=== PATIENT | female | born 1950 | race Caucasian/White ===

== ENCOUNTER 2024-07-16 06:17 | Inpatient (IN) | payer OTHER ==
[2024-07-16] VITALS (9 sets, daily range): BP systolic 146–152; BP diastolic 68–73; PULSE 105–124; RESP 16–25; TEMP 97.5–98.3; O2SAT 90–98
[~2024-07-16] VITALS: Ht 162.6 cm; Wt 94.0 kg
[~2024-07-16 06:17] MED LIST: BACL10TA PO; CEFD300C2 PO; DULO-141 PO; HYDR-4798 PO; METO-289 PO; PHEN-922 PO; PRAV20TA3 PO; TRAM50TA2 PO
--- NOTE | 2024-07-16 06:31 | ECG ---
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
--- NOTE | 2024-07-16 06:36 | ED.PDOC ---
History of Present Illness HPI Comments 73Y F with PMHx HTN, seizure disorder, psoriatic arthritis, lupus, appendectomy, and hysterectomy presents to ED via EMS for chief complaint abd pain with dysuria, urinary frequency, and poor appetite. Pt states she has had a UTI for one month and is currently on her second round of abx. Pt was first prescribed Cephalexin and is now taking Cipro. Pt symptoms have not improved. Pt denies hematuria and foul urine odor. Allergies include Phenobarbital. Chief Complaint: Abdominal Pain Time Seen by MD: 06:21 Reviewed Notes: Medications, Allergies Allergies: Coded Allergies: Phenobarbital (Verified Allergy, Unknown, 09/20/23) Home Meds Active Scripts Phenazopyridine HCl (Phenazopyridine Hydrochlo) 200 Mg Tab, 200 MG PO TID for 3 Days, #9 TAB Prov:SABINO [employer] [employer] GAUGER 09/22/23 Cefdinir (Cefdinir) 300 Mg Cap, 1 CAP PO BID for 7 Days, #14 CAP Prov:SABINO [employer] GAUGER 09/22/23 Reported Medications Tramadol Hcl (Tramadol Hcl) 50 Mg Tab, 50 MG PO, TAB 09/20/23 Hydrocodone-Acetaminophen (Hydrocodone Bitartrate/AC 10-325 mg) 1 Tab Tab, 1 TAB PO, TAB 09/20/23 Duloxetine Hydrochloride (Duloxetine Hydrochloride) 30 Mg Cap, 1 CAP PO BID 09/20/23 Metoprolol Succinate (Metoprolol Succinate Er) 50 Mg Tab, 1 TAB PO DAILY 09/20/23 Pravastatin Sodium (PRAVACHOL TABLET) 20 Mg Tb, 1 TAB PO DAILY 09/20/23 Baclofen (Baclofen) 10 Mg Tab, 1 TAB PO BID 09/20/23 Information Source: Patient Mode of Arrival: EMS Severity: Mild Timing: Weeks Duration: Since onset Past Medical History PAST MEDICAL HISTORY: Arthritis, HTN, Seizures Past Medical History (Other): Lupus Surgical History: Appendectomy, Hysterectomy PARTS ROOM ASSISTANT History: Denies all PARTS ROOM ASSISTANT Hx Family History Family History: Unknown Social History Smoker: Non-Smoker Alcohol: Denies ETOH Use Drugs: Denies Drug Use Lives In: Home Constitutional: denies: chills, diaphoresis, fatigue, fever, malaise, sweats, weakness, others EENTM: denies: blurred vision, double vision, ear bleeding, ear discharge, ear drainage, ear pain, ear ringing, eye pain, eye redness, hearing loss, mouth pain, mouth swelling, nasal discharge, nose bleeding, nose congestion, nose pain, photophobia, tearing, throat pain, throat swelling, voice changes, others Respiratory: denies: cough, hemoptysis, orthopnea, SOB at rest, shortness of breath, SOB with excertion, stridor, wheezing, others Cardiovascular: denies: chest pain, dizzy spells, diaphoresis, Dyspnea on exertion, edema, irregular heart beat, left arm pain, lightheadedness, palpitations, PND, syncope, others Gastrointestinal: reports: abdominal pain, poor appetite; denies: abdomen distended, blood streaked bowels, constipated, diarrhea, dysphagia, difficulty swallowing, hematemesis, melena, nausea, poor fluid intake, rectal bleeding, rectal pain, vomiting, others Genitourinary: reports: burning, dysuria, frequency; denies: abnormal vagina bleeding, dyspareunia, flank pain, hematuria, incontinence, pain, , vagina discharge, urgency, others Neurological: denies: dizziness, fainting, headache, left sided numbness, left sided weakness, numbness, paresthesia, pre-existing deficit, right sided numbness, right sided weakness, seizure, speech problems, tingling, tremors, weakness, others Musculoskeletal: denies: back pain, gout, joint pain, joint swelling, muscle pain, muscle stiffness, neck pain, others Integumetry: denies: bruises, change in color, change in hair/nails, dryness, laceration, lesions, lumps, rash, wounds, others Allergic/Immunocompromised: denies: Difficulty Healing, Frequent Infections, Hives, Itching, others Hematologic/Lymphatic: denies: anemia, blood clots, easy bleeding, easy bruising, swollen glands, others Endocrine: denies: excessive hunger, excessive sweating, excessive thirst, excessive urination, flushing, intolerance to cold, intolerance to heat, unexplained weight gain, unexplained weight loss, others Psychiatric: denies: anxiety, bipolar disorder, depression, hopeless, panic disorder, schizophrenia, sleepless, suicidal, others All Other Systems: Reviewed and Negative Physical Exam General Appearance: No Apparent Distress, Normal HEENT: Normal ENT Inspection, Pharynx Normal, TMs Normal Neck: Full Range of Motion, Non-Tender, Normal, Normal Inspection Respiratory: Chest Non-Tender, Lungs Clear, No Accessory Muscle Use, No Respiratory Distress, Normal Breath Sounds Cardiovascular: No Edema, No JVD, No Murmur, No Gallop, Normal Peripheral Pulses, Regular Rate/Rhythm Breast Exam: Deferred Gastrointestinal: No Organomegaly, Non Tender, No Pulsatile Mass, Normal Bowel Sounds, RLQ, Soft Genitalia: Deferred Pelvic: Deferred Rectal: Deferred Extremities: No calf tenderness, Normal capillary refill, Normal inspection, Normal range of motion, Non-tender, No pedal edema Musculoskeletal : Apperance: Normal Neurologic: Alert, bracer II-XII nml as Tested, No Motor Deficits, Normal Affect, Normal Mood, No Sensory Deficits Cerebellar Function: Normal Reflexes: Normal Skin: Dry, Normal Color, Warm Lymphatic: No Adenopathy Was a procedure done? Was a procedure done?: No Differential Dx Considerations may include: kidney stone, bladder outlet obstruction, uti, colitis, renal mass, pyelonephritis, sbo X-Ray, Labs, Meds, VS Vital Signs Date Time Temp Pulse Resp B/P (MAP) Pulse Ox O2 Delivery O2 Flow Rate FiO2 07/16/24 09:00 118 20 172/74 (106) 07/16/24 07:30 124 20 169/84 (112) 96 07/16/24 07:30 124 20 96 Nasal Cannula* 2 28 07/16/24 06:30 124 25 90 Room Air* 0 21 07/16/24 06:30 98.3 124 25 175/85 (115) 90 98.3 07/16/24 06:27 123 07/16/24 06:27 98.6 122 20 123/72 (89) 94 Lab Test 07/16/24 07:30 07/16/24 06:57 Range/Units Urine Color Light-brown Yellow Urine Clarity Turbid H Clear Urine pH 7.0 5.0-9.0 Urine Specific [place] 1.011 1.001-1.035 Urine Protein 2+ H Negative Urine Ketones Negative Negative Urine Blood 3+ H Negative /uL Urine Nitrite Negative Negative Urine Bilirubin Negative Negative Urine Urobilinogen Normal Negative mg/dL Urine Leukocyte Esterase Trace Negative /uL Urine RBC 438 0 - 4 /hpf Urine WBC 19 0 - 5 /hpf Urine Squamous Epithelial Cells None seen <5 /hpf Urine Bacteria None seen None Seen /hpf Urine Mucus Few None Seen Urine Glucose Normal Normal mg/dL White Blood Count 12.4 H 4.4-10.8 10^3/uL Red Blood Count 4.04 4.0-5.20 10^6/uL Hemoglobin 12.1 L 12.2-16.2 g/dL Hematocrit 37.0 36.0-46.0 % Mean Corpuscular Volume 91.5 80.0-100.0 fL Mean Corpuscular Hemoglobin 29.8 28.0-32.0 pg Mean Corpuscular Hemoglobin Concent 32.6 32.0-36.0 g/dL Red Cell Distribution Width 13.7 11.8-14.3 % Platelet Count 372 140-450 10^3/uL Mean Platelet Volume 6.8 L 6.9-10.8 fL Neutrophils (%) (Auto) 79.6 37.0-80.0 % Lymphocytes (%) (Auto) 12.5 10.0-50.0 % Monocytes (%) (Auto) 6.4 0.0-12.0 % Eosinophils (%) (Auto) 0.6 0.0-7.0 % Basophils (%) (Auto) 0.9 0.0-2.0 % Neutrophils # (Auto) 9.9 H 1.6-8.6 10 ^3/uL Lymphocytes # (Auto) 1.5 0.4-5.4 10 ^3/uL Monocytes # (Auto) 0.8 0-1.3 10 ^3/uL Eosinophils # (Auto) 0.1 0-0.8 10 ^3/uL Basophils # (Auto) 0.1 0-0.2 10 ^3/uL Nucleated Red Blood Cells 0.0 % Sodium Level 141 136-145 mmol/L Potassium Level 4.7 3.5-5.1 mmol/L Chloride Level 109 H 98-107 mmol/L Carbon Dioxide Level 26 20-31 mmol/L Anion Gap 6 5-15 Blood Urea Nitrogen 17 9-23 mg/dL Creatinine 2.00 H 0.550-1.02 mg/dL Glomerular Filtration Rate Calc 26 >90 mL/min BUN/Creatinine Ratio 8.5 L 10.0-20.0 Serum Glucose 117 H 74-106 mg/dL Calcium Level 8.7 8.7-10.4 mg/dL Total Bilirubin 0.5 0.2-1.0 mg/dL Aspartate Amino Transferase (AST) 18 13-40 U/L Alanine Aminotransferase (ALT) 9 7-40 U/L Alkaline Phosphatase 82 46-116 U/L Total Protein 7.5 5.7-8.2 g/dL Albumin 3.7 3.2-4.8 g/dL Lipase 21 12-53 U/L [place] [id number] Ph: [phone] DIAGNOSTIC IMAGING Diagnostic Imaging Report : [id number] Signed PATIENT: PIOTR CEJA ACCT: [id number] UNIT: [id number] : 1950 LOC: ER ROOM / BED: / AGE / SEX: 73 / F ADM STATUS: REG ER SERVICE 8 ORDERING PHYSICIAN: KATYA SINCLAIR MD PROCEDURE(s): ABPL - CT AB PEL WO CON-NO ORAL OR IV REASON: rlq pain ORDER NUMBER(s): [id number], ACCESSION NUMBER(s): [id number] Exam: CT CT AB PEL WO CON-NO ORAL OR IV History: rlq pain Comparison Study: None available at time of dictation. TECHNIQUE: Multidetector CT of the abdomen and pelvis was performed from lung bases to ischial tuberosities. Imaging was performed without IV contrast using axial images. Coronal and sagittal reformats were obtained from the axial data set by the technologist. Radiation Dose Information: CT Dose: CTDI volume is 21.01 mGy. Dose-length product is 1215.7 mGy*cm FINDINGS: Evaluation of solid organs is limited due to lack of intravenous contrast use. Findings: Lung Bases: There are small bilateral pleural effusions. Bibasilar atelectasis. No acute or significant lung base finding. Normal heart size. No pleural or pericardial effusion. Liver: The liver is normal in size. No focal lesions. Hepatic steatosis. Gallbladder and Biliary Tree: Gallbladder is unremarkable. No biliary ductal dilatation. Spleen: Unremarkable Pancreas: The pancreas is grossly normal in appearance. Adrenal Glands: Unremarkable Kidneys: Kidneys are grossly normal without calculi or hydronephrosis. GI Tract: The stomach is grossly normal in appearance. Small bowel and colon are normal in caliber and distribution. The appendix is not visualized; however, no secondary findings of acute appendicitis identified. Peritoneal cavity: No pneumoperitoneum. No ascites. Lymphadenopathy: No mesenteric, retroperitoneal or periportal lymphadenopathy. Abdominal Wall and Mesentery: Unremarkable. Vasculature: The visualized abdominal aorta is normal in size and caliber. Evaluation of abdominal and pelvic vessels is limited due to lack of intravenous contrast. Pelvic Organs: Unremarkable Urinary Bladder: Cunningham catheter in the urinary bladder. Musculoskeletal: No aggressive focal bony lesions, acute fractures or dislocation. Multilevel lumbar spondylosis. Bilateral hip osteoarthritis. Soft tissues: Unremarkable IMPRESSION: 1. No acute abdominal or pelvic finding. 2. Hepatic steatosis. Radiation optimization: All CT scans at this facility use at least one of these dose optimization techniques: automated exposure control mA and/or kV adjustment per patient size (includes targeted exams where dose is matched to clinical indication) or iterative reconstruction. ATED BY: ENRRIQUE GARCIA MD DICTATED DATE/TIME: 07/16/24835 SIGNED BY: ENRRIQUE GARCIA MD SIGNED DATE/TIME: 07/16/24835 CC: Time of 1ST Reevaluation: 06:51 Reevaluation 1ST: Unchanged Time of 2ND Reevaluation: 09:23 Reevaluation 2ND: Unchanged (pt is now tearful, still repors pain) Patient Education/Counseling: Diagnosis, Treatment, Prognosis, Need For Follow Up Family Education/Counseling: No Family Present Additional Information pt has hematuria, but no other findings on the ct. her renal function has decreased since september. she will be admitted for acute renal failure, hematuria, intractable lower abdominal pain Departure 1 Departure Time of Disposition: 09:24 Impression: Primary Impression: Acute renal failure Qualified Codes: N17.9 - Acute kidney failure, unspecified Additional Impressions: Intractable abdominal pain Hematuria Qualified Codes: R31.9 - Hematuria, unspecified Disposition: ADMITTED INPATIENT Admit to: Med Surg Condition: Stable Discharged With: Self Critical Care Note Critical Care Time?: Yes (55 min-critical care time only) Critical care comment: due to real concerns for pt's condition deteriorating, the patient's care required my highest level of attention and prepareness to intervene. i assessed this patient, formulated a plan of care, communicated with medical personnel,reveiwed data and results,andconversed with specialty sales consultant, reassessed the patient's condition and response to treatments. total time includde at [facility] 50% face-face interactions and does not include any procedures Stability Stability form required: No I personally scribed for KATYA SINCLAIR MD ([facility]) on 07/16/24 at 06:36. Electronically submitted by Diane Narvaez ([facility] I personally scribed for KATYA SINCLAIR MD ([facility]) on 07/16/24 at 09:00. Electronically submitted by Diane Narvaez ([facility] KATYA SINCLAIR MD Jul 16, 2024 06:36
[2024-07-16 07:36] LABS: Basophils # (auto) 0.1 10 ^3/uL (0-0.2); Basophils % (auto) 0.9 % (0.0-2.0); Eosinophils # (auto) 0.1 10 ^3/uL (0-0.8); Eosinophils % (auto) 0.6 % (0.0-7.0); Hemoglobin 12.1 g/dL (12.2-16.2); Lymphocytes # (auto) 1.5 10 ^3/uL (0.4-5.4); Lymphocytes % (auto) 12.5 % (10.0-50.0); Mean Corpuscular Hemoglobin 29.8 pg (28.0-32.0); Mean Corpuscular Hgb Conc. 32.6 g/dL (32.0-36.0); Mean Corpuscular Volume 91.5 fL (80.0-100.0); Monocytes # (auto) 0.8 10 ^3/uL (0-1.3); Monocytes % (auto) 6.4 % (0.0-12.0); Neutrophils # (auto) 9.9 10 ^3/uL (1.6-8.6); Neutrophils % (auto) 79.6 % (37.0-80.0); Platelet Count (auto) 372 10^3/uL (140-450); Red Blood Cells 4.04 10^6/uL (4.0-5.20); Red Cell Distribution Width 13.7 % (11.8-14.3); White Blood Cell 12.4 10^3/uL (4.4-10.8)
[2024-07-16 07:47] LABS: Albumin 3.7 g/dL (3.2-4.8); Alkaline Phosphatase 82 U/L (46-116); Anion Gap 6 (5-15); Aspartate Aminotransferase 18 U/L (13-40); BUN/Creatinine Ratio 8.5 (10.0-20.0); Blood Urea Nitrogen 17 mg/dL (9-23); Calcium 8.7 mg/dL (8.7-10.4); Carbon Dioxide 26 mmol/L (20-31); Chloride 109 mmol/L (98-107); Glucose 117 mg/dL (74-106); Lipase 21 U/L (12-53); Potassium 4.7 mmol/L (3.5-5.1); Sodium 141 mmol/L (136-145)
[2024-07-16 07:48] LABS: Total Protein 7.5 g/dL (5.7-8.2)
[2024-07-16 07:50] LABS: Alanine Aminotransferase 9 U/L (7-40)
[2024-07-16 07:51] LABS: Bilirubin, Total 0.5 mg/dL (0.2-1.0)
[2024-07-16 07:58] LABS: Urine Bacteria None Seen /hpf (None Seen)
[2024-07-16 08:15] LABS: Urine Blood 3+ /uL (Negative); Urine Clarity Turbid (Clear); Urine Color Light-Brown (Yellow); Urine Mucus FEW (None Seen); Urine Protein, UAD 2+ (Negative); Urine Specific Gravity 1.011 (1.001-1.035); Urine Urobilinogen Normal (Negative); Urine WBC 19 /hpf (0 - 5)
--- NOTE | 2024-07-16 08:39 | DVH ---
Exam: CT CT AB PEL WO CON-NO ORAL OR IV History: rlq pain Comparison Study: None available at time of dictation. TECHNIQUE: Multidetector CT of the abdomen and pelvis was performed from lung bases to ischial tubero sities. Imaging was performed without IV contrast using axial images. Coronal and sagittal reformats were obtained from the axial data set by the technologist. Radiation Dose Information: CT Dose: CTDI volume is 21.01 mGy. Dose-length product is 1215.7 mGy*cm FINDINGS: Evaluation of solid organs is limited due to lack of intravenous contrast use. Findings: Lung Bases: There are small bilateral pleural effusions. Bibasilar atelectasis. No acute or significa nt lung base finding. Normal heart size. No pleural or pericardial effusion. Liver: The liver is normal in size. No focal lesions. Hepatic steatosis. Gallbladder and Biliary Tree: Gallbladder is unremarkable. No biliary ductal dilatation. Spleen: Unremarkable Pancreas: The pancreas is grossly normal in appearance. Adrenal Glands: Unremarkable Kidneys: Kidneys are grossly normal without calculi or hydronephrosis. GI Tract: The stomach is grossly normal in appearance. Small bowel and colon are normal in caliber an d distribution. The appendix is not visualized; however, no secondary findings of acute appendicitis identified. Peritoneal cavity: No pneumoperitoneum. No ascites. Lymphadenopathy: No mesenteric, retroperitoneal or periportal lymphadenopathy. Abdominal Wall and Mesentery: Unremarkable. Vasculature: The visualized abdominal aorta is normal in size and caliber. Evaluation of abdominal a nd pelvic vessels is limited due to lack of intravenous contrast. Pelvic Organs: Unremarkable Urinary Bladder: Cunningham catheter in the urinary bladder. Musculoskeletal: No aggressive focal bony lesions, acute fractures or dislocation. Multilevel lumbar spondylosis. Bilateral hip osteoarthritis. Soft tissues: Unremarkable IMPRESSION: 1. No acute abdominal or pelvic finding. 2. Hepatic steatosis. Radiation optimization: All CT scans at this facility use at least one of these dose optimization matthieu hniques: automated exposure control mA and/or kV adjustment per patient size (includes targeted exam s where dose is matched to clinical indication) or iterative reconstruction.
[2024-07-16] MEDS: SODIUM CHLORIDE 0.9% 1,000 ML IV ONE (09:30)
[2024-07-16] MEDS: ONDANSETRON HCL 4 MG/2 ML VIAL IV ONE (09:52)
[2024-07-16] MEDS: fentaNYL CITRATE 100 MCG/2 ML VL IV ONE (09:53)
[2024-07-16] MEDS: SODIUM CHLORIDE 0.9% 1,000 ML IV SCH (12:45)
--- NOTE | 2024-07-16 13:27 | DVHHP2 ---
History of Present Illness Reason for Visit: Abdominal pain History of Present Illness This 73-year-old female presents in the ED with a chief complaint of abdominal pain with dysuria, urinary frequency, and poor appetite. The patient reports currently being treated for UTI with Cipro with no improvement. The patient denies fever, hematuria, or flank pain. Past medical history of hypertension, lupus, psoriatic arthritis, seizures, bilateral lower extremity edema, and recurrent UTI. Past Medical History Stated in HPI Past Surgical History Hysterectomy, appendectomy Family History Reviewed, non-contributory to the management of this case. Past Social History The patient lives at home, denies smoking, alcohol or illicit drugs abuse. Review of Systems Constitutional: Yes: Malaise; No: Fever, Chills, Sweats, Weakness, Other Eyes: No: Pain, Vision change, Conjunctivae inflammation, Eyelid inflammation, Other, Redness ENT: No: Ear pain, Ear discharge, Nose pain, Nose discharge, Nose congestion, Mouth pain, Mouth swelling, Throat pain, Throat swelling, Other Respiratory: No: Cough, Dry, Shortness of breath, SOB with excertion, Wheezing, Hemoptysis, Pleuritic Pain, Sputum, Wheezing, Other Cardiovascular: No: Chest Pain, Palpitations, Orthopnea, Paroxysmal Noc. Dyspnea, Edema, Lt Headedness, Other Gastrointestinal: Abdominal Pain; No: Nausea, Vomiting, Diarrhea, Constipation, Melena, Hematochezia, Other Genitourinary: Dysuria, Frequency; No Incontinence, No Hematuria, No Retention, No Other Musculoskeletal: No: other, neck pain, shoulder pain, arm pain, back pain, hand pain, leg pain, foot pain Skin: Rash Neurological: No: Weakness, Numbness, Incoordination, Change in speech, Confusion, Seizures, Other Allergies: Coded Allergies: Phenobarbital (Verified Allergy, Unknown, 09/20/23) Exam Vital Signs Vital Signs Date Time Temp Pulse Resp B/P (MAP) Pulse Ox O2 Delivery O2 Flow Rate FiO2 07/16/24 12:00 105 07/16/24 12:00 18 140/54 (82) 96 07/16/24 07:30 Nasal Cannula* 2 28 07/16/24 06:30 98.3 98.3 General Appearance: Alert, Oriented X3, Cooperative, mild distress HEENT: Atraumatic, PERRLA Respiratory: Clear to auscultation, Normal air movement Cardiovascular: Regular rate, Normal S1 Abdominal: Normal bowel sounds, No tenderness Extremities: Other (Bilateral lower extremity edema. Vasculitis upper/lower extremity) Neuro: Normal speech, Normal tone Psych/Mental Status: Mental status NL Labs/Xrays Labs Test 07/16/24 07:30 07/16/24 06:57 Range/Units Urine Color Light-brown Yellow Urine Clarity Turbid H Clear Urine pH 7.0 5.0-9.0 Urine Specific [place] 1.011 1.001-1.035 Urine Protein 2+ H Negative Urine Ketones Negative Negative Urine Blood 3+ H Negative /uL Urine Nitrite Negative Negative Urine Bilirubin Negative Negative Urine Urobilinogen Normal Negative mg/dL Urine Leukocyte Esterase Trace Negative /uL Urine RBC 438 0 - 4 /hpf Urine WBC 19 0 - 5 /hpf Urine Squamous Epithelial Cells None seen <5 /hpf Urine Bacteria None seen None Seen /hpf Urine Mucus Few None Seen Urine Glucose Normal Normal mg/dL White Blood Count 12.4 H 4.4-10.8 10^3/uL Red Blood Count 4.04 4.0-5.20 10^6/uL Hemoglobin 12.1 L 12.2-16.2 g/dL Hematocrit 37.0 36.0-46.0 % Mean Corpuscular Volume 91.5 80.0-100.0 fL Mean Corpuscular Hemoglobin 29.8 28.0-32.0 pg Mean Corpuscular Hemoglobin Concent 32.6 32.0-36.0 g/dL Red Cell Distribution Width 13.7 11.8-14.3 % Platelet Count 372 140-450 10^3/uL Mean Platelet Volume 6.8 L 6.9-10.8 fL Neutrophils (%) (Auto) 79.6 37.0-80.0 % Lymphocytes (%) (Auto) 12.5 10.0-50.0 % Monocytes (%) (Auto) 6.4 0.0-12.0 % Eosinophils (%) (Auto) 0.6 0.0-7.0 % Basophils (%) (Auto) 0.9 0.0-2.0 % Neutrophils # (Auto) 9.9 H 1.6-8.6 10 ^3/uL Lymphocytes # (Auto) 1.5 0.4-5.4 10 ^3/uL Monocytes # (Auto) 0.8 0-1.3 10 ^3/uL Eosinophils # (Auto) 0.1 0-0.8 10 ^3/uL Basophils # (Auto) 0.1 0-0.2 10 ^3/uL Nucleated Red Blood Cells 0.0 % Sodium Level 141 136-145 mmol/L Potassium Level 4.7 3.5-5.1 mmol/L Chloride Level 109 H 98-107 mmol/L Carbon Dioxide Level 26 20-31 mmol/L Anion Gap 6 5-15 Blood Urea Nitrogen 17 9-23 mg/dL Creatinine 2.00 H 0.550-1.02 mg/dL Glomerular Filtration Rate Calc 26 >90 mL/min BUN/Creatinine Ratio 8.5 L 10.0-20.0 Serum Glucose 117 H 74-106 mg/dL Calcium Level 8.7 8.7-10.4 mg/dL Total Bilirubin 0.5 0.2-1.0 mg/dL Aspartate Amino Transferase (AST) 18 13-40 U/L Alanine Aminotransferase (ALT) 9 7-40 U/L Alkaline Phosphatase 82 46-116 U/L Total Protein 7.5 5.7-8.2 g/dL Albumin 3.7 3.2-4.8 g/dL Lipase 21 12-53 U/L PROCEDURE(s): BLDVT - BiLat Lower DVT REASON: bilat LE swelling, erythema ORDER NUMBER(s): [id number], ACCESSION NUMBER(s): [id number] Bilateral lower extremity venous duplex Clinical History: bilat LE swelling, erythema Comparison: None Technique: Duplex Doppler evaluation of the deep venous systems of both lower extremities from the common femoral veins to the popliteal veins including color Doppler and spectral/pulsed waveform analysis was performed. Findings: RIGHT SIDE: The common femoral vein demonstrates appropriate compressibility and waveform variability. There is compressibility/patency of the great saphenous vein at the proximal thigh. The femoral vein demonstrates appropriate compressibility and waveform variability. The deep femoral vein demonstrates appropriate compressibility and waveform variability. The popliteal vein demonstrates appropriate compressibility and waveform variability. LEFT SIDE: The common femoral vein demonstrates appropriate compressibility and waveform variability. There is compressibility/patency of the great saphenous vein at the proximal thigh. The femoral vein demonstrates appropriate compressibility and waveform variability. The deep femoral vein demonstrates appropriate compressibility and waveform variability. The popliteal vein demonstrates appropriate compressibility and waveform variability. Impression: 1. No right or left deep venous thrombosis. Assessment/Plan Assessment/Plan # acute cystitis # acute renal failure Admit to med/tele unit Ceftriaxone Urine and blood culture IV fluid Nephrology consult Avoid nephrotoxins # hypertension Amlodipine Hydralazine as needed Monitor bp # bilateral lower and upper extremity vasculitis Monitor # bilateral lower extremity non pitting edema, ?lymphedema # rule DVT Doppler Ultrasound low extremity DVT prophylaxis # obesity Lifestyle modification counseled # lupus # hx seizures Medical plan discussed with patient and spouse Plan discussed with: Patient, Spouse My Orders Orders - GUIDO HILL Procedure Category Date Status Time Admit ADMIT 07/16/24 Verified 12:43 Code Status CODE 07/16/24 Verified 12:43 0.9% Ns 1000 Ml PHA 07/16/24 Verified 12:45 Enoxaparin Sodium PHA 07/17/24 Verified (Lovenox) 10:00 Complete Blood Count LAB 07/17/24 Verified 04:00 Comprehensive LAB 07/17/24 Verified Metabolic Panel 04:00 Cardiac DIET 07/16/24 Verified Diet-2gna,Lofat,Lochol Lunch Condition: Fair DAX 07/16/24 Verified 12:43 *[facility] CONS 07/16/24 Verified -[place] 12:43 Hydralazine Injection PHA 07/16/24 Verified (Apresoline Inject 12:45 Amlodipine Tablet PHA 07/16/24 Verified (Norvasc Tablet) 12:45 Amlodipine Tablet PHA 07/17/24 Verified (Norvasc Tablet) 10:00 Bilat Lower Dvt US 07/16/24 Verified 12:43 Urine Bacterial KENIA 07/16/24 Verified Culture 12:43 Blood Culture KENIA 07/16/24 Verified 12:43 Ceftriaxone Ivpb PHA 07/17/24 Verified Rocephin 09:00 Ceftriaxone Ivpb PHA 07/16/24 Verified Rocephin 12:45 Date of Service: Jul 16, 2024 Billing Provider: GUIDO HILL Common Visit Codes: [id number] INP/OBS CARE (HIGH) GUIDO HILL Jul 16, 2024 13:27
[2024-07-16] MEDS: amLODIPine BESYLATE 5 MG TAB PO ONE (13:30)
[2024-07-16] MEDS: cefTRIAXone 1GM/50ML D5W 50 ML IV ONE (13:31)
[2024-07-16] MEDS: MORPHINE SULFATE INJ 2 MG/ml SYRG IV ONE (14:16)
--- NOTE | 2024-07-16 14:20 | DVH ---
Bilateral lower extremity venous duplex Clinical History: bilat LE swelling, erythema Comparison: None Technique: Duplex Doppler evaluation of the deep venous systems of both lower extremities from the common femora l veins to the popliteal veins including color Doppler and spectral/pulsed waveform analysis was perf ormed. Findings: RIGHT SIDE: The common femoral vein demonstrates appropriate compressibility and waveform variability. There is compressibility/patency of the great saphenous vein at the proximal thigh. The femoral vein demonstrates appropriate compressibility and waveform variability. The deep femoral vein demonstrates appropriate compressibility and waveform variability. The popliteal vein demonstrates appropriate compressibility and waveform variability. LEFT SIDE: The common femoral vein demonstrates appropriate compressibility and waveform variability. There is compressibility/patency of the great saphenous vein at the proximal thigh. The femoral vein demonstrates appropriate compressibility and waveform variability. The deep femoral vein demonstrates appropriate compressibility and waveform variability. The popliteal vein demonstrates appropriate compressibility and waveform variability. Impression: 1. No right or left deep venous thrombosis.
[2024-07-16] MEDS: hydrALAZINE HCL 20 MG/ML VL IV PRN (16:09)
[2024-07-16] MEDS: IPRATROPIUM BROM 0.5 MG/2.5ML INH SOL NEB SCH (20:22)
[2024-07-16] MEDS: ALBUTEROL SULF 2.5 MG/0.5ML(0.5%) NEB SOLN NEB SCH (20:23)
[2024-07-16] MEDS: MORPHINE SULFATE INJ 2 MG/ml SYRG IV PRN (20:33)
[2024-07-17] VITALS (18 sets, daily range): BP systolic 115–158; BP diastolic 59–84; PULSE 96–117; RESP 15–24; TEMP 98–98.9; O2SAT 83–100
[2024-07-17 07:52] LABS: Alanine Aminotransferase 15 U/L (7-40); Albumin 3.4 g/dL (3.2-4.8); Alkaline Phosphatase 95 U/L (46-116); Anion Gap 11 (5-15); Aspartate Aminotransferase 27 U/L (13-40); BUN/Creatinine Ratio 12.1 (10.0-20.0); Blood Urea Nitrogen 25 mg/dL (9-23); Calcium 8.5 mg/dL (8.7-10.4); Carbon Dioxide 23 mmol/L (20-31); Chloride 109 mmol/L (98-107); Glucose 121 mg/dL (74-106); Potassium 4.9 mmol/L (3.5-5.1); Sodium 143 mmol/L (136-145)
[2024-07-17 07:53] LABS: Bilirubin, Total 0.4 mg/dL (0.2-1.0); Phosphorus 5.9 mg/dL (2.4-5.1); Total Protein 7.1 g/dL (5.7-8.2)
[2024-07-17 07:57] LABS: Basophils # (auto) 0.1 10 ^3/uL (0-0.2); Basophils % (auto) 0.5 % (0.0-2.0); Eosinophils # (auto) 0.1 10 ^3/uL (0-0.8); Eosinophils % (auto) 0.6 % (0.0-7.0); Hematocrit 39.1 % (36.0-46.0); Hemoglobin 12.4 g/dL (12.2-16.2); Lymphocytes % (auto) 8.2 % (10.0-50.0); Mean Corpuscular Hemoglobin 29.5 pg (28.0-32.0); Mean Corpuscular Hgb Conc. 31.6 g/dL (32.0-36.0); Mean Corpuscular Volume 93.3 fL (80.0-100.0); Monocytes # (auto) 0.6 10 ^3/uL (0-1.3); Monocytes % (auto) 5.1 % (0.0-12.0); Neutrophils # (auto) 10.8 10 ^3/uL (1.6-8.6); Neutrophils % (auto) 85.6 % (37.0-80.0); Nucleated Red Blood Cells % 0.1 %; Platelet Count (auto) 435 10^3/uL (140-450); Red Blood Cells 4.19 10^6/uL (4.0-5.20); Red Cell Distribution Width 13.9 % (11.8-14.3); White Blood Cell 12.7 10^3/uL (4.4-10.8)
[2024-07-17] MEDS: cefTRIAXone 1GM/50ML D5W 50 ML IV SCH (08:46)
[2024-07-17] MEDS: ENOXAPARIN SOD 30 MG/0.3 ML SYRINGE SC SCH (08:47)
[2024-07-17] MEDS: amLODIPine BESYLATE 5 MG TAB PO SCH (08:47)
[2024-07-17 08:50] LABS: Uric Acid 6.5 mg/dL (3.1-7.8)
--- NOTE | 2024-07-17 10:20 | DVH ---
INDICATION: CKD. TECHNIQUE: Multiple real-time sonographic images of the kidneys and urinary bladder were obtained. COMPARISON: US KIDNEY on DOS: 09/20/23 FINDINGS: The right kidney measures 12.1 cm in length. The right renal echotexture, contour and cortical thickn ess are within normal limits. No hydronephrosis or large masses/calculi are seen. The left kidney measures 10.0 cm in length. The left renal echotexture, contour, and cortical thickne ss are within normal limits. No hydronephrosis or large masses/calculi are seen. No echogenic intraluminal masses are seen in the bladder. Folet catheter. No urinary bladder wall abn ormality. Bilateral ureteral jets are not visualized Prevoid residual measures 0 cc. IMPRESSION: 1. Unremarkable examination.
--- NOTE | 2024-07-17 11:50 | DVHCONRES ---
Date Seen: Jul 17, 2024 Resident Creating Document: JHAJJ,SARPUNEET RESIDENT Referring Physician JANICE Landers Reason for Consultation ARF History of Present Illness Patient is a 73-year-old female with a past medical history of hypertension, lupus, psoriatic arthritis came to the ED with a chief complaint of abdominal pain. Patient reported worsening abdominal pain associated with dysuria, urinary frequency, poor appetite. Patient reported that she was being treated for recurrent UTI with ciprofloxacin but has no improvement. Patient reported that since the past 3 weeks she is having worsening shortness of breath associated with phlegm which was initially clear which is green in color associated with fever and chills. Patient reports that she has been diagnosed with lupus since the 80s initially she was on on a medication for fever but she stopped. She was diagnosed with psoriatic arthritis and has been on multiple medication and about 3 months ago she was started on Rinvoq (upadacitinib). Patient also consulted pyrotechnic mixer recently because of her high WBC count, leukemia was ruled out as per the patient. Past Medical History hypertension, lupus, psoriatic arthritis Past Surgical History Right total knee replacement Family History: Diabetes mellitus G8 MOTHER Hypertension G8 MOTHER Prostate carcinoma G8 FATHER Social History Patient denies smoking, alcohol, drug use Allergies: Coded Allergies: Phenobarbital (Verified Allergy, Unknown, 09/20/23) Home Meds Active Scripts Phenazopyridine HCl (Phenazopyridine Hydrochlo) 200 Mg Tab, 200 MG PO TID for 3 Days, #9 TAB Prov:SABINO ELY RN ANESTHESIOLOGY 09/22/23 Cefdinir (Cefdinir) 300 Mg Cap, 1 CAP PO BID for 7 Days, #14 CAP Prov:SABINO ELY RN ANESTHESIOLOGY 09/22/23 Reported Medications Tramadol Hcl (Tramadol Hcl) 50 Mg Tab, 50 MG PO, TAB 09/20/23 Hydrocodone-Acetaminophen (Hydrocodone Bitartrate/AC 10-325 mg) 1 Tab Tab, 1 TAB PO, TAB 09/20/23 Duloxetine Hydrochloride (Duloxetine Hydrochloride) 30 Mg Cap, 1 CAP PO BID 09/20/23 Metoprolol Succinate (Metoprolol Succinate Er) 50 Mg Tab, 1 TAB PO DAILY 09/20/23 Pravastatin Sodium (PRAVACHOL TABLET) 20 Mg Tb, 1 TAB PO DAILY 09/20/23 Baclofen (Baclofen) 10 Mg Tab, 1 TAB PO BID 09/20/23 Current Medications Current Medications Medications (Trade) Dose Ordered Sig/Kendell Route PRN Reason Start Time Stop Time Status Last Admin Sodium Chloride 1,000 ml @ 75 mls/hr [id number] IV 07/16/24 12:45 07/17/24 05:43 Enoxaparin Sodium (Lovenox) 30 mg DAILY SC 07/17/24 10:00 07/17/24 08:47 Hydralazine HCl (Apresoline Injection) 10 mg Q6HP PRN IV SBP>150 07/16/24 12:45 07/17/24 05:39 Amlodipine Besylate (Norvasc Tablet) 5 mg DAILY PO 07/17/24 10:00 07/17/24 08:47 Ceftriaxone Sodium 50 ml @ 100 mls/hr DAILY@09 IV 07/17/24 09:00 07/17/24 08:46 Morphine Sulfate 2 mg Q6HPRN PRN IV SEVERE PAIN (7-10 PAIN SCALE) 07/16/24 19:00 07/17/24 02:58 Albuterol (Ventolin Medneb) 2.5 mg Q4HWA [facility] [place] 07/16/24 22:00 07/17/24 09:37 Ipratropium [place] (Atrovent Medneb) 0.5 mg Q4HWA [facility] [place] 07/16/24 22:00 07/17/24 09:37 Review of Systems Patient seen and examined at the bedside. Patient is alert and oriented to time, place and person. Patient's blood pressure 158/77 mmHg, heart rate 106 per minute regular, SpO2 97% on 3 L O2 per minute via nasal cannula. Patient reports [id number] abdominal pain in the periumbilical area, no shortness of breath at rest on oxygen. Patient has a Cunningham catheter in place with a about 350 mL urine, dark-colored. Vital Signs Vital Signs Date Time Temp Pulse Resp B/P (MAP) Pulse Ox O2 Delivery O2 Flow Rate FiO2 07/17/24 09:43 106 18 99 07/17/24 09:37 Nasal Cannula* 3 32 07/17/24 09:00 98.2 158/77 (104) 98.2 Physical Exam Physical Examination Gen - no pallor, no icterus, no cyanosis, no clubbing, no LAD, 1+ bilateral ed karoline . Skin - Patients skin is warm and dry.. HEENT - normocephalic, atraumatic, moist mucous membranes. Neck - full ROM, no LAD, no JVD. Pulmonary - B/L decreased breath sounds, no wheezing, no stridor. cardiovascular - normal S1,S2 heard. no murmurs heard. peripheral pulses normal radial 2+, pedal 1+. capillary refill normal <2 secs. GI - soft abdomen with tenderness to palpation in the periumbilical area . no hepatospleenomegaly. Sounds + Neurological - Patient is A/O X 3 . Bilateral upper extremity strength 5/5, bilateral lower extremity strength 3/5, no facial droop, normal speech, no tremor, decreased sensation in the feet bilaterally Extremities- patient has swelling of the bilateral lower limbs up to the knees with erythema and scaling on the skin. Patient has callus on the left plantar surface of 1st metatarsophalangeal joint. Swelling of the hands and fingers. Labs/Diagnostic Data Labs Test 07/17/24 06:58 07/16/24 15:10 07/16/24 07:30 07/16/24 06:57 Range/Units White Blood Count 12.7 H 4.4-10.8 10^3/uL Red Blood Count 4.19 4.0-5.20 10^6/uL Hemoglobin 12.4 12.2-16.2 g/dL Hematocrit 39.1 36.0-46.0 % Mean Corpuscular Volume 93.3 80.0-100.0 fL Mean Corpuscular Hemoglobin 29.5 28.0-32.0 pg Mean Corpuscular Hemoglobin Concent 31.6 L 32.0-36.0 g/dL Red Cell Distribution Width 13.9 11.8-14.3 % Platelet Count 435 140-450 10^3/uL Mean Platelet Volume 7.3 6.9-10.8 fL Neutrophils (%) (Auto) 85.6 H 37.0-80.0 % Lymphocytes (%) (Auto) 8.2 L 10.0-50.0 % Monocytes (%) (Auto) 5.1 0.0-12.0 % Eosinophils (%) (Auto) 0.6 0.0-7.0 % Basophils (%) (Auto) 0.5 0.0-2.0 % Neutrophils # (Auto) 10.8 H 1.6-8.6 10 ^3/uL Lymphocytes # (Auto) 1.0 0.4-5.4 10 ^3/uL Monocytes # (Auto) 0.6 0-1.3 10 ^3/uL Eosinophils # (Auto) 0.1 0-0.8 10 ^3/uL Basophils # (Auto) 0.1 0-0.2 10 ^3/uL Nucleated Red Blood Cells 0.1 % Sodium Level 143 136-145 mmol/L Potassium Level 4.9 3.5-5.1 mmol/L Chloride Level 109 H 98-107 mmol/L Carbon Dioxide Level 23 20-31 mmol/L Anion Gap 11 5-15 Blood Urea Nitrogen 25 H 9-23 mg/dL Creatinine 2.06 H 0.550-1.02 mg/dL Glomerular Filtration Rate Calc 25 >90 mL/min BUN/Creatinine Ratio 12.1 10.0-20.0 Serum Glucose 121 H 74-106 mg/dL Uric Acid 6.5 3.1-7.8 mg/dL Calcium Level 8.5 L 8.7-10.4 mg/dL Phosphorus Level 5.9 H 2.4-5.1 mg/dL Total Bilirubin 0.4 0.2-1.0 mg/dL Aspartate Amino Transferase (AST) 27 13-40 U/L Alanine Aminotransferase (ALT) 15 7-40 U/L Alkaline Phosphatase 95 46-116 U/L Total Protein 7.1 5.7-8.2 g/dL Albumin 3.4 3.2-4.8 g/dL Thyroid Stimulating Hormone (TSH) 0.57 0.55-4.78 uIU/mL Parathyroid Hormone (Intact) 254.1 H 18.4-80.1 pg/mL Urine Color Light-brown Yellow Urine Clarity Turbid H Clear Urine pH 7.0 5.0-9.0 Urine Specific [place] 1.011 1.001-1.035 Urine Protein 2+ H Negative Urine Ketones Negative Negative Urine Blood 3+ H Negative /uL Urine Nitrite Negative Negative Urine Bilirubin Negative Negative Urine Urobilinogen Normal Negative mg/dL Urine Leukocyte Esterase Trace Negative /uL Urine RBC 438 0 - 4 /hpf Urine WBC 19 0 - 5 /hpf Urine Squamous Epithelial Cells None seen <5 /hpf Urine Bacteria None seen None Seen /hpf Urine Mucus Few None Seen Urine Glucose Normal Normal mg/dL Lipase 21 12-53 U/L Microbiology Date/Time Source Procedure Growth Status 07/16/24 07:30 Voided Urine Urine Culture - Preliminary Resulted Plan/Recommendation Assessment and plan # ARMANDO on CKD likely hemodynamically mediated - serum creatinine 2 and BUN 25 - GFR 25 - urine sodium, creatinine, protein creatinine ratio pending - renal ultrasound shows right kidney 12.1 cm in length, left kidney 10 cm in length, bilateral renal echotexture, contour, cortical thickness within normal limits. - patient started on furosemide 60 mg b.i.d. IV - strict I&O - monitor electrolytes - avoid nephrotoxic medication # CKD likely stage III due to likely lupus - on reviewing records patient's baseline GFR 40-60 - long history of lupus - PTH elevated to 254 mg/dL with serum calcium 8.5 - serum phosphorous 5.9 - UMM and complement C3-C4 ordered # UTI # acute hypoxic respiratory failure # pneumonia likely Gram-positive/Gram-negative bacteria # history of lupus- following # history of psoriatic arthritis # hypertension Goals of care discussed with the patient for over 20 minutes. Full code. Plan discussed with Addendum Patient seen and examined, plan discussed with resident. Agree with above, we will follow closely normal renal function in sep 2023 check c3,c4,umm panel Plan discussed with: Patient LESLIE GALLO RESIDENT Jul 17, 2024 11:50 YUE TALLEY MD Jul 17, 2024 19:54
--- NOTE | 2024-07-17 13:17 | DVHPN2 ---
Reviewed: Care Plan, H&P, Labs, Medications, Previous Orders, Radiology Changes from previous H/P or p: No Changes Eyes: No Pain, No Vision change, No Conjunctivae inflammation, No Eyelid inflammation, No Other, No Redness ENT: No Ear pain, No Ear discharge, No Nose pain, No Nose discharge, No Nose congestion, No Mouth pain, No Mouth swelling, No Throat pain, No Throat swelling, No Other Cardiovascular: No Chest Pain, No Palpitations, No Orthopnea, No Paroxysmal Noc. Dyspnea, No Edema, No Lt Headedness, No Other Respiratory: No Cough, No Dry, No Shortness of breath, No SOB with excertion, No Wheezing, No Hemoptysis, No Pleuritic Pain, No Sputum, No Other Gastrointestinal: No Nausea, No Vomiting; Abdominal Pain; No Diarrhea, No Constipation, No Melena, No Hematochezia, No Other Genitourinary: Dysuria, Frequency; No Incontinence, No Hematuria, No Retention, No Other Musculoskeletal: No other, No neck pain, No shoulder pain, No arm pain, No back pain, No hand pain, No leg pain, No foot pain Skin: Rash Objective Vitals Vital Signs Date Time Temp Pulse Resp B/P (MAP) Pulse Ox O2 Delivery O2 Flow Rate FiO2 07/17/24 09:43 106 18 99 07/17/24 09:37 Nasal Cannula* 3 32 07/17/24 09:00 98.2 158/77 (104) 98.2 Intake/Output Intake and Output 07/17/24 06:59 Intake Total 1955 ml Output Total 2400 ml Balance -445 ml Intake Oral 1530 ml IV Total 425 ml Output Urine Total 2400 ml Medications Current Medications Medications Dose Ordered Sig/Kendell Route Start Time Stop Time Status Last Admin Dose Admin Sodium Chloride 1,000 ml @ 75 mls/hr [id number] IV 07/16/24 12:45 07/17/24 05:43 75 MLS/HR Enoxaparin Sodium 30 mg DAILY SC 07/17/24 10:00 07/17/24 08:47 30 MG Hydralazine HCl 10 mg Q6HP PRN IV 07/16/24 12:45 07/17/24 05:39 10 MG Amlodipine Besylate 5 mg DAILY PO 07/17/24 10:00 07/17/24 08:47 5 MG Ceftriaxone Sodium 50 ml @ 100 mls/hr DAILY@09 IV 07/17/24 09:00 07/17/24 08:46 100 MLS/HR Morphine Sulfate 2 mg Q6HPRN PRN IV 07/16/24 19:00 07/17/24 02:58 2 MG Albuterol 2.5 mg Q4HWA [facility] 07/16/24 22:00 07/17/24 09:37 2.5 MG Ipratropium [place] 0.5 mg Q4HWA [facility] 07/16/24 22:00 07/17/24 09:37 0.5 MG Laboratory Results Laboratory Tests 07/17/24 06:58 Chemistry Test 07/17/24 06:58 Albumin 3.4 g/dL (3.2-4.8) Calcium Level 8.5 mg/dL (8.7-10.4) L Phosphorus Level 5.9 mg/dL (2.4-5.1) H Total Protein 7.1 g/dL (5.7-8.2) LFT Test 07/17/24 06:58 Alanine Aminotransferase (ALT) 15 U/L (7-40) Alkaline Phosphatase 95 U/L (46-116) Aspartate Amino Transferase (AST) 27 U/L (13-40) Total Bilirubin 0.4 mg/dL (0.2-1.0) HgA1c, TSH Test 07/17/24 06:58 Thyroid Stimulating Hormone (TSH) 0.57 uIU/mL (0.55-4.78) Urinalysis Test 07/16/24 07:30 07/16/24 15:10 Urine Color Light-brown (Yellow) Urine Clarity Turbid (Clear) H Urine pH 7.0 (5.0-9.0) Urine Specific [place] 1.011 (1.001-1.035) Urine Protein 2+ (Negative) H Urine Ketones Negative (Negative) Urine Blood 3+ /uL (Negative) H Urine Nitrite Negative (Negative) Urine Bilirubin Negative (Negative) Urine Urobilinogen Normal mg/dL (Negative) Urine Leukocyte Esterase Trace /uL (Negative) Urine RBC 438 /hpf (0 - 4) Urine WBC 19 /hpf (0 - 5) Urine Squamous Epithelial Cells None seen /hpf (<5) Urine Bacteria None seen /hpf (None Seen) Urine Mucus Few (None Seen) Urine Glucose Normal mg/dL (Normal) Urine Creatinine Pending Urine Sodium Pending Urine Total Protein Pending Microbiology Microbiology Date/Time Source Procedure Growth Status 07/16/24 07:30 Voided Urine Urine Culture - Preliminary Resulted Labs and/or images reviewed: Labs reviewed by me, Image(s) reviewed by me Assessment/Plan Assessment/Plan Sepsis secondary to urinary tract infection: Blood cultures urine cultures Rocephin ARMANDO Hypertension Acute kidney injury: Nephrology consult appreciated Bilateral upper and lower extremity vasculitis DVT ruled out CT abdomen pelvis negative Kidney ultrasound negative History of lupus under the care of , 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
[2024-07-17] MEDS ORDERED: FUROSEMIDE 40 MG/4 ML VIAL IV ONE (15:00)
[2024-07-17 15:04] LABS: Base Excess -4.1 mmol/L (-2.0-3.0)
[2024-07-17] MEDS: ALPRAZolam 0.5 MG TAB PO SCH (16:21)
[2024-07-17] MEDS: FUROSEMIDE 100 MG/10ML VIAL IV ONE (16:22)
--- NOTE | 2024-07-17 17:49 | DVH ---
EXAM: XY CHEST XRAY 1 VIEW TECHNIQUE: Single frontal chest radiograph CLINICAL HISTORY: shortness of breath COMPARISON: None Findings/Impression: Frontal chest radiograph demonstrates no acute osseous or superficial soft tissue abnormalities. The trachea is midline. Cardiomeagly with pulmonary vascular congestion. Small bilateral pleural effusions with compressive atelectasis. A superimposed infectious process is not excluded. No pneumothorax.
--- NOTE | 2024-07-17 19:57 | DVHINCON2 ---
Date of service: Jul 17, [address] Joanie Alvarez Reason for Consultation Dyspnea History of Present Illness 73-year-old woman history of hypertension, systemic lupus erythematosus, psoriatic arthritis, seizure disorder, bilateral lower extremity edema, recurrent UTI presented with a chief complaint of abdominal pain with dysuria, urinary frequency and anorexia. She was currently on medication for UTI. No fever or chills. No flank pain. Pulmonary consultation is called for evaluation of shortness of breath. Review of systems: 14 point review of systems is negative unless otherwise noted above. Past medical history:hypertension, systemic lupus erythematosus, psoriatic arthritis, seizure disorder, bilateral lower extremity edema, recurrent UTI Past surgical history: Hysterectomy, appendectomy Medications: Reviewed Allergies: Phenobarbital Family history: No family history of premature CAD. No family history of lung disease Social history: Nonsmoker. No alcohol or illicit drug use. Lives at home. Family History: Diabetes mellitus G8 MOTHER Hypertension G8 MOTHER Prostate carcinoma G8 FATHER Allergies: Coded Allergies: Phenobarbital (Verified Allergy, Unknown, 09/20/23) Home Meds Active Scripts Phenazopyridine HCl (Phenazopyridine Hydrochlo) 200 Mg Tab, 200 MG PO TID for 3 Days, #9 TAB Prov:[facility] 09/22/23 Cefdinir (Cefdinir) 300 Mg Cap, 1 CAP PO BID for 7 Days, #14 CAP Prov:[facility] 09/22/23 Reported Medications Tramadol Hcl (Tramadol Hcl) 50 Mg Tab, 50 MG PO, TAB 09/20/23 Hydrocodone-Acetaminophen (Hydrocodone Bitartrate/AC 10-325 mg) 1 Tab Tab, 1 TAB PO, TAB 09/20/23 Duloxetine Hydrochloride (Duloxetine Hydrochloride) 30 Mg Cap, 1 CAP PO BID 09/20/23 Metoprolol Succinate (Metoprolol Succinate Er) 50 Mg Tab, 1 TAB PO DAILY 09/20/23 Pravastatin Sodium (PRAVACHOL TABLET) 20 Mg Tb, 1 TAB PO DAILY 09/20/23 Baclofen (Baclofen) 10 Mg Tab, 1 TAB PO BID 09/20/23 Current Medications Current Medications Medications (Trade) Dose Ordered Sig/Kendell Route PRN Reason Start Time Stop Time Status Last Admin Enoxaparin Sodium (Lovenox) 30 mg DAILY SC 07/17/24 10:00 07/17/24 08:47 Amlodipine Besylate (Norvasc Tablet) 5 mg DAILY PO 07/17/24 10:00 07/17/24 08:47 Ceftriaxone Sodium 50 ml @ 100 mls/hr DAILY@09 IV 07/17/24 09:00 07/17/24 08:46 Albuterol (Ventolin Medneb) 2.5 mg Q4HWA [facility] 07/16/24 22:00 07/17/24 18:24 Ipratropium [place] (Atrovent Medneb) 0.5 mg Q4HWA [facility] 07/16/24 22:00 07/17/24 18:24 Alprazolam (Xanax Tablet) 1 mg TID PO 07/17/24 14:00 07/17/24 16:21 Furosemide (Lasix Injection) 60 mg BIDD IV 07/18/24 06:00 Vital Signs Vital Signs Date Time Temp Pulse Resp B/P (MAP) Pulse Ox O2 Delivery O2 Flow Rate FiO2 07/17/24 18:34 97 18 100 07/17/24 18:24 Nasal Cannula* 3 32 07/17/24 17:00 98.0 131/59 (83) 98.0 Physical Exam Gen.: Patient lying in bed in no apparent distress. On supplemental oxygen. Head: Normocephalic, atraumatic Eyes: EOMI/PERRLA. Ears: Normal hearing. Normal anatomy. Neck/trachea: Trachea midline, supple. Nose: Normal external anatomy. Mouth: Moist mucous membranes. Chest: Fair air entry bilaterally. No wheezing or rhonchi. Cardio vascular: Positive S1, positive S2. Regular rate and rhythm. Abdomen: Positive bowel sounds in all 4 quadrants. Soft, non-tender, non- distended. : Deferred. Rectal: Deferred Skin: Warm, dry. Extremities: 2+ radial pulses bilaterally. No lower extremity edema. Neuro: Awake, alert, oriented x3. No gross motor or sensory deficits. Cranial nerves II through XII intact. Gait not assessed. Labs/Diagnostic Data Labs Test 07/17/24 14:56 07/17/24 06:58 07/16/24 15:10 07/16/24 07:30 Range/Units Blood Gas Specimen Type Arterial Blood Gas Sample Site Right radial Blood Gas Patient Temperature 37.0 Arterial Blood Date Drawn [id number] Arterial Blood pH 7.390 7.350-7.450 Arterial Blood Partial Pressure CO2 34.1 32.0-45.0 mmHg Arterial Blood Partial Pressure O2 84.3 83.0-108.0 mmHg Arterial Blood HCO3 20.2 L 21.0-28.0 mmol/L Arterial Blood Oxygen Saturation 95.8 94.0-98.0 % Arterial Blood Base Excess -4.1 L -2.0-3.0 mmol/L Arterial Blood Oxyhemoglobin 95.0 94.0-98.0 % Arterial Blood Carboxyhemoglobin 0.4 L 0.5-1.5 % Arterial Blood Methemoglobin 0.4 0.0-1.5 % Gen Test Yes Blood Gas Total Hemoglobin 11.70 L 12.0-16.0 g/dL Blood Gas Liter Flow 3.00 Blood Gas Modality Nasal cannula FiO2 % 32.0 White Blood Count 12.7 H 4.4-10.8 10^3/uL Red Blood Count 4.19 4.0-5.20 10^6/uL Hemoglobin 12.4 12.2-16.2 g/dL Hematocrit 39.1 36.0-46.0 % Mean Corpuscular Volume 93.3 80.0-100.0 fL Mean Corpuscular Hemoglobin 29.5 28.0-32.0 pg Mean Corpuscular Hemoglobin Concent 31.6 L 32.0-36.0 g/dL Red Cell Distribution Width 13.9 11.8-14.3 % Platelet Count 435 140-450 10^3/uL Mean Platelet Volume 7.3 6.9-10.8 fL Neutrophils (%) (Auto) 85.6 H 37.0-80.0 % Lymphocytes (%) (Auto) 8.2 L 10.0-50.0 % Monocytes (%) (Auto) 5.1 0.0-12.0 % Eosinophils (%) (Auto) 0.6 0.0-7.0 % Basophils (%) (Auto) 0.5 0.0-2.0 % Neutrophils # (Auto) 10.8 H 1.6-8.6 10 ^3/uL Lymphocytes # (Auto) 1.0 0.4-5.4 10 ^3/uL Monocytes # (Auto) 0.6 0-1.3 10 ^3/uL Eosinophils # (Auto) 0.1 0-0.8 10 ^3/uL Basophils # (Auto) 0.1 0-0.2 10 ^3/uL Nucleated Red Blood Cells 0.1 % Sodium Level 143 136-145 mmol/L Potassium Level 4.9 3.5-5.1 mmol/L Chloride Level 109 H 98-107 mmol/L Carbon Dioxide Level 23 20-31 mmol/L Anion Gap 11 5-15 Blood Urea Nitrogen 25 H 9-23 mg/dL Creatinine 2.06 H 0.550-1.02 mg/dL Glomerular Filtration Rate Calc 25 >90 mL/min BUN/Creatinine Ratio 12.1 10.0-20.0 Serum Glucose 121 H 74-106 mg/dL Uric Acid 6.5 3.1-7.8 mg/dL Calcium Level 8.5 L 8.7-10.4 mg/dL Phosphorus Level 5.9 H 2.4-5.1 mg/dL Total Bilirubin 0.4 0.2-1.0 mg/dL Aspartate Amino Transferase (AST) 27 13-40 U/L Alanine Aminotransferase (ALT) 15 7-40 U/L Alkaline Phosphatase 95 46-116 U/L Total Protein 7.1 5.7-8.2 g/dL Albumin 3.4 3.2-4.8 g/dL Thyroid Stimulating Hormone (TSH) 0.57 0.55-4.78 uIU/mL Parathyroid Hormone (Intact) 254.1 H 18.4-80.1 pg/mL Urine Color Light-brown Yellow Urine Clarity Turbid H Clear Urine pH 7.0 5.0-9.0 Urine Specific [place] 1.011 1.001-1.035 Urine Protein 2+ H Negative Urine Ketones Negative Negative Urine Blood 3+ H Negative /uL Urine Nitrite Negative Negative Urine Bilirubin Negative Negative Urine Urobilinogen Normal Negative mg/dL Urine Leukocyte Esterase Trace Negative /uL Urine RBC 438 0 - 4 /hpf Urine WBC 19 0 - 5 /hpf Urine Squamous Epithelial Cells None seen <5 /hpf Urine Bacteria None seen None Seen /hpf Urine Mucus Few None Seen Urine Glucose Normal Normal mg/dL Test 07/16/24 06:57 Range/Units Lipase 21 12-53 U/L Microbiology Date/Time Source Procedure Growth Status 07/16/24 14:42 Blood Blood Culture - Preliminary NO GROWTH AFTER 24 HOURS OF INCUBATION. Resulted 07/16/24 07:30 Voided Urine Urine Culture - Preliminary Resulted Assessment Impression: Sepsis secondary to UTI Acute hypoxic respiratory failure Pleural effusion Atelectasis Acute kidney injury Bilateral upper and lower extremity vasculitis Deep vein thrombosis ruled out Morbid obesity with a BMI of 40 Anxiety Seizure disorder Plan: Supplemental oxygen On 3 liters/minute via nasal cannula Keep O2 saturation above 92% Bronchodilators Chest x-ray imaging report reviewed. No pneumothorax. Small bilateral pleural effusion with compressive atelectasis. Pulmonary vascular congestion Continue antibiotics Follow up cultures Blood cultures no growth after 24 hours Ultrasound venous Doppler lower extremities is negative for any acute DVT. CT abdomen and pelvis lung windows revealed there was small bilateral pleural effusions and bibasilar atelectasis. Anxiolytic as needed for anxiety Diuresis euvolemia Monitor ins and outs. Monitor renal function Monitor electrolytes. Supplement as necessary. Diet and lifestyle modifications for weight reduction given morbid obesity. DVT prophylaxis Prognosis: Poor given multiple comorbidities. Rest of plan per hospitalist and other consultants. Thank you Dr. Joanie Alvarez for allowing me to participate in this patient's care. Further recommendations will depend on patient's clinical course. Please do not hesitate to contact me if you have any questions or concerns. This medical document was created using an electronic medical record system with [employer] dictation system. Although this document has been carefully reviewed, there may still be some phonetic and typographical errors. These areas are purely typographical due to imperfections of the software programs, and do not reflect any compromise in the patient's medical care. Plan discussed with: Patient, Other (FATIMAH Meek MD) GUALBERTO POZO MD Jul 17, 2024 19:57
[2024-07-18] VITALS (33 sets, daily range): BP systolic 98–176; BP diastolic 28–87; PULSE 95–131; RESP 14–28; TEMP 97.7–99.1; O2SAT 85–100
[2024-07-18 04:28] LABS: Base Excess -3.8 mmol/L (-2.0-3.0)
[2024-07-18] MEDS: FUROSEMIDE 100 MG/10ML VIAL IV SCH ×2 (05:35→16:54)
--- NOTE | 2024-07-18 07:14 | DVH ---
CHEST RADIOGRAPH Indication:sob Technique: Single frontal view of the chest was obtained Comparison: XY CHEST XRAY 1 VIEW on DOS: 07/17/24 FINDINGS: Lines and Tubes: None Lungs: Pulmonary interstitial edema. Pleura: Right pleural effusion. Left pleural effusion. No pneumothorax. Cardiomediastinal contours: Unremarkable Bones: No acute osseous abnormality. IMPRESSION: 1. Pulmonary interstitial edema and bilateral pleural effusions.
[2024-07-18 07:17] LABS: Base Excess -0.6 mmol/L (-2.0-3.0)
--- NOTE | 2024-07-18 08:07 | DVHPN2 ---
Reviewed: Care Plan, H&P, Labs, Medications, Previous Orders, Radiology Changes from previous H/P or p: No Changes Eyes: No Pain, No Vision change, No Conjunctivae inflammation, No Eyelid inflammation, No Other, No Redness ENT: No Ear pain, No Ear discharge, No Nose pain, No Nose discharge, No Nose congestion, No Mouth pain, No Mouth swelling, No Throat pain, No Throat swelling, No Other Cardiovascular: No Chest Pain, No Palpitations, No Orthopnea, No Paroxysmal Noc. Dyspnea, No Edema, No Lt Headedness, No Other Respiratory: No Cough, No Dry, No Shortness of breath, No SOB with excertion, No Wheezing, No Hemoptysis, No Pleuritic Pain, No Sputum, No Other Gastrointestinal: No Nausea, No Vomiting; Abdominal Pain; No Diarrhea, No Constipation, No Melena, No Hematochezia, No Other Genitourinary: Dysuria, Frequency; No Incontinence, No Hematuria, No Retention, No Other Musculoskeletal: No other, No neck pain, No shoulder pain, No arm pain, No back pain, No hand pain, No leg pain, No foot pain Skin: Rash Objective Vitals Vital Signs Date Time Temp Pulse Resp B/P (MAP) Pulse Ox O2 Delivery O2 Flow Rate FiO2 07/18/24 06:02 112 163/87 100 Facial BiPAP Mask 70 07/18/24 06:02 21 07/18/24 06:00 98.0 98.0 07/17/24 20:00 4 Intake/Output Intake and Output 07/18/24 06:59 Intake Total 1250 ml Output Total 4100 ml Balance -2850 ml Intake Oral 1250 ml Output Urine Total 4100 ml Medications Current Medications Medications Dose Ordered Sig/Kendell Route Start Time Stop Time Status Last Admin Dose Admin Enoxaparin Sodium 30 mg DAILY SC 07/17/24 10:00 07/17/24 08:47 30 MG Hydralazine HCl 10 mg Q6HP PRN IV 07/16/24 12:45 07/17/24 05:39 10 MG Amlodipine Besylate 5 mg DAILY PO 07/17/24 10:00 07/17/24 08:47 5 MG Ceftriaxone Sodium 50 ml @ 100 mls/hr DAILY@09 IV 07/17/24 09:00 07/17/24 08:46 100 MLS/HR Morphine Sulfate 2 mg Q6HPRN PRN IV 07/16/24 19:00 07/17/24 23:09 2 MG Albuterol 2.5 mg Q4HWA [facility] 07/16/24 22:00 07/18/24 06:02 2.5 [address] Ipratropium [place] 0.5 mg Q4HWA NEB 07/16/24 22:00 07/18/24 06:02 0.5 MG Alprazolam 1 mg TID PO 07/17/24 14:00 07/17/24 23:01 1 MG Furosemide 60 mg BIDD IV 07/18/24 06:00 07/18/24 05:35 60 MG Laboratory Results Laboratory Tests 07/17/24 06:58 Urinalysis Test 07/16/24 07:30 07/16/24 15:10 Urine Color Light-brown (Yellow) Urine Clarity Turbid (Clear) H Urine pH 7.0 (5.0-9.0) Urine Specific [place] 1.011 (1.001-1.035) Urine Protein 2+ (Negative) H Urine Ketones Negative (Negative) Urine Blood 3+ /uL (Negative) H Urine Nitrite Negative (Negative) Urine Bilirubin Negative (Negative) Urine Urobilinogen Normal mg/dL (Negative) Urine Leukocyte Esterase Trace /uL (Negative) Urine RBC 438 /hpf (0 - 4) Urine WBC 19 /hpf (0 - 5) Urine Squamous Epithelial Cells None seen /hpf (<5) Urine Bacteria None seen /hpf (None Seen) Urine Mucus Few (None Seen) Urine Glucose Normal mg/dL (Normal) Urine Creatinine Pending Urine Sodium Pending Urine Total Protein Pending Blood Gas Results Test 07/17/24 14:56 07/18/24 04:22 07/18/24 07:06 Arterial Blood pH 7.390 (7.350-7.450) 7.279 (7.350-7.450) 7.353 (7.350-7.450) FiO2 % 32.0 70.0 70.0 Microbiology Microbiology Date/Time Source Procedure Growth Status 07/16/24 14:42 Blood Blood Culture - Preliminary NO GROWTH AFTER 24 HOURS OF INCUBATION. Resulted 07/16/24 07:30 Voided Urine Urine Culture - Preliminary Resulted Labs and/or images reviewed: Labs reviewed by me, Image(s) reviewed by me Assessment/Plan Assessment/Plan Acute hypoxic respiratory failure: Patient on 70 percent of oxygen by BiPAP, pulmonary consult by Dr. Minor appreciated. 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 History of seizures Moderate obesity High level of anxiety: Xanax Ordered D-dimer and V/Q scan Condition guarded secondary to multiple comorbidities Patient is seen in ICU Time spent 65 minutes Patient is full code Advanced care planning time 20 minutes Plan discussed with: Patient My Orders Orders - JESUS VILLANUEVA MD Procedure Category Date Status Time Alprazolam Tablet PHA 07/17/24 In Process (Xanax Tablet) 14:00 *Consult CONS 07/17/24 Transmitted / 14:45 Abg W/ Co-Ox RT 07/17/24 Logged 14:47 * Dietary Consult CONS 07/17/24 Transmitted 14:53 Cleanse Wound With DAX 07/17/24 In Process Wound Clean 12:00 Apply: DAX 07/17/24 In Process 12:00 *Podiatry Consult CONS 07/17/24 Transmitted [place](Dv[facility]) 14:53 Apply Barrier Cream DAX 07/17/24 In Process 12:00 D-Dimer LAB 07/18/24 Transmitted 08:02 Nm Vq Scan NM 07/18/24 Transmitted 08:02 Date of Service: Jul 18, 2024 Billing Provider: JESUS VILLANUEVA MD Common Visit Codes: 29907-[id number] CARE 30-74 MIN JESUS VILLANUEVA MD Jul 18, 2024 08:07
--- NOTE | 2024-07-18 08:54 | DVHPN2 ---
Progress Note Date Seen: Jul 18, 2024 Resident Creating Document: JACOB GALLOJENNIFER RESIDENT Medical Necessity Reason Pt with a Central, PICC or Fol: Yes Subjective Review of Systems Patient is a 73-year-old female with a past medical history of hypertension, lupus, psoriatic arthritis came to the ED with a chief complaint of abdominal pain. Patient reported worsening abdominal pain associated with dysuria, urinary frequency, poor appetite. Patient reported that she was being treated for recurrent UTI with ciprofloxacin but has no improvement. Patient reported that since the past 3 weeks she is having worsening shortness of breath associated with phlegm which was initially clear which is green in color associated with fever and chills. Patient reports that she has been diagnosed with lupus since the 80s initially she was on on a medication for fever but she stopped. She was diagnosed with psoriatic arthritis and has been on multiple medication and about 3 months ago she was started on Rinvoq (upadacitinib). Patient also consulted custom stock maker recently because of her high WBC count, leukemia was ruled out as per the patient. Review of Systems Patient seen and examined at the bedside. Patient is alert and oriented to time, place and person. Patient's blood pressure 152/72 mmHg, heart rate 106 per minute regular, SpO2 97% on BiPAP with spontaneous rate 22 per minute, FiO2 35%, tidal volume 500 mL, EPAP 8, IPAP 16. Patient has a Cunningham catheter in place with 4100 mL urine output over the last 24 hours. Patient's chest x-ray today showing improvement from yesterday with aeration of lung nguyen. Objective vital signs Vital Sign Date Time Temp Pulse Resp B/P (MAP) Pulse Ox O2 Delivery O2 Flow Rate FiO2 07/18/24 08:27 114 19 151/80 07/18/24 06:02 100 Facial BiPAP Mask 70 07/18/24 06:00 98.0 98.0 07/17/24 20:00 4 Total Intake and Output 07/17/24 07/17/24 07/18/24 15:00 23:00 07:00 Intake Total 1250 ml 0 ml Output Total 1200 ml 2900 ml Balance 50 ml -2900 ml medications Current Medications Medications Dose Ordered Sig/Kendell Route Start Time Stop Time Status Last Admin Dose Admin Enoxaparin Sodium 30 mg DAILY SC 07/17/24 10:00 07/17/24 08:47 30 MG Hydralazine HCl 10 mg Q6HP PRN IV 07/16/24 12:45 07/17/24 05:39 10 MG Amlodipine Besylate 5 mg DAILY PO 07/17/24 10:00 07/17/24 08:47 5 MG Ceftriaxone Sodium 50 ml @ 100 mls/hr DAILY@09 IV 07/17/24 09:00 07/17/24 08:46 100 MLS/HR Morphine Sulfate 2 mg Q6HPRN PRN IV 07/16/24 19:00 07/18/24 08:27 2 MG Albuterol 2.5 mg Q4HWA [facility] 07/16/24 22:00 07/18/24 06:02 2.5 MG Ipratropium [place] 0.5 mg Q4HWA [facility] 07/16/24 22:00 07/18/24 06:02 0.5 MG Alprazolam 1 mg TID PO 07/17/24 14:00 07/18/24 08:25 1 MG Furosemide 60 mg BIDD IV 07/18/24 06:00 07/18/24 05:35 60 MG Doxycycline Hyclate 250 ml @ 125 mls/hr Q12H IV 07/18/24 08:15 UNV Methylprednisolone Sodium Succinate 40 mg Q8HR IV 07/18/24 09:00 UNV Examination Physical Examination Gen - no pallor, no icterus, no cyanosis, no clubbing, no LAD, 1+ bilateral edema . Skin - Patients skin is warm and dry.. HEENT - normocephalic, atraumatic, moist mucous membranes. Neck - full ROM, no LAD, no JVD. Pulmonary - B/L decreased breath sounds with bibasilar crackles, no wheezing, no stridor. cardiovascular - normal S1,S2 heard. no murmurs heard. peripheral pulses normal radial 2+, pedal 1+. capillary refill normal <2 secs. GI - soft abdomen . no hepatospleenomegaly. Bowel Sounds + Neurological - Patient is A/O X 3 . Bilateral upper extremity strength 5/5, bilateral lower extremity strength 3/5, no facial droop, normal speech, no tremor, decreased sensation in the feet bilaterally Extremities- patient has swelling of the bilateral lower limbs up to the knees with erythema and scaling on the skin. Patient has callus on the left plantar surface of 1st metatarsophalangeal joint. Swelling of the hands and fingers. laboratory and microbiology Laboratory Tests 07/17/24 06:58 Test 07/17/24 06:58 Range/Units Serum Glucose 121 H 74-106 mg/dL Microbiology Date/Time Source Procedure Growth Status 07/16/24 14:42 Blood Blood Culture - Preliminary NO GROWTH AFTER 24 HOURS OF INCUBATION. Resulted 07/16/24 07:30 Voided Urine Urine Culture - Preliminary Resulted Problem List/Assessment/Plan Problem List/Assessment/Plan Assessment and plan # ARMANDO on CKD likely hemodynamically mediated - serum creatinine 2-->2.12 and BUN 25-->28 - GFR 25 - urine sodium, creatinine, protein creatinine ratio pending - renal ultrasound shows right kidney 12.1 cm in length, left kidney 10 cm in length, bilateral renal echotexture, contour, cortical thickness within normal limits. - dose of furosemide increased to 80 mg b.i.d. IV - strict I&O - urine output 4100 mL of with the past 24 hours with balance -2850ml - monitor electrolytes - avoid nephrotoxic medication # CKD likely stage III due to likely lupus - on reviewing records patient's baseline GFR 40-60 in September 2023 - long history of lupus - PTH elevated to 254 mg/dL with serum calcium 8.5 - serum phosphorous 6.2 - VINH and complement C3-C4 ordered # Acute hypoxic respiratory failure likely due to Gram+/- pneumonia - patient ICU status in the morning on BiPAP with a FiO2 35%, spontaneous breathing 20 per minute, EPAP 8, IPAP 16 - ABG shows pH 7.353, pCO2 46.5, bicarbonate 25.3 # Hyperphosphatemia - started on a sevelamar 800 mg p.o. t.i.d. with meals # UTI # acute hypoxic respiratory failure # pneumonia likely Gram-positive/Gram-negative bacteria # history of lupus- following # history of psoriatic arthritis # hypertension Goals of care discussed with the patient for over 20 minutes. Full code. Plan discussed with Plan discussed with: Patient My Orders My Orders Orders - LESLIE GALLO RESIDENT Procedure Category Date Status Time Kidney US 07/17/24 Resulted 09:17 Chest Xray 1 View XY 07/17/24 Resulted 16:46 Echo 2d Mode Cardiac US 07/18/24 Logged DOP 16:46 LESLIE GALLO Jul 18, 2024 08:54 YUE TALLEY MD Jul 18, 2024 19:32
[2024-07-18 09:36] LABS: Basophils # (auto) 0 10 ^3/uL (0-0.2); Basophils % (auto) 0.3 % (0.0-2.0); Eosinophils # (auto) 0.1 10 ^3/uL (0-0.8); Eosinophils % (auto) 0.7 % (0.0-7.0); Hematocrit 36.2 % (36.0-46.0); Hemoglobin 11.7 g/dL (12.2-16.2); Lymphocytes % (auto) 8.5 % (10.0-50.0); Mean Corpuscular Hemoglobin 29.8 pg (28.0-32.0); Mean Corpuscular Hgb Conc. 32.5 g/dL (32.0-36.0); Monocytes # (auto) 0.7 10 ^3/uL (0-1.3); Monocytes % (auto) 6.1 % (0.0-12.0); Neutrophils % (auto) 84.4 % (37.0-80.0); Nucleated Red Blood Cells % 0.1 %; Platelet Count (auto) 405 10^3/uL (140-450); Red Blood Cells 3.93 10^6/uL (4.0-5.20); Red Cell Distribution Width 13.7 % (11.8-14.3); White Blood Cell 11.9 10^3/uL (4.4-10.8)
[2024-07-18 09:46] LABS: Alanine Aminotransferase 10 U/L (7-40); Alkaline Phosphatase 83 U/L (46-116)
[2024-07-18 09:47] LABS: Albumin 3.3 g/dL (3.2-4.8); Anion Gap 6 (5-15); Aspartate Aminotransferase 17 U/L (13-40); BUN/Creatinine Ratio 13.2 (10.0-20.0); Bilirubin, Total 0.3 mg/dL (0.2-1.0); Blood Urea Nitrogen 28 mg/dL (9-23); Calcium 8.7 mg/dL (8.7-10.4); Carbon Dioxide 29 mmol/L (20-31); Chloride 108 mmol/L (98-107); Glucose 120 mg/dL (74-106); Phosphorus 6.2 mg/dL (2.4-5.1); Potassium 4.5 mmol/L (3.5-5.1); Sodium 143 mmol/L (136-145)
[2024-07-18 10:01] LABS: Rapid Influenza A Negative (Negative); Rapid Influenza B Negative (Negative)
[2024-07-18 10:02] LABS: COVID19 ANTIGEN SOFIA FIA NEGATIVE (NEGATIVE)
[2024-07-18] MEDS: DOXYCYCLINE 100MG/250ML 250 ML IV SCH (10:37)
[2024-07-18] MEDS: methylPREDNISolone SOD SUCC 40 MG/ML VL IV SCH (10:38)
--- NOTE | 2024-07-18 12:48 | DVHINCON2 ---
Date Seen: Jul 18, 2024 Reason for Consultation Left foot wound History of Present Illness This 73-year-old female presents in the ED with a chief complaint of abdominal pain with dysuria, urinary frequency, and poor appetite. The patient reports currently being treated for UTI with Cipro with no improvement. The patient denies fever, hematuria, or flank pain. Past medical history of hypertension, lupus, psoriatic arthritis, seizures, bilateral lower extremity edema, and recurrent UTI. Past Medical History See H&P Past Surgical History See H&P Family History: Diabetes mellitus G8 MOTHER Hypertension G8 MOTHER Prostate carcinoma G8 FATHER Allergies: Coded Allergies: Phenobarbital (Verified Allergy, Unknown, 09/20/23) Home Meds Active Scripts Phenazopyridine HCl (Phenazopyridine Hydrochlo) 200 Mg Tab, 200 MG PO TID for 3 Days, #9 TAB Prov:SABINO ELY [employer] SPECIALIST 09/22/23 Cefdinir (Cefdinir) 300 Mg Cap, 1 CAP PO BID for 7 Days, #14 CAP Prov:SABINO ELY [employer]LE[employer] SPECIALIST 09/22/23 Reported Medications Tramadol Hcl (Tramadol Hcl) 50 Mg Tab, 50 MG PO, TAB 09/20/23 Hydrocodone-Acetaminophen (Hydrocodone Bitartrate/AC 10-325 mg) 1 Tab Tab, 1 TAB PO, TAB 09/20/23 Duloxetine Hydrochloride (Duloxetine Hydrochloride) 30 Mg Cap, 1 CAP PO BID 09/20/23 Metoprolol Succinate (Metoprolol Succinate Er) 50 Mg Tab, 1 TAB PO DAILY 09/20/23 Pravastatin Sodium (PRAVACHOL TABLET) 20 Mg Tb, 1 TAB PO DAILY 09/20/23 Baclofen (Baclofen) 10 Mg Tab, 1 TAB PO BID 09/20/23 Current Medications Current Medications Medications (Trade) Dose Ordered Sig/Kendell Route PRN Reason Start Time Stop Time Status Last Admin Alprazolam (Xanax Tablet) 1 mg TID PO 07/17/24 14:00 07/18/24 08:25 Furosemide (Lasix Injection) 60 mg BIDD IV 07/18/24 06:00 07/18/24 09:39 DC 07/18/24 05:35 Doxycycline Hyclate 250 ml @ 125 mls/hr Q12H IV 07/18/24 08:15 07/18/24 10:37 Methylprednisolone Sodium Succinate (Solu Medrol) 40 mg Q8HR IV 07/18/24 09:00 07/18/24 10:38 Furosemide (Lasix Injection) 80 mg BIDD IV 07/18/24 18:00 Vital Signs Vital Signs Date Time Temp Pulse Resp B/P (MAP) Pulse Ox O2 Delivery O2 Flow Rate FiO2 07/18/24 12:00 102 07/18/24 11:45 98.8 24 131/52 (78) 96 98.8 07/18/24 10:00 Bi-Pap+ 35 35 07/17/24 20:00 4 Physical Exam DERMATOLOGIC EXAM: - Skin is dry and cool to the touch dry bilaterally. - Nails 1-5 of the bilateral foot are thickened, discolored, dystrophic, and tender to palpate with subungual debris - Hair loss noted to bilateral feet - large callus with draining on the left sub 1st VASCULAR EXAM: - DP and PT pulses are palpable bilaterally. - GREEN END MAN is brisk to all digits. - Feet are cool to touch compared to lower legs bilaterally. NEUROLOGIC EXAM: - Normal light touch sensation to the superficial peroneal, deep peroneal, sural, saphenous, and tibial nerve branches. - Protective sensation is diminished as tested with a 5.07 10g [place] bilaterally. MUSCULOSKELETAL EXAM: - No gross deformities - Muscle strength is 5/5 and active motion is pain-free and symmetrical bilaterally - No pain or crepitation with passive range of motion bilaterally to all major pedal joints Labs/Diagnostic Data Labs Test 07/18/24 08:54 07/18/24 08:45 07/18/24 07:06 07/17/24 14:56 Range/Units White Blood Count 11.9 H 4.4-10.8 10^3/uL Red Blood Count 3.93 L 4.0-5.20 10^6/uL Hemoglobin 11.7 L 12.2-16.2 g/dL Hematocrit 36.2 36.0-46.0 % Mean Corpuscular Volume 92.0 80.0-100.0 fL Mean Corpuscular Hemoglobin 29.8 28.0-32.0 pg Mean Corpuscular Hemoglobin Concent 32.5 32.0-36.0 g/dL Red Cell Distribution Width 13.7 11.8-14.3 % Platelet Count 405 140-450 10^3/uL Mean Platelet Volume 6.7 L 6.9-10.8 fL Neutrophils (%) (Auto) 84.4 H 37.0-80.0 % Lymphocytes (%) (Auto) 8.5 L 10.0-50.0 % Monocytes (%) (Auto) 6.1 0.0-12.0 % Eosinophils (%) (Auto) 0.7 0.0-7.0 % Basophils (%) (Auto) 0.3 0.0-2.0 % Neutrophils # (Auto) 10.0 H 1.6-8.6 10 ^3/uL Lymphocytes # (Auto) 1.0 0.4-5.4 10 ^3/uL Monocytes # (Auto) 0.7 0-1.3 10 ^3/uL Eosinophils # (Auto) 0.1 0-0.8 10 ^3/uL Basophils # (Auto) 0 0-0.2 10 ^3/uL Nucleated Red Blood Cells 0.1 % D-Dimer, Quantitative 14.16 H 0.0-0.49 mg/L FEU Sodium Level 143 136-145 mmol/L Potassium Level 4.5 3.5-5.1 mmol/L Chloride Level 108 H 98-107 mmol/L Carbon Dioxide Level 29 20-31 mmol/L Anion Gap 6 5-15 Blood Urea Nitrogen 28 H 9-23 mg/dL Creatinine 2.12 H 0.550-1.02 mg/dL Glomerular Filtration Rate Calc 24 >90 mL/min BUN/Creatinine Ratio 13.2 10.0-20.0 Serum Glucose 120 H 74-106 mg/dL Calcium Level 8.7 8.7-10.4 mg/dL Phosphorus Level 6.2 H 2.4-5.1 mg/dL Total Bilirubin 0.3 0.2-1.0 mg/dL Aspartate Amino Transferase (AST) 17 13-40 U/L Alanine Aminotransferase (ALT) 10 7-40 U/L Alkaline Phosphatase 83 46-116 U/L B-Type Natriuretic Peptide 102.05 0-100 pg/mL Total Protein 7.0 5.7-8.2 g/dL Albumin 3.3 3.2-4.8 g/dL Influenza Type A Antigen Negative Negative Influenza Type B Antigen Negative Negative SARS-CoV-2 Antigen (Rapid) Negative NEGATIVE Blood Gas Specimen Type Arterial Blood Gas Sample Site Right radial Blood Gas Patient Temperature 37.0 Arterial Blood Date Drawn [id number] Arterial Blood pH 7.353 7.350-7.450 Arterial Blood Partial Pressure CO2 46.5 H 32.0-45.0 mmHg Arterial Blood Partial Pressure O2 149.4 H 83.0-108.0 mmHg Arterial Blood HCO3 25.3 21.0-28.0 mmol/L Arterial Blood Oxygen Saturation 98.7 H 94.0-98.0 % Arterial Blood Base Excess -0.6 -2.0-3.0 mmol/L Arterial Blood Oxyhemoglobin 98.0 94.0-98.0 % Arterial Blood Carboxyhemoglobin 0.3 L 0.5-1.5 % Arterial Blood Methemoglobin 0.4 0.0-1.5 % Gen Test Yes Blood Gas Total Hemoglobin 12.20 12.0-16.0 g/dL Blood Gas Set Respiration Rate 12.0 Blood Gas Modality Mask - bipap Blood Gas Spontaneous Rate 20 FiO2 % 70.0 Blood Gas Spontaneous Tidal Volume 496 Blood Gas EPAP 8 Blood Gas IPAP 16 Blood Gas Liter Flow 3.00 Test 07/17/24 06:58 07/16/24 15:10 07/16/24 07:30 07/16/24 06:57 Range/Units Uric Acid 6.5 3.1-7.8 mg/dL Thyroid Stimulating Hormone (TSH) 0.57 0.55-4.78 uIU/mL Parathyroid Hormone (Intact) 254.1 H 18.4-80.1 pg/mL Urine Color Light-brown Yellow Urine Clarity Turbid H Clear Urine pH 7.0 5.0-9.0 Urine Specific [place] 1.011 1.001-1.035 Urine Protein 2+ H Negative Urine Ketones Negative Negative Urine Blood 3+ H Negative /uL Urine Nitrite Negative Negative Urine Bilirubin Negative Negative Urine Urobilinogen Normal Negative mg/dL Urine Leukocyte Esterase Trace Negative /uL Urine RBC 438 0 - 4 /hpf Urine WBC 19 0 - 5 /hpf Urine Squamous Epithelial Cells None seen <5 /hpf Urine Bacteria None seen None Seen /hpf Urine Mucus Few None Seen Urine Glucose Normal Normal mg/dL Lipase 21 12-53 U/L Microbiology Date/Time Source Procedure Growth Status 07/16/24 14:42 Blood Blood Culture - Preliminary NO GROWTH AFTER 24 HOURS OF INCUBATION. Resulted 07/16/24 07:30 Voided Urine Urine Culture - Final Complete Problems(with codes): (1) Non-specific colitis (2) Hematuria (3) Acute renal failure (4) Intractable abdominal pain (5) Callus (6) Wound, open, foot Plan/Recommendation ASSESSMENT: Patient is a 73-year-old female seen on the floor for a significant callus and underlying wound PLAN: - The patients chart was reviewed, clinical findings were discussed with the patient, the etiologies of the conditions were discussed in detail, and a treatment plan was agreed to at this time, with both oral and written instructio ns provided. - the debridement was performed as described in the procedure note - underlying superficial ulceration - does not appear to be significantly deep at all and we will likely just need some local wound care - no imaging required at this point - no surgery required at this point - patient would benefit from outpatient podiatry foot care All questions were answered and concerns addressed to the patient's satisfaction. The patient was given the phone number to the clinic and was told how to make contact with the clinic should any concerns or questions arise. Patient understands that if any questions or concerns arise prior to the next appointment, we should be contacted immediately. FOLLOW-UP: Patient can follow up the wound discharged Plan discussed with: Patient Date of Service: Jul 18, 2024 Billing Provider: CRISTNIA MUÑIZ DPM Common Visit Codes: [id number] INP/OBS CARE (MOD) CRISTINA MUÑIZ DPM Jul 18, 2024 12:48
--- NOTE | 2024-07-18 14:45 | DVHSR ---
APPROVED REPORT EXAM: Two-dimensional and M-mode echocardiogram with Doppler and color Doppler. Blood Pressure: 96/61 mmHg INDICATION Heart Failure RISK FACTORS Height: 5'3", Weight: 130 DIMENSIONS LVDd4.8 (3.8-5.7cm)LA (2D)4.6 (1.9-4.0cm)Aortic Root3.0 (2.0-3.7cm) LVDs3.6 (2.5-4.0cm)LA (MM) (1.9-4.0cm)Aortic Cusp Exc2.0 (1.5-2.0cm) EF (%) 50.0 (55-70%)Rt. Atrium3.6 (1.9-4.0cm)Asc. Aorta cm IVSd1.3 (0.7-1.1cm)RV (D) (1.8-2.4cm) PWd0.8 (0.7-1.1cm) Mitral Valve MitralMitral Stenosis E wave1.29m/sMV Mean GR.mmHg A wave1.34m/sMV Peak GR.mmHg E/A ratio1.02D MVAcm2 DECEL [id number] 1/2 [place] Aortic Valve Aortic ValveAortic Stenosis V11.22m/[place] Mean GR.5mmHg V21.56m/[place] Peak GR.10mmHg LVOT Diameter2.0 (1.8-2.4cm)Doppler AVA2.46cm2 Pulmonic Valve V21.23m/s Tricuspid Valve TR Velocity3.00m/s [id number] Other Information Quality : Technically LimitedRhythm : Technically limited study due to body habitus and patient position. Conclusion Normal left ventricular size and dimension. Normal left ventricular systolic function estimated ejec tion fraction 50%. There is a grade 1 diastolic dysfunction. Normal right ventricular size and dimension. Normal right ventricular systolic function. Mildly trish vated right ventricular systolic [id number] mm of mercury Normal biatrial size and dimension. Normal aortic valve structure and function. Normal mitral valve structure and function. Normal tricuspid valve structure and function. The pulmonary valve is grossly normal. No pericardial effusion.
--- NOTE | 2024-07-18 16:16 | DVHINCON2 ---
Date of service: Jul 18, 2024 History of Present Illness HPI Patient is a 73-year-old female who presented on July 16, 2024 for abdominal pain/dysuria and frequency. She had been complaining of low appetite also. While being managed in [facility], the patient was found to be short of breath and cardiology was involved for shortness of breath. Patient denies any chest pains. Patient denies leg swellings. She is poor historian. She is known to our practice from outside. She was lost to follow-up with us years ago. Home Meds Active Scripts Phenazopyridine HCl (Phenazopyridine Hydrochlo) 200 Mg Tab, 200 MG PO TID for 3 Days, #9 TAB Prov:SABINO ELY [employer]ER 09/22/23 Cefdinir (Cefdinir) 300 Mg Cap, 1 CAP PO BID for 7 Days, #14 CAP Prov:SABINO ELY [employer]ITCHER 09/22/23 Reported Medications Tramadol Hcl (Tramadol Hcl) 50 Mg Tab, 50 MG PO, TAB 09/20/23 Hydrocodone-Acetaminophen (Hydrocodone Bitartrate/AC 10-325 mg) 1 Tab Tab, 1 TAB PO, TAB 09/20/23 Duloxetine Hydrochloride (Duloxetine Hydrochloride) 30 Mg Cap, 1 CAP PO BID 09/20/23 Metoprolol Succinate (Metoprolol Succinate Er) 50 Mg Tab, 1 TAB PO DAILY 09/20/23 Pravastatin Sodium (PRAVACHOL TABLET) 20 Mg Tb, 1 TAB PO DAILY 09/20/23 Baclofen (Baclofen) 10 Mg Tab, 1 TAB PO BID 09/20/23 Past Medical History Others Past medical history includes hypertension, obesity, seizure disorder, old history of psoriatic arthritis, history of lupus, peripheral neuropathy, 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 Family History Poor historian and can not provide information. Patient Family History: Diabetes mellitus G8 MOTHER Hypertension G8 MOTHER Prostate carcinoma G8 FATHER Smoker: Quit Alocohol: None Drugs: None Review of Systems Constitutional: Chills, Diaphoresis, Malaise Pulmonary/Respiratory: Dyspnea Gastrointestinal: Nausea All Other Systems Fourteen point review of system was performed. Relevant findings as per above and as per HPI. Otherwise negative. H&P Exam Vital Signs Vital Signs Date Time Temp Pulse Resp B/P (MAP) Pulse Ox O2 Delivery O2 Flow Rate FiO2 07/18/24 14:00 102 26 167/55 (92) 95 07/18/24 13:42 Nasal Cannula* 4 36 07/18/24 11:45 98.8 98.8 General Appeara: Mild distress, Obese Head Exam: Normal inspection Neck Exam: Normal inspection Eye Exam: bilateral eye PERRL Pulmonary/Respiratory: Rhonci Cardiovascular/Chest: Edema, Regular rate, Tachycardia, Systolic murmur Peripheral Pulses: 2+ carotid (R), 2+ carotid (L), 2+ femoral (R), 2+ femoral (L), 2+ dorsalis pedis (R), 2+ dorsalis pedis (L), 2+ Radial (R), 2+ Radial (L) Abdominal Exam: Normal bowel sounds, Soft Labs/Xrays Labs Test 07/18/24 08:54 07/18/24 08:45 07/18/24 07:06 07/17/24 14:56 Range/Units White Blood Count 11.9 H 4.4-10.8 10^3/uL Red Blood Count 3.93 L 4.0-5.20 10^6/uL Hemoglobin 11.7 L 12.2-16.2 g/dL Hematocrit 36.2 36.0-46.0 % Mean Corpuscular Volume 92.0 80.0-100.0 fL Mean Corpuscular Hemoglobin 29.8 28.0-32.0 pg Mean Corpuscular Hemoglobin Concent 32.5 32.0-36.0 g/dL Red Cell Distribution Width 13.7 11.8-14.3 % Platelet Count 405 140-450 10^3/uL Mean Platelet Volume 6.7 L 6.9-10.8 fL Neutrophils (%) (Auto) 84.4 H 37.0-80.0 % Lymphocytes (%) (Auto) 8.5 L 10.0-50.0 % Monocytes (%) (Auto) 6.1 0.0-12.0 % Eosinophils (%) (Auto) 0.7 0.0-7.0 % Basophils (%) (Auto) 0.3 0.0-2.0 % Neutrophils # (Auto) 10.0 H 1.6-8.6 10 ^3/uL Lymphocytes # (Auto) 1.0 0.4-5.4 10 ^3/uL Monocytes # (Auto) 0.7 0-1.3 10 ^3/uL Eosinophils # (Auto) 0.1 0-0.8 10 ^3/uL Basophils # (Auto) 0 0-0.2 10 ^3/uL Nucleated Red Blood Cells 0.1 % D-Dimer, Quantitative 14.16 H 0.0-0.49 mg/L FEU Sodium Level 143 136-145 mmol/L Potassium Level 4.5 3.5-5.1 mmol/L Chloride Level 108 H 98-107 mmol/L Carbon Dioxide Level 29 20-31 mmol/L Anion Gap 6 5-15 Blood Urea Nitrogen 28 H 9-23 mg/dL Creatinine 2.12 H 0.550-1.02 mg/dL Glomerular Filtration Rate Calc 24 >90 mL/min BUN/Creatinine Ratio 13.2 10.0-20.0 Serum Glucose 120 H 74-106 mg/dL Calcium Level 8.7 8.7-10.4 mg/dL Phosphorus Level 6.2 H 2.4-5.1 mg/dL Total Bilirubin 0.3 0.2-1.0 mg/dL Aspartate Amino Transferase (AST) 17 13-40 U/L Alanine Aminotransferase (ALT) 10 7-40 U/L Alkaline Phosphatase 83 46-116 U/L B-Type Natriuretic Peptide 102.05 0-100 pg/mL Total Protein 7.0 5.7-8.2 g/dL Albumin 3.3 3.2-4.8 g/dL Influenza Type A Antigen Negative Negative Influenza Type B Antigen Negative Negative SARS-CoV-2 Antigen (Rapid) Negative NEGATIVE Blood Gas Specimen Type Arterial Blood Gas Sample Site Right radial Blood Gas Patient Temperature 37.0 Arterial Blood Date Drawn [id number] Arterial Blood pH 7.353 7.350-7.450 Arterial Blood Partial Pressure CO2 46.5 H 32.0-45.0 mmHg Arterial Blood Partial Pressure O2 149.4 H 83.0-108.0 mmHg Arterial Blood HCO3 25.3 21.0-28.0 mmol/L Arterial Blood Oxygen Saturation 98.7 H 94.0-98.0 % Arterial Blood Base Excess -0.6 -2.0-3.0 mmol/L Arterial Blood Oxyhemoglobin 98.0 94.0-98.0 % Arterial Blood Carboxyhemoglobin 0.3 L 0.5-1.5 % Arterial Blood Methemoglobin 0.4 0.0-1.5 % Gen Test Yes Blood Gas Total Hemoglobin 12.20 12.0-16.0 g/dL Blood Gas Set Respiration Rate 12.0 Blood Gas Modality Mask - bipap Blood Gas Spontaneous Rate 20 FiO2 % 70.0 Blood Gas Spontaneous Tidal Volume 496 Blood Gas EPAP 8 Blood Gas IPAP 16 Blood Gas Liter Flow 3.00 Test 07/17/24 06:58 07/16/24 15:10 07/16/24 07:30 07/16/24 06:57 Range/Units Uric Acid 6.5 3.1-7.8 mg/dL Thyroid Stimulating Hormone (TSH) 0.57 0.55-4.78 uIU/mL Parathyroid Hormone (Intact) 254.1 H 18.4-80.1 pg/mL Urine Color Light-brown Yellow Urine Clarity Turbid H Clear Urine pH 7.0 5.0-9.0 Urine Specific [place] 1.011 1.001-1.035 Urine Protein 2+ H Negative Urine Ketones Negative Negative Urine Blood 3+ H Negative /uL Urine Nitrite Negative Negative Urine Bilirubin Negative Negative Urine Urobilinogen Normal Negative mg/dL Urine Leukocyte Esterase Trace Negative /uL Urine RBC 438 0 - 4 /hpf Urine WBC 19 0 - 5 /hpf Urine Squamous Epithelial Cells None seen <5 /hpf Urine Bacteria None seen None Seen /hpf Urine Mucus Few None Seen Urine Glucose Normal Normal mg/dL Lipase 21 12-53 U/L Microbiology Date/Time Source Procedure Growth Status 07/18/24 05:53 Nose MRSA Screen - Final Complete 07/16/24 14:42 Blood Blood Culture - Preliminary NO GROWTH AFTER 48 HOURS OF INCUBATION. Resulted 07/16/24 07:30 Voided Urine Urine Culture - Final Complete Assessment/Plan Plan Patient is a 73-year-old female who presented on July 16, 2024 for abdominal pain/dysuria and frequency. She had been complaining of low appetite also. While being managed in [facility], the patient was found to be short of breath and cardiology was involved for shortness of breath. Patient denies any chest pains. Patient denies leg swellings. She is poor historian. She is known to our practice from outside. She was lost to follow-up with us years ago. Sleepy female. No JVD. [place] and wet mucosa. No goiter. Not using accessory muscle of breathing. Scattered rhonchi in the lungs is heard. Cardiac: Regular, tachycardic, no thrill/gallop. Abdomen is soft and obese. There is no gross hepatomegaly. Bowel sound is positive. Extremities reveal 2+ edema bilaterally. 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 WBC: 12.4 - 12.7 - 11.9 D-dimer: 14.16 Creatinine: 2.0 - 2.06 - 2.12 Potassium: 4.7 - 4.9 - 4.5 TSH: 0.57 BNP: 102.[address] scan revealed: IMPRESSION: 1. No acute abdominal or pelvic finding. 2. Hepatic steatosis. Venous Doppler of lower extremities revealed: Impression: 1. No right or left deep venous thrombosis. Renal ultrasound revealed: IMPRESSION: 1. Unremarkable examination. Chest x-ray revealed: Findings/Impression: Frontal chest radiograph demonstrates no acute osseous or superficial soft tissue abnormalities. The trachea is midline. Cardiomeagly with pulmonary vascular congestion. Small bilateral pleural effusions with compressive atelectasis. A superimposed infectious process is not excluded. No pneumothorax. Repeat chest x-ray revealed: IMPRESSION: 1. Pulmonary interstitial edema and bilateral pleural effusions. EKG reveals sinus tachycardia with nonspecific ST-T changes Tele reveals sinus tachycardia Echocardiogram reported: Normal left ventricular size and dimension. Normal left ventricular systolic function estimated ejection fraction 50%. There is a grade 1 diastolic dysfunction. Normal right ventricular size and dimension. Normal right ventricular systolic function. Mildly elevated right ventricular systolic [id number] mm of mercury Normal biatrial size and dimension. Normal aortic valve structure and function. Normal mitral valve structure and function. Normal tricuspid valve structure and function. The pulmonary valve is grossly normal. No pericardial effusion. Patient is a 73-year-old female who presented to the hospital with abdominal pain/dysuria and frequency. She was found to have leukocytosis. Presentation is in favor of pneumonia/UTI. Sepsis is considered. Cardiac etiology for presentation is less likely. Still, the patient's D-dimer has been elevated and pulmonary emboli should be ruled out. Chest x-rays reveal congestion in the lungs and component of heart failure can not be ruled out. Encephalopathy, metabolic Acute respiratory failure Pulmonary edema, acute diastolic heart failure Sepsis Urosepsis Pneumonia ARMANDO On CKD Hypertension History of lupus History of psoriatic arthritis Abnormal D-dimer Fatty liver Cardiac suggestion for management: Manage in [place] IV diuresis Follow-up electrolytes and kidney function tests and correct abnormalities Full anticoagulation is suggested until pulmonary emboli is ruled out. Consider Lovenox 1 mg per kg daily If V/Q scan can not be performed, CT angio of the chest is suggested after Nephrology permission/clearance Further evaluation and management depends on the above and clinical course Thank you for consult A total of 75 minutes was spent reviewing the patient record, examining the patient, making a diagnostic and therapeutic plan, discussing this plan with medical personnel, following up on diagnostic studies and following the patient for clinical stability excluding any and all procedures. At least 50% of this time was spent in direct, [id number] contact. Thank you for allowing me to participate in this patient's care. Further recommendations will depend on patient's clinical course. Please do not hesitate to contact me if you have any questions or concerns. This medical document was created using electronic medical record system with [employer] computerized dictation system. Although this document has been carefully reviewed, there may still be some phonetic and typographical errors. These areas are purely typographical due to the imperfection of the software programs, and do not reflect any compromise in the patient's medical care. Plan discussed with: Patient, Other (Nurse) CLAUDE JOHNSON MD Jul 18, 2024 16:16
--- NOTE | 2024-07-18 18:23 | DVHINCON2 ---
Date of service: Jul 18, [address] 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 She states she has been feeling progressively worse. Denies NSAID use recently although she has a hx of NSAID abuse to manage her pain prior to initiating rinvoq. She has low grade fevers. She has oral ulcers. Her rash on her left lower leg that had almost resolved has worsened since stopping rinvoq. She has trouble laying flat due to shortness of breath. Labs from admission reviewed - Cr elevated to 2 range, double her baseline Cr of around 1. Past Medical History SLE PsA morbid obesity Recurrent UTI lymphedema Family History: Diabetes mellitus G8 MOTHER Hypertension G8 MOTHER Prostate carcinoma G8 FATHER Allergies: Coded Allergies: Phenobarbital (Verified Allergy, Unknown, 09/20/23) Home Meds Active Scripts Phenazopyridine HCl (Phenazopyridine Hydrochlo) 200 Mg Tab, 200 MG PO TID for 3 Days, #9 TAB Prov:SABINO ELY ELECTRONIC SCALE TESTER 09/22/23 Cefdinir (Cefdinir) 300 Mg Cap, 1 CAP PO BID for 7 Days, #14 CAP Prov:SABINO ELY ELECTRONIC SCALE TESTER 09/22/23 Reported Medications Tramadol Hcl (Tramadol Hcl) 50 Mg Tab, 50 MG PO, TAB 09/20/23 Hydrocodone-Acetaminophen (Hydrocodone Bitartrate/AC 10-325 mg) 1 Tab Tab, 1 TAB PO, TAB 09/20/23 Duloxetine Hydrochloride (Duloxetine Hydrochloride) 30 Mg Cap, 1 CAP PO BID 09/20/23 Metoprolol Succinate (Metoprolol Succinate Er) 50 Mg Tab, 1 TAB PO DAILY 09/20/23 Pravastatin Sodium (PRAVACHOL TABLET) 20 Mg Tb, 1 TAB PO DAILY 09/20/23 Baclofen (Baclofen) 10 Mg Tab, 1 TAB PO BID 09/20/23 Current Medications Current Medications Medications (Trade) Dose Ordered Sig/Kendell Route PRN Reason Start Time Stop Time Status Last Admin Furosemide (Lasix Injection) 60 mg BIDD IV 07/18/24 06:00 07/18/24 09:39 DC 07/18/24 05:35 Doxycycline Hyclate 250 ml @ 125 mls/hr Q12H IV 07/18/24 08:15 07/18/24 10:37 Methylprednisolone Sodium Succinate (Solu Medrol) 40 mg Q8HR IV 07/18/24 09:00 07/18/24 13:37 Furosemide (Lasix Injection) 80 mg BIDD IV 07/18/24 18:00 07/18/24 16:54 Acetaminophen/ Hydrocodone Bitart ([place] 5/325MG Tab) 1 tab Q6HP PRN PO MODERATE PAIN (4-6 PAIN SCALE) 07/18/24 13:30 Enoxaparin Sodium (Lovenox) 110 mg DAILY SC 07/19/24 10:00 Review of Systems as above Vital Signs Vital Signs Date Time Temp Pulse Resp B/P (MAP) Pulse Ox O2 Delivery O2 Flow Rate FiO2 07/18/24 17:49 26 96 Nasal Cannula* 4 36 07/18/24 17:00 98 129/58 (81) 07/18/24 16:00 99.1 99.1 Physical Exam Gen: pt appears somewhat somnolent MSK: edematous b/l dorsal hands and lower extremities. Difficult to assess tenderness today due to mentation Derm: bandage over left foot, imaging in chart reviewed showing ulceration on the left foot; erythematous scaly rash noted on the b/l lower extremities Card: tachycardic Pulm: Coarse breath sounds Labs/Diagnostic Data Labs Test 07/18/24 16:42 07/18/24 16:29 07/18/24 08:54 07/18/24 08:45 Range/Units POC Glucose 129 H 70-106 mg/dl Troponin I High Sensitivity 13 </=34 ng/L White Blood Count 11.9 H 4.4-10.8 10^3/uL Red Blood Count 3.93 L 4.0-5.20 10^6/uL Hemoglobin 11.7 L 12.2-16.2 g/dL Hematocrit 36.2 36.0-46.0 % Mean Corpuscular Volume 92.0 80.0-100.0 fL Mean Corpuscular Hemoglobin 29.8 28.0-32.0 pg Mean Corpuscular Hemoglobin Concent 32.5 32.0-36.0 g/dL Red Cell Distribution Width 13.7 11.8-14.3 % Platelet Count 405 140-450 10^3/uL Mean Platelet Volume 6.7 L 6.9-10.8 fL Neutrophils (%) (Auto) 84.4 H 37.0-80.0 % Lymphocytes (%) (Auto) 8.5 L 10.0-50.0 % Monocytes (%) (Auto) 6.1 0.0-12.0 % Eosinophils (%) (Auto) 0.7 0.0-7.0 % Basophils (%) (Auto) 0.3 0.0-2.0 % Neutrophils # (Auto) 10.0 H 1.6-8.6 10 ^3/uL Lymphocytes # (Auto) 1.0 0.4-5.4 10 ^3/uL Monocytes # (Auto) 0.7 0-1.3 10 ^3/uL Eosinophils # (Auto) 0.1 0-0.8 10 ^3/uL Basophils # (Auto) 0 0-0.2 10 ^3/uL Nucleated Red Blood Cells 0.1 % D-Dimer, Quantitative 14.16 H 0.0-0.49 mg/L FEU Sodium Level 143 136-145 mmol/L Potassium Level 4.5 3.5-5.1 mmol/L Chloride Level 108 H 98-107 mmol/L Carbon Dioxide Level 29 20-31 mmol/L Anion Gap 6 5-15 Blood Urea Nitrogen 28 H 9-23 mg/dL Creatinine 2.12 H 0.550-1.02 mg/dL Glomerular Filtration Rate Calc 24 >90 mL/min BUN/Creatinine Ratio 13.2 10.0-20.0 Serum Glucose 120 H 74-106 mg/dL Calcium Level 8.7 8.7-10.4 mg/dL Phosphorus Level 6.2 H 2.4-5.1 mg/dL Total Bilirubin 0.3 0.2-1.0 mg/dL Aspartate Amino Transferase (AST) 17 13-40 U/L Alanine Aminotransferase (ALT) 10 7-40 U/L Alkaline Phosphatase 83 46-116 U/L B-Type Natriuretic Peptide 102.05 0-100 pg/mL Total Protein 7.0 5.7-8.2 g/dL Albumin 3.3 3.2-4.8 g/dL Influenza Type A Antigen Negative Negative Influenza Type B Antigen Negative Negative SARS-CoV-2 Antigen (Rapid) Negative NEGATIVE Test 07/18/24 07:06 07/17/24 14:56 07/17/24 06:58 07/16/24 15:10 Range/Units Blood Gas Specimen Type Arterial Blood Gas Sample Site Right radial Blood Gas Patient Temperature 37.0 Arterial Blood Date Drawn [id number] Arterial Blood pH 7.353 7.350-7.450 Arterial Blood Partial Pressure CO2 46.5 H 32.0-45.0 mmHg Arterial Blood Partial Pressure O2 149.4 H 83.0-108.0 mmHg Arterial Blood HCO3 25.3 21.0-28.0 mmol/L Arterial Blood Oxygen Saturation 98.7 H 94.0-98.0 % Arterial Blood Base Excess -0.6 -2.0-3.0 mmol/L Arterial Blood Oxyhemoglobin 98.0 94.0-98.0 % Arterial Blood Carboxyhemoglobin 0.3 L 0.5-1.5 % Arterial Blood Methemoglobin 0.4 0.0-1.5 % Gen Test Yes Blood Gas Total Hemoglobin 12.20 12.0-16.0 g/dL Blood Gas Set Respiration Rate 12.0 Blood Gas Modality Mask - bipap Blood Gas Spontaneous Rate 20 FiO2 % 70.0 Blood Gas Spontaneous Tidal Volume 496 Blood Gas EPAP 8 Blood Gas IPAP 16 Blood Gas Liter Flow 3.00 Uric Acid 6.5 3.1-7.8 mg/dL Thyroid Stimulating Hormone (TSH) 0.57 0.55-4.78 uIU/mL Parathyroid Hormone (Intact) 254.1 H 18.4-80.1 pg/mL Test 07/16/24 07:30 07/16/24 06:57 Range/Units Urine Color Light-brown Yellow Urine Clarity Turbid H Clear Urine pH 7.0 5.0-9.0 Urine Specific [place] 1.011 1.001-1.035 Urine Protein 2+ H Negative Urine Ketones Negative Negative Urine Blood 3+ H Negative /uL Urine Nitrite Negative Negative Urine Bilirubin Negative Negative Urine Urobilinogen Normal Negative mg/dL Urine Leukocyte Esterase Trace Negative /uL Urine RBC 438 0 - 4 /hpf Urine WBC 19 0 - 5 /hpf Urine Squamous Epithelial Cells None seen <5 /hpf Urine Bacteria None seen None Seen /hpf Urine Mucus Few None Seen Urine Glucose Normal Normal mg/dL Lipase 21 12-53 U/L Microbiology Date/Time Source Procedure Growth Status 07/18/24 05:53 Nose MRSA Screen - Final Complete 07/16/24 14:42 Blood Blood Culture - Preliminary NO GROWTH AFTER 48 HOURS OF INCUBATION. Resulted 07/16/24 07:30 Voided Urine Urine Culture - Final Complete Problems(with codes): (1) Systemic lupus erythematosus (2) Psoriatic arthritis of multiple joints (3) Acute renal failure (4) Wound, open, foot (5) Hematuria Plan/Recommendation -d/c hydralazine as it can cause SLE flares, switched to labetalol prn for hypertension, please feel free to change to alternative agent if preferred by primary hospitalist team -changed xanax to prn due to worsening mentation -nephro consult -hold hydroxychloroquine -okay to continue solumedrol for now, will consider taper once her picture is more clear -given she was on rinvoq approx 1 month ago and has a history of antiph ospholipid antibodies associated with her SLE, pulmonary embolism, VA, and CVA should all be ruled out, CT head should be considered if her mentation does not improve with holding xanax scheduled dosing -f/u sed rate, c-rp, complements, urine P/C ratio -rule out sepsis, although be aware she has a chronic low grade leukocytosis that was evaluated by hematology within the last 2 years and it was felt to be less likely related to a hematologic malignancy. Her leukocytosis did resolve on rinvoq so the working diagnosis in the past has been reactive leukocytosis related to underlying psoriatic arthritis vs SLE. Current leukocytosis this hospitalization could be related to worsening inflammatory process vs sepsis -will continue to follow Plan discussed with: Patient ARIELA BABCOCK MD Jul 18, 2024 18:23
[2024-07-18] MEDS: SEVELAMER 800 MG TAB PO SCH (20:20)
--- NOTE | 2024-07-18 20:53 | DVHPN2 ---
Progress Note - Dictate Date Seen: Jul 18, 2024 Medical Necessity Reason Pt with a Central, PICC or Fol: Yes The following are medically ne: Patino Catheter Reason for patino catheter: Strict I&O Subjective Patient upgraded to ICU, seen and examined at bedside. Now started on BiPAP Overnight events reviewed. vital signs Vital Sign Date Time Temp Pulse Resp B/P (MAP) Pulse Ox O2 Delivery O2 Flow Rate FiO2 07/18/24 20:00 97.7 106 14 122/33 (62) 95 97.7 07/18/24 18:27 Nasal Cannula 3.0 07/18/24 18:27 32 Total Intake and Output 07/17/24 07/17/24 07/18/24 15:00 23:00 07:00 Intake Total 1250 ml 0 ml Output Total 1200 ml 2900 ml Balance 50 ml -2900 ml medications Current Medications Medications Dose Ordered Sig/Kendell Route Start Time Stop Time Status Last Admin Dose Admin Amlodipine Besylate 5 mg DAILY PO 07/17/24 10:00 07/18/24 09:21 5 MG Ceftriaxone Sodium 50 ml @ 100 mls/hr DAILY@09 IV 07/17/24 09:00 07/18/24 09:20 100 MLS/HR Morphine Sulfate 2 mg Q6HPRN PRN IV 07/16/24 19:00 07/18/24 08:27 2 MG Albuterol 2.5 mg Q4HWA [facility] 07/16/24 22:00 07/18/24 18:27 2.5 MG Ipratropium [place] 0.5 mg Q4HWA [facility] 07/16/24 22:00 07/18/24 18:27 0.5 MG Doxycycline Hyclate 250 ml @ 125 mls/hr Q12H IV 07/18/24 08:15 07/18/24 20:19 125 MLS/HR Methylprednisolone Sodium Succinate 40 mg Q8HR IV 07/18/24 09:00 07/18/24 13:37 40 MG Furosemide 80 mg BIDD IV 07/18/24 18:00 07/18/24 16:54 80 MG Acetaminophen/ Hydrocodone Bitart 1 tab Q6HP PRN PO 07/18/24 13:30 Enoxaparin Sodium 110 mg DAILY SC 07/19/24 10:00 Alprazolam 1 mg TID PRN PO 07/18/24 18:15 Labetalol HCl 10 mg Q2HPRN PRN IV 07/18/24 18:15 Sevelamer HCl 800 mg TIDWM PO 07/18/24 19:30 07/18/24 20:20 800 MG objective Gen.: Patient lying in bed in no apparent distress. On BiPAP. Head: Normocephalic, atraumatic. Eyes: EOMI/PERRLA. Ears: Normal hearing. Normal anatomy. Neck/trachea: Trachea midline, supple. Nose: Normal external anatomy. Mouth: Moist mucous membranes. Chest: Decreased air entry bilaterally. No wheezing or rhonchi. Cardiovascular: Positive S1, positive S2. Regular rate and rhythm. Abdomen: Positive bowel sounds in all 4 quadrants. Soft, non-tender, non- distended. : Deferred. Rectal: Deferred. Skin: Warm, dry. Intact. Extremities: 2+ radial pulses bilaterally. No lower extremity edema. Neuro: Awake, alert, oriented x3. No gross motor or sensory deficits. Cranial nerves II through XII intact. Gait not assessed. laboratory and microbiology Laboratory Tests 07/18/24 08:54 Test 07/18/24 08:54 Range/Units Serum Glucose 120 H 74-106 mg/dL Assessment/Plan Impression: Sepsis secondary to UTI Acute hypoxic respiratory failure Pleural effusion Atelectasis Acute kidney injury Bilateral upper and lower extremity vasculitis Deep vein thrombosis ruled out Morbid obesity with a BMI of 40 Anxiety Seizure disorder Acute on chronic hypercarbic respiratory failure AMS 2/2 acute on chronic hypercarbic respiratory failure Events: Patient is now upgraded to ICU due to AMS 2/2 acute hypercarbic respiratory failure. Patient was started on BiPAP. Repeat ABG demonstrated improved ventilation. CXR reviewed; demonstrated bilateral pleural effusions and atelectasis, pulmonary interstitial edema. Continue abx Blood cx show no growth in 48 hours. IV steroids Incentive spirometry Elevated D-dimer - On Lovenox Continue BiPAP at night while sleeping (10 pm to 6 am) Diurese w/ Lasix Monitor renal function Labs and imaging reviewed. Rest of plan as noted below Plan: On BiPAP Keep O2 saturation above 92% Bronchodilators IV steroids Chest x-ray imaging report reviewed. No pneumothorax. Small bilateral pleural effusion with compressive atelectasis. Pulmonary vascular congestion Continue antibiotics Follow up cultures Blood cultures no growth after 48 hours Ultrasound venous Doppler lower extremities is negative for any acute DVT. CT abdomen and pelvis lung windows revealed there was small bilateral pleural effusions and bibasilar atelectasis. Anxiolytic as needed for anxiety Diurese to euvolemia Monitor ins and outs. Monitor renal function Monitor electrolytes. Supplement as necessary. Diet and lifestyle modifications for weight reduction given morbid obesity. DVT prophylaxis Prognosis: Poor given multiple comorbidities. Condition: Critical Rest of plan per hospitalist and other consultants. A total of 35 minutes of critical care time was spent reviewing the patient record, examining the patient, making a diagnostic and therapeutic plan, discussing this plan with the medical personnel, following up on diagnostic studies and following the patient for clinical stability excluding any and all procedures. At least 50% of this time was spent in direct, [id number] contact. Thank you Dr. Joanie Alvarez for allowing me to participate in this patient's care. Further recommendations will depend on patient's clinical course. Please do not hesitate to contact me if you have any questions or concerns. This medical document was created using an electronic medical record system with [employer] dictation system. Although this document has been carefully reviewed, there may still be some phonetic and typographical errors. These areas are purely typographical due to imperfections of the software programs, and do not reflect any compromise in the patient's medical care. Dietary Evaluation Review Comments: No Eliazar d/t ARMANDO-CKD-3 status, Will reassess her protein needs in 2-3 days. Expected Outcomes/Goals: gradual weight loss. Plan discussed with: Other (FATIMAH Whitman) GUALBERTO POZO MD Jul 18, 2024 20:53
[2024-07-19] VITALS (32 sets, daily range): BP systolic 114–149; BP diastolic 50–80; PULSE 91–109; RESP 12–33; TEMP 97–98.5; O2SAT 93–99
--- NOTE | 2024-07-19 04:51 | DVH ---
CHEST RADIOGRAPH Indication:SOB Technique: Single frontal view of the chest was obtained Comparison: XY CHEST XRAY 1 VIEW on DOS: 07/18/24, XY CHEST XRAY 1 VIEW on DOS: 07/17/24 FINDINGS: Lines and Tubes: None Lungs: Pulmonary edema again noted. Pleura: Bilateral pleural effusions are similar to prior study. No pneumothorax. Cardiomediastinal contours: Unremarkable Bones: No acute osseous abnormality. IMPRESSION: 1. Pulmonary edema and bilateral pleural effusions similar to prior study.
[2024-07-19 05:15] LABS: Basophils # (auto) 0 10 ^3/uL (0-0.2); Basophils % (auto) 0.1 % (0.0-2.0); Eosinophils # (auto) 0 10 ^3/uL (0-0.8); Hematocrit 34.9 % (36.0-46.0); Hemoglobin 11.5 g/dL (12.2-16.2); Lymphocytes # (auto) 0.5 10 ^3/uL (0.4-5.4); Lymphocytes % (auto) 7.5 % (10.0-50.0); Mean Corpuscular Volume 90.9 fL (80.0-100.0); Monocytes # (auto) 0.1 10 ^3/uL (0-1.3); Neutrophils # (auto) 6.5 10 ^3/uL (1.6-8.6); Neutrophils % (auto) 90.4 % (37.0-80.0); Platelet Count (auto) 409 10^3/uL (140-450); Red Blood Cells 3.83 10^6/uL (4.0-5.20); Red Cell Distribution Width 13.5 % (11.8-14.3); White Blood Cell 7.2 10^3/uL (4.4-10.8)
[2024-07-19 05:31] LABS: Albumin 3.3 g/dL (3.2-4.8); Alkaline Phosphatase 73 U/L (46-116); Anion Gap 7 (5-15); Aspartate Aminotransferase 11 U/L (13-40); BUN/Creatinine Ratio 16.4 (10.0-20.0); Blood Urea Nitrogen 37 mg/dL (9-23); Calcium 8.8 mg/dL (8.7-10.4); Carbon Dioxide 29 mmol/L (20-31); Chloride 106 mmol/L (98-107); Glucose 142 mg/dL (74-106); Magnesium 1.9 mg/dL (1.6-2.6); Potassium 4.3 mmol/L (3.5-5.1); Sodium 142 mmol/L (136-145)
[2024-07-19 05:32] LABS: Alanine Aminotransferase < 9 U/L (7-40); Bilirubin, Total 0.2 mg/dL (0.2-1.0); Total Protein 6.5 g/dL (5.7-8.2)
--- NOTE | 2024-07-19 06:34 | DVHPN2 ---
Progress Note - Dictate Date Seen: Jul 19, 2024 Medical Necessity Reason Pt with a Central, PICC or Fol: Yes The following are medically ne: Patino Catheter Reason for patino catheter: Strict I&O vital signs Vital Sign Date Time Temp Pulse Resp B/P (MAP) Pulse Ox O2 Delivery O2 Flow Rate FiO2 07/19/24 06:27 96 Nasal Cannula 3.0 07/19/24 06:27 92 24 07/19/24 06:27 32 07/19/24 06:00 138/78 (98) 07/19/24 04:00 97.6 97.6 Total Intake and Output 07/18/24 07/18/24 07/19/24 15:00 23:00 07:00 Intake Total 350 ml 300 ml 250 ml Output Total 2000 ml 425 ml 1300 ml Balance -1650 ml -125 ml -1050 ml medications Current Medications Medications Dose Ordered Sig/Kendell Route Start Time Stop Time Status Last Admin Dose Admin Amlodipine Besylate 5 mg DAILY PO 07/17/24 10:00 07/18/24 09:21 5 MG Ceftriaxone Sodium 50 ml @ 100 mls/hr DAILY@09 IV 07/17/24 09:00 07/18/24 09:20 100 MLS/HR Morphine Sulfate 2 mg Q6HPRN PRN IV 07/16/24 19:00 07/18/24 08:27 2 MG Albuterol 2.5 mg Q4HWA [facility] 07/16/24 22:00 07/19/24 06:27 2.5 MG Ipratropium [place] 0.5 mg Q4HWA [facility] 07/16/24 22:00 07/19/24 06:27 0.5 MG Doxycycline Hyclate 250 ml @ 125 mls/hr Q12H IV 07/18/24 08:15 07/18/24 20:19 125 MLS/HR Methylprednisolone Sodium Succinate 40 mg Q8HR IV 07/18/24 09:00 07/19/24 05:43 40 MG Furosemide 80 mg BIDD IV 07/18/24 18:00 07/19/24 05:43 80 MG Acetaminophen/ Hydrocodone Bitart 1 tab Q6HP PRN PO 07/18/24 13:30 Enoxaparin Sodium 110 mg DAILY SC 07/19/24 10:00 Alprazolam 1 mg TID PRN PO 07/18/24 18:15 Labetalol HCl 10 mg Q2HPRN PRN IV 07/18/24 18:15 Sevelamer HCl 800 mg TIDWM PO 07/18/24 19:30 07/18/24 20:20 800 MG laboratory and microbiology Laboratory Tests 07/19/24 04:40 Test 07/19/24 04:40 Range/Units Serum Glucose 142 H 74-106 mg/dL Assessment/Plan Patient is a 73-year-old female who presented on July 16, 2024 for abdominal pain/dysuria and frequency. She had been complaining of low appetite also. While being managed in [facility], the patient was found to be short of breath and cardiology was involved for shortness of breath. Patient denies any chest pains. Patient denies leg swellings. She is poor historian. She is known to our practice from outside. She was lost to follow-up with us years ago. Sleepy female. No JVD. [place] and wet mucosa. No goiter. Not using accessory muscle of breathing. Scattered rhonchi in the lungs is heard. Cardiac: Regular, tachycardic, no thrill/gallop. Abdomen is soft and obese. There is no gross hepatomegaly. Bowel sound is positive. Extremities reveal 2+ edema bilaterally. 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 WBC: 12.4 - 12.7 - 11.9 - 7.2 D-dimer: 14.16 Creatinine: 2.0 - 2.06 - 2.12 - 2.25 Potassium: 4.7 - 4.9 - 4.5 - 4.3 TSH: 0.57 BNP: 102.05 Trop (high sensitive): 13 - [address] scan revealed: IMPRESSION: 1. No acute abdominal or pelvic finding. 2. Hepatic steatosis. Venous Doppler of lower extremities revealed: Impression: 1. No right or left deep venous thrombosis. Renal ultrasound revealed: IMPRESSION: 1. Unremarkable examination. Chest x-ray revealed: Findings/Impression: Frontal chest radiograph demonstrates no acute osseous or superficial soft tissue abnormalities. The trachea is midline. Cardiomeagly with pulmonary vascular congestion. Small bilateral pleural effusions with compressive atelectasis. A superimposed infectious process is not excluded. No pneumothorax. Repeat chest xry revealed: IMPRESSION: 1. Pulmonary edema and bilateral pleural effusions similar to prior study. Repeat chest x-ray revealed: IMPRESSION: 1. Pulmonary interstitial edema and bilateral pleural effusions. EKG reveals sinus tachycardia with nonspecific ST-T changes Tele reveals sinus tachycardia Echocardiogram reported: Normal left ventricular size and dimension. Normal left ventricular systolic function estimated ejection fraction 50%. There is a grade 1 diastolic dysfunction. Normal right ventricular size and dimension. Normal right ventricular systolic function. Mildly elevated right ventricular systolic [id number] mm of mercury Normal biatrial size and dimension. Normal aortic valve structure and function. Normal mitral valve structure and function. Normal tricuspid valve structure and function. The pulmonary valve is grossly normal. No pericardial effusion. Patient is a 73-year-old female who presented to the hospital with abdominal pain/dysuria and frequency. She was found to have leukocytosis. Presentation is in favor of pneumonia/UTI. Sepsis is considered. Cardiac etiology for presentation is less likely. Still, the patient's D-dimer has been elevated and pulmonary emboli should be ruled out. Chest x-rays reveal congestion in the lungs and component of heart failure can not be ruled out. Encephalopathy, metabolic Acute respiratory failure Pulmonary edema, acute diastolic heart failure Sepsis Urosepsis Pneumonia ARMANDO On CKD Hypertension History of lupus History of psoriatic arthritis Abnormal D-dimer Fatty liver Cardiac suggestion for management: Manage in [place] IV diuresis Follow-up electrolytes and kidney function tests and correct abnormalities Full anticoagulation is suggested until pulmonary emboli is ruled out. Consider Lovenox 1 mg per kg daily If V/Q scan can not be performed, CT angio of the chest is suggested after Nephrology permission/clearance Further evaluation and management depends on the above and clinical course A total of 75 minutes was spent reviewing the patient record, examining the patient, making a diagnostic and therapeutic plan, discussing this plan with medical personnel, following up on diagnostic studies and following the patient for clinical stability excluding any and all procedures. At least 50% of this time was spent in direct, [id number] contact. Thank you for allowing me to participate in this patient's care. Further recommendations will depend on patient's clinical course. Please do not hesitate to contact me if you have any questions or concerns. This medical document was created using electronic medical record system with [employer] dictation system. Although this document has been carefully reviewed, there may still be some phonetic and typographical errors. These areas are purely typographical due to the imperfection of the software programs, and do not reflect any compromise in the patient's medical care. Dietary Evaluation Review Comments: No Eliazar d/t ARMANDO-CKD-3 status, Will reassess her protein needs in 2-3 days. Expected Outcomes/Goals: gradual weight loss. Plan discussed with: Patient, Other (nurse) CLAUDE JOHNSON MD Jul 19, 2024 06:34
[2024-07-19 08:07] LABS: Complement C3 160 mg/dL (82-167)
[2024-07-19] MEDS: ENOXAPARIN SOD 100 MG/1 ML SYRINGE SC SCH (08:15)
--- NOTE | 2024-07-19 08:28 | DVHPN2 ---
Progress Note Date Seen: Jul 19, 2024 Resident Creating Document: JACOB GALLOJENNIFER RESIDENT Medical Necessity Reason Pt with a Central, PICC or Fol: Yes The following are medically ne: Patino Catheter Reason for patino catheter: Strict I&O Subjective Review of Systems Patient is a 73-year-old female with a past medical history of hypertension, lupus, psoriatic arthritis came to the ED with a chief complaint of abdominal pain. Patient reported worsening abdominal pain associated with dysuria, urinary frequency, poor appetite. Patient reported that she was being treated for recurrent UTI with ciprofloxacin but has no improvement. Patient reported that since the past 3 weeks she is having worsening shortness of breath associated with phlegm which was initially clear which is green in color associated with fever and chills. Patient reports that she has been diagnosed with lupus since the 80s initially she was on on a medication for fever but she stopped. She was diagnosed with psoriatic arthritis and has been on multiple medication and about 3 months ago she was started on Rinvoq (upadacitinib). Patient also consulted [facility]rix lead recently because of her high WBC count, leukemia was ruled out as per the patient. Review of Systems Patient seen and examined at the bedside. Patient is alert and oriented to time, place and person. Patient has been shifted from ICU to [facility] and has been taken off from BiPAP now on oxygen via nasal cannula. Patient reports feeling better with improved breathing. Patient's blood pressure 149/62 mmHg mmHg, heart rate 95 per minute regular, SpO2 94% on 4 L oxygen via nasal cannula. Patient has a Patino catheter in place with 3720 mL urine output over the last 24 hours. Patient's chest x-ray shows pulmonary edema and bilateral pleural effusion. Objective vital signs Vital Sign Date Time Temp Pulse Resp B/P (MAP) Pulse Ox O2 Delivery O2 Flow Rate FiO2 07/19/24 08:14 149/62 07/19/24 06:32 91 22 99 07/19/24 06:27 Nasal Cannula 3.0 07/19/24 06:27 32 07/19/24 04:00 97.6 97.6 Total Intake and Output 07/18/24 07/18/24 07/19/24 15:00 23:00 07:00 Intake Total 350 ml 300 ml 250 ml Output Total 2000 ml 425 ml 1300 ml Balance -1650 ml -125 ml -1050 ml medications Current Medications Medications Dose Ordered Sig/Kendell Route Start Time Stop Time Status Last Admin Dose Admin Amlodipine Besylate 5 mg DAILY PO 07/17/24 10:00 07/19/24 08:14 5 MG Ceftriaxone Sodium 50 ml @ 100 mls/hr DAILY@09 IV 07/17/24 09:00 07/18/24 09:20 100 MLS/HR Morphine Sulfate 2 mg Q6HPRN PRN IV 07/16/24 19:00 07/18/24 08:27 2 MG Albuterol 2.5 mg Q4HWA [facility] 07/16/24 22:00 07/19/24 06:27 2.5 MG Ipratropium [place] 0.5 mg Q4HWA NEB 07/16/24 22:00 07/19/24 06:27 0.5 MG Doxycycline Hyclate 250 ml @ 125 mls/hr Q12H IV 07/18/24 08:15 07/19/24 08:13 125 MLS/HR Methylprednisolone Sodium Succinate 40 mg Q8HR IV 07/18/24 09:00 07/19/24 05:43 40 MG Furosemide 80 mg BIDD IV 07/18/24 18:00 07/19/24 05:43 80 MG Acetaminophen/ Hydrocodone Bitart 1 tab Q6HP PRN PO 07/18/24 13:30 Enoxaparin Sodium 110 mg DAILY SC 07/19/24 10:00 07/19/24 08:15 110 MG Alprazolam 1 mg TID PRN PO 07/18/24 18:15 Labetalol HCl 10 mg Q2HPRN PRN IV 07/18/24 18:15 Sevelamer HCl 800 mg TIDWM PO 07/18/24 19:30 07/19/24 08:13 800 MG Examination Physical Examination Gen - no pallor, no icterus, no cyanosis, no clubbing, no LAD, 1+ bilateral edema of hand and feet Skin - Patients skin is warm and dry.. HEENT - normocephalic, atraumatic, moist mucous membranes. Neck - full ROM, no LAD, no JVD. Pulmonary - B/L decreased breath sounds with bibasilar crackles, no wheezing, no stridor. cardiovascular - normal S1,S2 heard. no murmurs heard. peripheral pulses normal radial 2+, pedal 1+. capillary refill normal <2 secs. GI - soft abdomen . no hepatospleenomegaly. Bowel Sounds + Neurological - Patient is A/O X 3 . Bilateral upper extremity strength 5/5, bilateral lower extremity strength 3/5, no facial droop, normal speech, no tremor, decreased sensation in the feet bilaterally Extremities- patient has swelling of the bilateral lower limbs up to the knees with erythema and scaling on the skin. Patient has callus on the left plantar surface of 1st metatarsophalangeal joint seen by roll forger and wound debridement done covered with sterile dressing. Swelling of the hands and fingers. laboratory and microbiology Laboratory Tests 07/19/24 04:40 Test 07/19/24 04:40 Range/Units Serum Glucose 142 H 74-106 mg/dL Microbiology Date/Time Source Procedure Growth Status 07/18/24 05:53 Nose MRSA Screen - Final Complete 07/16/24 14:42 Blood Blood Culture - Preliminary NO GROWTH AFTER 48 HOURS OF INCUBATION. Resulted 07/16/24 07:30 Voided Urine Urine Culture - Final Complete Problem List/Assessment/Plan Problem List/Assessment/Plan Assessment and plan # ARMANDO on CKD likely hemodynamically mediated (baseline within normal renal function in September) - serum creatinine 2-->2.12--> 2.25 and BUN 25-->28-> 37 - GFR 25 - urine sodium, creatinine, protein creatinine ratio pending - renal ultrasound shows right kidney 12.1 cm in length, left kidney 10 cm in length, bilateral renal echotexture, contour, cortical thickness within normal limits. - continue furosemide 80 mg b.i.d. IV - strict I&O - urine output 3720 mL of with the past 24 hours - monitor electrolytes - avoid nephrotoxic medication # CKD likely stage III due to likely lupus - on reviewing records patient's baseline GFR 40-60 in September 2023 - long history of lupus - PTH elevated to 254 mg/dL with serum calcium 8.5 - serum phosphorous 6.2 - complement C3-C4 within normal limits - ESTATE TAX EXAMINER antibody elevated # Acute hypoxic respiratory failure likely due to Gram+/- pneumonia On 07/18 patient ICU status in the morning on BiPAP with a FiO2 35%, spontaneous breathing 20 per minute, EPAP 8, IPAP 16 - ABG shows pH 7.353, pCO2 46.5, bicarbonate 25.3 On 07/19- patient is shifted to [facility] and is currently on nasal cannula 4 liter/minute oxygen with a SpO2 95% # Hyperphosphatemia - started on a sevelamar 800 mg p.o. t.i.d. with meals # UTI # acute hypoxic respiratory failure # pneumonia likely Gram-positive/Gram-negative bacteria # history of lupus- following # history of psoriatic arthritis # hypertension Goals of care discussed with the patient for over 20 minutes. Full code. Plan discussed with ResidentAddendum Patient seen and examined, plan discussed with resident. Agree with above, we will follow closely Complements C3-C4 within normal limit Check U PCR pending Rheumatology eval noted Plan discussed with: Patient, Spouse My Orders My Orders Orders - LESLIE GALLO Procedure Category Date Status Time Furosemide Injection PHA 07/18/24 In Process (Lasix Injection) 18:00 Sevelamer (Renagel) PHA 07/18/24 In Process 19:30 Dietary Evaluation Review Comments: No Eliazar d/t ARMANDO-CKD-3 status, Will reassess her protein needs in 2-3 days. Expected Outcomes/Goals: gradual weight loss. LESLIE GALLO Jul 19, 2024 08:28 YUE TALLEY MD Jul 19, 2024 18:37
[2024-07-19 10:06] LABS: Anti-Centromere B Antibody <0.2 AI (0.0-0.9); Anti-Jo-1 Antibody <0.2 AI (0.0-0.9); Anti-dsDNA Antibody <1 IU/mL (0-9); Antichromatin Antibody <0.2 AI (0.0-0.9); Antiscleroderma-70 Antibody <0.2 AI (0.0-0.9); RNP Antibody 1.7 AI (0.0-0.9); Sjogren's Anti-SS-A Antibody <0.2 AI (0.0-0.9); Sjogren's Anti-SS-B Antibody <0.2 AI (0.0-0.9); Smith Antibody <0.2 AI (0.0-0.9)
--- NOTE | 2024-07-19 11:12 | DVHPN2 ---
Reviewed: Care Plan, H&P, Labs, Medications, Previous Orders, Radiology Changes from previous H/P or p: No Changes Eyes: No Pain, No Vision change, No Conjunctivae inflammation, No Eyelid inflammation, No Other, No Redness ENT: No Ear pain, No Ear discharge, No Nose pain, No Nose discharge, No Nose congestion, No Mouth pain, No Mouth swelling, No Throat pain, No Throat swelling, No Other Cardiovascular: No Chest Pain, No Palpitations, No Orthopnea, No Paroxysmal Noc. Dyspnea, No Edema, No Lt Headedness, No Other Respiratory: No Cough, No Dry, No Shortness of breath, No SOB with excertion, No Wheezing, No Hemoptysis, No Pleuritic Pain, No Sputum, No Other Gastrointestinal: No Nausea, No Vomiting; Abdominal Pain; No Diarrhea, No Constipation, No Melena, No Hematochezia, No Other Genitourinary: Dysuria, Frequency; No Incontinence, No Hematuria, No Retention, No Other Musculoskeletal: No other, No neck pain, No shoulder pain, No arm pain, No back pain, No hand pain, No leg pain, No foot pain Skin: Rash Objective Vitals Vital Signs Date Time Temp Pulse Resp B/P (MAP) Pulse Ox O2 Delivery O2 Flow Rate FiO2 07/19/24 10:00 106 07/19/24 10:00 94 Nasal Cannula 3.0 07/19/24 10:00 23 32 07/19/24 09:00 07/19/24 08:00 97.6 97.6 Intake/Output Intake and Output 07/19/24 07:00 Intake Total 900 ml Output Total 3725 ml Balance -2825 ml Intake Oral 300 ml IV Total 600 ml Output Urine Total 3725 ml Medications Current Medications Medications Dose Ordered Sig/Kendell Route Start Time Stop Time Status Last Admin Dose Admin Amlodipine Besylate 5 mg DAILY PO 07/17/24 10:00 07/19/24 08:14 5 MG Ceftriaxone Sodium 50 ml @ 100 mls/hr DAILY@09 IV 07/17/24 09:00 07/18/24 09:20 100 MLS/HR Morphine Sulfate 2 mg Q6HPRN PRN IV 07/16/24 19:00 07/18/24 08:27 2 MG Albuterol 2.5 mg Q4HWA NEB 07/16/24 22:00 07/19/24 09:26 2.5 MG Ipratropium [place] 0.5 mg Q4HWA NEB 07/16/24 22:00 07/19/24 09:26 0.5 MG Doxycycline Hyclate 250 ml @ 125 mls/hr Q12H IV 07/18/24 08:15 07/19/24 08:13 125 MLS/HR Methylprednisolone Sodium Succinate 40 mg Q8HR IV 07/18/24 09:00 07/19/24 05:43 40 MG Furosemide 80 mg BIDD IV 07/18/24 18:00 07/19/24 05:43 80 MG Acetaminophen/ Hydrocodone Bitart 1 tab Q6HP PRN PO 07/18/24 13:30 Enoxaparin Sodium 110 mg DAILY SC 07/19/24 10:00 07/19/24 08:15 110 MG Alprazolam 1 mg TID PRN PO 07/18/24 18:15 Labetalol HCl 10 mg Q2HPRN PRN IV 07/18/24 18:15 Sevelamer HCl 800 mg TIDWM PO 07/18/24 19:30 07/19/24 08:13 800 MG Laboratory Results Laboratory Tests 07/19/24 04:40 Chemistry Test 07/19/24 04:40 Albumin 3.3 g/dL (3.2-4.8) Calcium Level 8.8 mg/dL (8.7-10.4) Magnesium Level 1.9 mg/dL (1.6-2.6) Total Protein 6.5 g/dL (5.7-8.2) LFT Test 07/19/24 04:40 Alanine Aminotransferase (ALT) < 9 U/L (7-40) Alkaline Phosphatase 73 U/L (46-116) Aspartate Amino Transferase (AST) 11 U/L (13-40) L Total Bilirubin 0.2 mg/dL (0.2-1.0) Urinalysis Test 07/16/24 07:30 Urine Color Light-brown (Yellow) Urine Clarity Turbid (Clear) H Urine pH 7.0 (5.0-9.0) Urine Specific [place] 1.011 (1.001-1.035) Urine Protein 2+ (Negative) H Urine Ketones Negative (Negative) Urine Blood 3+ /uL (Negative) H Urine Nitrite Negative (Negative) Urine Bilirubin Negative (Negative) Urine Urobilinogen Normal mg/dL (Negative) Urine Leukocyte Esterase Trace /uL (Negative) Urine RBC 438 /hpf (0 - 4) Urine WBC 19 /hpf (0 - 5) Urine Squamous Epithelial Cells None seen /hpf (<5) Urine Bacteria None seen /hpf (None Seen) Urine Mucus Few (None Seen) Urine Glucose Normal mg/dL (Normal) Microbiology Microbiology Date/Time Source Procedure Growth Status 07/18/24 05:53 Nose MRSA Screen - Final Complete 07/16/24 14:42 Blood Blood Culture - Preliminary NO GROWTH AFTER 48 HOURS OF INCUBATION. Resulted 07/16/24 07:30 Voided Urine Urine Culture - Final Complete Labs and/or images reviewed: Labs reviewed by me, Image(s) reviewed by me Assessment/Plan Assessment/Plan Acute hypoxic respiratory failure: Improving now one 4 L of oxygen by nasal cannula pulmonary consult by Dr. Minor appreciated. Chest x-ray shows bilateral small pleural effusions Possible bilateral community-acquired pneumonia, continue Rocephin add doxycycline Rule out congestive heart failure: Cardiology consult appreciated Sepsis secondary to urinary tract infection: Blood cultures negative, urine cultures negative, continue Rocephin Hypertension: Hydralazine discontinued and started on labetalol by the agricultural purchasing agent Acute metabolic encephalopathy: CT head ordered to rule out any intracranial pathology Acute kidney injury: Nephrology consult appreciated Bilateral upper and lower extremity vasculitis D-dimer elevated 14.6 DVT ruled out V/Q scan pending CT chest angiogram could not be done because of poor kidney function CT abdomen pelvis negative Kidney ultrasound negative History of lupus under the care of , rheumatology consult by Dr. Grubbs appreciated History of seizures Moderate obesity High level of anxiety: Xanax Condition guarded Seen in [facility] Time spent 65 minutes Patient is full code Advanced care planning time 20 minutes Plan discussed with: Patient My Orders Orders - JESUS VILLANUEVA MD Procedure Category Date Status Time Abg W/ Co-Ox RT 07/18/24 Logged 11:13 * Fare Enforcement Officer CONS 07/18/24 Transmitted Consult Hydrocodone-Acet PHA 07/18/24 In Process 5/325mg Tab ([place] 13:30 Chest Portable XY 07/19/24 Resulted 04:00 Date of Service: Jul 19, 2024 Billing Provider: JESUS VILLANUEVA MD Common Visit Codes: [id number] CARE 30-74 MIN JESUS VILLANUEVA MD Jul 19, 2024 11:12
--- NOTE | 2024-07-19 12:13 | DVH ---
EXAM: CT HEAD WITHOUT CONTRAST INDICATION: Altered mental status TECHNIQUE: CT of the head without intravenous contrast. Radiation dose : Head: CT Dose: CTDI volume is 69 mGy. Dose-length product is 1223 mGy*cm The dose indicators for CT are the volume computed tomography (CT) dose index (CTDIvol) and the dose length product (DLP), and are measured in units of mGy and mGy-cm, respectively. These indicators are not patient dose, but values generated from the CT scanner acquisition factors. The report includes radiation exposure data for exposures received during this examination. COMPARISON: None FINDINGS: There is no evidence of acute intracranial hemorrhage, extra-axial collection, mass effect, midline s hift, herniation or hydrocephalus. The ventricles, sulci and cisterns are age appropriate. The adballa-white differentiation is intact. Patchy periventricular and subcortical white matter hypoattenuation is nonspecific but may be related to small vessel ischemic disease. The visualized paranasal sinuses and mastoid air cells are clear. The surrounding soft tissues and osseous structures are unremarkable. IMPRESSION: 1. No acute intracranial abnormality. Radiation optimization: All CT scans at this facility use at least one of these dose optimization matthieu hniques: Automated exposure control mA and/or kV adjustment per patient size (includes targeted exams where dose is matched to clinical indication) or iterative reconstruction. HS:Y
[2024-07-19] MEDS: THROAT LOZENGES(CEPASTAT) MT PRN (17:55)
[2024-07-19 18:18] LABS: Protein, Urine 95.5 mg/dL (1-14)
[2024-07-19 18:21] LABS: Creatinine, Urine 81.73 mg/dL (30.0-125.0); Urine Protein/Creatinine Ratio 1.17
--- NOTE | 2024-07-19 19:52 | DVHPN2 ---
Progress Note - Dictate Date Seen: Jul 19, 2024 Medical Necessity Reason Pt with a Central, PICC or Fol: Yes The following are medically ne: Patino Catheter Reason for patino catheter: Strict I&O Subjective Patient seen and examined at bedside. On supplemental oxygen Overnight events reviewed. vital signs Vital Sign Date Time Temp Pulse Resp B/P (MAP) Pulse Ox O2 Delivery O2 Flow Rate FiO2 07/19/24 19:36 93 17 133/61 98 2.0 28 07/19/24 18:24 Nasal Cannula 07/19/24 16:00 98.5 98.5 Total Intake and Output 07/18/24 07/18/24 07/19/24 15:00 23:00 07:00 Intake Total 350 ml 300 ml 250 ml Output Total 2000 ml 425 ml 1300 ml Balance -1650 ml -125 ml -1050 ml medications Current Medications Medications Dose Ordered Sig/Kendell Route Start Time Stop Time Status Last Admin Dose Admin Amlodipine Besylate 5 mg DAILY PO 07/17/24 10:00 07/19/24 08:14 5 MG Ceftriaxone Sodium 50 ml @ 100 mls/hr DAILY@09 IV 07/17/24 09:00 07/19/24 09:00 100 MLS/HR Morphine Sulfate 2 mg Q6HPRN PRN IV 07/16/24 19:00 07/18/24 08:27 2 MG Albuterol 2.5 mg Q4HWA NEB 07/16/24 22:00 07/19/24 18:24 2.5 MG Ipratropium [place] 0.5 mg Q4HWA [facility] 07/16/24 22:00 07/19/24 18:24 0.5 MG Doxycycline Hyclate 250 ml @ 125 mls/hr Q12H IV 07/18/24 08:15 07/19/24 08:13 125 MLS/HR Methylprednisolone Sodium Succinate 40 mg Q8HR IV 07/18/24 09:00 07/19/24 13:41 40 MG Furosemide 80 mg BIDD IV 07/18/24 18:00 07/19/24 17:49 80 MG Acetaminophen/ Hydrocodone Bitart 1 tab Q6HP PRN PO 07/18/24 13:30 Enoxaparin Sodium 110 mg DAILY SC 07/19/24 10:00 07/19/24 08:15 110 MG Alprazolam 1 mg TID PRN PO 07/18/24 18:15 Labetalol HCl 10 mg Q2HPRN PRN IV 07/18/24 18:15 Sevelamer HCl 800 mg TIDWM PO 07/18/24 19:30 07/19/24 17:48 800 MG Throat Lozenges 1 alisha Q2HP PRN [place] 07/19/24 17:15 07/19/24 17:55 1 ALISHA objective Gen.: Patient lying in bed in no apparent distress. On supplemental oxygen. Head: Normocephalic, atraumatic. Eyes: EOMI/PERRLA. Ears: Normal hearing. Normal anatomy. Neck/trachea: Trachea midline, supple. Nose: Normal external anatomy. Mouth: Moist mucous membranes. Chest: Decreased air entry bilaterally. No wheezing or rhonchi. Cardiovascular: Positive S1, positive S2. Regular rate and rhythm. Abdomen: Positive bowel sounds in all 4 quadrants. Soft, non-tender, non- distended. : Deferred. Rectal: Deferred. Skin: Warm, dry. Intact. Extremities: 2+ radial pulses bilaterally. No lower extremity edema. Neuro: Awake, alert, oriented x3. No gross motor or sensory deficits. Cranial nerves II through XII intact. Gait not assessed. laboratory and microbiology Laboratory Tests 07/19/24 04:40 Test 07/19/24 04:40 Range/Units Serum Glucose 142 H 74-106 mg/dL Assessment/Plan Impression: Sepsis secondary to UTI Acute hypoxic respiratory failure Pleural effusion Atelectasis Acute kidney injury Bilateral upper and lower extremity vasculitis Deep vein thrombosis ruled out Morbid obesity with a BMI of 40 Anxiety Seizure disorder Acute on chronic hypercarbic respiratory failure AMS 2/2 acute on chronic hypercarbic respiratory failure Events: On supplemental O2 at 3 LPM NC Taper O2 as tolerated Head CT showed no acute intracranial abnormality. CXR reviewed; demonstrated pulmonary edema and bilateral pleural effusions similar to prior study. Continue abx Blood cx show no growth in 72 hours. IV steroids Continue bronchodilators Incentive spirometry Elevated D-dimer - On Lovenox Cardiology recs appreciated. Patient is unable to lie flat for V/Q scan. Diurese w/ Lasix as tolerated Monitor renal function Monitor electrolytes, supplement as necessary Nephrology recs appreciated. Labs and imaging reviewed. Rest of plan as noted below Plan: Supplemental O2 at 3 LPM NC Keep O2 saturation above 92% Bronchodilators IV steroids Chest x-ray imaging report reviewed. No pneumothorax. Small bilateral pleural effusion with compressive atelectasis. Pulmonary vascular congestion Continue antibiotics Follow up cultures Blood cultures no growth after 72 hours Ultrasound venous Doppler lower extremities is negative for any acute DVT. CT abdomen and pelvis lung windows revealed there was small bilateral pleural effusions and bibasilar atelectasis. Anxiolytic as needed for anxiety Diurese to euvolemia Monitor ins and outs. Monitor renal function Monitor electrolytes. Supplement as necessary. Diet and lifestyle modifications for weight reduction given morbid obesity. DVT prophylaxis Prognosis: Poor given multiple comorbidities. Rest of plan per hospitalist and other consultants. Thank you Dr. Joanie Alvarez for allowing me to participate in this patient's care. Further recommendations will depend on patient's clinical course. Please do not hesitate to contact me if you have any questions or concerns. This medical document was created using an electronic medical record system with [employer] dictation system. Although this document has been carefully reviewed, there may still be some phonetic and typographical errors. These areas are purely typographical due to imperfections of the software programs, and do not reflect any compromise in the patient's medical care. Dietary Evaluation Review Comments: No Eliazar d/t ARMANDO-CKD-3 status, Will reassess her protein needs in 2-3 days. Expected Outcomes/Goals: gradual weight loss. Plan discussed with: Patient, Other (FATIMAH Resendez) GUALBERTO POZO MD Jul 19, 2024 19:52
[2024-07-20] VITALS (56 sets, daily range): BP systolic 135–165; BP diastolic 60–80; PULSE 85–109; RESP 11–35; TEMP 97.5–98.5; O2SAT 92–100
[2024-07-20] MEDS: ALPRAZolam 0.5 MG TAB PO PRN (03:10)
[2024-07-20 04:53] LABS: Basophils # (auto) 0 10 ^3/uL (0-0.2); Basophils % (auto) 0.1 % (0.0-2.0); Eosinophils # (auto) 0 10 ^3/uL (0-0.8); Lymphocytes # (auto) 0.7 10 ^3/uL (0.4-5.4); Monocytes # (auto) 0.5 10 ^3/uL (0-1.3); Monocytes % (auto) 5.1 % (0.0-12.0); White Blood Cell 10.6 10^3/uL (4.4-10.8)
[2024-07-20 04:55] LABS: Hemoglobin 11.9 g/dL (12.2-16.2); Lymphocytes % (auto) 7.1 % (10.0-50.0); Mean Corpuscular Hemoglobin 29.8 pg (28.0-32.0); Mean Corpuscular Volume 90.5 fL (80.0-100.0); Neutrophils # (auto) 9.3 10 ^3/uL (1.6-8.6); Neutrophils % (auto) 87.7 % (37.0-80.0); Platelet Count (auto) 494 10^3/uL (140-450); Red Blood Cells 3.98 10^6/uL (4.0-5.20); Red Cell Distribution Width 13.6 % (11.8-14.3)
[2024-07-20 05:01] LABS: Chloride 103 mmol/L (98-107); Sodium 142 mmol/L (136-145)
[2024-07-20 05:02] LABS: Anion Gap 9 (5-15); Carbon Dioxide 30 mmol/L (20-31)
[2024-07-20 05:03] LABS: Calcium 8.9 mg/dL (8.7-10.4)
[2024-07-20 05:07] LABS: BUN/Creatinine Ratio 24.9 (10.0-20.0); Glucose 146 mg/dL (74-106)
[2024-07-20 05:09] LABS: Blood Urea Nitrogen 55 mg/dL (9-23)
[2024-07-20 05:10] LABS: Phosphorus 5.1 mg/dL (2.4-5.1)
[2024-07-20] MEDS: HYDROcodone-ACET 5/325MG TAB PO PRN (05:32)
[2024-07-20] MEDS: LABETALOL HCL 20 MG/4 ML VL IV PRN (06:26)
--- NOTE | 2024-07-20 07:32 | DVHPN2 ---
Progress Note - Dictate Date Seen: Jul 20, 2024 Medical Necessity Reason Pt with a Central, PICC or Fol: Yes The following are medically ne: Patino Catheter Reason for patino catheter: Strict I&O vital signs Vital Sign Date Time Temp Pulse Resp B/P (MAP) Pulse Ox O2 Delivery O2 Flow Rate FiO2 07/20/24 06:44 85 22 100 07/20/24 06:38 Nasal Cannula* 2 28 07/20/24 06:26 159/75 07/20/24 06:00 98.1 98.1 Total Intake and Output 07/19/24 07/19/24 07/20/24 15:00 23:00 07:00 Intake Total 300 ml 710 ml 350 ml Output Total 1000 ml 1000 ml Balance 300 ml -290 ml -650 ml medications Current Medications Medications Dose Ordered Sig/Kendell Route Start Time Stop Time Status Last Admin Dose Admin Amlodipine Besylate 5 mg DAILY PO 07/17/24 10:00 07/19/24 08:14 5 MG Ceftriaxone Sodium 50 ml @ 100 mls/hr DAILY@09 IV 07/17/24 09:00 07/19/24 09:00 100 MLS/HR Morphine Sulfate 2 mg Q6HPRN PRN IV 07/16/24 19:00 07/19/24 21:41 2 MG Albuterol 2.5 mg Q4HWA NEB 07/16/24 22:00 07/20/24 06:38 2.5 MG Ipratropium [place] 0.5 mg Q4HWA [facility] 07/16/24 22:00 07/20/24 06:38 0.5 MG Doxycycline Hyclate 250 ml @ 125 mls/hr Q12H IV 07/18/24 08:15 07/19/24 21:29 125 MLS/HR Methylprednisolone Sodium Succinate 40 mg Q8HR IV 07/18/24 09:00 07/20/24 05:31 40 MG Furosemide 80 mg BIDD IV 07/18/24 18:00 07/20/24 05:31 80 MG Acetaminophen/ Hydrocodone Bitart 1 tab Q6HP PRN PO 07/18/24 13:30 07/20/24 05:32 1 TAB Enoxaparin Sodium 110 mg DAILY SC 07/19/24 10:00 07/19/24 08:15 110 MG Alprazolam 1 mg TID PRN PO 07/18/24 18:15 07/20/24 03:10 1 MG Labetalol HCl 10 mg Q2HPRN PRN IV 07/18/24 18:15 07/20/24 06:26 10 MG Sevelamer HCl 800 mg TIDWM PO 07/18/24 19:30 07/19/24 17:48 800 MG Throat Lozenges 1 alisha Q2HP PRN MT 07/19/24 17:15 07/20/24 06:26 1 ALISHA laboratory and microbiology Laboratory Tests 07/20/24 04:22 Test 07/20/24 04:22 Range/Units Serum Glucose 146 H 74-106 mg/dL Assessment/Plan Patient is a 73-year-old female who presented on July 16, 2024 for abdominal pain/dysuria and frequency. She had been complaining of low appetite also. While being managed in [facility], the patient was found to be short of breath and cardiology was involved for shortness of breath. Patient denies any chest pains. Patient denies leg swellings. She is poor historian. She is known to our practice from outside. She was lost to follow-up with us years ago. Sleepy female. No JVD. Novice and wet mucosa. No goiter. Not using accessory muscle of breathing. Scattered rhonchi in the lungs is heard. Cardiac: Regular, tachycardic, no thrill/gallop. Abdomen is soft and obese. There is no gross hepatomegaly. Bowel sound is positive. Extremities reveal 2+ edema bilaterally. 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 WBC: 12.4 - 12.7 - 11.9 - 7.2 - 10.6 D-dimer: 14.16 Creatinine: 2.0 - 2.06 - 2.12 - 2.25 - 2.21 Potassium: 4.7 - 4.9 - 4.5 - 4.3 - 4.0 M.9 TSH: 0.57 BNP: 102.05 Trop (high sensitive): 13 - [address] scan revealed: IMPRESSION: 1. No acute abdominal or pelvic finding. 2. Hepatic steatosis. Venous Doppler of lower extremities revealed: Impression: 1. No right or left deep venous thrombosis. Renal ultrasound revealed: IMPRESSION: 1. Unremarkable examination. Chest x-ray revealed: Findings/Impression: Frontal chest radiograph demonstrates no acute osseous or superficial soft tissue abnormalities. The trachea is midline. Cardiomeagly with pulmonary vascular congestion. Small bilateral pleural effusions with compressive atelectasis. A superimposed infectious process is not excluded. No pneumothorax. CT of head revealed: IMPRESSION: 1. No acute intracranial abnormality. Repeat chest xry revealed: IMPRESSION: 1. Pulmonary edema and bilateral pleural effusions similar to prior study. Repeat chest x-ray revealed: IMPRESSION: 1. Pulmonary interstitial edema and bilateral pleural effusions. EKG reveals sinus tachycardia with nonspecific ST-T changes Tele reveals sinus tachycardia Echocardiogram reported: Normal left ventricular size and dimension. Normal left ventricular systolic function estimated ejection fraction 50%. There is a grade 1 diastolic dysfunction. Normal right ventricular size and dimension. Normal right ventricular systolic function. Mildly elevated right ventricular systolic [id number] mm of mercury Normal biatrial size and dimension. Normal aortic valve structure and function. Normal mitral valve structure and function. Normal tricuspid valve structure and function. The pulmonary valve is grossly normal. No pericardial effusion. Patient is a 73-year-old female who presented to the hospital with abdominal pain/dysuria and frequency. She was found to have leukocytosis. Presentation is in favor of pneumonia/UTI. Sepsis is considered. Cardiac etiology for presentation is less likely. Still, the patient's D-dimer has been elevated and pulmonary emboli should be ruled out. Chest x-rays reveal congestion in the lungs and component of heart failure can not be ruled out. Encephalopathy, metabolic Acute respiratory failure Pulmonary edema, acute diastolic heart failure Sepsis Urosepsis Pneumonia ARMANDO On CKD Hypertension History of lupus History of psoriatic arthritis Abnormal D-dimer Fatty liver Cardiac suggestion for management: Manage in [facility] IV diuresis (can decrease from 80 to 60 mg lasix BID) Follow-up electrolytes and kidney function tests and correct abnormalities Full anticoagulation is suggested until pulmonary emboli is ruled out. Consider Lovenox 1 mg per kg daily If V/Q scan can not be performed, CT angio of the chest is suggested after Nephrology permission/clearance Further evaluation and management depends on the above and clinical course A total of 75 minutes was spent reviewing the patient record, examining the patient, making a diagnostic and therapeutic plan, discussing this plan with medical personnel, following up on diagnostic studies and following the patient for clinical stability excluding any and all procedures. At least 50% of this time was spent in direct, [id number] contact. Thank you for allowing me to participate in this patient's care. Further recommendations will depend on patient's clinical course. Please do not hesitate to contact me if you have any questions or concerns. This medical document was created using electronic medical record system with [employer] computerized dictation system. Although this document has been carefully reviewed, there may still be some phonetic and typographical errors. These areas are purely typographical due to the imperfection of the software programs, and do not reflect any compromise in the patient's medical care. Dietary Evaluation Review Comments: No Eliazar d/t ARMANDO-CKD-3 status, Will reassess her protein needs in 2-3 days. Expected Outcomes/Goals: gradual weight loss. Plan discussed with: Patient, Other (nurse) CLAUDE JOHNSON MD Jul 20, 2024 07:32
[2024-07-20 07:45] LABS: Urine Bacteria FEW /hpf (None Seen); Urine Blood 2+ /uL (Negative); Urine Clarity Turbid (Clear); Urine Color Colorless (Yellow); Urine Mucus FEW (None Seen); Urine Protein, UAD TRACE (Negative); Urine Specific Gravity 1.007 (1.001-1.035); Urine Urobilinogen Normal (Negative); Urine WBC 25 /hpf (0 - 5)
--- NOTE | 2024-07-20 09:46 | DVH ---
CHEST RADIOGRAPH Indication:pulmonary congestion , SOB Technique: Single frontal view of the chest was obtained Comparison: XY CHEST PORTABLE on DOS: 07/19/24, XY CHEST XRAY 1 VIEW on DOS: 07/18/24, XY CHEST XRAY 1 VIEW on DOS: 07/17/24, XY CHEST PORTABLE on DOS: 07/19/24 FINDINGS: Lines and Tubes: None Lungs: Pulmonary edema again noted. Pleura: Bilateral pleural effusions are similar to prior study. No pneumothorax. Cardiomediastinal contours: Unremarkable Bones: No acute osseous abnormality. IMPRESSION: 1. Pulmonary edema and bilateral pleural effusions similar to prior study.
[2024-07-20] MEDS: DULoxetine HCL 30 MG CAP PO SCH (10:48)
--- NOTE | 2024-07-20 11:30 | DVHPN2 ---
Reviewed: Care Plan, H&P, Labs, Medications, Previous Orders, Radiology Changes from previous H/P or p: No Changes Eyes: No Pain, No Vision change, No Conjunctivae inflammation, No Eyelid inflammation, No Other, No Redness ENT: No Ear pain, No Ear discharge, No Nose pain, No Nose discharge, No Nose congestion, No Mouth pain, No Mouth swelling, No Throat pain, No Throat swelling, No Other Cardiovascular: No Chest Pain, No Palpitations, No Orthopnea, No Paroxysmal Noc. Dyspnea, No Edema, No Lt Headedness, No Other Respiratory: No Cough, No Dry, No Shortness of breath, No SOB with excertion, No Wheezing, No Hemoptysis, No Pleuritic Pain, No Sputum, No Other Gastrointestinal: No Nausea, No Vomiting; Abdominal Pain; No Diarrhea, No Constipation, No Melena, No Hematochezia, No Other Genitourinary: Dysuria, Frequency; No Incontinence, No Hematuria, No Retention, No Other Musculoskeletal: No other, No neck pain, No shoulder pain, No arm pain, No back pain, No hand pain, No leg pain, No foot pain Skin: Rash Objective Vitals Vital Signs Date Time Temp Pulse Resp B/P (MAP) Pulse Ox O2 Delivery O2 Flow Rate FiO2 07/20/24 10:12 86 20 99 07/20/24 10:10 147/67 07/20/24 10:02 Nasal Cannula 2.0 07/20/24 10:02 28 07/20/24 08:00 97.7 97.7 Intake/Output Intake and Output 07/20/24 07:00 Intake Total 1360 ml Output Total 2000 ml Balance -640 ml Intake Oral 810 ml IV Total 550 ml Output Urine Total 2000 ml Medications Current Medications Medications Dose Ordered Sig/Kendell Route Start Time Stop Time Status Last Admin Dose Admin Amlodipine Besylate 5 mg DAILY PO 07/17/24 10:00 07/20/24 10:10 5 MG Ceftriaxone Sodium 50 ml @ 100 mls/hr DAILY@09 IV 07/17/24 09:00 07/20/24 08:28 100 MLS/HR Morphine Sulfate 2 mg Q6HPRN PRN IV 07/16/24 19:00 07/19/24 21:41 2 MG Albuterol 2.5 mg Q4HWA NEB 07/16/24 22:00 07/20/24 10:02 2.5 MG Ipratropium [place] 0.5 mg Q4HWA NEB 07/16/24 22:00 07/20/24 10:02 0.5 MG Doxycycline Hyclate 250 ml @ 125 mls/hr Q12H IV 07/18/24 08:15 07/20/24 08:28 125 MLS/HR Methylprednisolone Sodium Succinate 40 mg Q8HR IV 07/18/24 09:00 07/20/24 05:31 40 MG Acetaminophen/ Hydrocodone Bitart 1 tab Q6HP PRN PO 07/18/24 13:30 07/20/24 05:32 1 TAB Alprazolam 1 mg TID PRN PO 07/18/24 18:15 07/20/24 03:10 1 MG Labetalol HCl 10 mg Q2HPRN PRN IV 07/18/24 18:15 07/20/24 06:26 10 MG Sevelamer HCl 800 mg TIDWM PO 07/18/24 19:30 07/20/24 08:27 800 MG Throat Lozenges 1 alisha Q2HP PRN MT 07/19/24 17:15 07/20/24 06:26 1 ALISHA Furosemide 60 mg BIDD IV 07/20/24 18:00 Duloxetine HCl 30 mg DAILY PO 07/20/24 10:00 07/20/24 10:48 30 MG Enoxaparin Sodium 100 mg DAILY SC 07/21/24 10:00 Laboratory Results Laboratory Tests 07/20/24 04:22 Chemistry Test 07/20/24 04:22 Calcium Level 8.9 mg/dL (8.7-10.4) Phosphorus Level 5.1 mg/dL (2.4-5.1) Urinalysis Test 07/19/24 17:45 07/20/24 06:34 Urine Creatinine 81.73 mg/dL (30.0-125.0) Urine Protein/Creatinine Ratio 1.17 Urine Sodium 14 mmol/L (40-220) L Urine Total Protein 95.5 mg/dL (1-14) H Urine Color Colorless (Yellow) Urine Clarity Turbid (Clear) H Urine pH 5.0 (5.0-9.0) Urine Specific Ophiem 1.007 (1.001-1.035) Urine Protein Trace (Negative) H Urine Ketones Negative (Negative) Urine Blood 2+ /uL (Negative) H Urine Nitrite Negative (Negative) Urine Bilirubin Negative (Negative) Urine Urobilinogen Normal mg/dL (Negative) Urine Leukocyte Esterase 1+ /uL (Negative) Urine RBC 205 /hpf (0 - 4) Urine WBC 25 /hpf (0 - 5) Urine Squamous Epithelial Cells Few /hpf (<5) Urine Bacteria Few /hpf (None Seen) H Urine Mucus Few (None Seen) Urine Glucose Normal mg/dL (Normal) Microbiology Microbiology Date/Time Source Procedure Growth Status 07/18/24 05:53 Nose MRSA Screen - Final Complete 07/16/24 14:42 Blood Blood Culture - Preliminary NO GROWTH AFTER 72 HOURS OF INCUBATION. Resulted 07/16/24 07:30 Voided Urine Urine Culture - Final Complete Labs and/or images reviewed: Labs reviewed by me, Image(s) reviewed by me Assessment/Plan Assessment/Plan Acute hypoxic respiratory failure: Improving now one 4 L of oxygen by nasal cannula pulmonary consult by Dr. Minor appreciated. Chest x-ray shows bilateral small pleural effusions Possible bilateral community-acquired pneumonia, continue Rocephin add doxycycline Rule out congestive heart failure: Cardiology consult appreciated Sepsis secondary to urinary tract infection: Blood cultures negative, urine cultures negative, continue Rocephin Hypertension: Hydralazine discontinued and started on labetalol by the orthotic assistant Acute metabolic encephalopathy: CT head ordered to rule out any intracranial pathology Acute kidney injury: Nephrology consult appreciated Bilateral upper and lower extremity vasculitis D-dimer elevated 14.6 DVT ruled out V/Q scan pending; started on Lovenox 1 milligram/kilos subQ q.12h until PE is ruled out CT chest angiogram could not be done because of poor kidney function CT abdomen pelvis negative Kidney ultrasound negative History of lupus under the care of , rheumatology consult by Dr. Grubbs appreciated History of seizures Moderate obesity High level of anxiety: Xanax Condition guarded Seen in [facility] Time spent 65 minutes Patient is full code Advanced care planning time 20 minutes Plan discussed with: Patient Date of Service: Jul 20, 2024 Billing Provider: JESUS VILLANUEVA MD Common Visit Codes: [id number] CARE 30-74 MIN JESUS VILLANUEVA MD Jul 20, 2024 11:30
--- NOTE | 2024-07-20 11:48 | DVHPN2 ---
Progress Note Date Seen: Jul 20, 2024 Resident Creating Document: JACOB GALLOJENNIFER RESIDENT Medical Necessity Reason Pt with a Central, PICC or Fol: Yes The following are medically ne: Patino Catheter Reason for patino catheter: Strict I&O Subjective Review of Systems Patient is a 73-year-old female with a past medical history of hypertension, lupus, psoriatic arthritis came to the ED with a chief complaint of abdominal pain. Patient reported worsening abdominal pain associated with dysuria, urinary frequency, poor appetite. Patient reported that she was being treated for recurrent UTI with ciprofloxacin but has no improvement. Patient reported that since the past 3 weeks she is having worsening shortness of breath associated with phlegm which was initially clear which is green in color associated with fever and chills. Patient reports that she has been diagnosed with lupus since the 80s initially she was on on a medication for fever but she stopped. She was diagnosed with psoriatic arthritis and has been on multiple medication and about 3 months ago she was started on Rinvoq (upadacitinib). Patient also consulted sprayer operator recently because of her high WBC count, leukemia was ruled out as per the patient. Review of Systems Patient seen and examined at the bedside. Patient is alert and oriented to time, place and person. Patient is currently in the [facility] and is on oxygen via nasal cannula at 3 liters/minute. Patient reports feeling better with improved breathing. Patient's blood pressure 146/66 mmHg mmHg, heart rate 90 per minute regular, SpO2 95% on 3 L L oxygen via nasal cannula. Patient has a Patino catheter in place with 2000 mL urine output over the last 24 hours. Patient's repeat chest x-ray shows pulmonary edema and bilateral pleural effusion similar to the previous x-ray yesterday. Objective vital signs Vital Sign Date Time Temp Pulse Resp B/P (MAP) Pulse Ox O2 Delivery O2 Flow Rate FiO2 07/20/24 10:12 86 20 99 07/20/24 10:10 147/67 07/20/24 10:02 Nasal Cannula 2.0 07/20/24 10:02 28 07/20/24 08:00 97.7 97.7 Total Intake and Output 07/19/24 07/19/24 07/20/24 15:00 23:00 07:00 Intake Total 300 ml 710 ml 350 ml Output Total 1000 ml 1000 ml Balance 300 ml -290 ml -650 ml medications Current Medications Medications Dose Ordered Sig/Kendell Route Start Time Stop Time Status Last Admin Dose Admin Amlodipine Besylate 5 mg DAILY PO 07/17/24 10:00 07/20/24 10:10 5 MG Ceftriaxone Sodium 50 ml @ 100 mls/hr DAILY@09 IV 07/17/24 09:00 07/20/24 08:28 100 MLS/HR Morphine Sulfate 2 mg Q6HPRN PRN IV 07/16/24 19:00 07/19/24 21:41 2 MG Albuterol 2.5 mg Q4HWA [facility] 07/16/24 22:00 07/20/24 10:02 2.5 MG Ipratropium [place] 0.5 mg Q4HWA NEB 07/16/24 22:00 07/20/24 10:02 0.5 MG Doxycycline Hyclate 250 ml @ 125 mls/hr Q12H IV 07/18/24 08:15 07/20/24 08:28 125 MLS/HR Methylprednisolone Sodium Succinate 40 mg Q8HR IV 07/18/24 09:00 07/20/24 05:31 40 MG Acetaminophen/ Hydrocodone Bitart 1 tab Q6HP PRN PO 07/18/24 13:30 07/20/24 05:32 1 TAB Alprazolam 1 mg TID PRN PO 07/18/24 18:15 07/20/24 03:10 1 MG Labetalol HCl 10 mg Q2HPRN PRN IV 07/18/24 18:15 07/20/24 06:26 10 MG Sevelamer HCl 800 mg TIDWM PO 07/18/24 19:30 07/20/24 08:27 800 MG Throat Lozenges 1 alisha Q2HP PRN MT 07/19/24 17:15 07/20/24 06:26 1 ALISHA Furosemide 60 mg BIDD IV 07/20/24 18:00 Duloxetine HCl 30 mg DAILY PO 07/20/24 10:00 07/20/24 10:48 30 MG Enoxaparin Sodium 100 mg DAILY SC 07/21/24 10:00 Examination Physical Examination Gen - no pallor, no icterus, no cyanosis, no clubbing, no LAD, 1+ bilateral edema of hand and feet Skin - Patients skin is warm and dry.. HEENT - normocephalic, atraumatic, moist mucous membranes. Neck - full ROM, no LAD, no JVD. Pulmonary - B/L decreased breath sounds worse on the right lower lobe, with bibasilar crackles improved since yesterday, no wheezing, no stridor. cardiovascular - normal S1,S2 heard. no murmurs heard. peripheral pulses normal radial 2+, pedal 1+. capillary refill normal <2 secs. GI - soft abdomen . no hepatospleenomegaly. Bowel Sounds + Neurological - Patient is A/O X 3 . Bilateral upper extremity strength 5/5, bilateral lower extremity strength 3/5, no facial droop, normal speech, no tremor, decreased sensation in the feet bilaterally Extremities- patient has swelling of the bilateral lower limbs up to the knees with erythema and scaling on the skin. Patient has callus on the left plantar surface of 1st metatarsophalangeal joint seen by sewing machine repairer helper and wound debridement done covered with sterile dressing. Swelling of the hands and fingers which was improved since yesterday. laboratory and microbiology Laboratory Tests 07/20/24 04:22 Test 07/20/24 04:22 Range/Units Serum Glucose 146 H 74-106 mg/dL Microbiology Date/Time Source Procedure Growth Status 07/18/24 05:53 Nose MRSA Screen - Final Complete 07/16/24 14:42 Blood Blood Culture - Preliminary NO GROWTH AFTER 72 HOURS OF INCUBATION. Resulted 07/16/24 07:30 Voided Urine Urine Culture - Final Complete Problem List/Assessment/Plan Problem List/Assessment/Plan Assessment and plan # ARMANDO on CKD likely prerenal hemodynamically mediated - serum creatinine 2-->2.12--> 2.25-->2.21 and BUN 25-->28-> 37-->55 - GFR 25 - urine sodium 14, urine creatinine 81.73, protein creatinine ratio 1.17 - FENa 0.3% - renal ultrasound shows right kidney 12.1 cm in length, left kidney 10 cm in length, bilateral renal echotexture, contour, cortical thickness within normal limits. - furosemide decreased from 80 mg b.i.d. IV to 60 mg b.i.d. IV - strict I&O - urine output 2000 mL of with the past 24 hours - monitor electrolytes - avoid nephrotoxic medication # CKD likely stage III due to likely lupus - on reviewing records patient's baseline GFR 40-60 in September 2023 - long history of lupus - PTH elevated to 254 mg/dL with serum calcium 8.5 - serum phosphorous 6.2 - complement C3-C4 within normal limits - DAIRY SUPPLIES SALES REPRESENTATIVE antibody elevated -interventional Radiology consulted for kidney biopsy given history of lupus ,Rinvoq use (risk of TMA ), heavy abx use recently # Acute hypoxic respiratory failure likely due to Gram+/- pneumonia On 07/18 patient ICU status in the morning on BiPAP with a FiO2 35%, spontaneous breathing 20 per minute, EPAP 8, IPAP 16 - ABG shows pH 7.353, pCO2 46.5, bicarbonate 25.3 On 07/19- patient is shifted to [facility] and is currently on nasal cannula 4 liter/minute oxygen with a SpO2 95% # Hyperphosphatemia - sevelamar 800 mg p.o. t.i.d. with meals # acute diastolic heart failure with the left ventricular ejection fraction 50% # UTI # acute hypoxic respiratory failure # pneumonia likely Gram-positive/Gram-negative bacteria # history of lupus- following # history of psoriatic arthritis # hypertension Goals of care discussed with the patient for over 20 minutes. Full code. Plan discussed with Addendum Patient seen and examined, plan discussed with resident. Agree with above, we will follow closely interventional Radiology consulted for kidney biopsy given history of lupus( stopped treatment) ,Rinvoq use (risk of TMA ), heavy abx use recently recent baseline cr 0.8 in beginning of june d/w hold lovenox for biopsy Plan discussed with: Patient My Orders My Orders Orders - LESLIE GALLO RESIDENT Procedure Category Date Status Time Chest Xray 1 View XY 07/20/24 Resulted 08:33 Dietary Evaluation Review Comments: No Eliazar d/t ARMANDO-CKD-3 status, Will reassess her protein needs in 2-3 days. Expected Outcomes/Goals: gradual weight loss. LESLIE GALLO RESIDENT Jul 20, 2024 11:48 YUE TALLEY MD Jul 20, 2024 15:01
[2024-07-20 13:25] LABS: INR 1.25 (0.9-1.15); Partial Thromboplastin Time 29.2 SEC (24.5-34.5)
--- NOTE | 2024-07-20 17:30 | DVHPN2 ---
Progress Note Date Seen: Jul 20, 2024 Has the PT tested + for MRSA If YES, has PT been informed?: No Medical Necessity Reason Pt with a Central, PICC or Fol: Yes The following are medically ne: Aptino Catheter Reason for patino catheter: Strict I&O Subjective Patient reports: Feels better Changes from previous H/P or p: No Changes Objective vital signs Vital Sign Date Time Temp Pulse Resp B/P (MAP) Pulse Ox O2 Delivery O2 Flow Rate FiO2 07/20/24 16:30 95 21 94 07/20/24 16:00 Nasal Cannula* 3 32 07/20/24 12:00 97.5 97.5 Total Intake and Output 07/19/24 07/19/24 07/20/24 15:00 23:00 07:00 Intake Total 300 ml 710 ml 350 ml Output Total 1000 ml 1000 ml Balance 300 ml -290 ml -650 ml medications Current Medications Medications Dose Ordered Sig/Kendell Route Start Time Stop Time Status Last Admin Dose Admin Amlodipine Besylate 5 mg DAILY PO 07/17/24 10:00 07/20/24 10:10 5 MG Ceftriaxone Sodium 50 ml @ 100 mls/hr DAILY@09 IV 07/17/24 09:00 07/20/24 08:28 100 MLS/HR Morphine Sulfate 2 mg Q6HPRN PRN IV 07/16/24 19:00 07/19/24 21:41 2 MG Albuterol 2.5 mg Q4HWA [facility] 07/16/24 22:00 07/20/24 15:27 2.5 MG Ipratropium [place] 0.5 mg Q4HWA [facility] 07/16/24 22:00 07/20/24 15:27 0.5 MG Doxycycline Hyclate 250 ml @ 125 mls/hr Q12H IV 07/18/24 08:15 07/20/24 08:28 125 MLS/HR Acetaminophen/ Hydrocodone Bitart 1 tab Q6HP PRN PO 07/18/24 13:30 07/20/24 16:39 1 TAB Alprazolam 1 mg TID PRN PO 07/18/24 18:15 07/20/24 16:38 1 MG Labetalol HCl 10 mg Q2HPRN PRN IV 07/18/24 18:15 07/20/24 06:26 10 MG Sevelamer HCl 800 mg TIDWM PO 07/18/24 19:30 07/20/24 12:58 800 MG Throat Lozenges 1 alisha Q2HP PRN MT 07/19/24 17:15 07/20/24 06:26 1 ALISHA Furosemide 60 mg BIDD IV 07/20/24 18:00 Duloxetine HCl 30 mg DAILY PO 07/20/24 10:00 07/20/24 10:48 30 MG Enoxaparin Sodium 100 mg DAILY SC 07/21/24 10:00 Methylprednisolone Sodium Succinate 30 mg Q12HR IV 07/20/24 22:00 UNV Examination Gen: more awake and alert HEENT: EOMI; PERRLA Derm: No acute SLE rashes; lower extremity erythema and scaling on the shins MSK: Minimal swelling of the joints with diffuse generalized ttp Pulm: Coarse breath sounds laboratory and microbiology Laboratory Tests 07/20/24 04:22 Test 07/20/24 04:22 Range/Units Serum Glucose 146 H 74-106 mg/dL Microbiology Date/Time Source Procedure Growth Status 07/19/24 03:50 Sputum Gram Stain - Final Resulted 07/19/24 03:50 Sputum Respiratory Culture - Preliminary Resulted 07/18/24 05:53 Nose MRSA Screen - Final Complete 07/16/24 14:42 Blood Blood Culture - Preliminary NO GROWTH AFTER 72 HOURS OF INCUBATION. 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 Expected Outcomes/Goals: gradual weight loss. ARIELA BABCOCK MD Jul 20, 2024 17:30
[2024-07-20] MEDS: FUROSEMIDE 100 MG/10ML VIAL IV SCH (18:47)
--- NOTE | 2024-07-20 22:06 | DVHPN2 ---
Progress Note - Dictate Date Seen: Jul 20, 2024 Has the PT tested + for MRSA If YES, has PT been informed?: No Medical Necessity Reason Pt with a Central, PICC or Fol: Yes The following are medically ne: Patino Catheter Reason for patino catheter: Strict I&O Subjective Patient seen and examined at bedside. On supplemental oxygen Overnight events reviewed. vital signs Vital Sign Date Time Temp Pulse Resp B/P (MAP) Pulse Ox O2 Delivery O2 Flow Rate FiO2 07/20/24 21:58 89 20 96 07/20/24 20:00 97.9 150/70 (96) 97.9 07/20/24 20:00 Nasal Cannula* 3 32 Total Intake and Output 07/19/24 07/19/24 07/20/24 15:00 23:00 07:00 Intake Total 300 ml 710 ml 350 ml Output Total 1000 ml 1000 ml Balance 300 ml -290 ml -650 ml medications Current Medications Medications Dose Ordered Sig/Kendell Route Start Time Stop Time Status Last Admin Dose Admin Amlodipine Besylate 5 mg DAILY PO 07/17/24 10:00 07/20/24 10:10 5 MG Ceftriaxone Sodium 50 ml @ 100 mls/hr DAILY@09 IV 07/17/24 09:00 07/20/24 08:28 100 MLS/HR Morphine Sulfate 2 mg Q6HPRN PRN IV 07/16/24 19:00 07/19/24 21:41 2 MG Albuterol 2.5 mg Q4HWA [facility] 07/16/24 22:00 07/20/24 21:57 2.5 MG Ipratropium [place] 0.5 mg Q4HWA [facility] 07/16/24 22:00 07/20/24 21:58 0.5 MG Doxycycline Hyclate 250 ml @ 125 mls/hr Q12H IV 07/18/24 08:15 07/20/24 20:39 125 MLS/HR Acetaminophen/ Hydrocodone Bitart 1 tab Q6HP PRN PO 07/18/24 13:30 07/20/24 16:39 1 TAB Alprazolam 1 mg TID PRN PO 07/18/24 18:15 07/20/24 16:38 1 MG Labetalol HCl 10 mg Q2HPRN PRN IV 07/18/24 18:15 07/20/24 06:26 10 MG Sevelamer HCl 800 mg TIDWM PO 07/18/24 19:30 07/20/24 18:48 800 MG Throat Lozenges 1 alisha Q2HP PRN MT 07/19/24 17:15 07/20/24 06:26 1 ALISHA Furosemide 60 mg BIDD IV 07/20/24 18:00 07/20/24 18:47 60 MG Duloxetine HCl 30 mg DAILY PO 07/20/24 10:00 07/20/24 10:48 30 MG Enoxaparin Sodium 100 mg DAILY SC 07/21/24 10:00 Methylprednisolone Sodium Succinate 30 mg Q12HR IV 07/20/24 22:00 objective Gen.: Patient lying in bed in no apparent distress. On supplemental oxygen. Head: Normocephalic, atraumatic. Eyes: EOMI/PERRLA. Ears: Normal hearing. Normal anatomy. Neck/trachea: Trachea midline, supple. Nose: Normal external anatomy. Mouth: Moist mucous membranes. Chest: Decreased air entry bilaterally. No wheezing or rhonchi. Cardiovascular: Positive S1, positive S2. Regular rate and rhythm. Abdomen: Positive bowel sounds in all 4 quadrants. Soft, non-tender, non- distended. : Deferred. Rectal: Deferred. Skin: Warm, dry. Intact. Extremities: 2+ radial pulses bilaterally. No lower extremity edema. Neuro: Awake, alert, oriented x3. No gross motor or sensory deficits. Cranial nerves II through XII intact. Gait not assessed. laboratory and microbiology Laboratory Tests 07/20/24 04:22 Test 07/20/24 04:22 Range/Units Serum Glucose 146 H 74-106 mg/dL Assessment/Plan Impression: Sepsis secondary to UTI Acute hypoxic respiratory failure Pleural effusion Atelectasis Acute kidney injury Bilateral upper and lower extremity vasculitis Deep vein thrombosis ruled out Morbid obesity with a BMI of 40 Anxiety Seizure disorder Acute on chronic hypercarbic respiratory failure AMS 2/2 acute on chronic hypercarbic respiratory failure Events: On supplemental O2 at 2 LPM NC Taper O2 as tolerated Discontinue BiPAP HOB elevation Aspiration precautions. CXR reviewed; demonstrated pulmonary edema and bilateral pleural effusions similar to prior study. Continue abx Blood cx show no growth. IV steroids Continue bronchodilators Incentive spirometry Elevated D-dimer - On Lovenox Cardiology recs appreciated. Diurese w/ Lasix as tolerated Monitor renal function Monitor electrolytes, supplement as necessary Nephrology recs appreciated. Labs and imaging reviewed. Rest of plan as noted below Plan: Supplemental O2 at 2 LPM NC Keep O2 saturation above 92% Bronchodilators IV steroids Chest x-ray imaging report reviewed. No pneumothorax. Small bilateral pleural effusion with compressive atelectasis. Pulmonary vascular congestion Continue antibiotics Follow up cultures Blood cultures no growth after 72 hours Ultrasound venous Doppler lower extremities is negative for any acute DVT. CT abdomen and pelvis lung windows revealed there was small bilateral pleural effusions and bibasilar atelectasis. Anxiolytic as needed for anxiety Diurese to euvolemia Monitor ins and outs. Monitor renal function Monitor electrolytes. Supplement as necessary. Diet and lifestyle modifications for weight reduction given morbid obesity. DVT prophylaxis Prognosis: Poor given multiple comorbidities. Rest of plan per hospitalist and other consultants. Thank you Dr. Joanie Alvarez for allowing me to participate in this patient's care. Further recommendations will depend on patient's clinical course. Please do not hesitate to contact me if you have any questions or concerns. This medical document was created using an electronic medical record system with [employer] dictation system. Although this document has been carefully reviewed, there may still be some phonetic and typographical errors. These areas are purely typographical due to imperfections of the software programs, and do not reflect any compromise in the patient's medical care. Dietary Evaluation Review Comments: No Eliazar d/t ARMANDO-CKD-3 status, Will reassess her protein needs in 2-3 days. Expected Outcomes/Goals: gradual weight loss. Plan discussed with: Patient, Other (FATIMAH Graham) GUALBERTO POZO MD Jul 20, 2024 22:05
[2024-07-20] MEDS: methylPREDNISolone SOD SUCC 40 MG/ML VL IV SCH (22:18)
[2024-07-21] VITALS (65 sets, daily range): BP systolic 132–165; BP diastolic 53–76; PULSE 82–105; RESP 12–32; TEMP 97.7–98.1; O2SAT 87–100
[2024-07-21 05:11] LABS: Basophils # (auto) 0 10 ^3/uL (0-0.2); Basophils % (auto) 0.1 % (0.0-2.0); Eosinophils # (auto) 0 10 ^3/uL (0-0.8); Lymphocytes # (auto) 0.9 10 ^3/uL (0.4-5.4); Mean Corpuscular Volume 90.3 fL (80.0-100.0); Monocytes # (auto) 0.4 10 ^3/uL (0-1.3)
[2024-07-21 05:13] LABS: Hematocrit 35.1 % (36.0-46.0); Hemoglobin 11.7 g/dL (12.2-16.2); Lymphocytes % (auto) 8.4 % (10.0-50.0); Mean Corpuscular Hemoglobin 30.2 pg (28.0-32.0); Mean Corpuscular Hgb Conc. 33.4 g/dL (32.0-36.0); Monocytes % (auto) 3.6 % (0.0-12.0); Neutrophils % (auto) 87.9 % (37.0-80.0); Nucleated Red Blood Cells % 0.1 %; Platelet Count (auto) 518 10^3/uL (140-450); Red Blood Cells 3.88 10^6/uL (4.0-5.20); Red Cell Distribution Width 13.7 % (11.8-14.3); White Blood Cell 10.2 10^3/uL (4.4-10.8)
[2024-07-21 05:17] LABS: Anion Gap 10 (5-15); Carbon Dioxide 29 mmol/L (20-31); Chloride 103 mmol/L (98-107); Potassium 4.1 mmol/L (3.5-5.1); Sodium 142 mmol/L (136-145)
[2024-07-21 05:18] LABS: Calcium 8.9 mg/dL (8.7-10.4)
[2024-07-21 05:23] LABS: BUN/Creatinine Ratio 34.7 (10.0-20.0); Glucose 140 mg/dL (74-106)
[2024-07-21 05:25] LABS: Blood Urea Nitrogen 67 mg/dL (9-23); Phosphorus 5.4 mg/dL (2.4-5.1)
--- NOTE | 2024-07-21 06:36 | DVHPN2 ---
Progress Note - Dictate Date Seen: Jul 21, 2024 Has the PT tested + for MRSA If YES, has PT been informed?: No Medical Necessity Reason Pt with a Central, PICC or Fol: Yes The following are medically ne: Patino Catheter Reason for patino catheter: Strict I&O vital signs Vital Sign Date Time Temp Pulse Resp B/P (MAP) Pulse Ox O2 Delivery O2 Flow Rate FiO2 07/21/24 06:25 96 Nasal Cannula* 2 28 07/21/24 06:25 86 21 07/21/24 06:00 156/63 (94) 07/21/24 04:00 98.0 98.0 Total Intake and Output 07/20/24 07/20/24 07/21/24 15:00 23:00 07:00 Intake Total 300.0 ml 850 ml 50 ml Output Total 1200 ml 1600 ml Balance 300.0 ml -350 ml -1550 ml medications Current Medications Medications Dose Ordered Sig/Kendell Route Start Time Stop Time Status Last Admin Dose Admin Amlodipine Besylate 5 mg DAILY PO 07/17/24 10:00 07/20/24 10:10 5 MG Ceftriaxone Sodium 50 ml @ 100 mls/hr DAILY@09 IV 07/17/24 09:00 07/20/24 08:28 100 MLS/HR Morphine Sulfate 2 mg Q6HPRN PRN IV 07/16/24 19:00 07/19/24 21:41 2 MG Albuterol 2.5 mg Q4HWA [facility] 07/16/24 22:00 07/21/24 06:25 2.5 MG Ipratropium [place] 0.5 mg Q4HWA [facility] 07/16/24 22:00 07/21/24 06:25 0.5 MG Doxycycline Hyclate 250 ml @ 125 mls/hr Q12H IV 07/18/24 08:15 07/20/24 20:39 125 MLS/HR Acetaminophen/ Hydrocodone Bitart 1 tab Q6HP PRN PO 07/18/24 13:30 07/20/24 16:39 1 TAB Alprazolam 1 mg TID PRN PO 07/18/24 18:15 07/20/24 16:38 1 MG Labetalol HCl 10 mg Q2HPRN PRN IV 07/18/24 18:15 07/20/24 06:26 10 MG Sevelamer HCl 800 mg TIDWM PO 07/18/24 19:30 07/20/24 18:48 800 MG Throat Lozenges 1 alisha Q2HP PRN MT 07/19/24 17:15 07/20/24 06:26 1 ALISHA Furosemide 60 mg BIDD IV 07/20/24 18:00 07/21/24 05:53 60 MG Duloxetine HCl 30 mg DAILY PO 07/20/24 10:00 07/20/24 10:48 30 MG Enoxaparin Sodium 100 mg DAILY SC 07/21/24 10:00 Methylprednisolone Sodium Succinate 30 mg Q12HR IV 07/20/24 22:00 07/20/24 22:18 30 MG laboratory and microbiology Laboratory Tests 07/21/24 04:37 Test 07/21/24 04:37 Range/Units Serum Glucose 140 H 74-106 mg/dL Assessment/Plan Patient is a 73-year-old female who presented on July 16, 2024 for abdominal pain/dysuria and frequency. She had been complaining of low appetite also. While being managed in [facility], the patient was found to be short of breath and cardiology was involved for shortness of breath. Patient denies any chest pains. Patient denies leg swellings. She is poor historian. She is known to our practice from outside. She was lost to follow-up with us years ago. Sleepy female. No JVD. Minerva and wet mucosa. No goiter. Not using accessory muscle of breathing. Scattered rhonchi in the lungs is heard. Cardiac: Regular, tachycardic, no thrill/gallop. Abdomen is soft and obese. There is no gross hepatomegaly. Bowel sound is positive. Extremities reveal 2+ edema bilaterally. 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 WBC: 12.4 - 12.7 - 11.9 - 7.2 - 10.6 - 10.2 D-dimer: 14.16 Creatinine: 2.0 - 2.06 - 2.12 - 2.25 - 2.21 - 1.93 Potassium: 4.7 - 4.9 - 4.5 - 4.3 - 4.0 - 4.1 M.9 TSH: 0.57 BNP: 102.05 Trop (high sensitive): 13 - [address] scan revealed: IMPRESSION: 1. No acute abdominal or pelvic finding. 2. Hepatic steatosis. Venous Doppler of lower extremities revealed: Impression: 1. No right or left deep venous thrombosis. Renal ultrasound revealed: IMPRESSION: 1. Unremarkable examination. Chest x-ray revealed: Findings/Impression: Frontal chest radiograph demonstrates no acute osseous or superficial soft tissue abnormalities. The trachea is midline. Cardiomeagly with pulmonary vascular congestion. Small bilateral pleural effusions with compressive atelectasis. A superimposed infectious process is not excluded. No pneumothorax. CT of head revealed: IMPRESSION: 1. No acute intracranial abnormality. Repeat chest xry revealed: IMPRESSION: 1. Pulmonary edema and bilateral pleural effusions similar to prior study. Repeat chest x-ray revealed: IMPRESSION: 1. Pulmonary interstitial edema and bilateral pleural effusions. Repeat chest xry revealed: IMPRESSION: 1. Pulmonary edema and bilateral pleural effusions similar to prior study. EKG reveals sinus tachycardia with nonspecific ST-T changes Tele reveals sinus tachycardia Echocardiogram reported: Normal left ventricular size and dimension. Normal left ventricular systolic function estimated ejection fraction 50%. There is a grade 1 diastolic dysfunction. Normal right ventricular size and dimension. Normal right ventricular systolic function. Mildly elevated right ventricular systolic [id number] mm of mercury Normal biatrial size and dimension. Normal aortic valve structure and function. Normal mitral valve structure and function. Normal tricuspid valve structure and function. The pulmonary valve is grossly normal. No pericardial effusion. Patient is a 73-year-old female who presented to the hospital with abdominal pain/dysuria and frequency. She was found to have leukocytosis. Presentation is in favor of pneumonia/UTI. Sepsis is considered. Cardiac etiology for presentation is less likely. Still, the patient's D-dimer has been elevated and pulmonary emboli should be ruled out. Chest x-rays reveal congestion in the lungs and component of heart failure can not be ruled out. Encephalopathy, metabolic Acute respiratory failure Pulmonary edema, acute diastolic heart failure Sepsis Urosepsis Pneumonia ARMANDO On CKD Hypertension History of lupus History of psoriatic arthritis Abnormal D-dimer Fatty liver Cardiac suggestion for management: Manage in [facility] IV diuresis (can decrease from 80 to 60 mg lasix BID) Follow-up electrolytes and kidney function tests and correct abnormalities Full anticoagulation is suggested until pulmonary emboli is ruled out. Consider Lovenox 1 mg per kg daily If V/Q scan can not be performed, CT angio of the chest is suggested after Nephrology permission/clearance Further evaluation and management depends on the above and clinical course A total of 75 minutes was spent reviewing the patient record, examining the patient, making a diagnostic and therapeutic plan, discussing this plan with medical personnel, following up on diagnostic studies and following the patient for clinical stability excluding any and all procedures. At least 50% of this time was spent in direct, [id number] contact. Thank you for allowing me to participate in this patient's care. Further recommendations will depend on patient's clinical course. Please do not hesitate to contact me if you have any questions or concerns. This medical document was created using electronic medical record system with [employer] computerized dictation system. Although this document has been carefully reviewed, there may still be some phonetic and typographical errors. These areas are purely typographical due to the imperfection of the software programs, and do not reflect any compromise in the patient's medical care. Dietary Evaluation Review Comments: No Eliazar d/t ARMANDO-CKD-3 status, Will reassess her protein needs in 2-3 days. Expected Outcomes/Goals: gradual weight loss. Plan discussed with: Patient, Other (nurse) CLAUDE JOHNSON MD Jul 21, 2024 06:36
--- NOTE | 2024-07-21 09:39 | DVH ---
NUCLEAR MEDICINE VENTILATION/PERFUSION LUNG SCAN. INDICATION: Dyspnea COMPARISON: None TECHNIQUE: Following intravenous demonstration of 6 millicuries of technetium 99m MAA, and inhalati on of 40 mCi of Xe 133 scintigrams were obtained in multiple projections of the lungs. FINDINGS: There is normal uptake of radionuclide on both the ventilation and perfusion portions of the examinat ion. No mismatched perfusion defects are demonstrated. Uptake is normally homogeneous. IMPRESSION: Low probability for PE.
[2024-07-21] MEDS: ENOXAPARIN SOD 100 MG/1 ML SYRINGE SC SCH (10:00)
--- NOTE | 2024-07-21 11:31 | DVHPN2 ---
Reviewed: Care Plan, H&P, Labs, Medications, Previous Orders, Radiology Changes from previous H/P or p: No Changes Eyes: No Pain, No Vision change, No Conjunctivae inflammation, No Eyelid inflammation, No Other, No Redness ENT: No Ear pain, No Ear discharge, No Nose pain, No Nose discharge, No Nose congestion, No Mouth pain, No Mouth swelling, No Throat pain, No Throat swelling, No Other Cardiovascular: No Chest Pain, No Palpitations, No Orthopnea, No Paroxysmal Noc. Dyspnea, No Edema, No Lt Headedness, No Other Respiratory: No Cough, No Dry, No Shortness of breath, No SOB with excertion, No Wheezing, No Hemoptysis, No Pleuritic Pain, No Sputum, No Other Gastrointestinal: No Nausea, No Vomiting; Abdominal Pain; No Diarrhea, No Constipation, No Melena, No Hematochezia, No Other Genitourinary: Dysuria, Frequency; No Incontinence, No Hematuria, No Retention, No Other Musculoskeletal: No other, No neck pain, No shoulder pain, No arm pain, No back pain, No hand pain, No leg pain, No foot pain Skin: Rash Objective Vitals Vital Signs Date Time Temp Pulse Resp B/P (MAP) Pulse Ox O2 Delivery O2 Flow Rate FiO2 07/21/24 10:36 150/74 07/21/24 10:00 96 18 07/21/24 08:00 95 07/21/24 08:00 98.1 98.1 07/21/24 06:25 Nasal Cannula* 2 28 Intake/Output Intake and Output 07/21/24 07:00 Intake Total 1200.0 ml Output Total 2800 ml Balance -1600.0 ml Intake Oral 650 ml IV Total 550.0 ml Output Urine Total 2800 ml Medications Current Medications Medications Dose Ordered Sig/Kendell Route Start Time Stop Time Status Last Admin Dose Admin Amlodipine Besylate 5 mg DAILY PO 07/17/24 10:00 07/21/24 10:36 5 MG Ceftriaxone Sodium 50 ml @ 100 mls/hr DAILY@09 IV 07/17/24 09:00 07/21/24 10:34 100 MLS/HR Morphine Sulfate 2 mg Q6HPRN PRN IV 07/16/24 19:00 07/21/24 09:30 2 MG Albuterol 2.5 mg Q4HWA [facility] 07/16/24 22:00 07/21/24 10:49 2.5 MG Ipratropium [place] 0.5 mg Q4HWA [facility] 07/16/24 22:00 07/21/24 10:49 0.5 MG Doxycycline Hyclate 250 ml @ 125 mls/hr Q12H IV 07/18/24 08:15 07/21/24 10:35 125 MLS/HR Acetaminophen/ Hydrocodone Bitart 1 tab Q6HP PRN PO 07/18/24 13:30 07/20/24 16:39 1 TAB Alprazolam 1 mg TID PRN PO 07/18/24 18:15 07/20/24 16:38 1 MG Labetalol HCl 10 mg Q2HPRN PRN IV 07/18/24 18:15 07/20/24 06:26 10 MG Sevelamer HCl 800 mg TIDWM PO 07/18/24 19:30 07/20/24 18:48 800 MG Throat Lozenges 1 alisha Q2HP PRN MT 07/19/24 17:15 07/20/24 06:26 1 ALISHA Furosemide 60 mg BIDD IV 07/20/24 18:00 07/21/24 05:53 60 MG Duloxetine HCl 30 mg DAILY PO 07/20/24 10:00 07/21/24 10:34 30 MG Enoxaparin Sodium 100 mg DAILY SC 07/21/24 10:00 Methylprednisolone Sodium Succinate 30 mg Q12HR IV 07/20/24 22:00 07/21/24 10:35 30 MG Laboratory Results Laboratory Tests 07/21/24 04:37 Chemistry Test 07/21/24 04:37 Calcium Level 8.9 mg/dL (8.7-10.4) Phosphorus Level 5.4 mg/dL (2.4-5.1) H Coagulation Test 07/20/24 12:30 Prothrombin Time 13.0 sec (9.3-11.8) H Prothrombin Time INR 1.25 (0.9-1.15) H Activated Partial Thromboplast Time 29.2 SEC (24.5-34.5) Urinalysis Test 07/19/24 17:45 07/20/24 06:34 Urine Creatinine 81.73 mg/dL (30.0-125.0) Urine Protein/Creatinine Ratio 1.17 Urine Sodium 14 mmol/L (40-220) L Urine Total Protein 95.5 mg/dL (1-14) H Urine Color Colorless (Yellow) Urine Clarity Turbid (Clear) H Urine pH 5.0 (5.0-9.0) Urine Specific [place] 1.007 (1.001-1.035) Urine Protein Trace (Negative) H Urine Ketones Negative (Negative) Urine Blood 2+ /uL (Negative) H Urine Nitrite Negative (Negative) Urine Bilirubin Negative (Negative) Urine Urobilinogen Normal mg/dL (Negative) Urine Leukocyte Esterase 1+ /uL (Negative) Urine RBC 205 /hpf (0 - 4) Urine WBC 25 /hpf (0 - 5) Urine Squamous Epithelial Cells Few /hpf (<5) Urine Bacteria Few /hpf (None Seen) H Urine Mucus Few (None Seen) Urine Glucose Normal mg/dL (Normal) Microbiology Microbiology Date/Time Source Procedure Growth Status 07/19/24 03:50 Sputum Gram Stain - Final Resulted 07/19/24 03:50 Sputum Respiratory Culture - Preliminary Resulted 07/18/24 05:53 Nose MRSA Screen - Final Complete 07/16/24 14:42 Blood Blood Culture - Preliminary NO GROWTH AFTER 72 HOURS OF INCUBATION. Resulted 07/16/24 07:30 Voided Urine Urine Culture - Final Complete Labs and/or images reviewed: Labs reviewed by me, Image(s) reviewed by me Assessment/Plan Assessment/Plan Acute hypoxic respiratory failure: Improving now one 4 L of oxygen by nasal cannula pulmonary consult by Dr. Minor appreciated. Chest x-ray shows bilateral small pleural effusions Possible bilateral community-acquired pneumonia, continue Rocephin add doxycycline Rule out congestive heart failure: Cardiology consult appreciated Sepsis secondary to urinary tract infection: Blood cultures negative, urine cultures negative, continue Rocephin Hypertension: Hydralazine discontinued and started on labetalol by the authorization nurse Acute metabolic encephalopathy: CT head ordered to rule out any intracranial pathology Acute kidney injury: Nephrology consult appreciated Bilateral upper and lower extremity vasculitis D-dimer elevated 14.6 DVT ruled out PE ruled out by negative V/Q scan: DC Lovenox CT abdomen pelvis negative Kidney ultrasound negative History of lupus under the care of , rheumatology consult by Dr. Grubbs appreciated History of seizures Moderate obesity High level of anxiety: Xanax Condition guarded Seen in [facility] Time spent 65 minutes Patient is full code Advanced care planning time 20 minutes Plan discussed with: Patient Date of Service: Jul 21, 2024 Billing Provider: JESUS VILLANUEVA MD Common Visit Codes: [id number] CARE 30-74 MIN JESUS VILLANUEVA MD Jul 21, 2024 11:31
--- NOTE | 2024-07-21 12:35 | DVHPN2 ---
Progress Note Date Seen: Jul 21, 2024 Resident Creating Document: LESLIE GALLO RESIDENT Has the PT tested + for MRSA If YES, has PT been informed?: No Medical Necessity Reason Pt with a Central, PICC or Fol: Yes The following are medically ne: Patino Catheter Reason for patino catheter: Strict I&O Subjective Review of Systems Patient is a 73-year-old female with a past medical history of hypertension, lupus, psoriatic arthritis came to the ED with a chief complaint of abdominal pain. Patient reported worsening abdominal pain associated with dysuria, urinary frequency, poor appetite. Patient reported that she was being treated for recurrent UTI with ciprofloxacin but has no improvement. Patient reported that since the past 3 weeks she is having worsening shortness of breath associated with phlegm which was initially clear which is green in color associated with fever and chills. Patient reports that she has been diagnosed with lupus since the s initially she was on on a medication for fever but she stopped. She was diagnosed with psoriatic arthritis and has been on multiple medication and about 3 months ago she was started on Rinvoq (upadacitinib). Patient also consulted fortune cookie maker recently because of her high WBC count, leukemia was ruled out as per the patient. Review of Systems Patient seen and examined at the bedside. Patient is alert and oriented to time, place and person. Patient is currently in the [facility] and is on oxygen via nasal cannula at 2 liters/minute. Patient reports feeling better with improved breathing. Patient's blood pressure 142/65 mmHg mmHg, heart rate 90 per minute regular. Patient has a Patino catheter in place with 2800 mL urine output over the last 24 hours. Patient's repeat chest x-ray shows pulmonary edema and bilateral pleural effusion similar to the previous x-ray yesterday. Patient underwent a NM VQ scan which showed low probability for PE. Other Systems: Patient seen and examined by myself around today with the medicine resident I agree with the assessment and plan as Objective vital signs Vital Sign Date Time Temp Pulse Resp B/P (MAP) Pulse Ox O2 Delivery O2 Flow Rate FiO2 07/21/24 10:55 85 21 99 07/21/24 10:49 Nasal Cannula* 2 28 07/21/24 10:36 150/74 07/21/24 08:00 98.1 98.1 Total Intake and Output 07/20/24 07/20/24 07/21/24 15:00 23:00 07:00 Intake Total 300.0 ml 850 ml 50 ml Output Total 1200 ml 1600 ml Balance 300.0 ml -350 ml -1550 ml medications Current Medications Medications Dose Ordered Sig/Kendell Route Start Time Stop Time Status Last Admin Dose Admin Amlodipine Besylate 5 mg DAILY PO 07/17/24 10:00 07/21/24 10:36 5 MG Ceftriaxone Sodium 50 ml @ 100 mls/hr DAILY@09 IV 07/17/24 09:00 07/21/24 10:34 100 MLS/HR Morphine Sulfate 2 mg Q6HPRN PRN IV 07/16/24 19:00 07/21/24 09:30 2 MG Albuterol 2.5 mg Q4HWA NEB 07/16/24 22:00 07/21/24 10:49 2.5 MG Ipratropium [place] 0.5 mg Q4HWA NEB 07/16/24 22:00 07/21/24 10:49 0.5 MG Doxycycline Hyclate 250 ml @ 125 mls/hr Q12H IV 07/18/24 08:15 07/21/24 10:35 125 MLS/HR Acetaminophen/ Hydrocodone Bitart 1 tab Q6HP PRN PO 07/18/24 13:30 07/20/24 16:39 1 TAB Alprazolam 1 mg TID PRN PO 07/18/24 18:15 07/20/24 16:38 1 MG Labetalol HCl 10 mg Q2HPRN PRN IV 07/18/24 18:15 07/20/24 06:26 10 MG Sevelamer HCl 800 mg TIDWM PO 07/18/24 19:30 07/20/24 18:48 800 MG Throat Lozenges 1 alisha Q2HP PRN MT 07/19/24 17:15 07/20/24 06:26 1 ALISHA Furosemide 60 mg BIDD IV 07/20/24 18:00 07/21/24 05:53 60 MG Duloxetine HCl 30 mg DAILY PO 07/20/24 10:00 07/21/24 10:34 30 MG Methylprednisolone Sodium Succinate 30 mg Q12HR IV 07/20/24 22:00 07/21/24 10:35 30 MG Examination Physical Examination Gen - no pallor, no icterus, no cyanosis, no clubbing, no LAD, 1+ bilateral edema of hand and feet Skin - Patients skin is warm and dry.. HEENT - normocephalic, atraumatic, moist mucous membranes. Neck - full ROM, no LAD, no JVD. Pulmonary - B/L decreased breath sounds worse on the right lower lobe, with bibasilar crackles improved since yesterday, no wheezing, no stridor. cardiovascular - normal S1,S2 heard. no murmurs heard. peripheral pulses normal radial 2+, pedal 1+. capillary refill normal <2 secs. GI - soft abdomen . no hepatospleenomegaly. Bowel Sounds + Neurological - Patient is A/O X 3 . Bilateral upper extremity strength 5/5, bilateral lower extremity strength 3/5, no facial droop, normal speech, no tremor, decreased sensation in the feet bilaterally Extremities- patient has swelling of the bilateral lower limbs up to the knees with erythema and scaling on the skin. Patient has callus on the left plantar surface of 1st metatarsophalangeal joint seen by account consultant and wound debridement done. Swelling of the hands and fingers which was improved since yesterday. Examination: HEENT:Abnormal (Documented in this note) laboratory and microbiology Laboratory Tests 07/21/24 04:37 Test 07/21/24 04:37 Range/Units Serum Glucose 140 H 74-106 mg/dL Microbiology Date/Time Source Procedure Growth Status 07/19/24 03:50 Sputum Gram Stain - Final Resulted 07/19/24 03:50 Sputum Respiratory Culture - Preliminary Resulted 07/18/24 05:53 Nose MRSA Screen - Final Complete 07/16/24 14:42 Blood Blood Culture - Preliminary NO GROWTH AFTER 72 HOURS OF INCUBATION. Resulted 07/16/24 07:30 Voided Urine Urine Culture - Final Complete Problem List/Assessment/Plan Problem List/Assessment/Plan Assessment and plan # RAMANDO on CKD likely prerenal hemodynamically mediated - serum creatinine 2-->2.12--> 2.25-->2.21->1.93 and BUN 25-->28-> 37-->55->67 - GFR 25 - urine sodium 14, urine creatinine 81.73, protein creatinine ratio 1.17 - FENa 0.3% - renal ultrasound shows right kidney 12.1 cm in length, left kidney 10 cm in length, bilateral renal echotexture, contour, cortical thickness within normal limits. - Continue on furosemide 60 mg b.i.d. IV - strict I&O - urine output 2800 mL of with the past 24 hours - monitor electrolytes - avoid nephrotoxic medication # CKD likely stage III due to likely lupus/autoimmune disease - on reviewing records patient's baseline GFR 40-60 in September 2023 - long history of lupus - PTH elevated to 254 mg/dL with serum calcium 8.5 - serum phosphorous 6.2 - complement C3-C4 within normal limits - RUNNER WORKER antibody elevated, check ANCA - interventional Radiology consulted for kidney biopsy given history of lupus. Patient due for kidney biopsy on 07/21. - ANCA panel ordered # Acute hypoxic respiratory failure likely due to Gram+/- pneumonia On 07/18 patient ICU status in the morning on BiPAP with a FiO2 35%, spontaneous breathing 20 per minute, EPAP 8, IPAP 16 - ABG shows pH 7.353, pCO2 46.5, bicarbonate 25.3 On 07/19- patient is shifted to [facility] 07/21- currently on nasal cannula 2 liter/minute oxygen with a SpO2 95% # Hyperphosphatemia - continue sevelamar 800 mg p.o. t.i.d. with meals # acute diastolic heart failure with the left ventricular ejection fraction 50% # UTI # acute hypoxic respiratory failure # pneumonia likely Gram-positive/Gram-negative bacteria # history of lupus- following # history of psoriatic arthritis # hypertension # PE ruled out Goals of care discussed with the patient for over 20 minutes. Full code. Plan discussed with Plan discussed with: Patient, Spouse My Orders My Orders Orders - LESLIE GALLO Procedure Category Date Status Time Anca Panel LAB 07/21/24 In Process 10:04 Dietary Evaluation Review Comments: No Eliazar d/t ARMANDO-CKD-3 status, Will reassess her protein needs in 2-3 days. Expected Outcomes/Goals: gradual weight loss. LESLIE GALLO Jul 21, 2024 12:34 ZOILA VICTORIA MD Jul 21, 2024 16:26
--- NOTE | 2024-07-21 17:05 | PEER ---
Peer to Peer Review Time DATE: 07/21/24 TIME: 17:00 Review and Recommendations: Spoke with Dr. Nash, approved for inpatient admission. ARANZA ALVARENGA MD Jul 21, 2024 17:05
--- NOTE | 2024-07-21 20:35 | DVHPN2 ---
Progress Note - Dictate Date Seen: Jul 21, 2024 Has the PT tested + for MRSA If YES, has PT been informed?: No Medical Necessity Reason Pt with a Central, PICC or Fol: Yes The following are medically ne: Patino Catheter Reason for patino catheter: Strict I&O Subjective Patient seen and examined at bedside. On supplemental oxygen Overnight events reviewed. vital signs Vital Sign Date Time Temp Pulse Resp B/P (MAP) Pulse Ox O2 Delivery O2 Flow Rate FiO2 07/21/24 20:00 102 16 95 Nasal Cannula* 1 07/21/24 20:00 97.7 137/64 (88) 97.7 Total Intake and Output 07/20/24 07/20/24 07/21/24 15:00 23:00 07:00 Intake Total 300.0 ml 850 ml 50 ml Output Total 1200 ml 1600 ml Balance 300.0 ml -350 ml -1550 ml medications Current Medications Medications Dose Ordered Sig/Kendell Route Start Time Stop Time Status Last Admin Dose Admin Amlodipine Besylate 5 mg DAILY PO 07/17/24 10:00 07/21/24 10:36 5 MG Ceftriaxone Sodium 50 ml @ 100 mls/hr DAILY@09 IV 07/17/24 09:00 07/21/24 10:34 100 MLS/HR Morphine Sulfate 2 mg Q6HPRN PRN IV 07/16/24 19:00 07/21/24 09:30 2 MG Albuterol 2.5 mg Q4HWA [facility] 07/16/24 22:00 07/21/24 18:51 2.5 MG Ipratropium [place] 0.5 mg Q4HWA [facility] 07/16/24 22:00 07/21/24 18:51 0.5 MG Doxycycline Hyclate 250 ml @ 125 mls/hr Q12H IV 07/18/24 08:15 07/21/24 10:35 125 MLS/HR Acetaminophen/ Hydrocodone Bitart 1 tab Q6HP PRN PO 07/18/24 13:30 07/20/24 16:39 1 TAB Alprazolam 1 mg TID PRN PO 07/18/24 18:15 07/21/24 15:38 1 MG Labetalol HCl 10 mg Q2HPRN PRN IV 07/18/24 18:15 07/20/24 06:26 10 MG Sevelamer HCl 800 mg TIDWM PO 07/18/24 19:30 07/21/24 18:37 800 MG Throat Lozenges 1 alisha Q2HP PRN MT 07/19/24 17:15 07/20/24 06:26 1 ALISHA Furosemide 60 mg BIDD IV 07/20/24 18:00 07/21/24 18:38 60 MG Duloxetine HCl 30 mg DAILY PO 07/20/24 10:00 07/21/24 10:34 30 MG Methylprednisolone Sodium Succinate 30 mg Q12HR IV 07/20/24 22:00 07/21/24 10:35 30 MG objective Gen.: Patient lying in bed in no apparent distress. On supplemental oxygen. Head: Normocephalic, atraumatic. Eyes: EOMI/PERRLA. Ears: Normal hearing. Normal anatomy. Neck/trachea: Trachea midline, supple. Nose: Normal external anatomy. Mouth: Moist mucous membranes. Chest: Decreased air entry bilaterally. No wheezing or rhonchi. Cardiovascular: Positive S1, positive S2. Regular rate and rhythm. Abdomen: Positive bowel sounds in all 4 quadrants. Soft, non-tender, non- distended. : Deferred. Rectal: Deferred. Skin: Warm, dry. Intact. Extremities: 2+ radial pulses bilaterally. No lower extremity edema. Neuro: Awake, alert, oriented x3. No gross motor or sensory deficits. Cranial nerves II through XII intact. Gait not assessed. laboratory and microbiology Laboratory Tests 07/21/24 04:37 Test 07/21/24 04:37 Range/Units Serum Glucose 140 H 74-106 mg/dL Assessment/Plan Impression: Sepsis secondary to UTI Acute hypoxic respiratory failure Pleural effusion Atelectasis Acute kidney injury Bilateral upper and lower extremity vasculitis Deep vein thrombosis ruled out Morbid obesity with a BMI of 40 Anxiety Seizure disorder Acute on chronic hypercarbic respiratory failure AMS 2/2 acute on chronic hypercarbic respiratory failure Events: On supplemental O2 at 1.5 LPM NC Taper O2 as tolerated V/Q scan done this AM shows low probability for pulmonary embolism. HOB elevation Aspiration precautions. Anxiolytic. Continue abx Blood cx show no growth. IV steroids Continue bronchodilators Incentive spirometry On therapeutic Lovenox Diurese w/ Lasix as tolerated Monitor renal function Monitor electrolytes, supplement as necessary Plan for renal biopsy. Labs and imaging reviewed. Rest of plan as noted below Plan: Supplemental O2 at 1.5 LPM NC Keep O2 saturation above 92% Bronchodilators IV steroids Chest x-ray imaging report reviewed. No pneumothorax. Small bilateral pleural effusion with compressive atelectasis. Pulmonary vascular congestion Continue antibiotics Follow up cultures Blood cultures no growth after 72 hours Ultrasound venous Doppler lower extremities is negative for any acute DVT. CT abdomen and pelvis lung windows revealed there were small bilateral pleural effusions and bibasilar atelectasis. Anxiolytic as needed for anxiety Diurese to euvolemia Monitor ins and outs. Monitor renal function Monitor electrolytes. Supplement as necessary. Diet and lifestyle modifications for weight reduction given morbid obesity. DVT prophylaxis Prognosis: Poor given multiple comorbidities. Rest of plan per hospitalist and other consultants. A total of 51 minutes of clinical care time was spent reviewing the patient record, examining the patient, making a diagnostic and therapeutic plan, discussing this plan with the medical personnel, following up on diagnostic studies and following the patient for clinical stability excluding any and all procedures. At least 50% of this time was spent in direct, [id number] contact. Thank you Dr. Joanie Alvarez for allowing me to participate in this patient's care. Further recommendations will depend on patient's clinical course. Please do not hesitate to contact me if you have any questions or concerns. This medical document was created using an electronic medical record system with [employer] dictation system. Although this document has been carefully reviewed, there may still be some phonetic and typographical errors. These areas are purely typographical due to imperfections of the software programs, and do not reflect any compromise in the patient's medical care. Dietary Evaluation Review Comments: No Eliazar d/t ARMANDO-CKD-3 status, Will reassess her protein needs in 2-3 days. Expected Outcomes/Goals: gradual weight loss. Plan discussed with: Patient, Other (FATIMAH Graham) GUALBERTO POZO MD Jul 21, 2024 20:35
[2024-07-22] VITALS (64 sets, daily range): BP systolic 125–166; BP diastolic 57–80; PULSE 76–102; RESP 7–30; TEMP 97.4–98.1; O2SAT 92–100
[2024-07-22 06:01] LABS: Basophils # (auto) 0 10 ^3/uL (0-0.2); Basophils % (auto) 0.2 % (0.0-2.0); Eosinophils # (auto) 0 10 ^3/uL (0-0.8); Hematocrit 38.1 % (36.0-46.0); Hemoglobin 12.5 g/dL (12.2-16.2); Lymphocytes # (auto) 0.9 10 ^3/uL (0.4-5.4); Lymphocytes % (auto) 7.9 % (10.0-50.0); Mean Corpuscular Hemoglobin 29.6 pg (28.0-32.0); Mean Corpuscular Hgb Conc. 32.8 g/dL (32.0-36.0); Mean Corpuscular Volume 90.3 fL (80.0-100.0); Monocytes # (auto) 0.6 10 ^3/uL (0-1.3); Neutrophils % (auto) 86.9 % (37.0-80.0); Nucleated Red Blood Cells % 0.1 %; Platelet Count (auto) 489 10^3/uL (140-450); Red Blood Cells 4.22 10^6/uL (4.0-5.20); Red Cell Distribution Width 13.4 % (11.8-14.3); White Blood Cell 11.6 10^3/uL (4.4-10.8)
[2024-07-22 06:09] LABS: Calcium 9.1 mg/dL (8.7-10.4); Chloride 104 mmol/L (98-107); Potassium 4.4 mmol/L (3.5-5.1); Sodium 142 mmol/L (136-145)
[2024-07-22 06:10] LABS: Anion Gap 10 (5-15); Carbon Dioxide 28 mmol/L (20-31)
[2024-07-22 06:15] LABS: BUN/Creatinine Ratio 36.6 (10.0-20.0); Blood Urea Nitrogen 64 mg/dL (9-23); Glucose 147 mg/dL (74-106)
--- NOTE | 2024-07-22 09:11 | MEDREC ---
[facility] ASP Intervention Section I [facility] ASP Intervention: Review courses of therapy (BLOOD AND URINE CULTURE ARE NEGATIVE (FINAL). WBC IS ELEVATED TODAY, BUT IT COULD BE CAUSED BY IV STEROID STARTING YESTERDAY (07/21). DOXYCYCLINE DAY 5, CEFTRIAXONE DAY 7, AND SPUTUM CULTURE SHOWS YEAST (PREMILINARY). PLEASE CONSIDER ADDING ANTIFUNGAL IF PATIE NT'S CONDITIONS ARE NOT IMPROVING ) DEVANG AKHTAR Jul 22, 2024 09:10
--- NOTE | 2024-07-22 09:33 | DVHPN2 ---
Reviewed: Care Plan, H&P, Labs, Medications, Previous Orders, Radiology Changes from previous H/P or p: No Changes Eyes: No Pain, No Vision change, No Conjunctivae inflammation, No Eyelid inflammation, No Other, No Redness ENT: No Ear pain, No Ear discharge, No Nose pain, No Nose discharge, No Nose congestion, No Mouth pain, No Mouth swelling, No Throat pain, No Throat swelling, No Other Cardiovascular: No Chest Pain, No Palpitations, No Orthopnea, No Paroxysmal Noc. Dyspnea, No Edema, No Lt Headedness, No Other Respiratory: No Cough, No Dry, No Shortness of breath, No SOB with excertion, No Wheezing, No Hemoptysis, No Pleuritic Pain, No Sputum, No Other Gastrointestinal: No Nausea, No Vomiting; Abdominal Pain; No Diarrhea, No Constipation, No Melena, No Hematochezia, No Other Genitourinary: Dysuria, Frequency; No Incontinence, No Hematuria, No Retention, No Other Musculoskeletal: No other, No neck pain, No shoulder pain, No arm pain, No back pain, No hand pain, No leg pain, No foot pain Skin: Rash Objective Vitals Vital Signs Date Time Temp Pulse Resp B/P (MAP) Pulse Ox O2 Delivery O2 Flow Rate FiO2 07/22/24 09:15 78 18 93 07/22/24 08:00 Nasal Cannula* 1 07/22/24 08:00 97.9 97.9 Intake/Output Intake and Output 07/22/24 07:00 Intake Total 1350 ml Output Total 3750 ml Balance -2400 ml Intake Oral 800 ml IV Total 550 ml Output Urine Total 3750 ml Medications Current Medications Medications Dose Ordered Sig/Kendell Route Start Time Stop Time Status Last Admin Dose Admin Amlodipine Besylate 5 mg DAILY PO 07/17/24 10:00 07/21/24 10:36 5 MG Ceftriaxone Sodium 50 ml @ 100 mls/hr DAILY@09 IV 07/17/24 09:00 07/21/24 10:34 100 MLS/HR Morphine Sulfate 2 mg Q6HPRN PRN IV 07/16/24 19:00 07/22/24 02:27 2 MG Albuterol 2.5 mg Q4HWA NEB 07/16/24 22:00 07/22/24 05:48 2.5 MG Ipratropium [place] 0.5 mg Q4HWA NEB 07/16/24 22:00 07/22/24 05:48 0.5 MG Doxycycline Hyclate 250 ml @ 125 mls/hr Q12H IV 07/18/24 08:15 07/22/24 08:51 125 MLS/HR Acetaminophen/ Hydrocodone Bitart 1 tab Q6HP PRN PO 07/18/24 13:30 07/20/24 16:39 1 TAB Alprazolam 1 mg TID PRN PO 07/18/24 18:15 07/21/24 22:40 1 MG Labetalol HCl 10 mg Q2HPRN PRN IV 07/18/24 18:15 07/22/24 06:56 10 MG Sevelamer HCl 800 mg TIDWM PO 07/18/24 19:30 07/22/24 08:51 800 MG Throat Lozenges 1 alisha Q2HP PRN MT 07/19/24 17:15 07/20/24 06:26 1 ALISHA Furosemide 60 mg BIDD IV 07/20/24 18:00 07/22/24 06:07 60 MG Duloxetine HCl 30 mg DAILY PO 07/20/24 10:00 07/21/24 10:34 30 MG Methylprednisolone Sodium Succinate 30 mg Q12HR IV 07/20/24 22:00 07/21/24 21:40 30 MG Laboratory Results Laboratory Tests 07/22/24 05:27 Chemistry Test 07/22/24 05:27 Calcium Level 9.1 mg/dL (8.7-10.4) Urinalysis Test 07/19/24 17:45 07/20/24 06:34 Urine Creatinine 81.73 mg/dL (30.0-125.0) Urine Protein/Creatinine Ratio 1.17 Urine Sodium 14 mmol/L (40-220) L Urine Total Protein 95.5 mg/dL (1-14) H Urine Color Colorless (Yellow) Urine Clarity Turbid (Clear) H Urine pH 5.0 (5.0-9.0) Urine Specific [place] 1.007 (1.001-1.035) Urine Protein Trace (Negative) H Urine Ketones Negative (Negative) Urine Blood 2+ /uL (Negative) H Urine Nitrite Negative (Negative) Urine Bilirubin Negative (Negative) Urine Urobilinogen Normal mg/dL (Negative) Urine Leukocyte Esterase 1+ /uL (Negative) Urine RBC 205 /hpf (0 - 4) Urine WBC 25 /hpf (0 - 5) Urine Squamous Epithelial Cells Few /hpf (<5) Urine Bacteria Few /hpf (None Seen) H Urine Mucus Few (None Seen) Urine Glucose Normal mg/dL (Normal) Microbiology Microbiology Date/Time Source Procedure Growth Status 07/19/24 03:50 Sputum Gram Stain - Final Resulted 07/19/24 03:50 Sputum Respiratory Culture - Preliminary Resulted 07/18/24 05:53 Nose MRSA Screen - Final Complete 07/16/24 14:42 Blood Blood Culture - Final NO GROWTH AFTER 5 DAYS OF INCUBATION. Complete 07/16/24 07:30 Voided Urine Urine Culture - Final Complete Labs and/or images reviewed: Labs reviewed by me, Image(s) reviewed by me Assessment/Plan Assessment/Plan Acute hypoxic respiratory failure: Improving now one 2 L of oxygen by nasal cannula pulmonary consult by Dr. Minor appreciated. Chest x-ray shows bilateral small pleural effusions Possible bilateral community-acquired pneumonia, continue Rocephin add doxycycline Rule out congestive heart failure: Cardiology consult appreciated Sepsis secondary to urinary tract infection: Blood cultures negative, urine cultures negative, continue Rocephin Yeast in the sputum: Diflucan 400 mg p.o. daily Hypertension: Hydralazine discontinued and started on labetalol by the textile designs sales representative Acute metabolic encephalopathy: CT head ordered to rule out any intracranial pathology Acute kidney injury: Nephrology consult appreciated Bilateral upper and lower extremity vasculitis D-dimer elevated 14.6 DVT ruled out PE ruled out by negative V/Q scan: DC Lovenox CT abdomen pelvis negative Kidney ultrasound negative History of lupus under the care of , rheumatology consult by Dr. Grubbs appreciated History of seizures Moderate obesity High level of anxiety: Xanax Condition guarded Seen in [facility] Time spent 65 minutes Patient is full code Advanced care planning time 20 minutes Awaiting kidney biopsy Plan discussed with: Patient My Orders Orders - JESUS VILLANUEVA MD Procedure Category Date Status Time Fluconazole Tablet PHA 07/22/24 Logged (Diflucan Tablet) 10:00 Date of Service: Jul 22, 2024 Billing Provider: JESUS VILLANUEVA MD Common Visit Codes: [id number] CARE 30-74 MIN JESUS VILLANUEVA MD Jul 22, 2024 09:33
--- NOTE | 2024-07-22 09:59 | DVHPN2 ---
Progress Note Date Seen: Jul 22, 2024 Has the PT tested + for MRSA If YES, has PT been informed?: No Medical Necessity Reason Pt with a Central, PICC or Fol: Yes The following are medically ne: Patino Catheter Reason for patino catheter: Strict I&O Subjective Patient reports: No new complaints Other Systems: Patient seen and examined by myself today on rounds Objective vital signs Vital Sign Date Time Temp Pulse Resp B/P (MAP) Pulse Ox O2 Delivery O2 Flow Rate FiO2 07/22/24 09:55 80 23 98 07/22/24 09:49 Nasal Cannula* 1 07/22/24 09:15 07/22/24 08:00 97.9 97.9 Total Intake and Output 07/21/24 07/21/24 07/22/24 15:00 23:00 07:00 Intake Total 300 ml 950 ml 100 ml Output Total 2000 ml 1750 ml Balance 300 ml -1050 ml -1650 ml medications Current Medications Medications Dose Ordered Sig/Kendell Route Start Time Stop Time Status Last Admin Dose Admin Amlodipine Besylate 5 mg DAILY PO 07/17/24 10:00 07/21/24 10:36 5 MG Ceftriaxone Sodium 50 ml @ 100 mls/hr DAILY@09 IV 07/17/24 09:00 07/21/24 10:34 100 MLS/HR Morphine Sulfate 2 mg Q6HPRN PRN IV 07/16/24 19:00 07/22/24 02:27 2 MG Albuterol 2.5 mg Q4HWA [facility] [place] 07/16/24 22:00 07/22/24 09:49 2.5 MG Ipratropium [place] 0.5 mg Q4HWA [facility] [place] 07/16/24 22:00 07/22/24 09:49 0.5 MG Doxycycline Hyclate 250 ml @ 125 mls/hr Q12H IV 07/18/24 08:15 07/22/24 08:51 125 MLS/HR Acetaminophen/ Hydrocodone Bitart 1 tab Q6HP PRN PO 07/18/24 13:30 07/20/24 16:39 1 TAB Alprazolam 1 mg TID PRN PO 07/18/24 18:15 07/21/24 22:40 1 MG Labetalol HCl 10 mg Q2HPRN PRN IV 07/18/24 18:15 07/22/24 06:56 10 MG Sevelamer HCl 800 mg TIDWM PO 07/18/24 19:30 07/22/24 08:51 800 MG Throat Lozenges 1 alisha Q2HP PRN MT 07/19/24 17:15 07/20/24 06:26 1 ALISHA Furosemide 60 mg BIDD IV 07/20/24 18:00 07/22/24 06:07 60 MG Duloxetine HCl 30 mg DAILY PO 07/20/24 10:00 07/21/24 10:34 30 MG Methylprednisolone Sodium Succinate 30 mg Q12HR IV 07/20/24 22:00 07/21/24 21:40 30 MG Fluconazole 400 mg DAILY PO 07/22/24 10:00 Guaifenesin/ Dextromethorphan 10 ml Q4HP PRN PO 07/22/24 09:45 Examination: LUNGS:Normal, CVS:Normal, MSK:Normal laboratory and microbiology Laboratory Tests 07/22/24 05:27 Test 07/22/24 05:27 Range/Units Serum Glucose 147 H 74-106 mg/dL Microbiology Date/Time Source Procedure Growth Status 07/19/24 03:50 Sputum Gram Stain - Final Resulted 07/19/24 03:50 Sputum Respiratory Culture - Preliminary Resulted 07/18/24 05:53 Nose MRSA Screen - Final Complete 07/16/24 14:42 Blood Blood Culture - Final NO GROWTH AFTER 5 DAYS OF INCUBATION. Complete 07/16/24 07:30 Voided Urine Urine Culture - Final Complete Problem List/Assessment/Plan Problem List/Assessment/Plan Assessment and plan # ARMANDO on CKD likely prerenal hemodynamically mediated - serum creatinine 2-->2.12--> 2.25-->2.21->1.93 and BUN 25-->28-> 37-->55->67 - GFR 25 - urine sodium 14, urine creatinine 81.73, protein creatinine ratio 1.17 - FENa 0.3% - renal ultrasound shows right kidney 12.1 cm in length, left kidney 10 cm in length, bilateral renal echotexture, contour, cortical thickness within normal limits. - Continue on furosemide 60 mg b.i.d. IV - strict I&O - urine output 2800 mL of with the past 24 hours - monitor electrolytes - avoid nephrotoxic medication # CKD likely stage III due to likely lupus/autoimmune disease - on reviewing records patient's baseline GFR 40-60 in September 2023 - long history of lupus - PTH elevated to 254 mg/dL with serum calcium 8.5 - serum phosphorous 6.2 - complement C3-C4 within normal limits - [employer] antibody elevated, check ANCA - interventional Radiology consulted for kidney biopsy given history of lupus. - ANCA panel ordered # Acute hypoxic respiratory failure likely due to Gram+/- pneumonia On 07/18 patient ICU status in the morning on BiPAP with a FiO2 35%, spontaneous breathing 20 per minute, EPAP 8, IPAP 16 - ABG shows pH 7.353, pCO2 46.5, bicarbonate 25.3 On 07/19- patient is shifted to [facility] 07/21- currently on nasal cannula 2 liter/minute oxygen with a SpO2 95% # Hyperphosphatemia - continue sevelamar 800 mg p.o. t.i.d. with meals # acute diastolic heart failure with the left ventricular ejection fraction 50% # UTI # acute hypoxic respiratory failure # pneumonia likely Gram-positive/Gram-negative bacteria # history of lupus- following # history of psoriatic arthritis # hypertension # PE ruled out Plan discussed with: Patient, Spouse Dietary Evaluation Review Comments: No Eliazar d/t ARMANDO-CKD-3 status, Will reassess her protein needs in 2-3 days. Expected Outcomes/Goals: gradual weight loss. ZOILA VICTORIA MD Jul 22, 2024 09:59
[2024-07-22] MEDS: FLUCONAZOLE 100 MG TAB PO SCH (11:02)
[2024-07-22] MEDS: guaiFENesin-DM 100/10mg/5ml SYR PO PRN (12:46)
--- NOTE | 2024-07-22 13:15 | DVHPN2 ---
Progress Note - Dictate Date Seen: Jul 22, 2024 Has the PT tested + for MRSA If YES, has PT been informed?: No Medical Necessity Reason Pt with a Central, PICC or Fol: Yes The following are medically ne: Patino Catheter Reason for patino catheter: Strict I&O vital signs Vital Sign Date Time Temp Pulse Resp B/P (MAP) Pulse Ox O2 Delivery O2 Flow Rate FiO2 07/22/24 13:00 86 15 145/70 (95) 93 07/22/24 12:00 98.0 98.0 07/22/24 12:00 Nasal Cannula* 1 24 Total Intake and Output 07/21/24 07/21/24 07/22/24 15:00 23:00 07:00 Intake Total 300 ml 950 ml 100 ml Output Total 2000 ml 1750 ml Balance 300 ml -1050 ml -1650 ml medications Current Medications Medications Dose Ordered Sig/Kendell Route Start Time Stop Time Status Last Admin Dose Admin Amlodipine Besylate 5 mg DAILY PO 07/17/24 10:00 07/22/24 10:39 5 MG Ceftriaxone Sodium 50 ml @ 100 mls/hr DAILY@09 IV 07/17/24 09:00 07/22/24 10:40 100 MLS/HR Morphine Sulfate 2 mg Q6HPRN PRN IV 07/16/24 19:00 07/22/24 02:27 2 MG Albuterol 2.5 mg Q4HWA [facility] 07/16/24 22:00 07/22/24 09:49 2.5 MG Ipratropium [place] 0.5 mg Q4HWA [facility] 07/16/24 22:00 07/22/24 09:49 0.5 MG Doxycycline Hyclate 250 ml @ 125 mls/hr Q12H IV 07/18/24 08:15 07/22/24 08:51 125 MLS/HR Acetaminophen/ Hydrocodone Bitart 1 tab Q6HP PRN PO 07/18/24 13:30 07/22/24 10:47 1 TAB Alprazolam 1 mg TID PRN PO 07/18/24 18:15 07/22/24 10:46 1 MG Labetalol HCl 10 mg Q2HPRN PRN IV 07/18/24 18:15 07/22/24 06:56 10 MG Sevelamer HCl 800 mg TIDWM PO 07/18/24 19:30 11/9/24 12:46 800 MG Throat Lozenges 1 alisha Q2HP PRN MT 07/19/24 17:15 07/20/24 06:26 1 ALISHA Furosemide 60 mg BIDD IV 07/20/24 18:00 07/22/24 06:07 60 MG Duloxetine HCl 30 mg DAILY PO 07/20/24 10:00 07/22/24 10:39 30 MG Methylprednisolone Sodium Succinate 30 mg Q12HR IV 07/20/24 22:00 07/22/24 10:40 30 MG Fluconazole 400 mg DAILY PO 07/22/24 10:00 07/22/24 11:02 400 MG Guaifenesin/ Dextromethorphan 10 ml Q4HP PRN PO 07/22/24 09:45 07/22/24 12:46 10 ML laboratory and microbiology Laboratory Tests 07/22/24 05:27 Test 07/22/24 05:27 Range/Units Serum Glucose 147 H 74-106 mg/dL Assessment/Plan Patient is a 73-year-old female who presented on July 16, 2024 for abdominal pain/dysuria and frequency. She had been complaining of low appetite also. While being managed in [facility], the patient was found to be short of breath and cardiology was involved for shortness of breath. Patient denies any chest pains. Patient denies leg swellings. She is poor historian. She is known to our practice from outside. She was lost to follow-up with us years ago. Sleepy female. No JVD. [place] and wet mucosa. No goiter. Not using accessory muscle of breathing. Scattered rhonchi in the lungs is heard. Cardiac: Regular, tachycardic, no thrill/gallop. Abdomen is soft and obese. There is no gross hepatomegaly. Bowel sound is positive. Extremities reveal 2+ edema bilaterally. 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 WBC: 12.4 - 12.7 - 11.9 - 7.2 - 10.6 - 10.2 - 11.6 D-dimer: 14.16 Creatinine: 2.0 - 2.06 - 2.12 - 2.25 - 2.21 - 1.93 - 1.75 Potassium: 4.7 - 4.9 - 4.5 - 4.3 - 4.0 - 4.1 - 4.4 M.9 TSH: 0.57 BNP: 102.05 Trop (high sensitive): 13 - [address] scan revealed: IMPRESSION: 1. No acute abdominal or pelvic finding. 2. Hepatic steatosis. Venous Doppler of lower extremities revealed: Impression: 1. No right or left deep venous thrombosis. Renal ultrasound revealed: IMPRESSION: 1. Unremarkable examination. Chest x-ray revealed: Findings/Impression: Frontal chest radiograph demonstrates no acute osseous or superficial soft tissue abnormalities. The trachea is midline. Cardiomeagly with pulmonary vascular congestion. Small bilateral pleural effusions with compressive atelectasis. A superimposed infectious process is not excluded. No pneumothorax. CT of head revealed: IMPRESSION: 1. No acute intracranial abnormality. Repeat chest xry revealed: IMPRESSION: 1. Pulmonary edema and bilateral pleural effusions similar to prior study. Repeat chest x-ray revealed: IMPRESSION: 1. Pulmonary interstitial edema and bilateral pleural effusions. Repeat chest xry revealed: IMPRESSION: 1. Pulmonary edema and bilateral pleural effusions similar to prior study. V/Q scan reported: IMPRESSION: Low probability for PE. EKG reveals sinus tachycardia with nonspecific ST-T changes Tele reveals sinus tachycardia Echocardiogram reported: Normal left ventricular size and dimension. Normal left ventricular systolic function estimated ejection fraction 50%. There is a grade 1 diastolic dysfunction. Normal right ventricular size and dimension. Normal right ventricular systolic function. Mildly elevated right ventricular systolic [id number] mm of mercury Normal biatrial size and dimension. Normal aortic valve structure and function. Normal mitral valve structure and function. Normal tricuspid valve structure and function. The pulmonary valve is grossly normal. No pericardial effusion. Patient is a 73-year-old female who presented to the hospital with abdominal pain/dysuria and frequency. She was found to have leukocytosis. Presentation is in favor of pneumonia/UTI. Sepsis is considered. Cardiac etiology for presentation is less likely. Still, the patient's D-dimer has been elevated and pulmonary emboli should be ruled out. Chest x-rays reveal congestion in the lungs and component of heart failure can not be ruled out. V/Q scan was against pulmonary Emboli. Venous duplex was against DVT. Encephalopathy, metabolic Acute respiratory failure Pulmonary edema, acute diastolic heart failure Sepsis Urosepsis Pneumonia ARMANDO On CKD Hypertension History of lupus History of psoriatic arthritis Abnormal D-dimer Fatty liver Cardiac suggestion for management: Manage in [facility] IV diuresis ( 60 mg lasix BID) Follow-up electrolytes and kidney function tests and correct abnormalities Prophylactic Lovenox Further evaluation and management depends on the above and clinical course A total of 75 minutes was spent reviewing the patient record, examining the patient, making a diagnostic and therapeutic plan, discussing this plan with medical personnel, following up on diagnostic studies and following the patient for clinical stability excluding any and all procedures. At least 50% of this time was spent in direct, [id number] contact. Thank you for allowing me to participate in this patient's care. Further recommendations will depend on patient's clinical course. Please do not hesitate to contact me if you have any questions or concerns. This medical document was created using electronic medical record system with [employer] computerized dictation system. Although this document has been carefully reviewed, there may still be some phonetic and typographical errors. These areas are purely typographical due to the imperfection of the software programs, and do not reflect any compromise in the patient's medical care. Dietary Evaluation Review Comments: No Eliazar d/t ARMANDO-CKD-3 status, Will reassess her protein needs in 2-3 days. Expected Outcomes/Goals: gradual weight loss. Plan discussed with: Patient, Other (nurse) CLAUDE JOHNSON MD Jul 22, 2024 13:15
--- NOTE | 2024-07-22 14:16 | DVHPN2 ---
Progress Note - Dictate Date Seen: Jul 22, 2024 Has the PT tested + for MRSA If YES, has PT been informed?: No Medical Necessity Reason Pt with a Central, PICC or Fol: Yes The following are medically ne: Patino Catheter Reason for patino catheter: Strict I&O Subjective Patient seen and examined at bedside. On supplemental oxygen Overnight events reviewed. vital signs Vital Sign Date Time Temp Pulse Resp B/P (MAP) Pulse Ox O2 Delivery O2 Flow Rate FiO2 07/22/24 13:46 81 22 100 07/22/24 13:40 Nasal Cannula 1.0 07/22/24 13:40 24 07/22/24 13:00 145/70 (95) 07/22/24 12:00 98.0 98.0 Total Intake and Output 07/21/24 07/21/24 07/22/24 15:00 23:00 07:00 Intake Total 300 ml 950 ml 100 ml Output Total 2000 ml 1750 ml Balance 300 ml -1050 ml -1650 ml medications Current Medications Medications Dose Ordered Sig/Kendell Route Start Time Stop Time Status Last Admin Dose Admin Amlodipine Besylate 5 mg DAILY PO 07/17/24 10:00 07/22/24 10:39 5 MG Ceftriaxone Sodium 50 ml @ 100 mls/hr DAILY@09 IV 07/17/24 09:00 07/22/24 10:40 100 MLS/HR Morphine Sulfate 2 mg Q6HPRN PRN IV 07/16/24 19:00 07/22/24 02:27 2 MG Albuterol 2.5 mg Q4HWA [facility] 07/16/24 22:00 07/22/24 13:40 2.5 MG Ipratropium [place] 0.5 mg Q4HWA [facility] 07/16/24 22:00 07/22/24 13:40 0.5 MG Doxycycline Hyclate 250 ml @ 125 mls/hr Q12H IV 07/18/24 08:15 07/22/24 08:51 125 MLS/HR Acetaminophen/ Hydrocodone Bitart 1 tab Q6HP PRN PO 07/18/24 13:30 07/22/24 10:47 1 TAB Alprazolam 1 mg TID PRN PO 07/18/24 18:15 07/22/24 10:46 1 MG Labetalol HCl 10 mg Q2HPRN PRN IV 07/18/24 18:15 07/22/24 06:56 10 MG Sevelamer HCl 800 mg TIDWM PO 07/18/24 19:30 07/22/24 12:46 800 MG Throat Lozenges 1 alisha Q2HP PRN MT 07/19/24 17:15 07/20/24 06:26 1 ALISHA Furosemide 60 mg BIDD IV 07/20/24 18:00 07/22/24 06:07 60 MG Duloxetine HCl 30 mg DAILY PO 07/20/24 10:00 07/22/24 10:39 30 MG Methylprednisolone Sodium Succinate 30 mg Q12HR IV 07/20/24 22:00 07/22/24 10:40 30 MG Fluconazole 400 mg DAILY PO 07/22/24 10:00 07/22/24 11:02 400 MG Guaifenesin/ Dextromethorphan 10 ml Q4HP PRN PO 07/22/24 09:45 07/22/24 12:46 10 ML Enoxaparin Sodium 40 mg DAILY SC 07/23/24 10:00 objective Gen.: Patient lying in bed in no apparent distress. On supplemental oxygen. Head: Normocephalic, atraumatic. Eyes: EOMI/PERRLA. Ears: Normal hearing. Normal anatomy. Neck/trachea: Trachea midline, supple. Nose: Normal external anatomy. Mouth: Moist mucous membranes. Chest: Decreased air entry bilaterally. No wheezing or rhonchi. Cardiovascular: Positive S1, positive S2. Regular rate and rhythm. Abdomen: Positive bowel sounds in all 4 quadrants. Soft, non-tender, non- distended. : Deferred. Rectal: Deferred. Skin: Warm, dry. Intact. Extremities: 2+ radial pulses bilaterally. No lower extremity edema. Neuro: Awake, alert, oriented x3. No gross motor or sensory deficits. Cranial nerves II through XII intact. Gait not assessed. laboratory and microbiology Laboratory Tests 07/22/24 05:27 Test 07/22/24 05:27 Range/Units Serum Glucose 147 H 74-106 mg/dL Assessment/Plan Impression: Sepsis secondary to UTI Acute hypoxic respiratory failure Pleural effusion Atelectasis Acute kidney injury Bilateral upper and lower extremity vasculitis Deep vein thrombosis ruled out Morbid obesity with a BMI of 40 Anxiety Seizure disorder Acute on chronic hypercarbic respiratory failure AMS 2/2 acute on chronic hypercarbic respiratory failure Pulmonary embolism ruled out Events: On supplemental O2 at 1 LPM NC Taper O2 as tolerated Improving o2 requirements HOB elevation Aspiration precautions. Anxiolytic. Antitussive PRN. Throat lozenges Continue abx and antifungal Blood cx show no growth. Sputum cx: Presumptive C Albicans. IV steroids: Solumedrol 30mg IV [id number] Continue bronchodilators Incentive spirometry On therapeutic Lovenox Diurese w/ Lasix 60 mg IV BID Monitor renal function Monitor electrolytes, supplement as necessary Plan for renal biopsy. Labs and imaging reviewed. Rest of plan as noted below Plan: Supplemental O2 Keep O2 saturation above 92% Bronchodilators IV steroids Chest x-ray imaging report reviewed. No pneumothorax. Small bilateral pleural effusion with compressive atelectasis. Pulmonary vascular congestion Continue antibiotics Follow up cultures Blood cultures no growth after 72 hours Ultrasound venous Doppler lower extremities is negative for any acute DVT. CT abdomen and pelvis lung windows revealed there were small bilateral pleural effusions and bibasilar atelectasis. V/q scan Low prob of PE. Anxiolytic as needed for anxiety Diurese to euvolemia Monitor ins and outs. Monitor renal function Monitor electrolytes. Supplement as necessary. Diet and lifestyle modifications for weight reduction given morbid obesity. DVT prophylaxis Prognosis: Poor given multiple comorbidities. Rest of plan per hospitalist and other consultants. A total of 51 minutes of clinical care time was spent reviewing the patient record, examining the patient, making a diagnostic and therapeutic plan, discussing this plan with the medical personnel, following up on diagnostic studies and following the patient for clinical stability excluding any and all procedures. At least 50% of this time was spent in direct, [id number] contact. Thank you Dr. Joanie Alvarez for allowing me to participate in this patient's care. Further recommendations will depend on patient's clinical course. Please do not hesitate to contact me if you have any questions or concerns. This medical document was created using an electronic medical record system with [employer] dictation system. Although this document has been carefully reviewed, there may still be some phonetic and typographical errors. These areas are purely typographical due to imperfections of the software programs, and do not reflect any compromise in the patient's medical care. Dietary Evaluation Review Comments: No Eliazar d/t ARMANDO-CKD-3 status, Will reassess her protein needs in 2-3 days. Expected Outcomes/Goals: gradual weight loss. Plan discussed with: Patient, Spouse, Other (FATIMAH Fulton MD) GUALBERTO POZO MD Jul 22, 2024 14:15
[2024-07-23] VITALS (20 sets, daily range): BP systolic 134–148; BP diastolic 55–81; PULSE 76–97; RESP 17–20; TEMP 97.8–98.7; O2SAT 91–100
--- NOTE | 2024-07-23 07:50 | DVHPN2 ---
Progress Note - Dictate Date Seen: Jul 23, 2024 Has the PT tested + for MRSA If YES, has PT been informed?: No Medical Necessity Reason Pt with a Central, PICC or Fol: Yes The following are medically ne: Patino Catheter Reason for patino catheter: Strict I&O vital signs Vital Sign Date Time Temp Pulse Resp B/P (MAP) Pulse Ox O2 Delivery O2 Flow Rate FiO2 07/23/24 06:29 76 20 99 07/23/24 06:22 Nasal Cannula 1.0 07/23/24 06:22 24 07/23/24 05:36 139/70 07/23/24 05:00 98.3 98.3 Total Intake and Output 07/22/24 07/22/24 07/23/24 15:00 23:00 07:00 Intake Total 300 ml 950 ml 500 ml Output Total 2150 ml 2400 ml Balance 300 ml -1200 ml -1900 ml medications Current Medications Medications Dose Ordered Sig/Kendell Route Start Time Stop Time Status Last Admin Dose Admin Amlodipine Besylate 5 mg DAILY PO 07/17/24 10:00 07/22/24 10:39 5 MG Ceftriaxone Sodium 50 ml @ 100 mls/hr DAILY@09 IV 07/17/24 09:00 07/22/24 10:40 100 MLS/HR Morphine Sulfate 2 mg Q6HPRN PRN IV 07/16/24 19:00 07/22/24 02:27 2 MG Albuterol 2.5 mg Q4HWA [facility] 07/16/24 22:00 07/23/24 06:22 2.5 MG Ipratropium [place] 0.5 mg Q4HWA [facility] 07/16/24 22:00 07/23/24 06:22 0.5 MG Doxycycline Hyclate 250 ml @ 125 mls/hr Q12H IV 07/18/24 08:15 07/22/24 22:55 125 MLS/HR Acetaminophen/ Hydrocodone Bitart 1 tab Q6HP PRN PO 07/18/24 13:30 07/22/24 18:23 1 TAB Alprazolam 1 mg TID PRN PO 07/18/24 18:15 07/22/24 18:23 1 MG Labetalol HCl 10 mg Q2HPRN PRN IV 07/18/24 18:15 07/22/24 06:56 10 MG Sevelamer HCl 800 mg TIDWM PO 07/18/24 19:30 07/22/24 18:23 800 MG Throat Lozenges 1 alisha Q2HP PRN MT 07/19/24 17:15 07/20/24 06:26 1 ALISHA Furosemide 60 mg BIDD IV 07/20/24 18:00 07/23/24 05:36 60 MG Duloxetine HCl 30 mg DAILY PO 07/20/24 10:00 07/22/24 10:39 30 MG Methylprednisolone Sodium Succinate 30 mg Q12HR IV 07/20/24 22:00 07/22/24 22:52 30 MG Fluconazole 400 mg DAILY PO 07/22/24 10:00 07/22/24 11:02 400 MG Guaifenesin/ Dextromethorphan 10 ml Q4HP PRN PO 07/22/24 09:45 07/22/24 12:46 10 ML Enoxaparin Sodium 40 mg DAILY SC 07/23/24 10:00 laboratory and microbiology Laboratory Tests 07/22/24 05:27 Test 07/22/24 05:27 Range/Units Serum Glucose 147 H 74-106 mg/dL Assessment/Plan Patient is a 73-year-old female who presented on July 16, 2024 for abdominal pain/dysuria and frequency. She had been complaining of low appetite also. While being managed in [facility], the patient was found to be short of breath and cardiology was involved for shortness of breath. Patient denies any chest pains. Patient denies leg swellings. She is poor historian. She is known to our practice from outside. She was lost to follow-up with us years ago. Sleepy female. No JVD. [place] and wet mucosa. No goiter. Not using accessory muscle of breathing. Scattered rhonchi in the lungs is heard. Cardiac: Regular, tachycardic, no thrill/gallop. Abdomen is soft and obese. There is no gross hepatomegaly. Bowel sound is positive. Extremities reveal 2+ edema bilaterally. 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 WBC: 12.4 - 12.7 - 11.9 - 7.2 - 10.6 - 10.2 - 11.6 D-dimer: 14.16 Creatinine: 2.0 - 2.06 - 2.12 - 2.25 - 2.21 - 1.93 - 1.75 Potassium: 4.7 - 4.9 - 4.5 - 4.3 - 4.0 - 4.1 - 4.4 M.9 TSH: 0.57 BNP: 102.05 Trop (high sensitive): 13 - [address] scan revealed: IMPRESSION: 1. No acute abdominal or pelvic finding. 2. Hepatic steatosis. Venous Doppler of lower extremities revealed: Impression: 1. No right or left deep venous thrombosis. Renal ultrasound revealed: IMPRESSION: 1. Unremarkable examination. Chest x-ray revealed: Findings/Impression: Frontal chest radiograph demonstrates no acute osseous or superficial soft tissue abnormalities. The trachea is midline. Cardiomeagly with pulmonary vascular congestion. Small bilateral pleural effusions with compressive atelectasis. A superimposed infectious process is not excluded. No pneumothorax. CT of head revealed: IMPRESSION: 1. No acute intracranial abnormality. Repeat chest xry revealed: IMPRESSION: 1. Pulmonary edema and bilateral pleural effusions similar to prior study. Repeat chest x-ray revealed: IMPRESSION: 1. Pulmonary interstitial edema and bilateral pleural effusions. Repeat chest xry revealed: IMPRESSION: 1. Pulmonary edema and bilateral pleural effusions similar to prior study. V/Q scan reported: IMPRESSION: Low probability for PE. EKG reveals sinus tachycardia with nonspecific ST-T changes Tele reveals sinus tachycardia Echocardiogram reported: Normal left ventricular size and dimension. Normal left ventricular systolic function estimated ejection fraction 50%. There is a grade 1 diastolic dysfunction. Normal right ventricular size and dimension. Normal right ventricular systolic function. Mildly elevated right ventricular systolic mm of mercury Normal biatrial size and dimension. Normal aortic valve structure and function. Normal mitral valve structure and function. Normal tricuspid valve structure and function. The pulmonary valve is grossly normal. No pericardial effusion. Patient is a 73-year-old female who presented to the hospital with abdominal pain/dysuria and frequency. She was found to have leukocytosis. Presentation is in favor of pneumonia/UTI. Sepsis is considered. Cardiac etiology for presentation is less likely. Still, the patient's D-dimer has been elevated and pulmonary emboli should be ruled out. Chest x-rays reveal congestion in the lungs and component of heart failure can not be ruled out. V/Q scan was against pulmonary Emboli. Venous duplex was against DVT. Encephalopathy, metabolic Acute respiratory failure Pulmonary edema, acute diastolic heart failure Sepsis Urosepsis Pneumonia ARMANDO On CKD Hypertension History of lupus History of psoriatic arthritis Abnormal D-dimer Fatty liver Cardiac suggestion for management: Manage in tele IV diuresis Follow-up electrolytes and kidney function tests and correct abnormalities Prophylactic Lovenox Nephrology, Rheumatology and Pulmonary follow up Further evaluation and management depends on the above and clinical course A total of 55 minutes was spent reviewing the patient record, examining the patient, making a diagnostic and therapeutic plan, discussing this plan with medical personnel, following up on diagnostic studies and following the patient for clinical stability excluding any and all procedures. At least 50% of this time was spent in direct, [id number] contact. Thank you for allowing me to participate in this patient's care. Further recommendations will depend on patient's clinical course. Please do not hesitate to contact me if you have any questions or concerns. This medical document was created using electronic medical record system with [employer] computerized dictation system. Although this document has been carefully reviewed, there may still be some phonetic and typographical errors. These areas are purely typographical due to the imperfection of the software programs, and do not reflect any compromise in the patient's medical care. Dietary Evaluation Review Comments: No Eliazar d/t ARMANDO-CKD-3 status, Will reassess her protein needs in 2-3 days. Expected Outcomes/Goals: gradual weight loss. Plan discussed with: Patient, Other (nurse) CLAUDE JOHNSON MD Jul 23, 2024 07:50
--- NOTE | 2024-07-23 08:36 | DVHPN2 ---
Reviewed: Care Plan, H&P, Labs, Medications, Previous Orders, Radiology Changes from previous H/P or p: No Changes Eyes: No Pain, No Vision change, No Conjunctivae inflammation, No Eyelid inflammation, No Other, No Redness ENT: No Ear pain, No Ear discharge, No Nose pain, No Nose discharge, No Nose congestion, No Mouth pain, No Mouth swelling, No Throat pain, No Throat swelling, No Other Cardiovascular: No Chest Pain, No Palpitations, No Orthopnea, No Paroxysmal Noc. Dyspnea, No Edema, No Lt Headedness, No Other Respiratory: No Cough, No Dry, No Shortness of breath, No SOB with excertion, No Wheezing, No Hemoptysis, No Pleuritic Pain, No Sputum, No Other Gastrointestinal: No Nausea, No Vomiting; Abdominal Pain; No Diarrhea, No Constipation, No Melena, No Hematochezia, No Other Genitourinary: Dysuria, Frequency; No Incontinence, No Hematuria, No Retention, No Other Musculoskeletal: No other, No neck pain, No shoulder pain, No arm pain, No back pain, No hand pain, No leg pain, No foot pain Skin: Rash Objective Vitals Vital Signs Date Time Temp Pulse Resp B/P (MAP) Pulse Ox O2 Delivery O2 Flow Rate FiO2 07/23/24 06:29 76 20 99 07/23/24 06:22 Nasal Cannula 1.0 07/23/24 06:22 24 07/23/24 05:36 139/70 07/23/24 05:00 98.3 98.3 Intake/Output Intake and Output 07/23/24 07:00 Intake Total 1750 ml Output Total 4550 ml Balance -2800 ml Intake Oral 1450 ml IV Total 300 ml Output Urine Total 4550 ml Medications Current Medications Medications Dose Ordered Sig/Kendell Route Start Time Stop Time Status Last Admin Dose Admin Amlodipine Besylate 5 mg DAILY PO 07/17/24 10:00 07/22/24 10:39 5 MG Ceftriaxone Sodium 50 ml @ 100 mls/hr DAILY@09 IV 07/17/24 09:00 07/22/24 10:40 100 MLS/HR Morphine Sulfate 2 mg Q6HPRN PRN IV 07/16/24 19:00 07/22/24 02:27 2 MG Albuterol 2.5 mg Q4HWA NEB 07/16/24 22:00 07/23/24 06:22 2.5 MG Ipratropium [place] 0.5 mg Q4HWA NEB 07/16/24 22:00 07/23/24 06:22 0.5 MG Doxycycline Hyclate 250 ml @ 125 mls/hr Q12H IV 07/18/24 08:15 07/22/24 22:55 125 MLS/HR Acetaminophen/ Hydrocodone Bitart 1 tab Q6HP PRN PO 07/18/24 13:30 07/22/24 18:23 1 TAB Alprazolam 1 mg TID PRN PO 07/18/24 18:15 07/22/24 18:23 1 MG Labetalol HCl 10 mg Q2HPRN PRN IV 07/18/24 18:15 07/22/24 06:56 10 MG Sevelamer HCl 800 mg TIDWM PO 07/18/24 19:30 07/22/24 18:23 800 MG Throat Lozenges 1 alisha Q2HP PRN MT 07/19/24 17:15 07/20/24 06:26 1 ALISHA Furosemide 60 mg BIDD IV 07/20/24 18:00 07/23/24 05:36 60 MG Duloxetine HCl 30 mg DAILY PO 07/20/24 10:00 07/22/24 10:39 30 MG Methylprednisolone Sodium Succinate 30 mg Q12HR IV 07/20/24 22:00 07/22/24 22:52 30 MG Fluconazole 400 mg DAILY PO 07/22/24 10:00 07/22/24 11:02 400 MG Guaifenesin/ Dextromethorphan 10 ml Q4HP PRN PO 07/22/24 09:45 07/22/24 12:46 10 ML Enoxaparin Sodium 40 mg DAILY SC 07/23/24 10:00 Laboratory Results Laboratory Tests 07/22/24 05:27 Urinalysis Test 07/19/24 17:45 07/20/24 06:34 Urine Creatinine 81.73 mg/dL (30.0-125.0) Urine Protein/Creatinine Ratio 1.17 Urine Sodium 14 mmol/L (40-220) L Urine Total Protein 95.5 mg/dL (1-14) H Urine Color Colorless (Yellow) Urine Clarity Turbid (Clear) H Urine pH 5.0 (5.0-9.0) Urine Specific [place] 1.007 (1.001-1.035) Urine Protein Trace (Negative) H Urine Ketones Negative (Negative) Urine Blood 2+ /uL (Negative) H Urine Nitrite Negative (Negative) Urine Bilirubin Negative (Negative) Urine Urobilinogen Normal mg/dL (Negative) Urine Leukocyte Esterase 1+ /uL (Negative) Urine RBC 205 /hpf (0 - 4) Urine WBC 25 /hpf (0 - 5) Urine Squamous Epithelial Cells Few /hpf (<5) Urine Bacteria Few /hpf (None Seen) H Urine Mucus Few (None Seen) Urine Glucose Normal mg/dL (Normal) Microbiology Microbiology Date/Time Source Procedure Growth Status 07/19/24 03:50 Sputum Gram Stain - Final Complete 07/19/24 03:50 Respiratory Culture - Final Presumptive Dana albicans Complete 07/18/24 05:53 Nose MRSA Screen - Final Complete 07/16/24 14:42 Blood Blood Culture - Final NO GROWTH AFTER 5 DAYS OF INCUBATION. Complete 07/16/24 07:30 Voided Urine Urine Culture - Final Complete Labs and/or images reviewed: Labs reviewed by me, Image(s) reviewed by me Assessment/Plan Assessment/Plan Acute hypoxic respiratory failure: Improving now one 2 L of oxygen by nasal cannula pulmonary consult by Dr. Minor appreciated. Chest x-ray shows bilateral small pleural effusions Possible bilateral community-acquired pneumonia, continue Rocephin add doxycycline Acute on chronic congestive heart failure: Cardiology consult appreciated Sepsis secondary to urinary tract infection: Blood cultures negative, urine cultures negative, continue Rocephin Yeast in the sputum: Diflucan 400 mg p.o. 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 Grubbs appreciated History of seizures Moderate obesity High level of anxiety: Xanax Condition guarded Seen in tele bed Time spent 55 minutes Patient is full code Advanced care planning time 20 minutes Awaiting kidney biopsy Plan discussed with: Patient My Orders Orders - JESUS VILLANUEVA MD Procedure Category Date Status Time Fluconazole Tablet PHA 07/22/24 In Process (Diflucan Tablet) 10:00 Transfer Orders XFER 07/22/24 Transmitted 15:55 Date of Service: Jul 23, 2024 Billing Provider: JESUS VILLANUEVA MD Common Visit Codes: [id number] INP/OBS CARE(HIGH) Secondary Visit Codes: [id number] CARE PLAN 30 MINUTES JESUS VILLANUEVA MD Jul 23, 2024 08:36
[2024-07-23] MEDS: ENOXAPARIN SOD 40 MG/0.4 ML SYRINGE SC SCH (10:00)
[2024-07-23 10:33] LABS: Basophils # (auto) 0 10 ^3/uL (0-0.2); Basophils % (auto) 0.2 % (0.0-2.0); Eosinophils # (auto) 0 10 ^3/uL (0-0.8); Lymphocytes # (auto) 1.3 10 ^3/uL (0.4-5.4); Monocytes # (auto) 0.7 10 ^3/uL (0-1.3); Monocytes % (auto) 4.5 % (0.0-12.0); White Blood Cell 15.2 10^3/uL (4.4-10.8)
[2024-07-23 10:35] LABS: Hematocrit 38.9 % (36.0-46.0); Hemoglobin 12.9 g/dL (12.2-16.2); Lymphocytes % (auto) 8.4 % (10.0-50.0); Mean Corpuscular Hemoglobin 29.7 pg (28.0-32.0); Mean Corpuscular Hgb Conc. 33.2 g/dL (32.0-36.0); Mean Corpuscular Volume 89.5 fL (80.0-100.0); Neutrophils # (auto) 13.2 10 ^3/uL (1.6-8.6); Neutrophils % (auto) 86.9 % (37.0-80.0); Platelet Count (auto) 510 10^3/uL (140-450); Red Blood Cells 4.35 10^6/uL (4.0-5.20); Red Cell Distribution Width 13.6 % (11.8-14.3)
[2024-07-23 10:52] LABS: Alanine Aminotransferase 73 U/L (7-40); Albumin 3.5 g/dL (3.2-4.8); Alkaline Phosphatase 68 U/L (46-116); Anion Gap 9 (5-15); Aspartate Aminotransferase 41 U/L (13-40); BUN/Creatinine Ratio 43.7 (10.0-20.0); Bilirubin, Total 0.3 mg/dL (0.2-1.0); Blood Urea Nitrogen 73 mg/dL (9-23); Calcium 9.5 mg/dL (8.7-10.4); Carbon Dioxide 32 mmol/L (20-31); Chloride 100 mmol/L (98-107); Glucose 137 mg/dL (74-106); Potassium 4.5 mmol/L (3.5-5.1); Sodium 141 mmol/L (136-145); Total Protein 6.9 g/dL (5.7-8.2)
--- NOTE | 2024-07-23 10:57 | DVHPN2 ---
Progress Note Date Seen: Jul 23, 2024 Has the PT tested + for MRSA If YES, has PT been informed?: No Medical Necessity Reason Pt with a Central, PICC or Fol: Yes The following are medically ne: Patino Catheter Reason for patino catheter: Strict I&O Subjective Patient reports: No new complaints Other Systems: Patient seen and examined by myself today in follow-up Objective vital signs Vital Sign Date Time Temp Pulse Resp B/P (MAP) Pulse Ox O2 Delivery O2 Flow Rate FiO2 07/23/24 10:52 95 Nasal Cannula* 1 07/23/24 10:52 82 20 07/23/24 09:00 97.8 134/55 (81) 97.8 Total Intake and Output 07/22/24 07/22/24 07/23/24 15:00 23:00 07:00 Intake Total 300 ml 950 ml 500 ml Output Total 2150 ml 2400 ml Balance 300 ml -1200 ml -1900 ml medications Current Medications Medications Dose Ordered Sig/Kendell Route Start Time Stop Time Status Last Admin Dose Admin Amlodipine Besylate 5 mg DAILY PO 07/17/24 10:00 07/22/24 10:39 5 MG Ceftriaxone Sodium 50 ml @ 100 mls/hr DAILY@09 IV 07/17/24 09:00 07/23/24 08:18 100 MLS/HR Morphine Sulfate 2 mg Q6HPRN PRN IV 07/16/24 19:00 07/22/24 02:27 2 MG Albuterol 2.5 mg Q4HWA [facility] 07/16/24 22:00 07/23/24 10:52 2.5 MG Ipratropium [place] 0.5 mg Q4HWA [facility] 07/16/24 22:00 07/23/24 10:52 0.5 MG Doxycycline Hyclate 250 ml @ 125 mls/hr Q12H IV 07/18/24 08:15 07/22/24 22:55 125 MLS/HR Acetaminophen/ Hydrocodone Bitart 1 tab Q6HP PRN PO 07/18/24 13:30 07/22/24 18:23 1 TAB Alprazolam 1 mg TID PRN PO 07/18/24 18:15 07/22/24 18:23 1 MG Labetalol HCl 10 mg Q2HPRN PRN IV 07/18/24 18:15 07/22/24 06:56 10 MG Sevelamer HCl 800 mg TIDWM PO 07/18/24 19:30 07/23/24 08:17 800 MG Throat Lozenges 1 alisha Q2HP PRN MT 07/19/24 17:15 07/20/24 06:26 1 ALISHA Furosemide 60 mg BIDD IV 07/20/24 18:00 07/23/24 05:36 60 MG Duloxetine HCl 30 mg DAILY PO 07/20/24 10:00 07/22/24 10:39 30 MG Methylprednisolone Sodium Succinate 30 mg Q12HR IV 07/20/24 22:00 07/22/24 22:52 30 MG Fluconazole 400 mg DAILY PO 07/22/24 10:00 07/22/24 11:02 400 MG Enoxaparin Sodium 40 mg DAILY SC 07/23/24 10:00 Guaifenesin/ Dextromethorphan 15 ml TIDP PRN PO 07/23/24 08:45 Examination: LUNGS:Normal, CVS:Normal, MSK:Normal laboratory and microbiology Laboratory Tests 07/23/24 09:57 Test 07/23/24 09:57 Range/Units Serum Glucose Pending Microbiology Date/Time Source Procedure Growth Status 07/19/24 03:50 Sputum Gram Stain - Final Complete 07/19/24 03:50 Respiratory Culture - Final Presumptive Dana albicans Complete 07/18/24 05:53 Nose MRSA Screen - Final Complete 07/16/24 14:42 Blood Blood Culture - Final NO GROWTH AFTER 5 DAYS OF INCUBATION. Complete 07/16/24 07:30 Voided Urine Urine Culture - Final Complete Problem List/Assessment/Plan Problem List/Assessment/Plan Assessment and plan # ARMANDO on CKD likely prerenal hemodynamically mediated - serum creatinine 2-->2.12--> 2.25-->2.21->1.93 and BUN 25-->28-> 37-->55->67 - GFR 25 - urine sodium 14, urine creatinine 81.73, protein creatinine ratio 1.17 - FENa 0.3% - renal ultrasound shows right kidney 12.1 cm in length, left kidney 10 cm in length, bilateral renal echotexture, contour, cortical thickness within normal limits. - Continue on furosemide 60 mg b.i.d. IV - strict I&O - urine output 2800 mL of with the past 24 hours - monitor electrolytes - avoid nephrotoxic medication # CKD likely stage III due to likely lupus/autoimmune disease - on reviewing records patient's baseline GFR 40-60 in September 2023 - long history of lupus - PTH elevated to 254 mg/dL with serum calcium 8.5 - serum phosphorous 6.2 - complement C3-C4 within normal limits - [employer] antibody elevated, check ANCA - interventional Radiology consulted for kidney biopsy given history of lupus. - ANCA panel ordered # Acute hypoxic respiratory failure likely due to Gram+/- pneumonia On 07/18 patient ICU status in the morning on BiPAP with a FiO2 35%, spontaneous breathing 20 per minute, EPAP 8, IPAP 16 - ABG shows pH 7.353, pCO2 46.5, bicarbonate 25.3 On 07/19- patient is shifted to [facility] 07/21- currently on nasal cannula 2 liter/minute oxygen with a SpO2 95% # Hyperphosphatemia - continue sevelamar 800 mg p.o. t.i.d. with meals # acute diastolic heart failure with the left ventricular ejection fraction 50% # UTI # acute hypoxic respiratory failure # pneumonia likely Gram-positive/Gram-negative bacteria # history of lupus- following # history of psoriatic arthritis # hypertension # PE ruled out Plan discussed with: Patient Dietary Evaluation Review Comments: No Eliazar d/t ARMANDO-CKD-3 status, Will reassess her protein needs in 2-3 days. Expected Outcomes/Goals: gradual weight loss. ZOILA VICTORIA MD Jul 23, 2024 10:57
--- NOTE | 2024-07-23 18:27 | DVHPN2 ---
Progress Note - Dictate Date Seen: Jul 23, 2024 Has the PT tested + for MRSA If YES, has PT been informed?: No Medical Necessity Reason Pt with a Central, PICC or Fol: Yes The following are medically ne: Patino Catheter Reason for patino catheter: Strict I&O Subjective Patient seen and examined at bedside. On supplemental oxygen Overnight events reviewed. vital signs Vital Sign Date Time Temp Pulse Resp B/P (MAP) Pulse Ox O2 Delivery O2 Flow Rate FiO2 07/23/24 18:14 97 Nasal Cannula 1.0 07/23/24 18:14 24 07/23/24 18:13 86 18 07/23/24 17:36 157/76 07/23/24 09:00 97.8 97.8 Total Intake and Output 07/22/24 07/22/24 07/23/24 15:00 23:00 07:00 Intake Total 300 ml 950 ml 500 ml Output Total 2150 ml 2400 ml Balance 300 ml -1200 ml -1900 ml medications Current Medications Medications Dose Ordered Sig/Kendell Route Start Time Stop Time Status Last Admin Dose Admin Amlodipine Besylate 5 mg DAILY PO 07/17/24 10:00 07/23/24 10:00 5 MG Ceftriaxone Sodium 50 ml @ 100 mls/hr DAILY@09 IV 07/17/24 09:00 07/23/24 08:18 100 MLS/HR Morphine Sulfate 2 mg Q6HPRN PRN IV 07/16/24 19:00 07/22/24 02:27 2 MG Albuterol 2.5 mg Q4HWA [facility] 07/16/24 22:00 07/23/24 17:59 2.5 MG Ipratropium [place] 0.5 mg Q4HWA [facility] 07/16/24 22:00 07/23/24 17:59 0.5 MG Doxycycline Hyclate 250 ml @ 125 mls/hr Q12H IV 07/18/24 08:15 07/23/24 11:19 125 MLS/HR Acetaminophen/ Hydrocodone Bitart 1 tab Q6HP PRN PO 07/18/24 13:30 07/22/24 18:23 1 TAB Alprazolam 1 mg TID PRN PO 07/18/24 18:15 07/22/24 18:23 1 MG Labetalol HCl 10 mg Q2HPRN PRN IV 07/18/24 18:15 11/9/24 06:56 10 MG Sevelamer HCl 800 mg TIDWM PO 07/18/24 19:30 07/23/24 17:56 800 MG Throat Lozenges 1 alisha Q2HP PRN MT 07/19/24 17:15 07/20/24 06:26 1 ALISHA Furosemide 60 mg BIDD IV 07/20/24 18:00 07/23/24 17:36 60 MG Duloxetine HCl 30 mg DAILY PO 07/20/24 10:00 07/23/24 10:00 30 MG Methylprednisolone Sodium Succinate 30 mg Q12HR IV 07/20/24 22:00 07/23/24 10:00 30 MG Fluconazole 400 mg DAILY PO 07/22/24 10:00 07/23/24 10:00 400 MG Enoxaparin Sodium 40 mg DAILY SC 07/23/24 10:00 Guaifenesin/ Dextromethorphan 15 ml TIDP PRN PO 07/23/24 08:45 objective Gen.: Patient lying in bed in no apparent distress. On supplemental oxygen. Head: Normocephalic, atraumatic. Eyes: EOMI/PERRLA. Ears: Normal hearing. Normal anatomy. Neck/trachea: Trachea midline, supple. Nose: Normal external anatomy. Mouth: Moist mucous membranes. Chest: Decreased air entry bilaterally. No wheezing or rhonchi. Cardiovascular: Positive S1, positive S2. Regular rate and rhythm. Abdomen: Positive bowel sounds in all 4 quadrants. Soft, non-tender, non- distended. : Deferred. Rectal: Deferred. Skin: Warm, dry. Intact. Extremities: 2+ radial pulses bilaterally. No lower extremity edema. Neuro: Awake, alert, oriented x3. No gross motor or sensory deficits. Cranial nerves II through XII intact. Gait not assessed. laboratory and microbiology Laboratory Tests 07/23/24 09:57 Test 07/23/24 09:57 Range/Units Serum Glucose 137 H 74-106 mg/dL Assessment/Plan Impression: Sepsis secondary to UTI Acute hypoxic respiratory failure Pleural effusion Atelectasis Acute kidney injury Bilateral upper and lower extremity vasculitis Deep vein thrombosis ruled out Morbid obesity with a BMI of 40 Anxiety Seizure disorder Acute on chronic hypercarbic respiratory failure AMS 2/2 acute on chronic hypercarbic respiratory failure Pulmonary embolism ruled out Events: On supplemental O2 at 2 LPM NC Taper O2 as tolerated HOB elevation Aspiration precautions. Pain control Avoid oversedation Anxiolytic PRN. Continue abx and antifungal Blood cx show no growth. Sputum cx: Presumptive C Albicans. IV steroids: Solumedrol 30 mg IV [id number] Continue bronchodilators Incentive spirometry On therapeutic Lovenox Diurese w/ Lasix 60 mg IV BID Monitor renal function Monitor electrolytes, supplement as necessary Plan for renal biopsy in the AM. Labs and imaging reviewed. Rest of plan as noted below Plan: Supplemental O2 Keep O2 saturation above 92% Bronchodilators IV steroids Chest x-ray imaging report reviewed. No pneumothorax. Small bilateral pleural effusion with compressive atelectasis. Pulmonary vascular congestion Continue antibiotics Follow up cultures Blood cultures no growth thus far Ultrasound venous Doppler lower extremities is negative for any acute DVT. CT abdomen and pelvis lung windows revealed there were small bilateral pleural effusions and bibasilar atelectasis. V/q scan Low prob of PE. Anxiolytic as needed for anxiety Diurese to euvolemia Monitor ins and outs. Monitor renal function Monitor electrolytes. Supplement as necessary. Diet and lifestyle modifications for weight reduction given morbid obesity. DVT prophylaxis Prognosis: Poor given multiple comorbidities. Rest of plan per hospitalist and other consultants. A total of 51 minutes of clinical care time was spent reviewing the patient record, examining the patient, making a diagnostic and therapeutic plan, discussing this plan with the medical personnel, following up on diagnostic studies and following the patient for clinical stability excluding any and all procedures. At least 50% of this time was spent in direct, [id number] contact. Thank you Dr. Joanie Alvarez for allowing me to participate in this patient's care. Further recommendations will depend on patient's clinical course. Please do not hesitate to contact me if you have any questions or concerns. This medical document was created using an electronic medical record system with [employer] system. Although this document has been carefully reviewed, there may still be some phonetic and typographical errors. These areas are purely typographical due to imperfections of the software programs, and do not reflect any compromise in the patient's medical care. Dietary Evaluation Review Comments: No Eliazar d/t ARMANDO-CKD-3 status, Will reassess her protein needs in 2-3 days. Expected Outcomes/Goals: gradual weight loss. Plan discussed with: Patient, Other (FATIMAH [place]) GUALBERTO POZO MD Jul 23, 2024 18:26
[2024-07-24] VITALS (20 sets, daily range): BP systolic 121–148; BP diastolic 62–72; PULSE 74–96; RESP 16–21; TEMP 97.5–98.6; O2SAT 90–100
--- NOTE | 2024-07-24 08:00 | DVHPN2 ---
Progress Note - Dictate Date Seen: Jul 24, 2024 Has the PT tested + for MRSA If YES, has PT been informed?: No Medical Necessity Reason Pt with a Central, PICC or Fol: Yes The following are medically ne: Patino Catheter Reason for patino catheter: Strict I&O vital signs Vital Sign Date Time Temp Pulse Resp B/P (MAP) Pulse Ox O2 Delivery O2 Flow Rate FiO2 07/24/24 07:04 83 18 99 07/24/24 06:55 Nasal Cannula 2.0 07/24/24 06:55 28 07/24/24 06:43 143/72 07/24/24 05:00 98.4 98.4 Total Intake and Output 07/23/24 07/23/24 07/24/24 15:00 23:00 07:00 Intake Total 300 ml 1050 ml 900 ml Output Total 1850 ml 2300 ml Balance 300 ml -800 ml -1400 ml medications Current Medications Medications Dose Ordered Sig/Kendell Route Start Time Stop Time Status Last Admin Dose Admin Amlodipine Besylate 5 mg DAILY PO 07/17/24 10:00 07/23/24 10:00 5 MG Ceftriaxone Sodium 50 ml @ 100 mls/hr DAILY@09 IV 07/17/24 09:00 07/23/24 08:18 100 MLS/HR Morphine Sulfate 2 mg Q6HPRN PRN IV 07/16/24 19:00 07/23/24 21:47 2 MG Albuterol 2.5 mg Q4HWA [facility] 07/16/24 22:00 07/24/24 06:54 2.5 MG Ipratropium [place] 0.5 mg Q4HWA [facility] 07/16/24 22:00 07/24/24 06:54 0.5 MG Doxycycline Hyclate 250 ml @ 125 mls/hr Q12H IV 07/18/24 08:15 07/23/24 20:11 125 MLS/HR Acetaminophen/ Hydrocodone Bitart 1 tab Q6HP PRN PO 07/18/24 13:30 07/22/24 18:23 1 TAB Alprazolam 1 mg TID PRN PO 07/18/24 18:15 07/22/24 18:23 1 MG Labetalol HCl 10 mg Q2HPRN PRN IV 07/18/24 18:15 07/22/24 06:56 10 MG Sevelamer HCl 800 mg TIDWM PO 07/18/24 19:30 07/23/24 17:56 800 MG Throat Lozenges 1 alisha Q2HP PRN [place] 07/19/24 17:15 07/20/24 06:26 1 ALISHA Furosemide 60 mg BIDD IV 07/20/24 18:00 07/24/24 06:43 60 MG Duloxetine HCl 30 mg DAILY PO 07/20/24 10:00 07/23/24 10:00 30 MG Methylprednisolone Sodium Succinate 30 mg Q12HR IV 07/20/24 22:00 07/23/24 22:52 30 MG Fluconazole 400 mg DAILY PO 07/22/24 10:00 07/23/24 10:00 400 MG Enoxaparin Sodium 40 mg DAILY SC 07/23/24 10:00 Guaifenesin/ Dextromethorphan 15 ml TIDP PRN PO 07/23/24 08:45 laboratory and microbiology Laboratory Tests 07/23/24 09:57 Test 07/23/24 09:57 Range/Units Serum Glucose 137 H 74-106 mg/dL Assessment/Plan Patient is a 73-year-old female who presented on July 16, 2024 for abdominal pain/dysuria and frequency. She had been complaining of low appetite also. While being managed in [facility], the patient was found to be short of breath and cardiology was involved for shortness of breath. Patient denies any chest pains. Patient denies leg swellings. She is poor historian. She is known to our practice from outside. She was lost to follow-up with us years ago. Sleepy female. No JVD. [place] and wet mucosa. No goiter. Not using accessory muscle of breathing. Scattered rhonchi in the lungs is heard. Cardiac: Regular, tachycardic, no thrill/gallop. Abdomen is soft and obese. There is no gross hepatomegaly. Bowel sound is positive. Extremities reveal 2+ edema bilaterally. 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 WBC: 12.4 - 12.7 - 11.9 - 7.2 - 10.6 - 10.2 - 11.6 -15.2 D-dimer: 14.16 Creatinine: 2.0 - 2.06 - 2.12 - 2.25 - 2.21 - 1.93 - 1.75 - 1.67 Potassium: 4.7 - 4.9 - 4.5 - 4.3 - 4.0 - 4.1 - 4.4 - 4.5 M.9 TSH: 0.57 BNP: 102.05 Trop (high sensitive): 13 - [address] scan revealed: IMPRESSION: 1. No acute abdominal or pelvic finding. 2. Hepatic steatosis. Venous Doppler of lower extremities revealed: Impression: 1. No right or left deep venous thrombosis. Renal ultrasound revealed: IMPRESSION: 1. Unremarkable examination. Chest x-ray revealed: Findings/Impression: Frontal chest radiograph demonstrates no acute osseous or superficial soft tissue abnormalities. The trachea is midline. Cardiomeagly with pulmonary vascular congestion. Small bilateral pleural effusions with compressive atelectasis. A superimposed infectious process is not excluded. No pneumothorax. CT of head revealed: IMPRESSION: 1. No acute intracranial abnormality. Repeat chest xry revealed: IMPRESSION: 1. Pulmonary edema and bilateral pleural effusions similar to prior study. Repeat chest x-ray revealed: IMPRESSION: 1. Pulmonary interstitial edema and bilateral pleural effusions. Repeat chest xry revealed: IMPRESSION: 1. Pulmonary edema and bilateral pleural effusions similar to prior study. V/Q scan reported: IMPRESSION: Low probability for PE. EKG reveals sinus tachycardia with nonspecific ST-T changes Tele reveals sinus tachycardia Echocardiogram reported: Normal left ventricular size and dimension. Normal left ventricular systolic function estimated ejection fraction 50%. There is a grade 1 diastolic dysfunction. Normal right ventricular size and dimension. Normal right ventricular systolic function. Mildly elevated right ventricular systolic [id number] mm of mercury Normal biatrial size and dimension. Normal aortic valve structure and function. Normal mitral valve structure and function. Normal tricuspid valve structure and function. The pulmonary valve is grossly normal. No pericardial effusion. Patient is a 73-year-old female who presented to the hospital with abdominal pain/dysuria and frequency. She was found to have leukocytosis. Presentation is in favor of pneumonia/UTI. Sepsis is considered. Cardiac etiology for presentation is less likely. Still, the patient's D-dimer has been elevated and pulmonary emboli should be ruled out. Chest x-rays reveal congestion in the lungs and component of heart failure can not be ruled out. V/Q scan was against pulmonary Emboli. Venous duplex was against DVT. Encephalopathy, metabolic Acute respiratory failure Pulmonary edema, acute diastolic heart failure Sepsis Urosepsis Pneumonia ARMANDO On CKD Hypertension History of lupus History of psoriatic arthritis Abnormal D-dimer Fatty liver Cardiac suggestion for management: Manage in tele IV diuresis Follow-up electrolytes and kidney function tests and correct abnormalities Prophylactic Lovenox consider repeating venous duplex of lower ext Nephrology, Rheumatology and Pulmonary follow up Further evaluation and management depends on the above and clinical course A total of 55 minutes was spent reviewing the patient record, examining the patient, making a diagnostic and therapeutic plan, discussing this plan with medical personnel, following up on diagnostic studies and following the patient for clinical stability excluding any and all procedures. At least 50% of this time was spent in direct, [id number] contact. Thank you for allowing me to participate in this patient's care. Further recommendations will depend on patient's clinical course. Please do not hesitate to contact me if you have any questions or concerns. This medical document was created using electronic medical record system with [employer] computerized dictation system. Although this document has been carefully reviewed, there may still be some phonetic and typographical errors. These areas are purely typographical due to the imperfection of the software programs, and do not reflect any compromise in the patient's medical care. Dietary Evaluation Review Comments: No Eliazar d/t ARMANDO-CKD-3 status, Will reassess her protein needs in 2-3 days. Expected Outcomes/Goals: gradual weight loss. Plan discussed with: Patient, Other (NURSE) CLAUDE JOHNSON MD Jul 24, 2024 07:59
[2024-07-24] MEDS: LIDOCAINE 2%HCL (LOCAL ANESTH.) INJ 10ml MDV ONE (08:27)
[2024-07-24] MEDS: MIDAZOLAM HCL 2MG/2ML 2ml VIAL (1mg/ml) IV ONE (08:30)
[2024-07-24] MEDS: fentaNYL CITRATE 100 MCG/2 ML VL IV ONE (08:30)
--- NOTE | 2024-07-24 09:37 | DVH ---
PROCEDURE: CT GUIDED BIOPSY OF RIGHT KIDNEY HISTORY: RENAL BX DOCUMENTATION: Informed consent was obtained and a procedural time out was performed. SEDATION: Moderate sedation was utilized during the procedure. The patient received benzodiazepines a nd opioids, the dosing of which was documented in the patient s permanent medical record. Pre-sedatio n history and evaluation revealed no contraindications to sedation. The patient s level of consciousn ess and physiologic status was monitored continuously by the physician and nursing staff throughout t he procedure. Total intra-service moderate sedation time was 30 minutes. TECHNIQUE: The skin over the RIGHT FLANK was sterilely prepped, draped, and infiltrated with 1% lido romario. Using CT guidance, a 17-gauge coaxial needle was directed into lower pole right kidney. The 18 -gauge Temno biopsy needle was inserted coaxially and 2 core biopsy specimens were obtained. The coa xial needle was then removed and hemostasis was achieved with manual compression. Sterile dressings w ere applied. FINDINGS: Limited CT imaging demonstrates . Imaging confirms the needle tip within lower pole of the right kidney . Post-biopsy CT imaging showed no apparent complication. IMPRESSION: SUCCESSFUL CT GUIDED non targeted BIOPSY OF LOWER POLE OF RIGHT KIDNEY . PLEASE FOLLOW UP WITH CHARISSA WARD FOR FINAL RESULTS. Radiation Dose Information: CT Dose: CTDI volume is 22.7 mGy. Dose-length product is 2046.85 mGy*cm
--- NOTE | 2024-07-24 09:55 | DVHPN2 ---
Reviewed: Care Plan, H&P, Labs, Medications, Previous Orders, Radiology Changes from previous H/P or p: No Changes Eyes: No Pain, No Vision change, No Conjunctivae inflammation, No Eyelid inflammation, No Other, No Redness ENT: No Ear pain, No Ear discharge, No Nose pain, No Nose discharge, No Nose congestion, No Mouth pain, No Mouth swelling, No Throat pain, No Throat swelling, No Other Cardiovascular: No Chest Pain, No Palpitations, No Orthopnea, No Paroxysmal Noc. Dyspnea, No Edema, No Lt Headedness, No Other Respiratory: No Cough, No Dry, No Shortness of breath, No SOB with excertion, No Wheezing, No Hemoptysis, No Pleuritic Pain, No Sputum, No Other Gastrointestinal: No Nausea, No Vomiting; Abdominal Pain; No Diarrhea, No Constipation, No Melena, No Hematochezia, No Other Genitourinary: Dysuria, Frequency; No Incontinence, No Hematuria, No Retention, No Other Musculoskeletal: No other, No neck pain, No shoulder pain, No arm pain, No back pain, No hand pain, No leg pain, No foot pain Skin: Rash Objective Vitals Vital Signs Date Time Temp Pulse Resp B/P (MAP) Pulse Ox O2 Delivery O2 Flow Rate FiO2 07/24/24 08:30 118/76 07/24/24 07:04 83 18 99 07/24/24 06:55 Nasal Cannula 2.0 07/24/24 06:55 28 07/24/24 05:00 98.4 98.4 Intake/Output Intake and Output 07/24/24 07:00 Intake Total 2250 ml Output Total 4150 ml Balance -1900 ml Intake Oral 1700 ml IV Total 550 ml Output Urine Total 4150 ml Medications Current Medications Medications Dose Ordered Sig/Kendell Route Start Time Stop Time Status Last Admin Dose Admin Amlodipine Besylate 5 mg DAILY PO 07/17/24 10:00 07/23/24 10:00 5 MG Ceftriaxone Sodium 50 ml @ 100 mls/hr DAILY@09 IV 07/17/24 09:00 07/23/24 08:18 100 MLS/HR Morphine Sulfate 2 mg Q6HPRN PRN IV 07/16/24 19:00 07/23/24 21:47 2 MG Albuterol 2.5 mg Q4HWA NEB 07/16/24 22:00 07/24/24 06:54 2.5 MG Ipratropium [place] 0.5 mg Q4HWA [facility] 07/16/24 22:00 07/24/24 06:54 0.5 MG Doxycycline Hyclate 250 ml @ 125 mls/hr Q12H IV 07/18/24 08:15 07/23/24 20:11 125 MLS/HR Acetaminophen/ Hydrocodone Bitart 1 tab Q6HP PRN PO 07/18/24 13:30 07/22/24 18:23 1 TAB Alprazolam 1 mg TID PRN PO 07/18/24 18:15 07/22/24 18:23 1 MG Labetalol HCl 10 mg Q2HPRN PRN IV 07/18/24 18:15 07/22/24 06:56 10 MG Sevelamer HCl 800 mg TIDWM PO 07/18/24 19:30 07/23/24 17:56 800 MG Throat Lozenges 1 alisha Q2HP PRN MT 07/19/24 17:15 07/20/24 06:26 1 ALISHA Furosemide 60 mg BIDD IV 07/20/24 18:00 07/24/24 06:43 60 MG Duloxetine HCl 30 mg DAILY PO 07/20/24 10:00 07/23/24 10:00 30 MG Methylprednisolone Sodium Succinate 30 mg Q12HR IV 07/20/24 22:00 07/23/24 22:52 30 MG Fluconazole 400 mg DAILY PO 07/22/24 10:00 07/23/24 10:00 400 MG Enoxaparin Sodium 40 mg DAILY SC 07/23/24 10:00 Guaifenesin/ Dextromethorphan 15 ml TIDP PRN PO 07/23/24 08:45 Laboratory Results Laboratory Tests 07/23/24 09:57 Chemistry Test 07/23/24 09:57 Albumin 3.5 g/dL (3.2-4.8) Calcium Level 9.5 mg/dL (8.7-10.4) Total Protein 6.9 g/dL (5.7-8.2) LFT Test 07/23/24 09:57 Alanine Aminotransferase (ALT) 73 U/L (7-40) H Alkaline Phosphatase 68 U/L (46-116) Aspartate Amino Transferase (AST) 41 U/L (13-40) H Total Bilirubin 0.3 mg/dL (0.2-1.0) Urinalysis Test 07/19/24 17:45 07/20/24 06:34 Urine Creatinine 81.73 mg/dL (30.0-125.0) Urine Protein/Creatinine Ratio 1.17 Urine Sodium 14 mmol/L (40-220) L Urine Total Protein 95.5 mg/dL (1-14) H Urine Color Colorless (Yellow) Urine Clarity Turbid (Clear) H Urine pH 5.0 (5.0-9.0) Urine Specific [place] 1.007 (1.001-1.035) Urine Protein Trace (Negative) H Urine Ketones Negative (Negative) Urine Blood 2+ /uL (Negative) H Urine Nitrite Negative (Negative) Urine Bilirubin Negative (Negative) Urine Urobilinogen Normal mg/dL (Negative) Urine Leukocyte Esterase 1+ /uL (Negative) Urine RBC 205 /hpf (0 - 4) Urine WBC 25 /hpf (0 - 5) Urine Squamous Epithelial Cells Few /hpf (<5) Urine Bacteria Few /hpf (None Seen) H Urine Mucus Few (None Seen) Urine Glucose Normal mg/dL (Normal) Microbiology Microbiology Date/Time Source Procedure Growth Status 07/19/24 03:50 Sputum Gram Stain - Final Complete 07/19/24 03:50 Respiratory Culture - Final Presumptive Dana albicans Complete 07/18/24 05:53 Nose MRSA Screen - Final Complete 07/16/24 14:42 Blood Blood Culture - Final NO GROWTH AFTER 5 DAYS OF INCUBATION. Complete 07/16/24 07:30 Voided Urine Urine Culture - Final Complete Labs and/or images reviewed: Labs reviewed by me, Image(s) reviewed by me Assessment/Plan Assessment/Plan Acute hypoxic respiratory failure: Improving now one 2 L of oxygen by nasal cannula pulmonary consult by Dr. Minor appreciated. Chest x-ray shows bilateral small pleural effusions Possible bilateral community-acquired pneumonia, continue Rocephin add doxycycline Acute on chronic congestive heart failure: Cardiology consult appreciated Sepsis secondary to urinary tract infection: Blood cultures negative, urine cultures negative, continue Rocephin Yeast in the sputum: Diflucan 400 mg p.o. daily Hypertension: Hydralazine discontinued and started on labetalol by the pole framer Acute metabolic encephalopathy: CT head ordered to rule out any intracranial pathology Acute kidney injury: Nephrology consult appreciated Bilateral upper and lower extremity vasculitis D-dimer elevated 14.6 DVT ruled out PE ruled out by negative V/Q scan: DC Lovenox, started on prophylactic Lovenox CT abdomen pelvis negative Kidney ultrasound negative History of lupus under the care of , rheumatology consult by Dr. Grubbs appreciated History of seizures Moderate obesity High level of anxiety: Xanax Condition guarded Seen in tele bed Time spent 55 minutes Right kidney biopsy done today Plan discussed with: Patient My Orders Orders - JESUS VILLANUEVA MD Procedure Category Date Status Time * Swallow Request ST 07/24/24 Transmitted 08:[address] 07/24/24 Resulted Needle Placeme 08:[address] 07/24/24 Resulted Contrast 08:23 Date of Service: Jul 24, 2024 Billing Provider: JESUS VILLANUEVA MD Common Visit Codes: [id number] INP/OBS CARE(HIGH) JESUS VILLANUEVA MD Jul 24, 2024 09:55
--- NOTE | 2024-07-24 12:28 | DVHPN2 ---
Progress Note Date Seen: Jul 24, 2024 Resident Creating Document: LESLIE GALLO RESIDENT Has the PT tested + for MRSA If YES, has PT been informed?: No Medical Necessity Reason Pt with a Central, PICC or Fol: Yes The following are medically ne: Patino Catheter Reason for patino catheter: Strict I&O Subjective Review of Systems Patient is a 73-year-old female with a past medical history of hypertension, lupus, psoriatic arthritis came to the ED with a chief complaint of abdominal pain. Patient reported worsening abdominal pain associated with dysuria, urinary frequency, poor appetite. Patient reported that she was being treated for recurrent UTI with ciprofloxacin but has no improvement. Patient reported that since the past 3 weeks she is having worsening shortness of breath associated with phlegm which was initially clear which is green in color associated with fever and chills. Patient reports that she has been diagnosed with lupus since the s initially she was on on a medication for fever but she stopped. She was diagnosed with psoriatic arthritis and has been on multiple medication and about 3 months ago she was started on Rinvoq (upadacitinib). Patient also consulted mail sorter recently because of her high WBC count, leukemia was ruled out as per the patient. Review of Systems Patient seen and examined at the bedside. Patient is alert and oriented to time, place and person. Patient is currently in the [facility] and is on oxygen via nasal cannula at 2 liters/minute. Patient reports feeling better with improved breathing. Patient's blood pressure 143/72 mmHg mmHg, heart rate 81 per minute regular. Patient has a Patino catheter in place with 4150 mL urine output over the last 24 hours. Right kidney biopsy done on 07/24/24. Objective vital signs Vital Sign Date Time Temp Pulse Resp B/P (MAP) Pulse Ox O2 Delivery O2 Flow Rate FiO2 07/24/24 11:30 85 21 149/69 07/24/24 10:27 95 07/24/24 09:55 97.5 97.5 07/24/24 06:55 Nasal Cannula 2.0 07/24/24 06:55 28 Total Intake and Output 07/23/24 07/23/24 07/24/24 15:00 23:00 07:00 Intake Total 300 ml 1050 ml 900 ml Output Total 1850 ml 2300 ml Balance 300 ml -800 ml -1400 ml medications Current Medications Medications Dose Ordered Sig/Kendell Route Start Time Stop Time Status Last Admin Dose Admin Amlodipine Besylate 5 mg DAILY PO 07/17/24 10:00 07/23/24 10:00 5 MG Ceftriaxone Sodium 50 ml @ 100 mls/hr DAILY@09 IV 07/17/24 09:00 07/24/24 11:30 100 MLS/HR Morphine Sulfate 2 mg Q6HPRN PRN IV 07/16/24 19:00 07/24/24 11:30 2 MG Albuterol 2.5 mg Q4HWA NEB 07/16/24 22:00 07/24/24 10:27 2.5 MG Ipratropium [place] 0.5 mg Q4HWA NEB 07/16/24 22:00 07/24/24 10:27 0.5 MG Doxycycline Hyclate 250 ml @ 125 mls/hr Q12H IV 07/18/24 08:15 07/24/24 10:12 125 MLS/HR Acetaminophen/ Hydrocodone Bitart 1 tab Q6HP PRN PO 07/18/24 13:30 07/22/24 18:23 1 TAB Alprazolam 1 mg TID PRN PO 07/18/24 18:15 07/22/24 18:23 1 MG Labetalol HCl 10 mg Q2HPRN PRN IV 07/18/24 18:15 07/22/24 06:56 10 MG Sevelamer HCl 800 mg TIDWM PO 07/18/24 19:30 07/23/24 17:56 800 MG Throat Lozenges 1 alisha Q2HP PRN MT 07/19/24 17:15 07/20/24 06:26 1 ALISHA Furosemide 60 mg BIDD IV 07/20/24 18:00 07/24/24 06:43 60 MG Duloxetine HCl 30 mg DAILY PO 07/20/24 10:00 07/23/24 10:00 30 MG Methylprednisolone Sodium Succinate 30 mg Q12HR IV 07/20/24 22:00 07/24/24 10:14 30 MG Fluconazole 400 mg DAILY PO 07/22/24 10:00 07/23/24 10:00 400 MG Enoxaparin Sodium 40 mg DAILY SC 07/23/24 10:00 Guaifenesin/ Dextromethorphan 15 ml TIDP PRN PO 07/23/24 08:45 Examination Gen - no pallor, no icterus, no cyanosis, no clubbing, no LAD, 1+ bilateral edema of hand and feet Skin - Patients skin is warm and dry.. HEENT - normocephalic, atraumatic, moist mucous membranes. Neck - full ROM, no LAD, no JVD. Pulmonary - B/L decreased breath sounds improved since yesterday with minimal crackles, no wheezing, no stridor. cardiovascular - normal S1,S2 heard. no murmurs heard. peripheral pulses normal radial 2+, pedal 1+. capillary refill normal <2 secs. GI - soft abdomen . no hepatospleenomegaly. Bowel Sounds + Neurological - Patient is A/O X 3 . Bilateral upper extremity strength 5/5, bilateral lower extremity strength 3/5, no facial droop, normal speech, no tremor, decreased sensation in the feet bilaterally Extremities- patient has swelling of the bilateral lower limbs up to the knees with erythema and scaling on the skin. Patient has callus on the left plantar surface of 1st metatarsophalangeal joint seen by wash plant operator and wound debridement done. Swelling of the hands and fingers which was improved since yesterday. laboratory and microbiology Laboratory Tests 07/23/24 09:57 Test 07/23/24 09:57 Range/Units Serum Glucose 137 H 74-106 mg/dL Microbiology Date/Time Source Procedure Growth Status 07/19/24 03:50 Sputum Gram Stain - Final Complete 07/19/24 03:50 Respiratory Culture - Final Presumptive Dana albicans Complete 07/18/24 05:53 Nose MRSA Screen - Final Complete 07/16/24 14:42 Blood Blood Culture - Final NO GROWTH AFTER 5 DAYS OF INCUBATION. Complete 07/16/24 07:30 Voided Urine Urine Culture - Final Complete Problem List/Assessment/Plan Problem List/Assessment/Plan Assessment and plan # ARMANDO on CKD likely prerenal hemodynamically mediated - serum creatinine 2-->2.12--> 2.25-->2.21->1.93-->1.67 and BUN 25-->28-> 37-->55->67-->73 - GFR 25 - urine sodium 14, urine creatinine 81.73, protein creatinine ratio 1.17 - FENa 0.3% - renal ultrasound shows right kidney 12.1 cm in length, left kidney 10 cm in length, bilateral renal echotexture, contour, cortical thickness within normal limits. - Continue on furosemide 60 mg b.i.d. 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 t.i.d. with meals # acute diastolic heart failure with the left ventricular ejection fraction 50% # UTI # acute hypoxic respiratory failure # pneumonia likely Gram-positive/Gram-negative bacteria # history of lupus- following # history of psoriatic arthritis # hypertension # PE ruled out Goals of care discussed with the patient for over 20 minutes. Full code. Plan discussed with Plan discussed with: Patient, Spouse Dietary Evaluation Review Comments: No Eliazar d/t ARMANDO-CKD-3 status, Will reassess her protein needs in 2-3 days. Expected Outcomes/Goals: gradual weight loss. LESLIE GALLO RESIDENT Jul 24, 2024 12:27
[2024-07-24 12:54] LABS: Platelet Count (auto) 453 10^3/uL (140-450)
[2024-07-24 12:58] LABS: Hematocrit 39.9 % (36.0-46.0); Hemoglobin 13.2 g/dL (12.2-16.2); Mean Corpuscular Hemoglobin 29.8 pg (28.0-32.0); Mean Corpuscular Hgb Conc. 32.9 g/dL (32.0-36.0); Mean Corpuscular Volume 90.4 fL (80.0-100.0); Red Blood Cells 4.42 10^6/uL (4.0-5.20); Red Cell Distribution Width 13.5 % (11.8-14.3); White Blood Cell 15.9 10^3/uL (4.4-10.8)
[2024-07-24 13:00] LABS: Basophils % (manual) 0 (0.0-2.0); Blast Cells 0; Eosinophils % (manual) 0 (0-7); Metamyelocytes % 0; Myelocytes % 0; Promyelocytes % 0; Reactive Lymphocytes 0
[2024-07-24 13:04] LABS: Chloride 100 mmol/L (98-107); Potassium 4.6 mmol/L (3.5-5.1); Sodium 139 mmol/L (136-145)
[2024-07-24 13:05] LABS: Anion Gap 9 (5-15); Calcium 9.8 mg/dL (8.7-10.4); Carbon Dioxide 30 mmol/L (20-31)
[2024-07-24 13:10] LABS: Blood Urea Nitrogen 64 mg/dL (9-23); Glucose 168 mg/dL (74-106)
[2024-07-24 13:31] LABS: Band Neutrophils % (manual) 2; Lymphocytes % (manual) 17 (10.0-50.0); Monocytes % (manual) 5 (0-12)
[2024-07-24 13:32] LABS: Platelet Estimate Increased
--- NOTE | 2024-07-24 18:12 | DVHPN2 ---
Progress Note Date Seen: Jul 24, 2024 Has the PT tested + for MRSA If YES, has PT been informed?: No Medical Necessity Reason Pt with a Central, PICC or Fol: Yes The following are medically ne: Patino Catheter Reason for patino catheter: Strict I&O Subjective Patient reports: No new complaints Objective vital signs Vital Sign Date Time Temp Pulse Resp B/P (MAP) Pulse Ox O2 Delivery O2 Flow Rate FiO2 07/24/24 17:44 148/72 07/24/24 16:56 85 21 07/24/24 16:00 97.8 94 97.8 07/24/24 14:28 Nasal Cannula 2.0 07/24/24 14:28 24 Total Intake and Output 07/23/24 07/23/24 07/24/24 15:00 23:00 07:00 Intake Total 300 ml 1050 ml 900 ml Output Total 1850 ml 2300 ml Balance 300 ml -800 ml -1400 ml medications Current Medications Medications Dose Ordered Sig/Kendell Route Start Time Stop Time Status Last Admin Dose Admin Amlodipine Besylate 5 mg DAILY PO 07/17/24 10:00 07/23/24 10:00 5 MG Ceftriaxone Sodium 50 ml @ 100 mls/hr DAILY@09 IV 07/17/24 09:00 07/24/24 11:30 100 MLS/HR Morphine Sulfate 2 mg Q6HPRN PRN IV 07/16/24 19:00 07/24/24 16:17 2 MG Albuterol 2.5 mg Q4HWA [facility] 07/16/24 22:00 07/24/24 14:27 2.5 MG Ipratropium [place] 0.5 mg Q4HWA [facility] 07/16/24 22:00 07/24/24 14:27 0.5 MG Doxycycline Hyclate 250 ml @ 125 mls/hr Q12H IV 07/18/24 08:15 07/24/24 10:12 125 MLS/HR Acetaminophen/ Hydrocodone Bitart 1 tab Q6HP PRN PO 07/18/24 13:30 07/22/24 18:23 1 TAB Alprazolam 1 mg TID PRN PO 07/18/24 18:15 07/24/24 14:51 1 MG Labetalol HCl 10 mg Q2HPRN PRN IV 07/18/24 18:15 07/22/24 06:56 10 MG Sevelamer HCl 800 mg TIDWM PO 07/18/24 19:30 07/23/24 17:56 800 MG Throat Lozenges 1 alisha Q2HP PRN [place] 07/19/24 17:15 07/20/24 06:26 1 ALISHA Furosemide 60 mg BIDD IV 07/20/24 18:00 07/24/24 17:44 60 MG Duloxetine HCl 30 mg DAILY PO 07/20/24 10:00 07/23/24 10:00 30 MG Methylprednisolone Sodium Succinate 30 mg Q12HR IV 07/20/24 22:00 07/24/24 10:14 30 MG Fluconazole 400 mg DAILY PO 07/22/24 10:00 07/23/24 10:00 400 MG Enoxaparin Sodium 40 mg DAILY SC 07/23/24 10:00 Guaifenesin/ Dextromethorphan 15 ml TIDP PRN PO 07/23/24 08:45 laboratory and microbiology Laboratory Tests 07/24/24 12:40 Test 07/24/24 12:40 Range/Units Serum Glucose 168 H 74-106 mg/dL Microbiology Date/Time Source Procedure Growth Status 07/19/24 03:50 Sputum Gram Stain - Final Complete 07/19/24 03:50 Respiratory Culture - Final Presumptive Dana albicans Complete 07/18/24 05:53 Nose MRSA Screen - Final Complete 07/16/24 14:42 Blood Blood Culture - Final NO GROWTH AFTER 5 DAYS OF INCUBATION. 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 Expected Outcomes/Goals: gradual weight loss. ARIELA BABCOCK MD Jul 24, 2024 18:12
--- NOTE | 2024-07-24 18:56 | DVHPN2 ---
Progress Note - Dictate Date Seen: Jul 24, 2024 Has the PT tested + for MRSA If YES, has PT been informed?: No Medical Necessity Reason Pt with a Central, PICC or Fol: Yes The following are medically ne: Patino Catheter Reason for patino catheter: Strict I&O Subjective Patient seen and examined at bedside. On supplemental oxygen Overnight events reviewed. vital signs Vital Sign Date Time Temp Pulse Resp B/P (MAP) Pulse Ox O2 Delivery O2 Flow Rate FiO2 07/24/24 17:44 148/72 07/24/24 16:56 85 21 07/24/24 16:00 97.8 94 97.8 07/24/24 14:28 Nasal Cannula 2.0 07/24/24 14:28 24 Total Intake and Output 07/23/24 07/23/24 07/24/24 15:00 23:00 07:00 Intake Total 300 ml 1050 ml 900 ml Output Total 1850 ml 2300 ml Balance 300 ml -800 ml -1400 ml medications Current Medications Medications Dose Ordered Sig/Kendell Route Start Time Stop Time Status Last Admin Dose Admin Amlodipine Besylate 5 mg DAILY PO 07/17/24 10:00 07/23/24 10:00 5 MG Ceftriaxone Sodium 50 ml @ 100 mls/hr DAILY@09 IV 07/17/24 09:00 07/24/24 11:30 100 MLS/HR Morphine Sulfate 2 mg Q6HPRN PRN IV 07/16/24 19:00 07/24/24 16:17 2 MG Albuterol 2.5 mg Q4HWA [facility] 07/16/24 22:00 07/24/24 14:27 2.5 MG Ipratropium [place] 0.5 mg Q4HWA [facility] 07/16/24 22:00 07/24/24 14:27 0.5 MG Doxycycline Hyclate 250 ml @ 125 mls/hr Q12H IV 07/18/24 08:15 07/24/24 10:12 125 MLS/HR Acetaminophen/ Hydrocodone Bitart 1 tab Q6HP PRN PO 07/18/24 13:30 07/22/24 18:23 1 TAB Alprazolam 1 mg TID PRN PO 07/18/24 18:15 07/24/24 14:51 1 MG Labetalol HCl 10 mg Q2HPRN PRN IV 07/18/24 18:15 11/9/24 06:56 10 MG Sevelamer HCl 800 mg TIDWM PO 07/18/24 19:30 07/23/24 17:56 800 MG Throat Lozenges 1 alisha Q2HP PRN [place] 07/19/24 17:15 07/20/24 06:26 1 ALISHA Furosemide 60 mg BIDD IV 07/20/24 18:00 07/24/24 17:44 60 MG Duloxetine HCl 30 mg DAILY PO 07/20/24 10:00 07/23/24 10:00 30 MG Methylprednisolone Sodium Succinate 30 mg Q12HR IV 07/20/24 22:00 07/24/24 10:14 30 MG Fluconazole 400 mg DAILY PO 07/22/24 10:00 07/23/24 10:00 400 MG Enoxaparin Sodium 40 mg DAILY SC 07/23/24 10:00 Guaifenesin/ Dextromethorphan 15 ml TIDP PRN PO 07/23/24 08:45 objective Gen.: Patient lying in bed in no apparent distress. On supplemental oxygen. Head: Normocephalic, atraumatic. Eyes: EOMI/PERRLA. Ears: Normal hearing. Normal anatomy. Neck/trachea: Trachea midline, supple. Nose: Normal external anatomy. Mouth: Moist mucous membranes. Chest: Decreased air entry bilaterally. No wheezing or rhonchi. Cardiovascular: Positive S1, positive S2. Regular rate and rhythm. Abdomen: Positive bowel sounds in all 4 quadrants. Soft, non-tender, non- distended. : Deferred. Rectal: Deferred. Skin: Warm, dry. Intact. Extremities: 2+ radial pulses bilaterally. No lower extremity edema. Neuro: Awake, alert, oriented x3. No gross motor or sensory deficits. Cranial nerves II through XII intact. Gait not assessed. laboratory and microbiology Laboratory Tests 07/24/24 12:40 Test 07/24/24 12:40 Range/Units Serum Glucose 168 H 74-106 mg/dL Assessment/Plan Impression: Sepsis secondary to UTI Acute hypoxic respiratory failure Pleural effusion Atelectasis Acute kidney injury Bilateral upper and lower extremity vasculitis Deep vein thrombosis ruled out Morbid obesity with a BMI of 40 Anxiety Seizure disorder Acute on chronic hypercarbic respiratory failure AMS 2/2 acute on chronic hypercarbic respiratory failure Pulmonary embolism ruled out Events: On supplemental O2 at 1 LPM NC Taper O2 as tolerated Obtain U/S Doppler of right lower extremity to r/o deep venous thrombosis HOB elevation Aspiration precautions. Pain control Avoid oversedation Anxiolytic PRN. Continue antibiotics Blood cx show no growth. Sputum cx: Presumptive C Albicans. IV steroids: Solumedrol 30 mg IV q12 hours Continue bronchodilators Incentive spirometry On therapeutic Lovenox Diurese w/ Lasix 60 mg IV BID Monitor renal function Monitor electrolytes, supplement as necessary Patient scheduled for renal biopsy today. Labs and imaging reviewed. Rest of plan as noted below Plan: Supplemental O2 Keep O2 saturation above 92% Bronchodilators IV steroids Chest x-ray imaging report reviewed. No pneumothorax. Small bilateral pleural effusion with compressive atelectasis. Pulmonary vascular congestion Continue antibiotics Follow up cultures Blood cultures no growth thus far Ultrasound venous Doppler lower extremities is negative for any acute DVT. CT abdomen and pelvis lung windows revealed there were small bilateral pleural effusions and bibasilar atelectasis. V/q scan Low prob of PE. Anxiolytic as needed for anxiety Diurese to euvolemia Monitor ins and outs. Monitor renal function Monitor electrolytes. Supplement as necessary. Diet and lifestyle modifications for weight reduction given morbid obesity. DVT prophylaxis Prognosis: Poor given multiple comorbidities. Rest of plan per hospitalist and other consultants. A total of 51 minutes of clinical care time was spent reviewing the patient record, examining the patient, making a diagnostic and therapeutic plan, discussing this plan with the medical personnel, following up on diagnostic studies and following the patient for clinical stability excluding any and all procedures. At least 50% of this time was spent in direct, [id number] contact. Thank you Dr. Joanie Alvarez for allowing me to participate in this patient's care. Further recommendations will depend on patient's clinical course. Please do not hesitate to contact me if you have any questions or concerns. This medical document was created using an electronic medical record system with [employer] dictation system. Although this document has been carefully reviewed, there may still be some phonetic and typographical errors. These areas are purely typographical due to imperfections of the software programs, and do not reflect any compromise in the patient's medical care. Dietary Evaluation Review Comments: No Eliazar d/t ARMANDO-CKD-3 status, Will reassess her protein needs in 2-3 days. Expected Outcomes/Goals: gradual weight loss. Plan discussed with: Patient, Other (RN Nakia) GUALBERTO POZO MD Jul 24, 2024 18:56
[2024-07-24] MEDS: DOXYCYCLINE 100MG/250ML 250 ML IV SCH (21:42)
[2024-07-25] VITALS (21 sets, daily range): BP systolic 117–160; BP diastolic 59–77; PULSE 75–98; RESP 16–20; TEMP 97.5–99.1; O2SAT 89–99
--- NOTE | 2024-07-25 06:50 | DVHPN2 ---
Progress Note - Dictate Date Seen: Jul 25, 2024 Has the PT tested + for MRSA If YES, has PT been informed?: No Medical Necessity Reason Pt with a Central, PICC or Fol: Yes The following are medically ne: Patino Catheter Reason for patino catheter: Strict I&O vital signs Vital Sign Date Time Temp Pulse Resp B/P (MAP) Pulse Ox O2 Delivery O2 Flow Rate FiO2 07/25/24 06:05 94 17 143/65 07/25/24 05:00 99.1 96 99.1 07/24/24 22:14 Nasal Cannula 2.0 07/24/24 22:14 28 Total Intake and Output 07/24/24 07/24/24 07/25/24 15:00 23:00 07:00 Intake Total 300 ml 700 ml 300 ml Output Total 1400 ml 2300 ml Balance 300 ml -700 ml -2000 ml medications Current Medications Medications Dose Ordered Sig/Kendell Route Start Time Stop Time Status Last Admin Dose Admin Amlodipine Besylate 5 mg DAILY PO 07/17/24 10:00 07/23/24 10:00 5 MG Ceftriaxone Sodium 50 ml @ 100 mls/hr DAILY@09 IV 07/17/24 09:00 07/24/24 11:30 100 MLS/HR Morphine Sulfate 2 mg Q6HPRN PRN IV 07/16/24 19:00 07/25/24 05:35 2 MG Albuterol 2.5 mg Q4HWA NEB 07/16/24 22:00 07/24/24 22:14 2.5 MG Ipratropium [place] 0.5 mg Q4HWA NEB 07/16/24 22:00 07/24/24 22:14 0.5 MG Acetaminophen/ Hydrocodone Bitart 1 tab Q6HP PRN PO 07/18/24 13:30 07/22/24 18:23 1 TAB Alprazolam 1 mg TID PRN PO 07/18/24 18:15 07/24/24 14:51 1 MG Labetalol HCl 10 mg Q2HPRN PRN IV 07/18/24 18:15 07/22/24 06:56 10 MG Sevelamer HCl 800 mg TIDWM PO 07/18/24 19:30 07/23/24 17:56 800 MG Throat Lozenges 1 alisha Q2HP PRN MT 07/19/24 17:15 07/20/24 06:26 1 ALISHA Furosemide 60 mg BIDD IV 07/20/24 18:00 07/25/24 05:20 60 MG Duloxetine HCl 30 mg DAILY PO 07/20/24 10:00 07/23/24 10:00 30 MG Methylprednisolone Sodium Succinate 30 mg Q12HR IV 07/20/24 22:00 07/24/24 22:45 30 MG Fluconazole 400 mg DAILY PO 07/22/24 10:00 07/23/24 10:00 400 MG Enoxaparin Sodium 40 mg DAILY SC 07/23/24 10:00 Guaifenesin/ Dextromethorphan 15 ml TIDP PRN PO 07/23/24 08:45 Doxycycline Hyclate 250 ml @ 125 mls/hr Q12HR IV 07/24/24 22:00 07/24/24 21:42 125 MLS/HR laboratory and microbiology Laboratory Tests 07/24/24 12:40 Test 07/24/24 12:40 Range/Units Serum Glucose 168 H 74-106 mg/dL Assessment/Plan Patient is a 73-year-old female who presented on July 16, 2024 for abdominal pain/dysuria and frequency. She had been complaining of low appetite also. While being managed in [facility], the patient was found to be short of breath and cardiology was involved for shortness of breath. Patient denies any chest pains. Patient denies leg swellings. She is poor historian. She is known to our practice from outside. She was lost to follow-up with us years ago. Sleepy female. No JVD. [place] and wet mucosa. No goiter. Not using accessory muscle of breathing. Scattered rhonchi in the lungs is heard. Cardiac: Regular, tachycardic, no thrill/gallop. Abdomen is soft and obese. There is no gross hepatomegaly. Bowel sound is positive. Extremities reveal 2+ edema bilaterally. 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 WBC: 12.4 - 12.7 - 11.9 - 7.2 - 10.6 - 10.2 - 11.6 -15.2 - 15.9 D-dimer: 14.16 Creatinine: 2.0 - 2.06 - 2.12 - 2.25 - 2.21 - 1.93 - 1.75 - 1.67 - 1.64 Potassium: 4.7 - 4.9 - 4.5 - 4.3 - 4.0 - 4.1 - 4.4 - 4.5 - 4.6 M.9 TSH: 0.57 BNP: 102.05 Trop (high sensitive): 13 - [address] scan revealed: IMPRESSION: 1. No acute abdominal or pelvic finding. 2. Hepatic steatosis. Venous Doppler of lower extremities revealed: Impression: 1. No right or left deep venous thrombosis. Renal ultrasound revealed: IMPRESSION: 1. Unremarkable examination. Chest x-ray revealed: Findings/Impression: Frontal chest radiograph demonstrates no acute osseous or superficial soft tissue abnormalities. The trachea is midline. Cardiomeagly with pulmonary vascular congestion. Small bilateral pleural effusions with compressive atelectasis. A superimposed infectious process is not excluded. No pneumothorax. CT of head revealed: IMPRESSION: 1. No acute intracranial abnormality. Repeat chest xry revealed: IMPRESSION: 1. Pulmonary edema and bilateral pleural effusions similar to prior study. Repeat chest x-ray revealed: IMPRESSION: 1. Pulmonary interstitial edema and bilateral pleural effusions. Repeat chest xry revealed: IMPRESSION: 1. Pulmonary edema and bilateral pleural effusions similar to prior study. CT guided biopsy of kidney: IMPRESSION: SUCCESSFUL CT GUIDED non targeted BIOPSY OF LOWER POLE OF RIGHT KIDNEY . PLEASE FOLLOW UP WITH PATHOLOGY FOR FINAL RESULTS. V/Q scan reported: IMPRESSION: Low probability for PE. EKG reveals sinus tachycardia with nonspecific ST-T changes Tele reveals sinus tachycardia Echocardiogram reported: Normal left ventricular size and dimension. Normal left ventricular systolic function estimated ejection fraction 50%. There is a grade 1 diastolic dysfunction. Normal right ventricular size and dimension. Normal right ventricular systolic function. Mildly elevated right ventricular systolic [id number] mm of mercury Normal biatrial size and dimension. Normal aortic valve structure and function. Normal mitral valve structure and function. Normal tricuspid valve structure and function. The pulmonary valve is grossly normal. No pericardial effusion. Patient is a 73-year-old female who presented to the hospital with abdominal pain/dysuria and frequency. She was found to have leukocytosis. Presentation is in favor of pneumonia/UTI. Sepsis is considered. Cardiac etiology for presentation is less likely. Still, the patient's D-dimer has been elevated and pulmonary emboli should be ruled out. Chest x-rays reveal congestion in the lungs and component of heart failure can not be ruled out. V/Q scan was against pulmonary Emboli. Venous duplex was against DVT. Encephalopathy, metabolic Acute respiratory failure Pulmonary edema, acute diastolic heart failure Sepsis Urosepsis Pneumonia ARMANDO On CKD Hypertension History of lupus History of psoriatic arthritis Abnormal D-dimer Fatty liver s/p CT guided kidney biopsy Cardiac suggestion for management: Manage in tele IV diuresis Follow-up electrolytes and kidney function tests and correct abnormalities Prophylactic Lovenox consider repeating venous duplex of lower ext Nephrology, Rheumatology and Pulmonary follow up Further evaluation and management depends on the above and clinical course A total of 55 minutes was spent reviewing the patient record, examining the patient, making a diagnostic and therapeutic plan, discussing this plan with medical personnel, following up on diagnostic studies and following the patient for clinical stability excluding any and all procedures. At least 50% of this time was spent in direct, [id number] contact. Thank you for allowing me to participate in this patient's care. Further recommendations will depend on patient's clinical course. Please do not hesitate to contact me if you have any questions or concerns. This medical document was created using electronic medical record system with [employer] computerized dictation system. Although this document has been carefully reviewed, there may still be some phonetic and typographical errors. These areas are purely typographical due to the imperfection of the software programs, and do not reflect any compromise in the patient's medical care. Dietary Evaluation Review Comments: No Eliazar d/t ARMANDO-CKD-3 status, Will reassess her protein needs in 2-3 days. Expected Outcomes/Goals: gradual weight loss. Plan discussed with: Other (nurse) CLAUDE JOHNSON MD Jul 25, 2024 06:50
--- NOTE | 2024-07-25 08:45 | DVHPN2 ---
Reviewed: Care Plan, H&P, Labs, Medications, Previous Orders, Radiology Changes from previous H/P or p: No Changes Eyes: No Pain, No Vision change, No Conjunctivae inflammation, No Eyelid inflammation, No Other, No Redness ENT: No Ear pain, No Ear discharge, No Nose pain, No Nose discharge, No Nose congestion, No Mouth pain, No Mouth swelling, No Throat pain, No Throat swelling, No Other Cardiovascular: No Chest Pain, No Palpitations, No Orthopnea, No Paroxysmal Noc. Dyspnea, No Edema, No Lt Headedness, No Other Respiratory: No Cough, No Dry, No Shortness of breath, No SOB with excertion, No Wheezing, No Hemoptysis, No Pleuritic Pain, No Sputum, No Other Gastrointestinal: No Nausea, No Vomiting; Abdominal Pain; No Diarrhea, No Constipation, No Melena, No Hematochezia, No Other Genitourinary: Dysuria, Frequency; No Incontinence, No Hematuria, No Retention, No Other Musculoskeletal: No other, No neck pain, No shoulder pain, No arm pain, No back pain, No hand pain, No leg pain, No foot pain Skin: Rash Objective Vitals Vital Signs Date Time Temp Pulse Resp B/P (MAP) Pulse Ox O2 Delivery O2 Flow Rate FiO2 07/25/24 07:02 88 20 97 07/25/24 06:57 Nasal Cannula* 2 28 07/25/24 06:05 143/65 07/25/24 05:00 99.1 99.1 Intake/Output Intake and Output 07/25/24 07:00 Intake Total 1550 ml Output Total 3700 ml Balance -2150 ml Intake Oral 1000 ml IV Total 550 ml Output Urine Total 3700 ml Medications Current Medications Medications Dose Ordered Sig/Kendell Route Start Time Stop Time Status Last Admin Dose Admin Amlodipine Besylate 5 mg DAILY PO 07/17/24 10:00 07/23/24 10:00 5 MG Ceftriaxone Sodium 50 ml @ 100 mls/hr DAILY@09 IV 07/17/24 09:00 07/24/24 11:30 100 MLS/HR Morphine Sulfate 2 mg Q6HPRN PRN IV 07/16/24 19:00 07/25/24 05:35 2 MG Albuterol 2.5 mg Q4HWA NEB 07/16/24 22:00 07/25/24 06:57 2.5 MG Ipratropium [place] 0.5 mg Q4HWA NEB 07/16/24 22:00 07/25/24 06:57 0.5 MG Acetaminophen/ Hydrocodone Bitart 1 tab Q6HP PRN PO 07/18/24 13:30 07/22/24 18:23 1 TAB Alprazolam 1 mg TID PRN PO 07/18/24 18:15 07/24/24 14:51 1 MG Labetalol HCl 10 mg Q2HPRN PRN IV 07/18/24 18:15 07/22/24 06:56 10 MG Sevelamer HCl 800 mg TIDWM PO 07/18/24 19:30 07/23/24 17:56 800 MG Throat Lozenges 1 alisha Q2HP PRN MT 07/19/24 17:15 07/20/24 06:26 1 ALISHA Furosemide 60 mg BIDD IV 07/20/24 18:00 07/25/24 05:20 60 MG Duloxetine HCl 30 mg DAILY PO 07/20/24 10:00 07/23/24 10:00 30 MG Methylprednisolone Sodium Succinate 30 mg Q12HR IV 07/20/24 22:00 07/24/24 22:45 30 MG Fluconazole 400 mg DAILY PO 07/22/24 10:00 07/23/24 10:00 400 MG Enoxaparin Sodium 40 mg DAILY SC 07/23/24 10:00 Guaifenesin/ Dextromethorphan 15 ml TIDP PRN PO 07/23/24 08:45 Doxycycline Hyclate 250 ml @ 125 mls/hr Q12HR IV 07/24/24 22:00 07/24/24 21:42 125 MLS/HR Laboratory Results Laboratory Tests 07/24/24 12:40 Chemistry Test 07/24/24 12:40 Calcium Level 9.8 mg/dL (8.7-10.4) Urinalysis Test 07/19/24 17:45 07/20/24 06:34 Urine Creatinine 81.73 mg/dL (30.0-125.0) Urine Protein/Creatinine Ratio 1.17 Urine Sodium 14 mmol/L (40-220) L Urine Total Protein 95.5 mg/dL (1-14) H Urine Color Colorless (Yellow) Urine Clarity Turbid (Clear) H Urine pH 5.0 (5.0-9.0) Urine Specific [place] 1.007 (1.001-1.035) Urine Protein Trace (Negative) H Urine Ketones Negative (Negative) Urine Blood 2+ /uL (Negative) H Urine Nitrite Negative (Negative) Urine Bilirubin Negative (Negative) Urine Urobilinogen Normal mg/dL (Negative) Urine Leukocyte Esterase 1+ /uL (Negative) Urine RBC 205 /hpf (0 - 4) Urine WBC 25 /hpf (0 - 5) Urine Squamous Epithelial Cells Few /hpf (<5) Urine Bacteria Few /hpf (None Seen) H Urine Mucus Few (None Seen) Urine Glucose Normal mg/dL (Normal) Microbiology Microbiology Date/Time Source Procedure Growth Status 07/19/24 03:50 Sputum Gram Stain - Final Complete 07/19/24 03:50 Respiratory Culture - Final Presumptive Dana albicans Complete 07/18/24 05:53 Nose MRSA Screen - Final Complete 07/16/24 14:42 Blood Blood Culture - Final NO GROWTH AFTER 5 DAYS OF INCUBATION. Complete 07/16/24 07:30 Voided Urine Urine Culture - Final Complete Labs and/or images reviewed: Labs reviewed by me, Image(s) reviewed by me Assessment/Plan Assessment/Plan Acute hypoxic respiratory failure: Improving now one 2 L of oxygen by nasal cannula pulmonary consult by Dr. Minor appreciated. Chest x-ray shows bilateral small pleural effusions Possible bilateral community-acquired pneumonia, continue Rocephin add doxycycline Acute on chronic congestive heart failure: Cardiology consult appreciated Sepsis secondary to urinary tract infection: Blood cultures negative, urine cultures negative, continue Rocephin Yeast in the sputum: Diflucan 400 mg p.o. daily Hypertension: Hydralazine discontinued and started on labetalol by the sde Acute metabolic encephalopathy: CT head ordered to rule out any intracranial pathology Acute kidney injury: Nephrology consult appreciated Bilateral upper and lower extremity vasculitis D-dimer elevated 14.6 DVT ruled out PE ruled out by negative V/Q scan: DC Lovenox, started on prophylactic Lovenox CT abdomen pelvis negative Kidney ultrasound negative History of lupus under the care of , rheumatology consult by Dr. Grubbs appreciated History of seizures Moderate obesity High level of anxiety: Xanax Condition guarded Seen in tele bed Time spent 55 minutes Right kidney biopsy done today 07/24/2024 Possible discharge on Physical therapy ordered We will check ABG prior to discharge to see if she needs home oxygen Plan discussed with: Patient My Orders Orders - JESUS VILLANUEVA MD Procedure Category Date Status Time Mechanical Soft Diet DIET 07/24/24 Transmitted Dinner Doxycycline PHA 07/24/24 In Process 100mg/250ml 22:00 Date of Service: Jul 25, 2024 Billing Provider: JESUS VILLANUEVA MD Common Visit Codes: [id number] INP/OBS CARE(HIGH) JESUS VILLANUEVA MD Jul 25, 2024 08:45
--- NOTE | 2024-07-25 10:12 | DVHPN2 ---
Progress Note - Dictate Date Seen: Jul 25, 2024 Has the PT tested + for MRSA If YES, has PT been informed?: No Medical Necessity Reason Pt with a Central, PICC or Fol: Yes The following are medically ne: Patino Catheter Reason for patino catheter: Strict I&O Subjective uop 4.7 L previous then 3.3 yesterday vital signs Vital Sign Date Time Temp Pulse Resp B/P (MAP) Pulse Ox O2 Delivery O2 Flow Rate FiO2 07/25/24 09:20 87 20 98 07/25/24 09:15 134/60 07/25/24 09:14 Nasal Cannula 2.0 07/25/24 09:14 28 07/25/24 05:00 99.1 99.1 Total Intake and Output 07/24/24 07/24/24 07/25/24 15:00 23:00 07:00 Intake Total 300 ml 700 ml 550 ml Output Total 1400 ml 2300 ml Balance 300 ml -700 ml -1750 ml medications Current Medications Medications Dose Ordered Sig/Kendell Route Start Time Stop Time Status Last Admin Dose Admin Amlodipine Besylate 5 mg DAILY PO 07/17/24 10:00 07/25/24 09:15 5 MG Ceftriaxone Sodium 50 ml @ 100 mls/hr DAILY@09 IV 07/17/24 09:00 07/25/24 09:14 100 MLS/HR Morphine Sulfate 2 mg Q6HPRN PRN IV 07/16/24 19:00 07/25/24 05:35 2 MG Albuterol 2.5 mg Q4HWA [facility] 07/16/24 22:00 07/25/24 09:14 2.5 MG Ipratropium [place] 0.5 mg Q4HWA NEB 07/16/24 22:00 07/25/24 09:14 0.5 MG Acetaminophen/ Hydrocodone Bitart 1 tab Q6HP PRN PO 07/18/24 13:30 07/22/24 18:23 1 TAB Alprazolam 1 mg TID PRN PO 07/18/24 18:15 07/24/24 14:51 1 MG Labetalol HCl 10 mg Q2HPRN PRN IV 07/18/24 18:15 07/22/24 06:56 10 MG Sevelamer HCl 800 mg TIDWM PO 07/18/24 19:30 07/23/24 17:56 800 MG Throat Lozenges 1 alisha Q2HP PRN MT 07/19/24 17:15 07/20/24 06:26 1 ALISHA Furosemide 60 mg BIDD IV 07/20/24 18:00 07/25/24 05:20 60 MG Duloxetine HCl 30 mg DAILY PO 07/20/24 10:00 07/25/24 09:15 30 MG Methylprednisolone Sodium Succinate 30 mg Q12HR IV 07/20/24 22:00 07/25/24 09:13 30 MG Fluconazole 400 mg DAILY PO 07/22/24 10:00 07/25/24 09:15 400 MG Enoxaparin Sodium 40 mg DAILY SC 07/23/24 10:00 Guaifenesin/ Dextromethorphan 15 ml TIDP PRN PO 07/23/24 08:45 Doxycycline Hyclate 250 ml @ 125 mls/hr Q12HR IV 07/24/24 22:00 07/24/24 21:42 125 MLS/HR laboratory and microbiology Laboratory Tests 07/24/24 12:40 Test 07/24/24 12:40 Range/Units Serum Glucose 168 H 74-106 mg/dL Assessment/Plan Acute kidney injury hemodynamically mediated Chronic kidney disease stage 2 GFR 60% in 09/2023 Lupus Psoriatic arthritis Sepsis with open wound Hyperphosphatemia Renal function slowly improving Status post kidney biopsy 07/24/24 Currently on IV steroids Rheumatology diuretics Phosphorus binders with meal, phosphorus reduced diet Repeat phosphorus level today repeat Ua and urine protein creatinine ratio, rec [place]-i or ARB Dietary Evaluation Review Comments: No Eliazar d/t ARMANDO-CKD-3 status, Will reassess her protein needs in 2-3 days. Expected Outcomes/Goals: gradual weight loss. Plan discussed with: Patient FRANKLIN GARCÍA MD Jul 25, 2024 10:12
[2024-07-25 12:00] LABS: Erythrocyte Sedimentation Rate 18 mm/hr (0-20)
--- NOTE | 2024-07-25 16:26 | DVHPN2 ---
Progress Note Date Seen: Jul 25, 2024 Has the PT tested + for MRSA If YES, has PT been informed?: No Medical Necessity Reason Pt with a Central, PICC or Fol: Yes The following are medically ne: Patino Catheter Reason for patino catheter: Strict I&O Subjective Patient reports: No new complaints Objective vital signs Vital Sign Date Time Temp Pulse Resp B/P (MAP) Pulse Ox O2 Delivery O2 Flow Rate FiO2 07/25/24 13:34 90 20 99 07/25/24 13:29 Nasal Cannula 2.0 07/25/24 13:29 28 07/25/24 13:00 97.8 127/60 (82) 97.8 Total Intake and Output 07/24/24 07/24/24 07/25/24 15:00 23:00 07:00 Intake Total 300 ml 700 ml 550 ml Output Total 1400 ml 2300 ml Balance 300 ml -700 ml -1750 ml medications Current Medications Medications Dose Ordered Sig/Kendell Route Start Time Stop Time Status Last Admin Dose Admin Amlodipine Besylate 5 mg DAILY PO 07/17/24 10:00 07/25/24 09:15 5 MG Ceftriaxone Sodium 50 ml @ 100 mls/hr DAILY@09 IV 07/17/24 09:00 07/25/24 09:14 100 MLS/HR Morphine Sulfate 2 mg Q6HPRN PRN IV 07/16/24 19:00 07/25/24 05:35 2 MG Albuterol 2.5 mg Q4HWA NEB 07/16/24 22:00 07/25/24 13:29 2.5 MG Ipratropium [place] 0.5 mg Q4HWA [facility] 07/16/24 22:00 07/25/24 13:29 0.5 MG Acetaminophen/ Hydrocodone Bitart 1 tab Q6HP PRN PO 07/18/24 13:30 07/22/24 18:23 1 TAB Alprazolam 1 mg TID PRN PO 07/18/24 18:15 07/24/24 14:51 1 MG Labetalol HCl 10 mg Q2HPRN PRN IV 07/18/24 18:15 07/22/24 06:56 10 MG Sevelamer HCl 800 mg TIDWM PO 07/18/24 19:30 07/23/24 17:56 800 MG Throat Lozenges 1 alisha Q2HP PRN MT 07/19/24 17:15 07/20/24 06:26 1 ALISHA Furosemide 60 mg BIDD IV 07/20/24 18:00 07/25/24 05:20 60 MG Duloxetine HCl 30 mg DAILY PO 07/20/24 10:00 07/25/24 09:15 30 MG Methylprednisolone Sodium Succinate 30 mg Q12HR IV 07/20/24 22:00 07/25/24 09:13 30 MG Fluconazole 400 mg DAILY PO 07/22/24 10:00 07/25/24 09:15 400 MG Enoxaparin Sodium 40 mg DAILY SC 07/23/24 10:00 Guaifenesin/ Dextromethorphan 15 ml TIDP PRN PO 07/23/24 08:45 Doxycycline Hyclate 250 ml @ 125 mls/hr Q12HR IV 07/24/24 22:00 07/25/24 11:54 125 MLS/HR laboratory and microbiology Laboratory Tests 07/24/24 12:40 Test 07/24/24 12:40 Range/Units Serum Glucose 168 H 74-106 mg/dL Microbiology Date/Time Source Procedure Growth Status 07/19/24 03:50 Sputum Gram Stain - Final Complete 07/19/24 03:50 Respiratory Culture - Final Presumptive Dana albicans Complete 07/18/24 05:53 Nose MRSA Screen - Final Complete 07/16/24 14:42 Blood Blood Culture - Final NO GROWTH AFTER 5 DAYS OF INCUBATION. Complete 07/16/24 07:30 Voided Urine Urine Culture - Final Complete Labs and/or images reviewed: Labs reviewed by me, Image(s) reviewed by me Problem List/Assessment/Plan Problems(with codes): (1) Acute renal failure (2) Systemic lupus erythematosus (3) Psoriatic arthritis of multiple joints Problem List/Assessment/Plan d/c systemic steroids f/u renal biopsy results we discussed permanently discontinuing [facility] although it was effective and affordable for her will resume plaquenil in outpatient setting f/u ANCA panel Plan discussed with: Patient, Other (dr. Alvarez) Dietary Evaluation Review Comments: No Eliazar d/t ARMANDO-CKD-3 status, Will reassess her protein needs in 2-3 days. Expected Outcomes/Goals: gradual weight loss. ARIELA BABCOCK MD Jul 25, 2024 16:26
--- NOTE | 2024-07-25 19:30 | DVHPN2 ---
Progress Note - Dictate Date Seen: Jul 25, 2024 Has the PT tested + for MRSA If YES, has PT been informed?: No Medical Necessity Reason Pt with a Central, PICC or Fol: Yes The following are medically ne: Patino Catheter Reason for patino catheter: Strict I&O Subjective Patient seen and examined at bedside. On supplemental oxygen Overnight events reviewed. vital signs Vital Sign Date Time Temp Pulse Resp B/P (MAP) Pulse Ox O2 Delivery O2 Flow Rate FiO2 07/25/24 18:00 97.7 75 18 117/66 (83) 90 97.7 07/25/24 16:26 2.0 28 07/25/24 13:29 Nasal Cannula Total Intake and Output 07/24/24 07/24/24 07/25/24 15:00 23:00 07:00 Intake Total 300 ml 700 ml 550 ml Output Total 1400 ml 2300 ml Balance 300 ml -700 ml -1750 ml medications Current Medications Medications Dose Ordered Sig/Kendell Route Start Time Stop Time Status Last Admin Dose Admin Amlodipine Besylate 5 mg DAILY PO 07/17/24 10:00 07/25/24 09:15 5 MG Ceftriaxone Sodium 50 ml @ 100 mls/hr DAILY@09 IV 07/17/24 09:00 07/25/24 09:14 100 MLS/HR Morphine Sulfate 2 mg Q6HPRN PRN IV 07/16/24 19:00 07/25/24 05:35 2 MG Albuterol 2.5 mg Q4HWA NEB 07/16/24 22:00 07/25/24 13:29 2.5 MG Ipratropium [place] 0.5 mg Q4HWA [facility] 07/16/24 22:00 07/25/24 13:29 0.5 MG Acetaminophen/ Hydrocodone Bitart 1 tab Q6HP PRN PO 07/18/24 13:30 07/22/24 18:23 1 TAB Alprazolam 1 mg TID PRN PO 07/18/24 18:15 07/24/24 14:51 1 MG Labetalol HCl 10 mg Q2HPRN PRN IV 07/18/24 18:15 07/22/24 06:56 10 MG Sevelamer HCl 800 mg TIDWM PO 07/18/24 19:30 07/23/24 17:56 800 MG Throat Lozenges 1 alisha Q2HP PRN MT 07/19/24 17:15 07/20/24 06:26 1 ALISHA Furosemide 60 mg BIDD IV 07/20/24 18:00 07/25/24 17:11 60 MG Duloxetine HCl 30 mg DAILY PO 07/20/24 10:00 07/25/24 09:15 30 MG Fluconazole 400 mg DAILY PO 07/22/24 10:00 07/25/24 09:15 400 MG Enoxaparin Sodium 40 mg DAILY SC 07/23/24 10:00 Guaifenesin/ Dextromethorphan 15 ml TIDP PRN PO 07/23/24 08:45 Doxycycline Hyclate 250 ml @ 125 mls/hr Q12HR IV 07/24/24 22:00 07/25/24 11:54 125 MLS/HR objective Gen.: Patient lying in bed in no apparent distress. On supplemental oxygen. Head: Normocephalic, atraumatic. Eyes: EOMI/PERRLA. Ears: Normal hearing. Normal anatomy. Neck/trachea: Trachea midline, supple. Nose: Normal external anatomy. Mouth: Moist mucous membranes. Chest: Decreased air entry bilaterally. No wheezing or rhonchi. Cardiovascular: Positive S1, positive S2. Regular rate and rhythm. Abdomen: Positive bowel sounds in all 4 quadrants. Soft, non-tender, non- distended. : Deferred. Rectal: Deferred. Skin: Warm, dry. Intact. Extremities: 2+ radial pulses bilaterally. No lower extremity edema. Neuro: Awake, alert, oriented x3. No gross motor or sensory deficits. Cranial nerves II through XII intact. Gait not assessed. laboratory and microbiology Laboratory Tests 07/24/24 12:40 Test 07/24/24 12:40 Range/Units Serum Glucose 168 H 74-106 mg/dL Assessment/Plan Impression: Sepsis secondary to UTI Acute hypoxic respiratory failure Pleural effusion Atelectasis Acute kidney injury Bilateral upper and lower extremity vasculitis Deep vein thrombosis ruled out Morbid obesity with a BMI of 40 Anxiety Seizure disorder Acute on chronic hypercarbic respiratory failure AMS 2/2 acute on chronic hypercarbic respiratory failure Pulmonary embolism ruled out Events: On supplemental O2 at 2 LPM NC Taper O2 as tolerated Patient is s/p kidney biopsy. HOB elevation Aspiration precautions. Pain control Avoid oversedation Continue antibiotics - doxycycline Continue fluconazole. IV steroids: Solumedrol 30 mg IV q12 hours Continue bronchodilators Incentive spirometry On therapeutic Lovenox Diurese w/ Lasix 60 mg IV BID Monitor renal function Monitor electrolytes, supplement as necessary Follow up Nephrology recommendations Labs and imaging reviewed. Rest of plan as noted below Plan: Supplemental O2 Keep O2 saturation above 92% Bronchodilators IV steroids Chest x-ray imaging report reviewed. No pneumothorax. Small bilateral pleural effusion with compressive atelectasis. Pulmonary vascular congestion Continue antibiotics Follow up cultures Blood cx show no growth. Sputum cx: Presumptive C Albicans. Ultrasound venous Doppler lower extremities is negative for any acute DVT. CT abdomen and pelvis lung windows revealed there were small bilateral pleural effusions and bibasilar atelectasis. V/q scan Low prob of PE. Anxiolytic as needed for anxiety Diurese to euvolemia Monitor ins and outs. Monitor renal function Monitor electrolytes. Supplement as necessary. Diet and lifestyle modifications for weight reduction given morbid obesity. DVT prophylaxis Prognosis: Poor given multiple comorbidities. Rest of plan per hospitalist and other consultants. A total of 51 minutes of clinical care time was spent reviewing the patient record, examining the patient, making a diagnostic and therapeutic plan, discussing this plan with the medical personnel, following up on diagnostic studies and following the patient for clinical stability excluding any and all procedures. At least 50% of this time was spent in direct, [id number] contact. Thank you Dr. Joanie Alvarez for allowing me to participate in this patient's care. Further recommendations will depend on patient's clinical course. Please do not hesitate to contact me if you have any questions or concerns. This medical document was created using an electronic medical record system with [employer] dictation system. Although this document has been carefully reviewed, there may still be some phonetic and typographical errors. These areas are purely typographical due to imperfections of the software programs, and do not reflect any compromise in the patient's medical care. Dietary Evaluation Review Comments: No Eliazar d/t ARMANDO-CKD-3 status, Will reassess her protein needs in 2-3 days. Expected Outcomes/Goals: gradual weight loss. Plan discussed with: Patient, Other (FATIMAH Christie) GUALBERTO POZO MD Jul 25, 2024 19:30
[2024-07-25] MEDS: KETOROLAC TROMETH 30 MG/ML 1ML VIAL IV ONE (23:20)
[2024-07-26] VITALS (18 sets, daily range): BP systolic 104–154; BP diastolic 58–76; PULSE 63–97; RESP 16–20; TEMP 97.4–98.5; O2SAT 95–98
--- NOTE | 2024-07-26 06:53 | DVHPN2 ---
Progress Note - Dictate Date Seen: Jul 26, 2024 Has the PT tested + for MRSA If YES, has PT been informed?: No Medical Necessity Reason Pt with a Central, PICC or Fol: Yes The following are medically ne: Patino Catheter Reason for patino catheter: Strict I&O vital signs Vital Sign Date Time Temp Pulse Resp B/P (MAP) Pulse Ox O2 Delivery O2 Flow Rate FiO2 07/26/24 06:31 96 Nasal Cannula 2.0 07/26/24 06:31 78 18 07/26/24 06:31 28 07/26/24 05:44 154/62 07/26/24 05:00 98.5 98.5 Total Intake and Output 07/25/24 07/25/24 07/26/24 15:00 23:00 07:00 Intake Total 300 ml 800 ml 2050 ml Output Total 1150 ml 5800 ml Balance 300 ml -350 ml -3750 ml medications Current Medications Medications Dose Ordered Sig/Kendell Route Start Time Stop Time Status Last Admin Dose Admin Amlodipine Besylate 5 mg DAILY PO 07/17/24 10:00 07/25/24 09:15 5 MG Ceftriaxone Sodium 50 ml @ 100 mls/hr DAILY@09 IV 07/17/24 09:00 07/25/24 09:14 100 MLS/HR Albuterol 2.5 mg Q4HWA NEB 07/16/24 22:00 07/26/24 06:31 2.5 MG Ipratropium [place] 0.5 mg Q4HWA [facility] 07/16/24 22:00 07/26/24 06:31 0.5 MG Acetaminophen/ Hydrocodone Bitart 1 tab Q6HP PRN PO 07/18/24 13:30 07/22/24 18:23 1 TAB Alprazolam 1 mg TID PRN PO 07/18/24 18:15 07/26/24 05:54 1 MG Labetalol HCl 10 mg Q2HPRN PRN IV 07/18/24 18:15 07/22/24 06:56 10 MG Sevelamer HCl 800 mg TIDWM PO 07/18/24 19:30 07/23/24 17:56 800 MG Throat Lozenges 1 alisha Q2HP PRN [place] 07/19/24 17:15 07/20/24 06:26 1 ALISHA Furosemide 60 mg BIDD IV 07/20/24 18:00 07/26/24 05:44 60 MG Duloxetine HCl 30 mg DAILY PO 07/20/24 10:00 07/25/24 09:15 30 MG Fluconazole 400 mg DAILY PO 07/22/24 10:00 07/25/24 09:15 400 MG Enoxaparin Sodium 40 mg DAILY SC 07/23/24 10:00 Guaifenesin/ Dextromethorphan 15 ml TIDP PRN PO 07/23/24 08:45 Doxycycline Hyclate 250 ml @ 125 mls/hr Q12HR IV 07/24/24 22:00 07/25/24 23:21 125 MLS/HR Docusate Sodium 100 mg BID PO 07/26/24 10:00 laboratory and microbiology Laboratory Tests 07/24/24 12:40 Test 07/24/24 12:40 Range/Units Serum Glucose 168 H 74-106 mg/dL Assessment/Plan Patient is a 73-year-old female who presented on July 16, 2024 for abdominal pain/dysuria and frequency. She had been complaining of low appetite also. While being managed in [facility], the patient was found to be short of breath and cardiology was involved for shortness of breath. Patient denies any chest pains. Patient denies leg swellings. She is poor historian. She is known to our practice from outside. She was lost to follow-up with us years ago. Sleepy female. No JVD. [place] and wet mucosa. No goiter. Not using accessory muscle of breathing. Scattered rhonchi in the lungs is heard. Cardiac: Regular, tachycardic, no thrill/gallop. Abdomen is soft and obese. There is no gross hepatomegaly. Bowel sound is positive. Extremities reveal 2+ edema bilaterally. 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 WBC: 12.4 - 12.7 - 11.9 - 7.2 - 10.6 - 10.2 - 11.6 -15.2 - 15.9 D-dimer: 14.16 Creatinine: 2.0 - 2.06 - 2.12 - 2.25 - 2.21 - 1.93 - 1.75 - 1.67 - 1.64 Potassium: 4.7 - 4.9 - 4.5 - 4.3 - 4.0 - 4.1 - 4.4 - 4.5 - 4.6 M.9 TSH: 0.57 BNP: 102.05 Trop (high sensitive): 13 - [address] scan revealed: IMPRESSION: 1. No acute abdominal or pelvic finding. 2. Hepatic steatosis. Venous Doppler of lower extremities revealed: Impression: 1. No right or left deep venous thrombosis. Renal ultrasound revealed: IMPRESSION: 1. Unremarkable examination. Chest x-ray revealed: Findings/Impression: Frontal chest radiograph demonstrates no acute osseous or superficial soft tissue abnormalities. The trachea is midline. Cardiomeagly with pulmonary vascular congestion. Small bilateral pleural effusions with compressive atelectasis. A superimposed infectious process is not excluded. No pneumothorax. CT of head revealed: IMPRESSION: 1. No acute intracranial abnormality. Repeat chest xry revealed: IMPRESSION: 1. Pulmonary edema and bilateral pleural effusions similar to prior study. Repeat chest x-ray revealed: IMPRESSION: 1. Pulmonary interstitial edema and bilateral pleural effusions. Repeat chest xry revealed: IMPRESSION: 1. Pulmonary edema and bilateral pleural effusions similar to prior study. CT guided biopsy of kidney: IMPRESSION: SUCCESSFUL CT GUIDED non targeted BIOPSY OF LOWER POLE OF RIGHT KIDNEY . PLEASE FOLLOW UP WITH PATHOLOGY FOR FINAL RESULTS. V/Q scan reported: IMPRESSION: Low probability for PE. EKG reveals sinus tachycardia with nonspecific ST-T changes Tele reveals sinus tachycardia Echocardiogram reported: Normal left ventricular size and dimension. Normal left ventricular systolic function estimated ejection fraction 50%. There is a grade 1 diastolic dysfunction. Normal right ventricular size and dimension. Normal right ventricular systolic function. Mildly elevated right ventricular systolic [id number] mm of mercury Normal biatrial size and dimension. Normal aortic valve structure and function. Normal mitral valve structure and function. Normal tricuspid valve structure and function. The pulmonary valve is grossly normal. No pericardial effusion. Patient is a 73-year-old female who presented to the hospital with abdominal pain/dysuria and frequency. She was found to have leukocytosis. Presentation is in favor of pneumonia/UTI. Sepsis is considered. Cardiac etiology for presentation is less likely. Still, the patient's D-dimer has been elevated and pulmonary emboli should be ruled out. Chest x-rays reveal congestion in the lungs and component of heart failure can not be ruled out. V/Q scan was against pulmonary Emboli. Venous duplex was against DVT. Encephalopathy, metabolic Acute respiratory failure Pulmonary edema, acute diastolic heart failure Sepsis Urosepsis Pneumonia ARMANDO On CKD Hypertension History of lupus History of psoriatic arthritis Abnormal D-dimer Fatty liver s/p CT guided kidney biopsy Cardiac suggestion for management: Manage in tele IV diuresis Follow-up electrolytes and kidney function tests and correct abnormalities Prophylactic Lovenox consider repeating venous duplex of lower ext Nephrology, Rheumatology and Pulmonary follow up Further evaluation and management depends on the above and clinical course A total of 55 minutes was spent reviewing the patient record, examining the patient, making a diagnostic and therapeutic plan, discussing this plan with medical personnel, following up on diagnostic studies and following the patient for clinical stability excluding any and all procedures. At least 50% of this time was spent in direct, [id number] contact. Thank you for allowing me to participate in this patient's care. Further recommendations will depend on patient's clinical course. Please do not hesitate to contact me if you have any questions or concerns. This medical document was created using electronic medical record system with [employer] computerized dictation system. Although this document has been carefully reviewed, there may still be some phonetic and typographical errors. These areas are purely typographical due to the imperfection of the software programs, and do not reflect any compromise in the patient's medical care. Dietary Evaluation Review Comments: No Eliazar d/t ARMANDO-CKD-3 status, Will reassess her protein needs in 2-3 days. Expected Outcomes/Goals: gradual weight loss. Plan discussed with: Other (nurse) CLAUDE JOHNSON MD Jul 26, 2024 06:53
[2024-07-26 07:37] LABS: Chloride 98 mmol/L (98-107); Sodium 139 mmol/L (136-145)
[2024-07-26 07:40] LABS: Anion Gap 10 (5-15); Carbon Dioxide 31 mmol/L (20-31)
[2024-07-26 07:42] LABS: Calcium 9.7 mg/dL (8.7-10.4)
[2024-07-26 07:45] LABS: Basophils # (auto) 0 10 ^3/uL (0-0.2); Basophils % (auto) 0.1 % (0.0-2.0); Eosinophils # (auto) 0 10 ^3/uL (0-0.8); Eosinophils % (auto) 0.1 % (0.0-7.0); Hematocrit 41.6 % (36.0-46.0); Hemoglobin 13.3 g/dL (12.2-16.2); Lymphocytes # (auto) 2.8 10 ^3/uL (0.4-5.4); Lymphocytes % (auto) 12.6 % (10.0-50.0); Mean Corpuscular Hemoglobin 28.9 pg (28.0-32.0); Mean Corpuscular Hgb Conc. 32.1 g/dL (32.0-36.0); Mean Corpuscular Volume 89.9 fL (80.0-100.0); Monocytes # (auto) 1.9 10 ^3/uL (0-1.3); Monocytes % (auto) 8.4 % (0.0-12.0); Neutrophils # (auto) 17.4 10 ^3/uL (1.6-8.6); Neutrophils % (auto) 78.8 % (37.0-80.0); Platelet Count (auto) 387 10^3/uL (140-450); Red Blood Cells 4.63 10^6/uL (4.0-5.20); Red Cell Distribution Width 13.9 % (11.8-14.3)
[2024-07-26 07:46] LABS: Glucose 108 mg/dL (74-106)
[2024-07-26 07:47] LABS: BUN/Creatinine Ratio 48.2 (10.0-20.0)
[2024-07-26 07:52] LABS: Blood Urea Nitrogen 82 mg/dL (9-23)
[2024-07-26 08:13] LABS: Albumin 3.7 g/dL (3.2-4.8); Bilirubin, Direct 0.2 mg/dL (<0.3); Bilirubin, Total 0.5 mg/dL (0.2-1.0); Total Protein 6.9 g/dL (5.7-8.2)
--- NOTE | 2024-07-26 09:58 | DVHPN2 ---
Reviewed: Care Plan, H&P, Labs, Medications, Previous Orders, Radiology Changes from previous H/P or p: No Changes Eyes: No Pain, No Vision change, No Conjunctivae inflammation, No Eyelid inflammation, No Other, No Redness ENT: No Ear pain, No Ear discharge, No Nose pain, No Nose discharge, No Nose congestion, No Mouth pain, No Mouth swelling, No Throat pain, No Throat swelling, No Other Cardiovascular: No Chest Pain, No Palpitations, No Orthopnea, No Paroxysmal Noc. Dyspnea, No Edema, No Lt Headedness, No Other Respiratory: No Cough, No Dry, No Shortness of breath, No SOB with excertion, No Wheezing, No Hemoptysis, No Pleuritic Pain, No Sputum, No Other Gastrointestinal: No Nausea, No Vomiting; Abdominal Pain; No Diarrhea, No Constipation, No Melena, No Hematochezia, No Other Genitourinary: Dysuria, Frequency; No Incontinence, No Hematuria, No Retention, No Other Musculoskeletal: No other, No neck pain, No shoulder pain, No arm pain, No back pain, No hand pain, No leg pain, No foot pain Skin: Rash Objective Vitals Vital Signs Date Time Temp Pulse Resp B/P (MAP) Pulse Ox O2 Delivery O2 Flow Rate FiO2 07/26/24 06:41 89 18 95 07/26/24 06:31 Nasal Cannula 2.0 07/26/24 06:31 28 07/26/24 05:44 154/62 07/26/24 05:00 98.5 98.5 Intake/Output Intake and Output 07/26/24 07:00 Intake Total 3150 ml Output Total 6950 ml Balance -3800 ml Intake Oral 2600 ml IV Total 550 ml Output Urine Total 6950 ml Medications Current Medications Medications Dose Ordered Sig/Kendell Route Start Time Stop Time Status Last Admin Dose Admin Amlodipine Besylate 5 mg DAILY PO 07/17/24 10:00 07/25/24 09:15 5 MG Ceftriaxone Sodium 50 ml @ 100 mls/hr DAILY@09 IV 07/17/24 09:00 07/25/24 09:14 100 MLS/HR Albuterol 2.5 mg Q4HWA NEB 07/16/24 22:00 07/26/24 06:31 2.5 MG Ipratropium [place] 0.5 mg Q4HWA NEB 07/16/24 22:00 07/26/24 06:31 0.5 MG Acetaminophen/ Hydrocodone Bitart 1 tab Q6HP PRN PO 07/18/24 13:30 07/22/24 18:23 1 TAB Alprazolam 1 mg TID PRN PO 07/18/24 18:15 07/26/24 05:54 1 MG Labetalol HCl 10 mg Q2HPRN PRN IV 07/18/24 18:15 07/22/24 06:56 10 MG Sevelamer HCl 800 mg TIDWM PO 07/18/24 19:30 07/23/24 17:56 800 MG Throat Lozenges 1 alisha Q2HP PRN [place] 07/19/24 17:15 07/20/24 06:26 1 ALISHA Furosemide 60 mg BIDD IV 07/20/24 18:00 07/26/24 05:44 60 MG Duloxetine HCl 30 mg DAILY PO 07/20/24 10:00 07/25/24 09:15 30 MG Fluconazole 400 mg DAILY PO 07/22/24 10:00 07/25/24 09:15 400 MG Enoxaparin Sodium 40 mg DAILY SC 07/23/24 10:00 Guaifenesin/ Dextromethorphan 15 ml TIDP PRN PO 07/23/24 08:45 Doxycycline Hyclate 250 ml @ 125 mls/hr Q12HR IV 07/24/24 22:00 07/25/24 23:21 125 MLS/HR Docusate Sodium 100 mg BID PO 07/26/24 10:00 Laboratory Results Laboratory Tests 07/26/24 06:29 Chemistry Test 07/25/24 10:40 07/26/24 06:29 Phosphorus Level 5.2 mg/dL (2.4-5.1) H Albumin 3.7 g/dL (3.2-4.8) Calcium Level 9.7 mg/dL (8.7-10.4) Total Protein 6.9 g/dL (5.7-8.2) LFT Test 07/26/24 06:29 Alanine Aminotransferase (ALT) 56 U/L (7-40) H Alkaline Phosphatase 76 U/L (46-116) Aspartate Amino Transferase (AST) 34 U/L (13-40) Direct Bilirubin 0.2 mg/dL (<0.3) Total Bilirubin 0.5 mg/dL (0.2-1.0) Urinalysis Test 07/19/24 17:45 07/20/24 06:34 Urine Creatinine 81.73 mg/dL (30.0-125.0) Urine Protein/Creatinine Ratio 1.17 Urine Sodium 14 mmol/L (40-220) L Urine Total Protein 95.5 mg/dL (1-14) H Urine Color Colorless (Yellow) Urine Clarity Turbid (Clear) H Urine pH 5.0 (5.0-9.0) Urine Specific [place] 1.007 (1.001-1.035) Urine Protein Trace (Negative) H Urine Ketones Negative (Negative) Urine Blood 2+ /uL (Negative) H Urine Nitrite Negative (Negative) Urine Bilirubin Negative (Negative) Urine Urobilinogen Normal mg/dL (Negative) Urine Leukocyte Esterase 1+ /uL (Negative) Urine RBC 205 /hpf (0 - 4) Urine WBC 25 /hpf (0 - 5) Urine Squamous Epithelial Cells Few /hpf (<5) Urine Bacteria Few /hpf (None Seen) H Urine Mucus Few (None Seen) Urine Glucose Normal mg/dL (Normal) Microbiology Microbiology Date/Time Source Procedure Growth Status 07/19/24 03:50 Sputum Gram Stain - Final Complete 07/19/24 03:50 Respiratory Culture - Final Presumptive Dana albicans Complete 07/18/24 05:53 Nose MRSA Screen - Final Complete 07/16/24 14:42 Blood Blood Culture - Final NO GROWTH AFTER 5 DAYS OF INCUBATION. Complete 07/16/24 07:30 Voided Urine Urine Culture - Final Complete Labs and/or images reviewed: Labs reviewed by me, Image(s) reviewed by me Assessment/Plan Assessment/Plan Acute hypoxic respiratory failure: Improving now one 2 L of oxygen by nasal cannula pulmonary consult by Dr. Minor appreciated. Chest x-ray shows bilateral small pleural effusions Possible bilateral community-acquired pneumonia, continue Rocephin add doxycycline Acute on chronic congestive heart failure: Cardiology consult appreciated Sepsis secondary to urinary tract infection: Blood cultures negative, urine cultures negative, continue Rocephin Yeast in the sputum: P.o. Diflucan changed to IV as the patient is unable to swallow Hypertension: Hydralazine discontinued and started on labetalol by the waist cutter Acute metabolic encephalopathy: CT head ordered to rule out any intracranial pathology Acute kidney injury: Nephrology consult appreciated Bilateral upper and lower extremity vasculitis D-dimer elevated 14.6 DVT ruled out PE ruled out by negative V/Q scan: DC Lovenox, started on prophylactic Lovenox CT abdomen pelvis negative Kidney ultrasound negative History of lupus under the care of , rheumatology consult by Dr. Grubbs appreciated History of seizures Moderate obesity High level of anxiety: Xanax Condition guarded Seen in tele bed Time spent 55 minutes Right kidney biopsy done today 07/24/2024 Possible discharge on Physical therapy ordered We will check ABG prior to discharge to see if she needs home oxygen Venous ultrasound rule out DVT ordered by Dr. Bradshaw Plan discussed with: Patient My Orders Orders - JESUS VILLANUEVA MD Procedure Category Date Status Time Abg W/ Co-Ox RT 07/26/24 Logged 09:51 Date of Service: Jul 26, 2024 Billing Provider: JESUS VILLANUEVA MD Common Visit Codes: [id number] INP/OBS CARE(HIGH) JESUS VILLANUEVA MD Jul 26, 2024 09:58
[2024-07-26] MEDS: DOCUSATE ORAL LIQUID 100 MG/10 ML UD PO SCH (10:00)
[2024-07-26 10:07] LABS: Antimyeloperoxidase (MPO) Ab <0.2 units (0.0-0.9); Antiproteinase 3 (PR-3) Ab <0.2 units (0.0-0.9)
[2024-07-26 10:41] LABS: Base Excess 8.1 mmol/L (-2.0-3.0)
[2024-07-26] MEDS: LACTULOSE 20Gm/30ML SOLN PO ONE (11:29)
--- NOTE | 2024-07-26 13:29 | DVHPN2 ---
Progress Note - Dictate Date Seen: Jul 26, 2024 Has the PT tested + for MRSA If YES, has PT been informed?: No Medical Necessity Reason Pt with a Central, PICC or Fol: Yes The following are medically ne: Patino Catheter Reason for patino catheter: Strict I&O Subjective uop 6.9L yesterday vital signs Vital Sign Date Time Temp Pulse Resp B/P (MAP) Pulse Ox O2 Delivery O2 Flow Rate FiO2 07/26/24 11:33 136/64 07/26/24 10:53 98 Nasal Cannula* 2 28 07/26/24 10:53 82 18 07/26/24 09:00 97.6 97.6 Total Intake and Output 07/25/24 07/25/24 07/26/24 15:00 23:00 07:00 Intake Total 300 ml 800 ml 2050 ml Output Total 1150 ml 5800 ml Balance 300 ml -350 ml -3750 ml medications Current Medications Medications Dose Ordered Sig/Kendell Route Start Time Stop Time Status Last Admin Dose Admin Amlodipine Besylate 5 mg DAILY PO 07/17/24 10:00 07/26/24 11:33 5 MG Ceftriaxone Sodium 50 ml @ 100 mls/hr DAILY@09 IV 07/17/24 09:00 07/26/24 11:28 100 MLS/HR Albuterol 2.5 mg Q4HWA [facility] 07/16/24 22:00 07/26/24 10:52 2.5 MG Ipratropium [place] 0.5 mg Q4HWA [facility] 07/16/24 22:00 07/26/24 10:53 0.5 MG Acetaminophen/ Hydrocodone Bitart 1 tab Q6HP PRN PO 07/18/24 13:30 07/26/24 11:29 1 TAB Alprazolam 1 mg TID PRN PO 07/18/24 18:15 07/26/24 05:54 1 MG Labetalol HCl 10 mg Q2HPRN PRN IV 07/18/24 18:15 07/22/24 06:56 10 MG Sevelamer HCl 800 mg TIDWM PO 07/18/24 19:30 07/23/24 17:56 800 MG Throat Lozenges 1 alisha Q2HP PRN [place] 07/19/24 17:15 07/20/24 06:26 1 ALISHA Furosemide 60 mg BIDD IV 07/20/24 18:00 07/26/24 05:44 60 MG Duloxetine HCl 30 mg DAILY PO 07/20/24 10:00 07/25/24 09:15 30 MG Enoxaparin Sodium 40 mg DAILY SC 07/23/24 10:00 Guaifenesin/ Dextromethorphan 15 ml TIDP PRN PO 07/23/24 08:45 Doxycycline Hyclate 250 ml @ 125 mls/hr Q12HR IV 07/24/24 22:00 07/25/24 23:21 125 MLS/HR Docusate Sodium 100 mg BID PO 07/26/24 10:00 Fluconazole 100 ml @ 100 mls/hr 10,11 IV 07/26/24 10:00 Lisinopril 20 mg DAILY PO 07/26/24 10:00 objective obese white female NAD no further edema rrr b/l foot wounds in pressure dressing laboratory and microbiology Laboratory Tests 07/26/24 06:29 Test 07/26/24 06:29 Range/Units Serum Glucose 108 H 74-106 mg/dL Assessment/Plan Acute kidney injury hemodynamically mediated Chronic kidney disease stage 2 GFR 60% in 09/2023 IgA Lupus Psoriatic arthritis Sepsis with open wound Hyperphosphatemia Status post kidney biopsy 07/24/24- IgA w/ crescents . No lupus nephritis. Given she has already received steroids will not dose further obtain new urine protein cr ratio. previous 1gm Rheumatology diuretics convert to po once a day as clinically edema has resolved Phosphorus binders with meal, phosphorus reduced diet start losartan if BP tolerates Dietary Evaluation Review Comments: No Eliazar d/t ARMANDO-CKD-3 status, Will reassess her protein needs in 2-3 days. Expected Outcomes/Goals: gradual weight loss. Plan discussed with: Patient FRANKLIN GARCÍA MD Jul 26, 2024 13:29
[2024-07-26] MEDS: LISINOPRIL 20 MG TAB PO SCH (14:17)
[2024-07-26] MEDS: FLUCONAZOLE 200MG/100ML 100 ML IV SCH (14:18)
--- NOTE | 2024-07-26 16:52 | DVH ---
Bilateral lower extremity venous duplex Clinical History: dvt repeat Comparison: US BILAT LOWER DVT on DOS: 07/16/24, US RT LOWER DVT on DOS: 09/20/23 Technique: Duplex Doppler evaluation of the deep venous systems of both lower extremities from the common femora l veins to the popliteal veins including color Doppler and spectral/pulsed waveform analysis was perf ormed. Findings: RIGHT SIDE: The common femoral vein demonstrates appropriate compressibility and waveform variability. The right greater saphenous vein is not visualized. The femoral vein demonstrates appropriate compressibility and waveform variability. The deep femoral vein demonstrates appropriate compressibility and waveform variability. The popliteal vein demonstrates appropriate compressibility and waveform variability. There is normal compressibility at the tibioperoneal trunk. LEFT SIDE: The common femoral vein demonstrates appropriate compressibility and waveform variability. There is compressibility/patency of the great saphenous vein at the proximal thigh. The femoral vein demonstrates appropriate compressibility and waveform variability. The deep femoral vein demonstrates appropriate compressibility and waveform variability. The popliteal vein demonstrates appropriate compressibility and waveform variability. There is normal compressibility at the tibioperoneal trunk. Impression: 1. No right or left femoropopliteal venous thrombosis is identified. Nonvisualized right greater saph enous vein. HS:Y
--- NOTE | 2024-07-26 19:57 | DVHPN2 ---
Progress Note - Dictate Date Seen: Jul 26, 2024 Has the PT tested + for MRSA If YES, has PT been informed?: No Medical Necessity Reason Pt with a Central, PICC or Fol: Yes The following are medically ne: Patino Catheter Reason for patino catheter: Strict I&O Subjective Patient seen and examined at bedside. On supplemental oxygen Overnight events reviewed. vital signs Vital Sign Date Time Temp Pulse Resp B/P (MAP) Pulse Ox O2 Delivery O2 Flow Rate FiO2 07/26/24 18:50 97 Nasal Cannula 1.0 07/26/24 18:50 24 07/26/24 17:00 98.0 84 19 104/58 (73) 98.0 Total Intake and Output 07/25/24 07/25/24 07/26/24 15:00 23:00 07:00 Intake Total 300 ml 800 ml 2050 ml Output Total 1150 ml 5800 ml Balance 300 ml -350 ml -3750 ml medications Current Medications Medications Dose Ordered Sig/Kendell Route Start Time Stop Time Status Last Admin Dose Admin Amlodipine Besylate 5 mg DAILY PO 07/17/24 10:00 07/26/24 11:33 5 MG Ceftriaxone Sodium 50 ml @ 100 mls/hr DAILY@09 IV 07/17/24 09:00 07/26/24 11:28 100 MLS/HR Albuterol 2.5 mg Q4HWA NEB 07/16/24 22:00 07/26/24 13:59 2.5 MG Ipratropium [place] 0.5 mg Q4HWA NEB 07/16/24 22:00 07/26/24 13:59 0.5 MG Acetaminophen/ Hydrocodone Bitart 1 tab Q6HP PRN PO 07/18/24 13:30 07/26/24 11:29 1 TAB Alprazolam 1 mg TID PRN PO 07/18/24 18:15 07/26/24 05:54 1 MG Labetalol HCl 10 mg Q2HPRN PRN IV 07/18/24 18:15 07/22/24 06:56 10 MG Sevelamer HCl 800 mg TIDWM PO 07/18/24 19:30 07/23/24 17:56 800 MG Throat Lozenges 1 alisha Q2HP PRN MT 07/19/24 17:15 07/20/24 06:26 1 ALISHA Duloxetine HCl 30 mg DAILY PO 07/20/24 10:00 07/26/24 14:17 30 MG Enoxaparin Sodium 40 mg DAILY SC 07/23/24 10:00 Guaifenesin/ Dextromethorphan 15 ml TIDP PRN PO 07/23/24 08:45 Doxycycline Hyclate 250 ml @ 125 mls/hr Q12HR IV 07/24/24 22:00 07/25/24 23:21 125 MLS/HR Docusate Sodium 100 mg BID PO 07/26/24 10:00 Fluconazole 100 ml @ 100 mls/hr 10,11 IV 07/26/24 10:00 07/26/24 15:30 100 MLS/HR Lisinopril 20 mg DAILY PO 07/26/24 10:00 07/26/24 14:17 20 MG Furosemide 40 mg DAILY PO 07/27/24 10:00 objective Gen.: Patient lying in bed in no apparent distress. On supplemental oxygen. Head: Normocephalic, atraumatic. Eyes: EOMI/PERRLA. Ears: Normal hearing. Normal anatomy. Neck/trachea: Trachea midline, supple. Nose: Normal external anatomy. Mouth: Moist mucous membranes. Chest: Decreased air entry bilaterally. No wheezing or rhonchi. Cardiovascular: Positive S1, positive S2. Regular rate and rhythm. Abdomen: Positive bowel sounds in all 4 quadrants. Soft, non-tender, non- distended. : Deferred. Rectal: Deferred. Skin: Warm, dry. Intact. Extremities: 2+ radial pulses bilaterally. No lower extremity edema. Neuro: Awake, alert, oriented x3. No gross motor or sensory deficits. Cranial nerves II through XII intact. Gait not assessed. laboratory and microbiology Laboratory Tests 07/26/24 06:29 Test 07/26/24 06:29 Range/Units Serum Glucose 108 H 74-106 mg/dL Assessment/Plan Impression: Sepsis secondary to UTI Acute hypoxic respiratory failure Pleural effusion Atelectasis Acute kidney injury Bilateral upper and lower extremity vasculitis Deep vein thrombosis ruled out Morbid obesity with a BMI of 40 Anxiety Seizure disorder Acute on chronic hypercarbic respiratory failure AMS 2/2 acute on chronic hypercarbic respiratory failure Pulmonary embolism ruled out Events: On supplemental O2 at 2 LPM NC Taper O2 as tolerated Patient is s/p kidney biopsy. Follow up pathology results. HOB elevation Aspiration precautions. Pain control Avoid oversedation Lactulose for constipation. Continue fluconazole. Incentive spirometry On therapeutic Lovenox Diurese w/ Lasix 60 mg IV BID Monitor renal function Monitor electrolytes, supplement as necessary Nephrology recommendations appreciated. Labs and imaging reviewed. Rest of plan as noted below Plan: Supplemental O2 Keep O2 saturation above 92% Bronchodilators IV steroids Chest x-ray imaging report reviewed. No pneumothorax. Small bilateral pleural effusion with compressive atelectasis. Pulmonary vascular congestion Continue antibiotics Follow up cultures Blood cx show no growth. Sputum cx: Presumptive C Albicans. Ultrasound venous Doppler lower extremities is negative for any acute DVT. CT abdomen and pelvis lung windows revealed there were small bilateral pleural effusions and bibasilar atelectasis. V/q scan Low prob of PE. Anxiolytic as needed for anxiety Diurese to euvolemia Monitor ins and outs. Monitor renal function Monitor electrolytes. Supplement as necessary. Diet and lifestyle modifications for weight reduction given morbid obesity. DVT prophylaxis Prognosis: Poor given multiple comorbidities. Rest of plan per hospitalist and other consultants. A total of 51 minutes of clinical care time was spent reviewing the patient record, examining the patient, making a diagnostic and therapeutic plan, discussing this plan with the medical personnel, following up on diagnostic studies and following the patient for clinical stability excluding any and all procedures. At least 50% of this time was spent in direct, [id number] contact. Thank you Dr. Joanie Alvarez for allowing me to participate in this patient's care. Further recommendations will depend on patient's clinical course. Please do not hesitate to contact me if you have any questions or concerns. This medical document was created using an electronic medical record system with [employer] dictation system. Although this document has been carefully reviewed, there may still be some phonetic and typographical errors. These areas are purely typographical due to imperfections of the software programs, and do not reflect any compromise in the patient's medical care. Dietary Evaluation Review Comments: No Eliazar d/t ARMANDO-CKD-3 status, Will reassess her protein needs in 2-3 days. Expected Outcomes/Goals: gradual weight loss. Plan discussed with: Patient, Other (FATIMAH Mercado) GUALBERTO POZO MD Jul 26, 2024 19:57
[2024-07-27] VITALS (17 sets, daily range): BP systolic 105–121; BP diastolic 43–62; PULSE 71–97; RESP 16–20; TEMP 97.6–98.8; O2SAT 93–100
--- NOTE | 2024-07-27 07:27 | DVHPN2 ---
Progress Note - Dictate Date Seen: Jul 27, 2024 Has the PT tested + for MRSA If YES, has PT been informed?: No Medical Necessity Reason Pt with a Central, PICC or Fol: Yes The following are medically ne: Patino Catheter Reason for patino catheter: Strict I&O vital signs Vital Sign Date Time Temp Pulse Resp B/P (MAP) Pulse Ox O2 Delivery O2 Flow Rate FiO2 07/27/24 05:00 98.2 82 20 105/49 (67) 96 98.2 07/26/24 20:00 Nasal Cannula* 2 28 Total Intake and Output 07/26/24 07/26/24 07/27/24 15:00 23:00 07:00 Intake Total 50 ml 950 ml 1250 ml Output Total 1800 ml 950 ml Balance 50 ml -850 ml 300 ml medications Current Medications Medications Dose Ordered Sig/Kendell Route Start Time Stop Time Status Last Admin Dose Admin Amlodipine Besylate 5 mg DAILY PO 07/17/24 10:00 07/26/24 11:33 5 MG Ceftriaxone Sodium 50 ml @ 100 mls/hr DAILY@09 IV 07/17/24 09:00 07/26/24 11:28 100 MLS/HR Albuterol 2.5 mg Q4HWA NEB 07/16/24 22:00 07/26/24 22:05 2.5 MG Ipratropium [place] 0.5 mg Q4HWA NEB 07/16/24 22:00 07/26/24 22:05 0.5 MG Acetaminophen/ Hydrocodone Bitart 1 tab Q6HP PRN PO 07/18/24 13:30 07/26/24 11:29 1 TAB Alprazolam 1 mg TID PRN PO 07/18/24 18:15 07/26/24 05:54 1 MG Labetalol HCl 10 mg Q2HPRN PRN IV 07/18/24 18:15 07/22/24 06:56 10 MG Sevelamer HCl 800 mg TIDWM PO 07/18/24 19:30 07/23/24 17:56 800 MG Throat Lozenges 1 alisha Q2HP PRN MT 07/19/24 17:15 07/20/24 06:26 1 ALISHA Duloxetine HCl 30 mg DAILY PO 07/20/24 10:00 07/26/24 14:17 30 MG Enoxaparin Sodium 40 mg DAILY SC 07/23/24 10:00 Guaifenesin/ Dextromethorphan 15 ml TIDP PRN PO 07/23/24 08:45 Doxycycline Hyclate 250 ml @ 125 mls/hr Q12HR IV 07/24/24 22:00 07/26/24 22:12 125 MLS/HR Docusate Sodium 100 mg BID PO 07/26/24 10:00 07/26/24 22:03 100 MG Fluconazole 100 ml @ 100 mls/hr 10,11 IV 07/26/24 10:00 07/26/24 15:30 100 MLS/HR Lisinopril 20 mg DAILY PO 07/26/24 10:00 07/26/24 14:17 20 MG Furosemide 40 mg DAILY PO 07/27/24 10:00 laboratory and microbiology Laboratory Tests 07/26/24 06:29 Test 07/27/24 06:47 Range/Units Serum Glucose Pending Assessment/Plan Patient is a 73-year-old female who presented on July 16, 2024 for abdominal pain/dysuria and frequency. She had been complaining of low appetite also. While being managed in [facility], the patient was found to be short of breath and cardiology was involved for shortness of breath. Patient denies any chest pains. Patient denies leg swellings. She is poor historian. She is known to our practice from outside. She was lost to follow-up with us years ago. Sleepy female. No JVD. [place] and wet mucosa. No goiter. Not using accessory muscle of breathing. Scattered rhonchi in the lungs is heard. Cardiac: Regular, tachycardic, no thrill/gallop. Abdomen is soft and obese. There is no gross hepatomegaly. Bowel sound is positive. Extremities reveal 2+ edema bilaterally. 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 WBC: 12.4 - 12.7 - 11.9 - 7.2 - 10.6 - 10.2 - 11.6 -15.2 - 15.9 - 22.0 D-dimer: 14.16 Creatinine: 2.0 - 2.06 - 2.12 - 2.25 - 2.21 - 1.93 - 1.75 - 1.67 - 1.64 - 1.70 - 1.48 Potassium: 4.7 - 4.9 - 4.5 - 4.3 - 4.0 - 4.1 - 4.4 - 4.5 - 4.6 - 5.0 - 5.0 M.9 TSH: 0.57 BNP: 102.05 Trop (high sensitive): 13 - [address] scan revealed: IMPRESSION: 1. No acute abdominal or pelvic finding. 2. Hepatic steatosis. Venous Doppler of lower extremities revealed: Impression: 1. No right or left deep venous thrombosis. Repeat venous duplex of lower ext revealed: Impression: 1. No right or left femoropopliteal venous thrombosis is identified. Nonvisualized right greater saphenous vein. Renal ultrasound revealed: IMPRESSION: 1. Unremarkable examination. Chest x-ray revealed: Findings/Impression: Frontal chest radiograph demonstrates no acute osseous or superficial soft tissue abnormalities. The trachea is midline. Cardiomeagly with pulmonary vascular congestion. Small bilateral pleural effusions with compressive atelectasis. A superimposed infectious process is not excluded. No pneumothorax. CT of head revealed: IMPRESSION: 1. No acute intracranial abnormality. Repeat chest xry revealed: IMPRESSION: 1. Pulmonary edema and bilateral pleural effusions similar to prior study. Repeat chest x-ray revealed: IMPRESSION: 1. Pulmonary interstitial edema and bilateral pleural effusions. Repeat chest xry revealed: IMPRESSION: 1. Pulmonary edema and bilateral pleural effusions similar to prior study. CT guided biopsy of kidney: IMPRESSION: SUCCESSFUL CT GUIDED non targeted BIOPSY OF LOWER POLE OF RIGHT KIDNEY . PLEASE FOLLOW UP WITH PATHOLOGY FOR FINAL RESULTS. V/Q scan reported: IMPRESSION: Low probability for PE. EKG reveals sinus tachycardia with nonspecific ST-T changes Tele reveals sinus tachycardia Echocardiogram reported: Normal left ventricular size and dimension. Normal left ventricular systolic function estimated ejection fraction 50%. There is a grade 1 diastolic dysfunction. Normal right ventricular size and dimension. Normal right ventricular systolic function. Mildly elevated right ventricular systolic [id number] mm of mercury Normal biatrial size and dimension. Normal aortic valve structure and function. Normal mitral valve structure and function. Normal tricuspid valve structure and function. The pulmonary valve is grossly normal. No pericardial effusion. Patient is a 73-year-old female who presented to the hospital with abdominal pain/dysuria and frequency. She was found to have leukocytosis. Presentation is in favor of pneumonia/UTI. Sepsis is considered. Cardiac etiology for presentation is less likely. Still, the patient's D-dimer has been elevated and pulmonary emboli should be ruled out. Chest x-rays reveal congestion in the lungs and component of heart failure can not be ruled out. V/Q scan was against pulmonary Emboli. Venous duplex was against DVT. Encephalopathy, metabolic Acute respiratory failure Pulmonary edema, acute diastolic heart failure Sepsis Urosepsis Pneumonia ARMANDO On CKD Hypertension History of lupus History of psoriatic arthritis Abnormal D-dimer Fatty liver s/p CT guided kidney biopsy Cardiac suggestion for management: Manage in tele IV diuresis Follow-up electrolytes and kidney function tests and correct abnormalities Prophylactic Lovenox Nephrology, Rheumatology and Pulmonary follow up Further evaluation and management depends on the above and clinical course A total of 55 minutes was spent reviewing the patient record, examining the patient, making a diagnostic and therapeutic plan, discussing this plan with medical personnel, following up on diagnostic studies and following the patient for clinical stability excluding any and all procedures. At least 50% of this time was spent in direct, [id number] contact. Thank you for allowing me to participate in this patient's care. Further recommendations will depend on patient's clinical course. Please do not hesitate to contact me if you have any questions or concerns. This medical document was created using electronic medical record system with [employer] computerized dictation system. Although this document has been carefully reviewed, there may still be some phonetic and typographical errors. These areas are purely typographical due to the imperfection of the software programs, and do not reflect any compromise in the patient's medical care. Dietary Evaluation Review Comments: No Eliazar d/t ARMANDO-CKD-3 status, Will reassess her protein needs in 2-3 days. Expected Outcomes/Goals: gradual weight loss. Plan discussed with: Patient, Other (nurse) CLAUDE JOHNSON MD Jul 27, 2024 07:27
[2024-07-27 07:30] LABS: Anion Gap 8 (5-15); Carbon Dioxide 31 mmol/L (20-31); Chloride 102 mmol/L (98-107); Sodium 141 mmol/L (136-145)
[2024-07-27 07:31] LABS: Calcium 9.3 mg/dL (8.7-10.4)
[2024-07-27 07:36] LABS: BUN/Creatinine Ratio 44.6 (10.0-20.0); Glucose 102 mg/dL (74-106)
[2024-07-27 07:40] LABS: Blood Urea Nitrogen 66 mg/dL (9-23)
--- NOTE | 2024-07-27 08:57 | DVHPN2 ---
Reviewed: Care Plan, H&P, Labs, Medications, Previous Orders, Radiology Changes from previous H/P or p: No Changes Eyes: No Pain, No Vision change, No Conjunctivae inflammation, No Eyelid inflammation, No Other, No Redness ENT: No Ear pain, No Ear discharge, No Nose pain, No Nose discharge, No Nose congestion, No Mouth pain, No Mouth swelling, No Throat pain, No Throat swelling, No Other Cardiovascular: No Chest Pain, No Palpitations, No Orthopnea, No Paroxysmal Noc. Dyspnea, No Edema, No Lt Headedness, No Other Respiratory: No Cough, No Dry, No Shortness of breath, No SOB with excertion, No Wheezing, No Hemoptysis, No Pleuritic Pain, No Sputum, No Other Gastrointestinal: No Nausea, No Vomiting; Abdominal Pain; No Diarrhea, No Constipation, No Melena, No Hematochezia, No Other Genitourinary: Dysuria, Frequency; No Incontinence, No Hematuria, No Retention, No Other Musculoskeletal: No other, No neck pain, No shoulder pain, No arm pain, No back pain, No hand pain, No leg pain, No foot pain Skin: Rash Objective Vitals Vital Signs Date Time Temp Pulse Resp B/P (MAP) Pulse Ox O2 Delivery O2 Flow Rate FiO2 07/27/24 07:42 78 18 100 07/27/24 07:35 Nasal Cannula* 1 07/27/24 05:00 98.2 105/49 (67) 98.2 Intake/Output Intake and Output 07/27/24 07:00 Intake Total 2250 ml Output Total 2750 ml Balance -500 ml Intake Oral 1750 ml IV Total 500 ml Output Urine Total 2750 ml Medications Current Medications Medications Dose Ordered Sig/Kendell Route Start Time Stop Time Status Last Admin Dose Admin Amlodipine Besylate 5 mg DAILY PO 07/17/24 10:00 07/26/24 11:33 5 MG Ceftriaxone Sodium 50 ml @ 100 mls/hr DAILY@09 IV 07/17/24 09:00 07/26/24 11:28 100 MLS/HR Albuterol 2.5 mg Q4HWA NEB 07/16/24 22:00 07/27/24 07:32 2.5 MG Ipratropium [place] 0.5 mg Q4HWA NEB 07/16/24 22:00 07/27/24 07:32 0.5 MG Acetaminophen/ Hydrocodone Bitart 1 tab Q6HP PRN PO 07/18/24 13:30 07/26/24 11:29 1 TAB Alprazolam 1 mg TID PRN PO 07/18/24 18:15 07/26/24 05:54 1 MG Labetalol HCl 10 mg Q2HPRN PRN IV 07/18/24 18:15 07/22/24 06:56 10 MG Sevelamer HCl 800 mg TIDWM PO 07/18/24 19:30 07/23/24 17:56 800 MG Throat Lozenges 1 alisha Q2HP PRN MT 07/19/24 17:15 07/20/24 06:26 1 ALISHA Duloxetine HCl 30 mg DAILY PO 07/20/24 10:00 07/26/24 14:17 30 MG Enoxaparin Sodium 40 mg DAILY SC 07/23/24 10:00 Guaifenesin/ Dextromethorphan 15 ml TIDP PRN PO 07/23/24 08:45 Doxycycline Hyclate 250 ml @ 125 mls/hr Q12HR IV 07/24/24 22:00 07/26/24 22:12 125 MLS/HR Docusate Sodium 100 mg BID PO 07/26/24 10:00 07/26/24 22:03 100 MG Fluconazole 100 ml @ 100 mls/hr 10,11 IV 07/26/24 10:00 07/26/24 15:30 100 MLS/HR Lisinopril 20 mg DAILY PO 07/26/24 10:00 07/26/24 14:17 20 MG Furosemide 40 mg DAILY PO 07/27/24 10:00 Laboratory Results Laboratory Tests 07/26/24 06:29 07/27/24 06:47 Chemistry Test 07/27/24 06:47 Calcium Level 9.3 mg/dL (8.7-10.4) Urinalysis Test 07/19/24 17:45 07/20/24 06:34 Urine Creatinine 81.73 mg/dL (30.0-125.0) Urine Protein/Creatinine Ratio 1.17 Urine Sodium 14 mmol/L (40-220) L Urine Total Protein 95.5 mg/dL (1-14) H Urine Color Colorless (Yellow) Urine Clarity Turbid (Clear) H Urine pH 5.0 (5.0-9.0) Urine Specific [place] 1.007 (1.001-1.035) Urine Protein Trace (Negative) H Urine Ketones Negative (Negative) Urine Blood 2+ /uL (Negative) H Urine Nitrite Negative (Negative) Urine Bilirubin Negative (Negative) Urine Urobilinogen Normal mg/dL (Negative) Urine Leukocyte Esterase 1+ /uL (Negative) Urine RBC 205 /hpf (0 - 4) Urine WBC 25 /hpf (0 - 5) Urine Squamous Epithelial Cells Few /hpf (<5) Urine Bacteria Few /hpf (None Seen) H Urine Mucus Few (None Seen) Urine Glucose Normal mg/dL (Normal) Blood Gas Results Test 07/26/24 10:33 Arterial Blood pH 7.506 (7.350-7.450) FiO2 % 21.0 Microbiology Microbiology Date/Time Source Procedure Growth Status 07/19/24 03:50 Sputum Gram Stain - Final Complete 07/19/24 03:50 Respiratory Culture - Final Presumptive Dana albicans Complete 07/18/24 05:53 Nose MRSA Screen - Final Complete 07/16/24 14:42 Blood Blood Culture - Final NO GROWTH AFTER 5 DAYS OF INCUBATION. Complete 07/16/24 07:30 Voided Urine Urine Culture - Final Complete Labs and/or images reviewed: Labs reviewed by me, Image(s) reviewed by me Assessment/Plan Assessment/Plan Acute hypoxic respiratory failure: Improving now one 2 L of oxygen by nasal cannula pulmonary consult by Dr. Minor appreciated. Chest x-ray shows bilateral small pleural effusions Possible bilateral community-acquired pneumonia, continue Rocephin add doxycycline Acute on chronic congestive heart failure: Cardiology consult appreciated Sepsis secondary to urinary tract infection: Blood cultures negative, urine cultures negative, continue Rocephin Yeast in the sputum: P.o. Diflucan changed to IV as the patient is unable to swallow Hypertension: Hydralazine discontinued and started on labetalol by the supervisor rod placing Acute metabolic encephalopathy: CT head ordered to rule out any intracranial pathology Acute kidney injury: Nephrology consult appreciated, kidney biopsy ruled out lupus nephritis Bilateral upper and lower extremity vasculitis D-dimer elevated 14.6 DVT ruled out PE ruled out by negative V/Q scan: DC Lovenox, started on prophylactic Lovenox CT abdomen pelvis negative Kidney ultrasound negative History of lupus under the care of , rheumatology consult by Dr. Grubbs appreciated History of seizures Moderate obesity High level of anxiety: Xanax Condition guarded Seen in tele bed Time spent 55 minutes Right kidney biopsy done today 07/24/2024 Possible discharge on Physical therapy ordered ABG shows PaO2 68 % and does not qualify for home oxygen DVT ruled out bilateral lower extremities Plan discussed with: Patient My Orders Orders - JESUS VILLANUEVA MD Procedure Category Date Status Time Fluconazole PHA 07/26/24 In Process 200mg/100ml (Diflucan 10:00 Lisinopril Tablet PHA 07/26/24 In Process (Zestril Tablet) 10:00 Abg W/ Co-Ox RT 07/26/24 Logged 10:02 Pt Request For Service PT 07/26/24 Logged 10:24 Date of Service: Jul 27, 2024 Billing Provider: JESUS VILLANUEVA MD Common Visit Codes: [id number] INP/OBS CARE(HIGH) JESUS VILLANUEVA MD Jul 27, 2024 08:57
[2024-07-27 09:07] LABS: Cytoplasmic (C-ANCA) <1:20 titer (Neg:<1:20); Perinuclear (P-ANCA) <1:20 titer (Neg:<1:20)
--- NOTE | 2024-07-27 10:08 | DVHPN2 ---
Progress Note - Dictate Date Seen: Jul 27, 2024 Has the PT tested + for MRSA If YES, has PT been informed?: No Medical Necessity Reason Pt with a Central, PICC or Fol: Yes The following are medically ne: Patino Catheter Reason for patino catheter: Strict I&O Subjective uop 2L vital signs Vital Sign Date Time Temp Pulse Resp B/P (MAP) Pulse Ox O2 Delivery O2 Flow Rate FiO2 07/27/24 07:42 78 18 100 07/27/24 07:35 Nasal Cannula* 1 07/27/24 05:00 98.2 105/49 (67) 98.2 Total Intake and Output 07/26/24 07/26/24 07/27/24 15:00 23:00 07:00 Intake Total 50 ml 950 ml 1250 ml Output Total 1800 ml 950 ml Balance 50 ml -850 ml 300 ml medications Current Medications Medications Dose Ordered Sig/Kendell Route Start Time Stop Time Status Last Admin Dose Admin Amlodipine Besylate 5 mg DAILY PO 07/17/24 10:00 07/26/24 11:33 5 MG Ceftriaxone Sodium 50 ml @ 100 mls/hr DAILY@09 IV 07/17/24 09:00 07/26/24 11:28 100 MLS/HR Albuterol 2.5 mg Q4HWA NEB 07/16/24 22:00 07/27/24 07:32 2.5 MG Ipratropium [place] 0.[address] [facility] 07/16/24 22:00 07/27/24 07:32 0.5 MG Acetaminophen/ Hydrocodone Bitart 1 tab Q6HP PRN PO 07/18/24 13:30 07/26/24 11:29 1 TAB Alprazolam 1 mg TID PRN PO 07/18/24 18:15 07/26/24 05:54 1 MG Labetalol HCl 10 mg Q2HPRN PRN IV 07/18/24 18:15 07/22/24 06:56 10 MG Sevelamer HCl 800 mg TIDWM PO 07/18/24 19:30 07/23/24 17:56 800 MG Throat Lozenges 1 alisha Q2HP PRN MT 07/19/24 17:15 07/20/24 06:26 1 ALISHA Duloxetine HCl 30 mg DAILY PO 07/20/24 10:00 07/26/24 14:17 30 MG Enoxaparin Sodium 40 mg DAILY SC 07/23/24 10:00 Guaifenesin/ Dextromethorphan 15 ml TIDP PRN PO 07/23/24 08:45 Doxycycline Hyclate 250 ml @ 125 mls/hr Q12HR IV 07/24/24 22:00 07/26/24 22:12 125 MLS/HR Docusate Sodium 100 mg BID PO 07/26/24 10:00 07/26/24 22:03 100 MG Fluconazole 100 ml @ 100 mls/hr 10,11 IV 07/26/24 10:00 07/26/24 15:30 100 MLS/HR Lisinopril 20 mg DAILY PO 07/26/24 10:00 07/26/24 14:17 20 MG Furosemide 40 mg DAILY PO 07/27/24 10:00 objective obese white female NAD no further edema rrr b/l foot wounds in pressure dressing laboratory and microbiology Laboratory Tests 07/27/24 06:47 07/26/24 06:29 Test 07/27/24 06:47 Range/Units Serum Glucose 102 74-106 mg/dL Assessment/Plan Acute kidney injury hemodynamically mediated Chronic kidney disease stage 2 GFR 60% in 09/2023 IgA Lupus Psoriatic arthritis Sepsis with open wound Hyperphosphatemia Status post kidney biopsy 07/24/24- IgA w/ crescents . No lupus nephritis. Given she has already received steroids will not dose further obtain new urine protein cr ratio. previous 1gm Rheumatology diuretics convert to po once a day as clinically edema has resolved Phosphorus binders with meal, phosphorus reduced diet start losartan if BP tolerates stable o continue outpatient followup with Dr. Loomis in clinic Dietary Evaluation Review Comments: No Eliazar d/t ARMANDO-CKD-3 status, Will reassess her protein needs in 2-3 days. Expected Outcomes/Goals: gradual weight loss. Plan discussed with: Patient FRANKLIN GARCÍA MD Jul 27, 2024 10:08
[2024-07-27] MEDS: FUROSEMIDE 40 MG TAB PO SCH (12:05)
[2024-07-27] MEDS: DOXYCYCLINE 100MG/250ML 250 ML IV SCH (18:00)
--- NOTE | 2024-07-27 18:42 | DVHPN2 ---
Progress Note - Dictate Date Seen: Jul 27, 2024 Has the PT tested + for MRSA If YES, has PT been informed?: No Medical Necessity Reason Pt with a Central, PICC or Fol: Yes The following are medically ne: Patino Catheter Reason for patino catheter: Strict I&O Subjective Patient seen and examined at bedside. Breathing on room air. Overnight events reviewed. vital signs Vital Sign Date Time Temp Pulse Resp B/P (MAP) Pulse Ox O2 Delivery O2 Flow Rate FiO2 07/27/24 18:17 93 Room Air* 0 21 07/27/24 17:00 98.8 71 16 106/56 (73) 98.8 Total Intake and Output 07/26/24 07/26/24 07/27/24 15:00 23:00 07:00 Intake Total 50 ml 950 ml 1250 ml Output Total 1800 ml 950 ml Balance 50 ml -850 ml 300 ml medications Current Medications Medications Dose Ordered Sig/Kendell Route Start Time Stop Time Status Last Admin Dose Admin Amlodipine Besylate 5 mg DAILY PO 07/17/24 10:00 07/27/24 12:04 5 MG Ceftriaxone Sodium 50 ml @ 100 mls/hr DAILY@09 IV 07/17/24 09:00 07/27/24 12:04 100 MLS/HR Albuterol 2.5 mg Q4HWA NEB 07/16/24 22:00 07/27/24 14:30 2.5 MG Ipratropium [place] 0.5 mg Q4HWA [facility] 07/16/24 22:00 07/27/24 14:30 0.5 MG Alprazolam 1 mg TID PRN PO 07/18/24 18:15 07/26/24 05:54 1 MG Labetalol HCl 10 mg Q2HPRN PRN IV 07/18/24 18:15 07/22/24 06:56 10 MG Sevelamer HCl 800 mg TIDWM PO 07/18/24 19:30 07/23/24 17:56 800 MG Throat Lozenges 1 alisha Q2HP PRN MT 07/19/24 17:15 07/20/24 06:26 1 ALISHA Duloxetine HCl 30 mg DAILY PO 07/20/24 10:00 07/27/24 12:14 30 MG Enoxaparin Sodium 40 mg DAILY SC 07/23/24 10:00 Guaifenesin/ Dextromethorphan 15 ml TIDP PRN PO 07/23/24 08:45 Docusate Sodium 100 mg BID PO 07/26/24 10:00 07/26/24 22:03 100 MG Fluconazole 100 ml @ 100 mls/hr 10,11 IV 07/26/24 10:00 07/27/24 15:47 100 MLS/HR Lisinopril 20 mg DAILY PO 07/26/24 10:00 07/27/24 12:05 20 MG Furosemide 40 mg DAILY PO 07/27/24 10:00 07/27/24 12:05 40 MG Doxycycline Hyclate 250 ml @ 125 mls/hr Q12HR@0500,1700 IV 07/27/24 17:00 objective Gen.: Patient lying in bed in no apparent distress. Breathing on room air. Head: Normocephalic, atraumatic. Eyes: EOMI/PERRLA. Ears: Normal hearing. Normal anatomy. Neck/trachea: Trachea midline, supple. Nose: Normal external anatomy. Mouth: Moist mucous membranes. Chest: Decreased air entry bilaterally. No wheezing or rhonchi. Cardiovascular: Positive S1, positive S2. Regular rate and rhythm. Abdomen: Positive bowel sounds in all 4 quadrants. Soft, non-tender, non- distended. : Deferred. Rectal: Deferred. Skin: Warm, dry. Intact. Extremities: 2+ radial pulses bilaterally. No lower extremity edema. Neuro: Awake, alert, oriented x3. No gross motor or sensory deficits. Cranial nerves II through XII intact. Gait not assessed. laboratory and microbiology Laboratory Tests 07/27/24 06:47 07/26/24 06:29 Test 07/27/24 06:47 Range/Units Serum Glucose 102 74-106 mg/dL Assessment/Plan Impression: Sepsis secondary to UTI Acute hypoxic respiratory failure Pleural effusion Atelectasis Acute kidney injury Bilateral upper and lower extremity vasculitis Deep vein thrombosis ruled out Morbid obesity with a BMI of 40 Anxiety Seizure disorder Acute on chronic hypercarbic respiratory failure AMS 2/2 acute on chronic hypercarbic respiratory failure Pulmonary embolism ruled out Events: Breathing on room air No respiratory distress. Patient did not qualify for home oxygen. Patient has difficulty swallowing. Continue antibiotics IV steroids. Continue fluconazole. Incentive spirometry Patient is s/p kidney biopsy. Follow up pathology results. HOB elevation Aspiration precautions. Pain control Avoid oversedation Lactulose for constipation. On therapeutic Lovenox Diurese w/ Lasix 40 mg PO QD Monitor renal function Monitor electrolytes, supplement as necessary Disposition per hospitalist. Labs and imaging reviewed. Rest of plan as noted below Plan: Supplemental O2 PRN Keep O2 saturation above 92% Bronchodilators IV steroids Chest x-ray imaging report reviewed. No pneumothorax. Small bilateral pleural effusion with compressive atelectasis. Pulmonary vascular congestion Continue antibiotics Follow up cultures Blood cx show no growth. Sputum cx: Presumptive C Albicans. Ultrasound venous Doppler lower extremities is negative for any acute DVT. CT abdomen and pelvis lung windows revealed there were small bilateral pleural effusions and bibasilar atelectasis. V/q scan Low prob of PE. Anxiolytic as needed for anxiety Diurese to euvolemia Monitor ins and outs. Monitor renal function Monitor electrolytes. Supplement as necessary. Diet and lifestyle modifications for weight reduction given morbid obesity. DVT prophylaxis Prognosis: Poor given multiple comorbidities. Rest of plan per hospitalist and other consultants. A total of 51 minutes of clinical care time was spent reviewing the patient record, examining the patient, making a diagnostic and therapeutic plan, discussing this plan with the medical personnel, following up on diagnostic studies and following the patient for clinical stability excluding any and all procedures. At least 50% of this time was spent in direct, [id number] contact. Thank you Dr. Joanie Alvarez for allowing me to participate in this patient's care. Further recommendations will depend on patient's clinical course. Please do not hesitate to contact me if you have any questions or concerns. This medical document was created using an electronic medical record system with [employer] dictation system. Although this document has been carefully reviewed, there may still be some phonetic and typographical errors. These areas are purely typographical due to imperfections of the software programs, and do not reflect any compromise in the patient's medical care. Dietary Evaluation Review Comments: No Eliazar d/t ARMANDO-CKD-3 status, Will reassess her protein needs in 2-3 days. Expected Outcomes/Goals: gradual weight loss. Plan discussed with: Patient, Other (FATIMAH Mercado) GUALBERTO POZO MD Jul 27, 2024 18:42
[2024-07-28] VITALS (14 sets, daily range): BP systolic 102–133; BP diastolic 40–78; PULSE 67–99; RESP 16–20; TEMP 97.2–98.6; O2SAT 96–100
[2024-07-28] MEDS: guaiFENesin-DM 100/10mg/5ml SYR PO PRN (05:24)
--- NOTE | 2024-07-28 06:05 | DVHPN2 ---
Progress Note - Dictate Date Seen: Jul 28, 2024 Has the PT tested + for MRSA If YES, has PT been informed?: No Medical Necessity Reason Pt with a Central, PICC or Fol: Yes The following are medically ne: Patino Catheter Reason for patino catheter: Strict I&O vital signs Vital Sign Date Time Temp Pulse Resp B/P (MAP) Pulse Ox O2 Delivery O2 Flow Rate FiO2 07/28/24 05:00 98.1 78 20 130/78 (95) 97 98.1 07/27/24 20:00 Nasal Cannula* 2 28 Total Intake and Output 07/27/24 07/27/24 07/28/24 15:00 23:00 07:00 Intake Total 100 ml 1200 ml 295 ml Output Total 850 ml 1000 ml Balance 100 ml 350 ml -705 ml medications Current Medications Medications Dose Ordered Sig/Kendell Route Start Time Stop Time Status Last Admin Dose Admin Amlodipine Besylate 5 mg DAILY PO 07/17/24 10:00 07/27/24 12:04 5 MG Ceftriaxone Sodium 50 ml @ 100 mls/hr DAILY@09 IV 07/17/24 09:00 07/27/24 12:04 100 MLS/HR Albuterol 2.5 mg Q4HWA NEB 07/16/24 22:00 07/27/24 14:30 2.5 MG Ipratropium [place] 0.5 mg Q4HWA NEB 07/16/24 22:00 07/27/24 14:30 0.5 MG Alprazolam 1 mg TID PRN PO 07/18/24 18:15 07/26/24 05:54 1 MG Labetalol HCl 10 mg Q2HPRN PRN IV 07/18/24 18:15 07/22/24 06:56 10 MG Sevelamer HCl 800 mg TIDWM PO 07/18/24 19:30 07/23/24 17:56 800 MG Throat Lozenges 1 alisha Q2HP PRN MT 07/19/24 17:15 07/20/24 06:26 1 ALISHA Duloxetine HCl 30 mg DAILY PO 07/20/24 10:00 07/27/24 12:14 30 MG Enoxaparin Sodium 40 mg DAILY SC 07/23/24 10:00 Guaifenesin/ Dextromethorphan 15 ml TIDP PRN PO 07/23/24 08:45 07/28/24 05:24 15 ML Docusate Sodium 100 mg BID PO 07/26/24 10:00 07/26/24 22:03 100 MG Fluconazole 100 ml @ 100 mls/hr 10,11 IV 07/26/24 10:00 07/27/24 15:47 100 MLS/HR Lisinopril 20 mg DAILY PO 07/26/24 10:00 07/27/24 12:05 20 MG Furosemide 40 mg DAILY PO 07/27/24 10:00 07/27/24 12:05 40 MG Doxycycline Hyclate 250 ml @ 125 mls/hr Q12HR@0500,1700 IV 07/27/24 17:00 07/28/24 05:10 125 MLS/HR laboratory and microbiology Laboratory Tests 07/27/24 06:47 07/26/24 06:29 Test 07/27/24 06:47 Range/Units Serum Glucose 102 74-106 mg/dL Assessment/Plan Patient is a 73-year-old female who presented on July 16, 2024 for abdominal pain/dysuria and frequency. She had been complaining of low appetite also. While being managed in [facility], the patient was found to be short of breath and cardiology was involved for shortness of breath. Patient denies any chest pains. Patient denies leg swellings. She is poor historian. She is known to our practice from outside. She was lost to follow-up with us years ago. Sleepy female. No JVD. Foyil and wet mucosa. No goiter. Not using accessory muscle of breathing. Scattered rhonchi in the lungs is heard. Cardiac: Regular, tachycardic, no thrill/gallop. Abdomen is soft and obese. There is no gross hepatomegaly. Bowel sound is positive. Extremities reveal 2+ edema bilaterally. 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 WBC: 12.4 - 12.7 - 11.9 - 7.2 - 10.6 - 10.2 - 11.6 -15.2 - 15.9 - 22.0 D-dimer: 14.16 Creatinine: 2.0 - 2.06 - 2.12 - 2.25 - 2.21 - 1.93 - 1.75 - 1.67 - 1.64 - 1.70 - 1.48 Potassium: 4.7 - 4.9 - 4.5 - 4.3 - 4.0 - 4.1 - 4.4 - 4.5 - 4.6 - 5.0 - 5.0 M.9 TSH: 0.57 BNP: 102.05 Trop (high sensitive): 13 - [address] scan revealed: IMPRESSION: 1. No acute abdominal or pelvic finding. 2. Hepatic steatosis. Venous Doppler of lower extremities revealed: Impression: 1. No right or left deep venous thrombosis. Repeat venous duplex of lower ext revealed: Impression: 1. No right or left femoropopliteal venous thrombosis is identified. Nonvisualized right greater saphenous vein. Renal ultrasound revealed: IMPRESSION: 1. Unremarkable examination. Chest x-ray revealed: Findings/Impression: Frontal chest radiograph demonstrates no acute osseous or superficial soft tissue abnormalities. The trachea is midline. Cardiomeagly with pulmonary vascular congestion. Small bilateral pleural effusions with compressive atelectasis. A superimposed infectious process is not excluded. No pneumothorax. CT of head revealed: IMPRESSION: 1. No acute intracranial abnormality. Repeat chest xry revealed: IMPRESSION: 1. Pulmonary edema and bilateral pleural effusions similar to prior study. Repeat chest x-ray revealed: IMPRESSION: 1. Pulmonary interstitial edema and bilateral pleural effusions. Repeat chest xry revealed: IMPRESSION: 1. Pulmonary edema and bilateral pleural effusions similar to prior study. CT guided biopsy of kidney: IMPRESSION: SUCCESSFUL CT GUIDED non targeted BIOPSY OF LOWER POLE OF RIGHT KIDNEY . PLEASE FOLLOW UP WITH PATHOLOGY FOR FINAL RESULTS. V/Q scan reported: IMPRESSION: Low probability for PE. EKG reveals sinus tachycardia with nonspecific ST-T changes Tele reveals sinus tachycardia Echocardiogram reported: Normal left ventricular size and dimension. Normal left ventricular systolic function estimated ejection fraction 50%. There is a grade 1 diastolic dysfunction. Normal right ventricular size and dimension. Normal right ventricular systolic function. Mildly elevated right ventricular systolic [id number] mm of mercury Normal biatrial size and dimension. Normal aortic valve structure and function. Normal mitral valve structure and function. Normal tricuspid valve structure and function. The pulmonary valve is grossly normal. No pericardial effusion. Patient is a 73-year-old female who presented to the hospital with abdominal pain/dysuria and frequency. She was found to have leukocytosis. Presentation is in favor of pneumonia/UTI. Sepsis is considered. Cardiac etiology for presentation is less likely. Still, the patient's D-dimer has been elevated and pulmonary emboli should be ruled out. Chest x-rays reveal congestion in the lungs and component of heart failure can not be ruled out. V/Q scan was against pulmonary Emboli. Venous duplex was against DVT. Encephalopathy, metabolic Acute respiratory failure Pulmonary edema, acute diastolic heart failure Sepsis Urosepsis Pneumonia ARMANDO On CKD Hypertension History of lupus History of psoriatic arthritis Abnormal D-dimer Fatty liver s/p CT guided kidney biopsy Cardiac suggestion for management: Manage in tele IV diuresis Follow-up electrolytes and kidney function tests and correct abnormalities Prophylactic Lovenox Nephrology, Rheumatology and Pulmonary follow up Further evaluation and management depends on the above and clinical course A total of 55 minutes was spent reviewing the patient record, examining the patient, making a diagnostic and therapeutic plan, discussing this plan with medical personnel, following up on diagnostic studies and following the patient for clinical stability excluding any and all procedures. At least 50% of this time was spent in direct, [id number] contact. Thank you for allowing me to participate in this patient's care. Further recommendations will depend on patient's clinical course. Please do not hesitate to contact me if you have any questions or concerns. This medical document was created using electronic medical record system with [employer] (by [email or web address]) computerized dictation system. Although this document has been carefully reviewed, there may still be some phonetic and typographical errors. These areas are purely typographical due to the imperfection of the software programs, and do not reflect any compromise in the patient's medical care. Dietary Evaluation Review Comments: No Eliazar d/t ARMANDO-CKD-3 status, Will reassess her protein needs in 2-3 days. Expected Outcomes/Goals: gradual weight loss. Plan discussed with: Other (nurse) CLAUDE JOHNSON MD Jul 28, 2024 06:05
--- NOTE | 2024-07-28 08:31 | DVHPN2 ---
Reviewed: Care Plan, H&P, Labs, Medications, Previous Orders, Radiology Changes from previous H/P or p: No Changes Eyes: No Pain, No Vision change, No Conjunctivae inflammation, No Eyelid inflammation, No Other, No Redness ENT: No Ear pain, No Ear discharge, No Nose pain, No Nose discharge, No Nose congestion, No Mouth pain, No Mouth swelling, No Throat pain, No Throat swelling, No Other Cardiovascular: No Chest Pain, No Palpitations, No Orthopnea, No Paroxysmal Noc. Dyspnea, No Edema, No Lt Headedness, No Other Respiratory: No Cough, No Dry, No Shortness of breath, No SOB with excertion, No Wheezing, No Hemoptysis, No Pleuritic Pain, No Sputum, No Other Gastrointestinal: No Nausea, No Vomiting; Abdominal Pain; No Diarrhea, No Constipation, No Melena, No Hematochezia, No Other Genitourinary: Dysuria, Frequency; No Incontinence, No Hematuria, No Retention, No Other Musculoskeletal: No other, No neck pain, No shoulder pain, No arm pain, No back pain, No hand pain, No leg pain, No foot pain Skin: Rash Objective Vitals Vital Signs Date Time Temp Pulse Resp B/P (MAP) Pulse Ox O2 Delivery O2 Flow Rate FiO2 07/28/24 07:04 67 18 100 07/28/24 06:58 Nasal Cannula 2.0 07/28/24 06:58 28 07/28/24 05:00 98.1 130/78 (95) 98.1 Intake/Output Intake and Output 07/28/24 07:00 Intake Total 1595 ml Output Total 1850 ml Balance -255 ml Intake Oral 1045 ml IV Total 550 ml Output Urine Total 1850 ml Medications Current Medications Medications Dose Ordered Sig/Kendell Route Start Time Stop Time Status Last Admin Dose Admin Amlodipine Besylate 5 mg DAILY PO 07/17/24 10:00 07/27/24 12:04 5 MG Ceftriaxone Sodium 50 ml @ 100 mls/hr DAILY@09 IV 07/17/24 09:00 07/27/24 12:04 100 MLS/HR Albuterol 2.5 mg Q4HWA NEB 07/16/24 22:00 07/28/24 06:58 2.5 MG Ipratropium [place] 0.5 mg Q4HWA NEB 07/16/24 22:00 07/28/24 06:58 0.5 MG Alprazolam 1 mg TID PRN PO 07/18/24 18:15 07/26/24 05:54 1 MG Labetalol HCl 10 mg Q2HPRN PRN IV 07/18/24 18:15 07/22/24 06:56 10 MG Sevelamer HCl 800 mg TIDWM PO 07/18/24 19:30 07/23/24 17:56 800 MG Throat Lozenges 1 alisha Q2HP PRN MT 07/19/24 17:15 07/20/24 06:26 1 ALISHA Duloxetine HCl 30 mg DAILY PO 07/20/24 10:00 07/27/24 12:14 30 MG Enoxaparin Sodium 40 mg DAILY SC 07/23/24 10:00 Guaifenesin/ Dextromethorphan 15 ml TIDP PRN PO 07/23/24 08:45 07/28/24 05:24 15 ML Docusate Sodium 100 mg BID PO 07/26/24 10:00 07/26/24 22:03 100 MG Fluconazole 100 ml @ 100 mls/hr 10,11 IV 07/26/24 10:00 07/27/24 15:47 100 MLS/HR Lisinopril 20 mg DAILY PO 07/26/24 10:00 07/27/24 12:05 20 MG Furosemide 40 mg DAILY PO 07/27/24 10:00 07/27/24 12:05 40 MG Doxycycline Hyclate 250 ml @ 125 mls/hr Q12HR@0500,1700 IV 07/27/24 17:00 07/28/24 05:10 125 MLS/HR Laboratory Results Laboratory Tests 07/26/24 06:29 07/27/24 06:47 Urinalysis Test 07/19/24 17:45 07/20/24 06:34 Urine Creatinine 81.73 mg/dL (30.0-125.0) Urine Protein/Creatinine Ratio 1.17 Urine Sodium 14 mmol/L (40-220) L Urine Total Protein 95.5 mg/dL (1-14) H Urine Color Colorless (Yellow) Urine Clarity Turbid (Clear) H Urine pH 5.0 (5.0-9.0) Urine Specific [place] 1.007 (1.001-1.035) Urine Protein Trace (Negative) H Urine Ketones Negative (Negative) Urine Blood 2+ /uL (Negative) H Urine Nitrite Negative (Negative) Urine Bilirubin Negative (Negative) Urine Urobilinogen Normal mg/dL (Negative) Urine Leukocyte Esterase 1+ /uL (Negative) Urine RBC 205 /hpf (0 - 4) Urine WBC 25 /hpf (0 - 5) Urine Squamous Epithelial Cells Few /hpf (<5) Urine Bacteria Few /hpf (None Seen) H Urine Mucus Few (None Seen) Urine Glucose Normal mg/dL (Normal) Microbiology Microbiology Date/Time Source Procedure Growth Status 07/19/24 03:50 Sputum Gram Stain - Final Complete 07/19/24 03:50 Respiratory Culture - Final Presumptive Dana albicans Complete 07/18/24 05:53 Nose MRSA Screen - Final Complete 07/16/24 14:42 Blood Blood Culture - Final NO GROWTH AFTER 5 DAYS OF INCUBATION. Complete 07/16/24 07:30 Voided Urine Urine Culture - Final Complete Assessment/Plan Assessment/Plan Acute hypoxic respiratory failure: Improving now one 2 L of oxygen by nasal cannula pulmonary consult by Dr. Minor appreciated. Chest x-ray shows bilateral small pleural effusions Possible bilateral community-acquired pneumonia, continue Rocephin add doxycycline Acute on chronic congestive heart failure: Cardiology consult appreciated Sepsis secondary to urinary tract infection: Blood cultures negative, urine cultures negative, continue Rocephin Yeast in the sputum: P.o. 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 Grubbs appreciated History of seizures Moderate obesity High level of anxiety: Xanax DVT bilateral lower extremity ruled out Plan discussed with: Patient My Orders Orders - JESUS VILLANUEVA MD Procedure Category Date Status Time * Destination Coordinator CONS 07/27/24 Transmitted Consult Doxycycline PHA 07/27/24 In Process 100mg/250ml 17:00 Lactulose Oral PHA 11/15/24 Logged 08:30 Date of Service: Jul 28, 2024 Billing Provider: JESUS VILLANUEVA MD Common Visit Codes: [id number] INP/OBS CARE(HIGH) JESUS VILLANUEVA MD Jul 28, 2024 08:31
--- NOTE | 2024-07-28 08:37 | DVHDS2 ---
Discharge Summary Date of Admission Jul 16, 2024 at 12:43 Date of Discharge: Jul 28, 2024 Admitting Diagnosis Shortness of breath Wounds: None Labs/Diagnostic Data: Laboratory Results Test 07/27/24 06:47 07/26/24 10:33 07/26/24 06:29 07/25/24 10:40 Sodium Level 141 mmol/L (136-145) Potassium Level 5.0 mmol/L (3.5-5.1) Chloride Level 102 mmol/L (98-107) Carbon Dioxide Level 31 mmol/L (20-31) Anion Gap 8 (5-15) Blood Urea Nitrogen 66 mg/dL (9-23) Creatinine 1.48 mg/dL (0.550-1.02) Glomerular Filtration Rate Calc 37 mL/min (>90) BUN/Creatinine Ratio 44.6 (10.0-20.0) Serum Glucose 102 mg/dL (74-106) Calcium Level 9.3 mg/dL (8.7-10.4) Blood Gas Specimen Type Arterial Blood Gas Sample Site Right radial Blood Gas Patient Temperature 37.0 Arterial Blood Date Drawn [id number] Arterial Blood pH 7.506 (7.350-7.450) Arterial Blood Partial Pressure CO2 41.3 mmHg (32.0-45.0) Arterial Blood Partial Pressure O2 64.8 mmHg (83.0-108.0) Arterial Blood HCO3 31.9 mmol/L (21.0-28.0) Arterial Blood Oxygen Saturation 93.3 % (94.0-98.0) Arterial Blood Base Excess 8.1 mmol/L (-2.0-3.0) Arterial Blood Oxyhemoglobin 92.3 % (94.0-98.0) Arterial Blood Carboxyhemoglobin 0.6 % (0.5-1.5) Arterial Blood Methemoglobin 0.5 % (0.0-1.5) Gen Test Yes Blood Gas Total Hemoglobin 14.00 g/dL (12.0-16.0) Blood Gas Modality Room air FiO2 % 21.0 White Blood Count 22.0 10^3/uL (4.4-10.8) Red Blood Count 4.63 10^6/uL (4.0-5.20) Hemoglobin 13.3 g/dL (12.2-16.2) Hematocrit 41.6 % (36.0-46.0) Mean Corpuscular Volume 89.9 fL (80.0-100.0) Mean Corpuscular Hemoglobin 28.9 pg (28.0-32.0) Mean Corpuscular Hemoglobin Concent 32.1 g/dL (32.0-36.0) Red Cell Distribution Width 13.9 % (11.8-14.3) Platelet Count 387 10^3/uL (140-450) Mean Platelet Volume 7.6 fL (6.9-10.8) Neutrophils (%) (Auto) 78.8 % (37.0-80.0) Lymphocytes (%) (Auto) 12.6 % (10.0-50.0) Monocytes (%) (Auto) 8.4 % (0.0-12.0) Eosinophils (%) (Auto) 0.1 % (0.0-7.0) Basophils (%) (Auto) 0.1 % (0.0-2.0) Neutrophils # (Auto) 17.4 10 ^3/uL (1.6-8.6) Lymphocytes # (Auto) 2.8 10 ^3/uL (0.4-5.4) Monocytes # (Auto) 1.9 10 ^3/uL (0-1.3) Eosinophils # (Auto) 0 10 ^3/uL (0-0.8) Basophils # (Auto) 0 10 ^3/uL (0-0.2) Nucleated Red Blood Cells 0.0 % Total Bilirubin 0.5 mg/dL (0.2-1.0) Direct Bilirubin 0.2 mg/dL (<0.3) Aspartate Amino Transferase (AST) 34 U/L (13-40) Alanine Aminotransferase (ALT) 56 U/L (7-40) Alkaline Phosphatase 76 U/L (46-116) Total Protein 6.9 g/dL (5.7-8.2) Albumin 3.7 g/dL (3.2-4.8) Erythrocyte Sedimentation Rate 18 mm/hr (0-20) Phosphorus Level 5.2 mg/dL (2.4-5.1) Test 07/24/24 12:40 07/21/24 10:32 07/20/24 12:30 07/20/24 06:34 Differential Total Cells Counted 100.0 (100) Neutrophils % (Manual) 76 (37.0-80.0) Band Neutrophils % (Manual) 2 Lymphocytes % (Manual) 17 (10.0-50.0) Monocytes % (Manual) 5 (0-12) Eosinophils % (Manual) 0 (0-7) Basophils % (Manual) 0 (0.0-2.0) Metamyelocytes % (manual) 0 Myelocytes % (Manual) 0 Promyelocytes % (Manual) 0 Blast Cells % (Manual) 0 Reactive Lymphocytes 0 Platelet Estimate Increased Cytoplasmic ANCA (c-ANCA) Antibody <1:20 titer (Neg:<1:20) Anti-Proteinase 3 (c-ANCA) <0.2 units (0.0-0.9) Atypical p-ANCA <1:20 titer (Neg:<1:20) Perinuclear ANCA (p-ANCA) Antibody <1:20 titer (Neg:<1:20) Myeloperoxidase Antibody <0.2 units (0.0-0.9) Prothrombin Time 13.0 sec (9.3-11.8) Prothrombin Time INR 1.25 (0.9-1.15) Activated Partial Thromboplast Time 29.2 SEC (24.5-34.5) Urine Color Colorless (Yellow) Urine Clarity Turbid (Clear) Urine pH 5.0 (5.0-9.0) Urine Specific [place] 1.007 (1.001-1.035) Urine Protein Trace (Negative) Urine Ketones Negative (Negative) Urine Blood 2+ /uL (Negative) Urine Nitrite Negative (Negative) Urine Bilirubin Negative (Negative) Urine Urobilinogen Normal mg/dL (Negative) Urine Leukocyte Esterase 1+ /uL (Negative) Urine RBC 205 /hpf (0 - 4) Urine WBC 25 /hpf (0 - 5) Urine Squamous Epithelial Cells Few /hpf (<5) Urine Bacteria Few /hpf (None Seen) Urine Mucus Few (None Seen) Urine Glucose Normal mg/dL (Normal) Test 07/19/24 17:45 07/19/24 04:40 07/18/24 18:10 07/18/24 16:42 Urine Creatinine 81.73 mg/dL (30.0-125.0) Urine Protein/Creatinine Ratio 1.17 Urine Sodium 14 mmol/L (40-220) Urine Total Protein 95.5 mg/dL (1-14) Magnesium Level 1.9 mg/dL (1.6-2.6) Troponin I High Sensitivity 11 ng/L (</=34) POC Glucose 129 mg/dl (70-106) Test 07/18/24 08:54 07/18/24 08:45 07/18/24 07:06 07/17/24 14:56 D-Dimer, Quantitative 14.16 mg/L FEU (0.0-0.49) B-Type Natriuretic Peptide 102.05 pg/mL (0-100) Anti-Nuclear Antibody Comment Comment (.) CRISTHIAN-1 Antibody <0.2 AI (0.0-0.9) SS-A/Ro Antibody <0.2 AI (0.0-0.9) SS-B/La Antibody <0.2 AI (0.0-0.9) Sm Antibody <0.2 AI (0.0-0.9) GROUND [employer]MENT MECH[employer]IC Antibody 1.7 AI (0.0-0.9) Scl-70 (Scleroderma) Antibody <0.2 AI (0.0-0.9) Anti-Double Strand DNA Antibody <1 IU/mL (0-9) Chromatin Antibody <0.2 AI (0.0-0.9) Centromere B Antibody <0.2 AI (0.0-0.9) Complement C3 160 mg/dL (82-167) Complement C4 27 mg/dL (12-38) Influenza Type A Antigen Negative (Negative) Influenza Type B Antigen Negative (Negative) SARS-CoV-2 Antigen (Rapid) Negative (NEGATIVE) Blood Gas Set Respiration Rate 12.0 Blood Gas Spontaneous Rate 20 Blood Gas Spontaneous Tidal Volume 496 Blood Gas EPAP 8 Blood Gas IPAP 16 Blood Gas Liter Flow 3.00 Test 07/17/24 06:58 07/16/24 06:57 Uric Acid 6.5 mg/dL (3.1-7.8) Thyroid Stimulating Hormone (TSH) 0.57 uIU/mL (0.55-4.78) Parathyroid Hormone (Intact) 254.1 pg/mL (18.4-80.1) Lipase 21 U/L (12-53) Other Laboratory Tests 07/27/24 06:47 07/26/24 06:29 Brief Hx & Hospital Course: 73-year-old female with a history of congestive heart failure hypotension lupus vasculitis came in and admitted for shortness of breaths. Chest x-ray showed bilateral small pleural effusions patient has community-acquired pneumonia treated with Rocephin and doxycycline acute on chronic congestive heart failure treated with Lasix> seen by hearing aide technician Dr. Alvarado. Patient had yeast in the sputum started on Diflucan. Acute kidney injury addressed by metal sheet roller operator Dr. Alvarado. Seen by suit attendant Dr. Grubbs. Patient had kidney biopsy which ruled out lupus nephritis DVT bilateral lower extremities ruled out patient also has a history of seizures. D-dimer elevated 14.6. DVT ruled out. PE ruled out by negative V/Q scan Patient is being discharged to shelter facility for rehab. General condition stable but poor at the time of discharge. Consults/Reason for consult Pulmonology Dr. Minor CardiologyDr Simpson Rheumatology Dr. Grubbs Operations or Procedures CT chest without contrast Venous ultrasound bilateral lower extremities Condition at Discharge: Poor Final Diagnosis/Problems List Acute hypoxic respiratory failure: Improving now one 2 L of oxygen by nasal cannula pulmonary consult by Dr. Minor appreciated. Chest x-ray shows bilateral small pleural effusions Possible bilateral community-acquired pneumonia, continue Rocephin add doxycycline Acute on chronic congestive heart failure: Cardiology consult appreciated Sepsis secondary to urinary tract infection: Blood cultures negative, urine cultures negative, continue Rocephin Yeast in the sputum: P.o. Diflucan changed to IV as the patient is unable to swallow Hypertension: Hydralazine discontinued and started on labetalol by the suit attendant Acute metabolic encephalopathy: CT head ordered to rule out any intracranial pathology Acute kidney injury: Nephrology consult appreciated, kidney biopsy ruled out lupus nephritis Bilateral upper and lower extremity vasculitis D-dimer elevated 14.6 DVT ruled out PE ruled out by negative V/Q scan: Therapeutic Lovenox discontinued and started on prophylactic Lovenox CT abdomen pelvis negative Kidney ultrasound negative History of lupus under the care of , rheumatology consult by Dr. Grubbs appreciated History of seizures Moderate obesity High level of anxiety: Xanax DVT bilateral lower extremity ruled out Discharge Disposition: [facility] Discharge Instruct/Medications Diet: Renal Activity: Light activity Follow Up/Referral: Follow up with the [facility] Dr Follow up with the pulmonology Dr. Minor in one week Follow up with Nephrology Dr Alvarado in one week Follow up with the Cardiology Dr.Al Santos in one week Medications: see list 45 (Time taken for discharge summary 45 minutes) Discharge Statement: "Patient was advised to return to the ER or call 911 if any headaches, dizziness, shortness of breath, chest pain, abdominal pain, bleeding, fevers, or worsening of medical condition. Patient was counseled about treatment plan, medications, possible side effects, patientverbalized understanding. All questions were answered to the best of my ability. This discharge took greater then 30 minutes in planning, reviewing documentation, counseling the patient, and discussing with other team members." ASSESSMENT ASSESSMENT Hospital Course Improved Assessment Acute hypoxic respiratory failure: Improving now one 2 L of oxygen by nasal cannula pulmonary consult by Dr. Minor appreciated. Chest x-ray shows bilateral small pleural effusions Possible bilateral community-acquired pneumonia, continue Rocephin add doxycycline Acute on chronic congestive heart failure: Cardiology consult appreciated Sepsis secondary to urinary tract infection: Blood cultures negative, urine cultures negative, continue Rocephin Yeast in the sputum: P.o. Diflucan changed to IV as the patient is unable to swallow Hypertension: Hydralazine discontinued and started on labetalol by the suit attendant Acute metabolic encephalopathy: CT head ordered to rule out any intracranial pathology Acute kidney injury: Nephrology consult appreciated, kidney biopsy ruled out lupus nephritis Bilateral upper and lower extremity vasculitis D-dimer elevated 14.6 DVT ruled out PE ruled out by negative V/Q scan: Therapeutic Lovenox discontinued and started on prophylactic Lovenox CT abdomen pelvis negative Kidney ultrasound negative History of lupus under the care of , rheumatology consult by Dr. Grubbs appreciated History of seizures Moderate obesity High level of anxiety: Xanax DVT bilateral lower extremity ruled out Date of Service: Jul 28, 2024 Billing Provider: JESUS VILLANUEVA MD Common Visit Codes: 18324-EZE/OBS DISCH DAY >30min JESUS VILLANUEVA MD Jul 28, 2024 08:37
[2024-07-28] MEDS: LACTULOSE 20Gm/30ML SOLN PO ONE (10:05)
[2024-07-28] MEDS: FLEET ENEMA(ADULT) 135 ML PR ONE (14:59)
--- NOTE | 2024-07-28 15:07 | DVHPN2 ---
Progress Note - Dictate Date Seen: Jul 28, 2024 Has the PT tested + for MRSA If YES, has PT been informed?: No Medical Necessity Reason Pt with a Central, PICC or Fol: Yes The following are medically ne: Patino Catheter Reason for patino catheter: Strict I&O Subjective uop 2L vital signs Vital Sign Date Time Temp Pulse Resp B/P (MAP) Pulse Ox O2 Delivery O2 Flow Rate FiO2 07/28/24 14:05 71 19 102/59 96 2.0 28 07/28/24 10:00 Nasal Cannula 07/28/24 09:00 98.3 98.3 Total Intake and Output 07/27/24 07/27/24 07/28/24 15:00 23:00 07:00 Intake Total 100 ml 1200 ml 295 ml Output Total 850 ml 1000 ml Balance 100 ml 350 ml -705 ml medications Current Medications Medications Dose Ordered Sig/Kendell Route Start Time Stop Time Status Last Admin Dose Admin Amlodipine Besylate 5 mg DAILY PO 07/17/24 10:00 07/27/24 12:04 5 MG Albuterol 2.5 mg Q4HWA NEB 07/16/24 22:00 07/28/24 06:58 2.5 MG Ipratropium [place] 0.5 mg Q4HWA NEB 07/16/24 22:00 07/28/24 06:58 0.5 MG Alprazolam 1 mg TID PRN PO 07/18/24 18:15 07/26/24 05:54 1 MG Labetalol HCl 10 mg Q2HPRN PRN IV 07/18/24 18:15 07/22/24 06:56 10 MG Sevelamer HCl 800 mg TIDWM PO 07/18/24 19:30 07/23/24 17:56 800 MG Throat Lozenges 1 alisha Q2HP PRN MT 07/19/24 17:15 07/20/24 06:26 1 ALISHA Duloxetine HCl 30 mg DAILY PO 07/20/24 10:00 07/28/24 10:11 30 MG Enoxaparin Sodium 40 mg DAILY SC 07/23/24 10:00 Guaifenesin/ Dextromethorphan 15 ml TIDP PRN PO 07/23/24 08:45 07/28/24 05:24 15 ML Docusate Sodium 100 mg BID PO 07/26/24 10:00 07/26/24 22:03 100 MG Fluconazole 100 ml @ 100 mls/hr 10,11 IV 07/26/24 10:00 07/28/24 12:26 100 MLS/HR Lisinopril 20 mg DAILY PO 07/26/24 10:00 07/27/24 12:05 20 MG Furosemide 40 mg DAILY PO 07/27/24 10:00 07/28/24 10:16 40 MG Doxycycline Hyclate 250 ml @ 125 mls/hr Q12HR@0500,1700 IV 07/27/24 17:00 07/28/24 05:10 125 MLS/HR objective obese white female NAD no further edema rrr b/l foot wounds in pressure dressing laboratory and microbiology Laboratory Tests 07/27/24 06:47 07/26/24 06:29 Test 07/27/24 06:47 Range/Units Serum Glucose 102 74-106 mg/dL Assessment/Plan Acute kidney injury hemodynamically mediated Chronic kidney disease stage 2 GFR 60% in 09/2023 IgA Lupus Psoriatic arthritis Sepsis with open wound Hyperphosphatemia pending disposition, labs will be reviewed tomorrow if remains hospitalized Status post kidney biopsy 07/24/24- IgA w/ crescents . No lupus nephritis. Given she has already received steroids will not dose further obtain new urine protein cr ratio. previous 1gm Rheumatology diuretics convert to po once a day as clinically edema has resolved Phosphorus binders with meal, phosphorus reduced diet start losartan if BP tolerates stable o continue outpatient followup with Dr. Loomis in clinic Dietary Evaluation Review Comments: No Eliazar d/t ARMANDO-CKD-3 status, Will reassess her protein needs in 2-3 days. Expected Outcomes/Goals: gradual weight loss. Plan discussed with: Patient FRANKLIN GARCÍA MD Jul 28, 2024 15:07
--- NOTE | 2024-07-28 19:07 | DVHPN2 ---
Progress Note - Dictate Date Seen: Jul 28, 2024 Has the PT tested + for MRSA If YES, has PT been informed?: No Medical Necessity Reason Pt with a Central, PICC or Fol: Yes The following are medically ne: Patino Catheter Reason for patino catheter: Strict I&O Subjective Patient seen and examined at bedside. On supplemental oxygen Overnight events reviewed. vital signs Vital Sign Date Time Temp Pulse Resp B/P (MAP) Pulse Ox O2 Delivery O2 Flow Rate FiO2 07/28/24 18:57 93 18 98 07/28/24 18:57 Nasal Cannula 2.0 07/28/24 18:57 28 07/28/24 17:19 97.2 102/40 (60) 97.2 Total Intake and Output 07/27/24 07/27/24 07/28/24 15:00 23:00 07:00 Intake Total 100 ml 1200 ml 295 ml Output Total 850 ml 1000 ml Balance 100 ml 350 ml -705 ml medications Current Medications Medications Dose Ordered Sig/Kendell Route Start Time Stop Time Status Last Admin Dose Admin Amlodipine Besylate 5 mg DAILY PO 07/17/24 10:00 07/27/24 12:04 5 MG Albuterol 2.5 mg Q4HWA NEB 07/16/24 22:00 07/28/24 18:59 2.5 MG Ipratropium [place] 0.5 mg Q4HWA NEB 07/16/24 22:00 07/28/24 18:59 0.5 MG Alprazolam 1 mg TID PRN PO 07/18/24 18:15 07/26/24 05:54 1 MG Labetalol HCl 10 mg Q2HPRN PRN IV 07/18/24 18:15 07/22/24 06:56 10 MG Sevelamer HCl 800 mg TIDWM PO 07/18/24 19:30 07/23/24 17:56 800 MG Throat Lozenges 1 alisha Q2HP PRN MT 07/19/24 17:15 07/20/24 06:26 1 ALISHA Duloxetine HCl 30 mg DAILY PO 07/20/24 10:00 07/28/24 10:11 30 MG Enoxaparin Sodium 40 mg DAILY SC 07/23/24 10:00 Guaifenesin/ Dextromethorphan 15 ml TIDP PRN PO 07/23/24 08:45 07/28/24 05:24 15 ML Docusate Sodium 100 mg BID PO 07/26/24 10:00 07/26/24 22:03 100 MG Fluconazole 100 ml @ 100 mls/hr 10,11 IV 07/26/24 10:00 07/28/24 12:26 100 MLS/HR Lisinopril 20 mg DAILY PO 07/26/24 10:00 07/27/24 12:05 20 MG Furosemide 40 mg DAILY PO 07/27/24 10:00 07/28/24 10:16 40 MG Doxycycline Hyclate 250 ml @ 125 mls/hr Q12HR@0500,1700 IV 07/27/24 17:00 07/28/24 17:19 125 MLS/HR objective Gen.: Patient lying in bed in no apparent distress. On supplemental oxygen. Head: Normocephalic, atraumatic. Eyes: EOMI/PERRLA. Ears: Normal hearing. Normal anatomy. Neck/trachea: Trachea midline, supple. Nose: Normal external anatomy. Mouth: Moist mucous membranes. Chest: Decreased air entry bilaterally. No wheezing or rhonchi. Cardiovascular: Positive S1, positive S2. Regular rate and rhythm. Abdomen: Positive bowel sounds in all 4 quadrants. Soft, non-tender, non- distended. : Deferred. Rectal: Deferred. Skin: Warm, dry. Intact. Extremities: 2+ radial pulses bilaterally. No lower extremity edema. Neuro: Awake, alert, oriented x3. No gross motor or sensory deficits. Cranial nerves II through XII intact. Gait not assessed. laboratory and microbiology Laboratory Tests 07/27/24 06:47 07/26/24 06:29 Test 07/27/24 06:47 Range/Units Serum Glucose 102 74-106 mg/dL Assessment/Plan Impression: Sepsis secondary to UTI Acute hypoxic respiratory failure Pleural effusion Atelectasis Acute kidney injury Bilateral upper and lower extremity vasculitis Deep vein thrombosis ruled out Morbid obesity with a BMI of 40 Anxiety Seizure disorder Acute on chronic hypercarbic respiratory failure AMS 2/2 acute on chronic hypercarbic respiratory failure Pulmonary embolism ruled out Events: Currently on supplemental O2 at 2 LPM NC Taper O2 as tolerated Continue antibiotics Continue fluconazole. Complete steroid course Incentive spirometry HOB elevation Aspiration precautions. Pain control Avoid oversedation Stool softeners/Lactulose for constipation. On therapeutic Lovenox Diurese w/ Lasix 40 mg PO QD Monitor renal function Monitor electrolytes, supplement as necessary Disposition per hospitalist. Labs and imaging reviewed. Rest of plan as noted below Plan: Supplemental O2 Keep O2 saturation above 92% Bronchodilators IV steroids Chest x-ray imaging report reviewed. No pneumothorax. Small bilateral pleural effusion with compressive atelectasis. Pulmonary vascular congestion Continue antibiotics Follow up cultures Blood cx show no growth. Sputum cx: Presumptive C Albicans. Ultrasound venous Doppler lower extremities is negative for any acute DVT. CT abdomen and pelvis lung windows revealed there were small bilateral pleural effusions and bibasilar atelectasis. V/q scan Low prob of PE. Anxiolytic as needed for anxiety Diurese to euvolemia Monitor ins and outs. Monitor renal function Monitor electrolytes. Supplement as necessary. Diet and lifestyle modifications for weight reduction given morbid obesity. DVT prophylaxis Prognosis: Poor given multiple comorbidities. Rest of plan per hospitalist and other consultants. A total of 51 minutes of clinical care time was spent reviewing the patient record, examining the patient, making a diagnostic and therapeutic plan, discussing this plan with the medical personnel, following up on diagnostic studies and following the patient for clinical stability excluding any and all procedures. At least 50% of this time was spent in direct, [id number] contact. Thank you Dr. Joanie Alvarez for allowing me to participate in this patient's care. Further recommendations will depend on patient's clinical course. Please do not hesitate to contact me if you have any questions or concerns. This medical document was created using an electronic medical record system with [employer] dictation system. Although this document has been carefully reviewed, there may still be some phonetic and typographical errors. These areas are purely typographical due to imperfections of the software programs, and do not reflect any compromise in the patient's medical care. Dietary Evaluation Review Comments: No Eliazar d/t ARMANDO-CKD-3 status, Will reassess her protein needs in 2-3 days. Expected Outcomes/Goals: gradual weight loss. Plan discussed with: Patient, Other (FATIMAH Alvarez) GUALBERTO POZO MD Jul 28, 2024 19:07
[2024-07-29] VITALS (8 sets, daily range): BP systolic 103–142; BP diastolic 43–61; PULSE 77–84; RESP 18–20; TEMP 97.9–98.4; O2SAT 95–99
[2024-07-29 07:08] LABS: Anion Gap 8 (5-15); Carbon Dioxide 31 mmol/L (20-31); Chloride 103 mmol/L (98-107); Potassium 4.4 mmol/L (3.5-5.1); Sodium 142 mmol/L (136-145)
[2024-07-29 07:10] LABS: Calcium 9.2 mg/dL (8.7-10.4)
[2024-07-29 07:14] LABS: BUN/Creatinine Ratio 31.5 (10.0-20.0); Glucose 147 mg/dL (74-106)
[2024-07-29 07:16] LABS: Blood Urea Nitrogen 51 mg/dL (9-23)
--- NOTE | 2024-07-29 10:09 | DVHPN2 ---
Reviewed: Care Plan, H&P, Labs, Medications, Previous Orders, Radiology Changes from previous H/P or p: No Changes Eyes: No Pain, No Vision change, No Conjunctivae inflammation, No Eyelid inflammation, No Other, No Redness ENT: No Ear pain, No Ear discharge, No Nose pain, No Nose discharge, No Nose congestion, No Mouth pain, No Mouth swelling, No Throat pain, No Throat swelling, No Other Cardiovascular: No Chest Pain, No Palpitations, No Orthopnea, No Paroxysmal Noc. Dyspnea, No Edema, No Lt Headedness, No Other Respiratory: No Cough, No Dry, No Shortness of breath, No SOB with excertion, No Wheezing, No Hemoptysis, No Pleuritic Pain, No Sputum, No Other Gastrointestinal: No Nausea, No Vomiting; Abdominal Pain; No Diarrhea, No Constipation, No Melena, No Hematochezia, No Other Genitourinary: Dysuria, Frequency; No Incontinence, No Hematuria, No Retention, No Other Musculoskeletal: No other, No neck pain, No shoulder pain, No arm pain, No back pain, No hand pain, No leg pain, No foot pain Skin: Rash Objective Vitals Vital Signs Date Time Temp Pulse Resp B/P (MAP) Pulse Ox O2 Delivery O2 Flow Rate FiO2 07/29/24 09:36 95 Nasal Cannula* 2 28 07/29/24 09:00 97.9 79 18 142/54 (83) 97.9 Intake/Output Intake and Output 07/29/24 07:00 Intake Total 810 ml Output Total 1600 ml Balance -790 ml Intake Oral 610 ml IV Total 200 ml Output Urine Total 1600 ml Medications Current Medications Medications Dose Ordered Sig/Kendell Route Start Time Stop Time Status Last Admin Dose Admin Amlodipine Besylate 5 mg DAILY PO 07/17/24 10:00 07/29/24 08:49 5 MG Albuterol 2.5 mg Q4HWA NEB 07/16/24 22:00 07/28/24 18:59 2.5 MG Ipratropium [place] 0.5 mg Q4HWA NEB 07/16/24 22:00 07/28/24 18:59 0.5 MG Alprazolam 1 mg TID PRN PO 07/18/24 18:15 07/26/24 05:54 1 MG Labetalol HCl 10 mg Q2HPRN PRN IV 07/18/24 18:15 07/22/24 06:56 10 MG Sevelamer HCl 800 mg TIDWM PO 07/18/24 19:30 07/23/24 17:56 800 MG Throat Lozenges 1 alisha Q2HP PRN MT 07/19/24 17:15 07/20/24 06:26 1 ALISHA Duloxetine HCl 30 mg DAILY PO 07/20/24 10:00 07/29/24 08:49 30 MG Enoxaparin Sodium 40 mg DAILY SC 07/23/24 10:00 Guaifenesin/ Dextromethorphan 15 ml TIDP PRN PO 07/23/24 08:45 07/28/24 05:24 15 ML Docusate Sodium 100 mg BID PO 07/26/24 10:00 07/26/24 22:03 100 MG Fluconazole 100 ml @ 100 mls/hr 10,11 IV 07/26/24 10:00 07/29/24 08:43 100 MLS/HR Lisinopril 20 mg DAILY PO 07/26/24 10:00 07/29/24 08:49 20 MG Furosemide 40 mg DAILY PO 07/27/24 10:00 07/29/24 08:48 40 MG Doxycycline Hyclate 250 ml @ 125 mls/hr Q12HR@0500,1700 IV 07/27/24 17:00 07/29/24 05:38 125 MLS/HR Laboratory Results Laboratory Tests 07/26/24 06:29 07/29/24 06:23 Chemistry Test 07/29/24 06:23 Calcium Level 9.2 mg/dL (8.7-10.4) Urinalysis Test 07/19/24 17:45 07/20/24 06:34 Urine Creatinine 81.73 mg/dL (30.0-125.0) Urine Protein/Creatinine Ratio 1.17 Urine Sodium 14 mmol/L (40-220) L Urine Total Protein 95.5 mg/dL (1-14) H Urine Color Colorless (Yellow) Urine Clarity Turbid (Clear) H Urine pH 5.0 (5.0-9.0) Urine Specific [place] 1.007 (1.001-1.035) Urine Protein Trace (Negative) H Urine Ketones Negative (Negative) Urine Blood 2+ /uL (Negative) H Urine Nitrite Negative (Negative) Urine Bilirubin Negative (Negative) Urine Urobilinogen Normal mg/dL (Negative) Urine Leukocyte Esterase 1+ /uL (Negative) Urine RBC 205 /hpf (0 - 4) Urine WBC 25 /hpf (0 - 5) Urine Squamous Epithelial Cells Few /hpf (<5) Urine Bacteria Few /hpf (None Seen) H Urine Mucus Few (None Seen) Urine Glucose Normal mg/dL (Normal) Microbiology Microbiology Date/Time Source Procedure Growth Status 07/19/24 03:50 Sputum Gram Stain - Final Complete 07/19/24 03:50 Respiratory Culture - Final Presumptive Dana albicans Complete 07/18/24 05:53 Nose MRSA Screen - Final Complete 07/16/24 14:42 Blood Blood Culture - Final NO GROWTH AFTER 5 DAYS OF INCUBATION. Complete 07/16/24 07:30 Voided Urine Urine Culture - Final Complete Labs and/or images reviewed: Labs reviewed by me, Image(s) reviewed by me Assessment/Plan Assessment/Plan Acute hypoxic respiratory failure: Improving now one 2 L of oxygen by nasal cannula pulmonary consult by Dr. Minor appreciated. Chest x-ray shows bilateral small pleural effusions Possible bilateral community-acquired pneumonia, continue Rocephin add doxycycline Acute on chronic congestive heart failure: Cardiology consult appreciated Sepsis secondary to urinary tract infection: Blood cultures negative, urine cultures negative, continue Rocephin Yeast in the sputum: P.o. Diflucan changed to IV as the patient is unable to swallow Hypertension: Hydralazine discontinued and started on labetalol by the cement mason helper Acute metabolic encephalopathy: CT head ordered to rule out any intracranial pathology Acute kidney injury: Nephrology consult appreciated, kidney biopsy ruled out lupus nephritis Bilateral upper and lower extremity vasculitis D-dimer elevated 14.6 DVT ruled out PE ruled out by negative V/Q scan: Therapeutic Lovenox discontinued and started on prophylactic Lovenox CT abdomen pelvis negative Kidney ultrasound negative History of lupus under the care of , rheumatology consult by Dr. Grubbs appreciated History of seizures Moderate obesity High level of anxiety: Xanax DVT bilateral lower extremity ruled out Patient was discharged to intermediate facility for rehab on 07/27/2024 Awaiting authorization from patient's insurance. Plan discussed with: Patient Date of Service: Jul 29, 2024 Billing Provider: JESUS VILLANUEVA MD Common Visit Codes: [id number] INP/OBS CARE(HIGH) JESUS VILLANUEVA MD Jul 29, 2024 10:09
--- NOTE | 2024-07-29 18:32 | DVHPN2 ---
Progress Note - Dictate Date Seen: Jul 29, 2024 Has the PT tested + for MRSA If YES, has PT been informed?: No Medical Necessity Reason Pt with a Central, PICC or Fol: Yes The following are medically ne: Patino Catheter Reason for patino catheter: Strict I&O Subjective Patient seen and examined at bedside. On supplemental oxygen Overnight events reviewed. vital signs Vital Sign Date Time Temp Pulse Resp B/P (MAP) Pulse Ox O2 Delivery O2 Flow Rate FiO2 07/29/24 13:32 97 Nasal Cannula* 2 28 07/29/24 13:00 97.9 79 18 140/61 (87) 97.9 Total Intake and Output 07/28/24 07/28/24 07/29/24 15:00 23:00 07:00 Intake Total 200 ml 360 ml 250 ml Output Total 850 ml 750 ml Balance 200 ml -490 ml -500 ml objective Gen.: Patient lying in bed in no apparent distress. On supplemental oxygen. Head: Normocephalic, atraumatic. Eyes: EOMI/PERRLA. Ears: Normal hearing. Normal anatomy. Neck/trachea: Trachea midline, supple. Nose: Normal external anatomy. Mouth: Moist mucous membranes. Chest: Decreased air entry bilaterally. No wheezing or rhonchi. Cardiovascular: Positive S1, positive S2. Regular rate and rhythm. Abdomen: Positive bowel sounds in all 4 quadrants. Soft, non-tender, non- distended. : Deferred. Rectal: Deferred. Skin: Warm, dry. Intact. Extremities: 2+ radial pulses bilaterally. No lower extremity edema. Neuro: Awake, alert, oriented x3. No gross motor or sensory deficits. Cranial nerves II through XII intact. Gait not assessed. laboratory and microbiology Laboratory Tests 07/29/24 06:23 07/26/24 06:29 Test 07/29/24 06:23 Range/Units Serum Glucose 147 H 74-106 mg/dL Assessment/Plan Impression: Sepsis secondary to UTI Acute hypoxic respiratory failure Pleural effusion Atelectasis Acute kidney injury Bilateral upper and lower extremity vasculitis Deep vein thrombosis ruled out Morbid obesity with a BMI of 40 Anxiety Seizure disorder Acute on chronic hypercarbic respiratory failure AMS 2/2 acute on chronic hypercarbic respiratory failure Pulmonary embolism ruled out Events: Currently on supplemental O2 at 2 LPM NC Taper O2 as tolerated Continue antibiotics Continue fluconazole. Complete steroid course Incentive spirometry HOB elevation Aspiration precautions. Pain control Avoid oversedation Stool softeners/Lactulose for constipation. On therapeutic Lovenox Diurese w/ Lasix 40 mg PO QDaily Monitor renal function Monitor electrolytes, supplement as necessary. Creatinine trending up slightly. Pt stable from pulmonary standpoint for discharge. Disposition per hospitalist. Labs and imaging reviewed. Rest of plan as noted below Plan: Supplemental O2 Keep O2 saturation above 92% Bronchodilators IV steroids Chest x-ray imaging report reviewed. No pneumothorax. Small bilateral pleural effusion with compressive atelectasis. Pulmonary vascular congestion Continue antibiotics Follow up cultures Blood cx show no growth. Sputum cx: Presumptive C Albicans. Ultrasound venous Doppler lower extremities is negative for any acute DVT. CT abdomen and pelvis lung windows revealed there were small bilateral pleural effusions and bibasilar atelectasis. V/q scan Low prob of PE. Anxiolytic as needed for anxiety Diurese to euvolemia Monitor ins and outs. Monitor renal function Monitor electrolytes. Supplement as necessary. Diet and lifestyle modifications for weight reduction given morbid obesity. DVT prophylaxis Prognosis: Poor given multiple comorbidities. Rest of plan per hospitalist and other consultants. A total of 51 minutes of clinical care time was spent reviewing the patient record, examining the patient, making a diagnostic and therapeutic plan, discussing this plan with the medical personnel, following up on diagnostic studies and following the patient for clinical stability excluding any and all procedures. At least 50% of this time was spent in direct, [id number] contact. Thank you Dr. Joanie Alvarez for allowing me to participate in this patient's care. Further recommendations will depend on patient's clinical course. Please do not hesitate to contact me if you have any questions or concerns. This medical document was created using an electronic medical record system with [employer] dictation system. Although this document has been carefully reviewed, there may still be some phonetic and typographical errors. These areas are purely typographical due to imperfections of the software programs, and do not reflect any compromise in the patient's medical care. Dietary Evaluation Review Comments: No Eliazar d/t ARMANDO-CKD-3 status, Will reassess her protein needs in 2-3 days. Expected Outcomes/Goals: gradual weight loss. Plan discussed with: Patient, Other (FATIMAH Aden MD) GUALBERTO POZO MD Jul 29, 2024 18:32
== END 2024-07-29 16:21 | DRG 853 ==
LOC: ER 06:17 → EDBD 06:17 → TELE 12:43 → TELE-WESTW 18:18 → ICU WEST 07-18 05:45 → DOU IN ICU 07-18 11:08 → TELE-CENTR 07-22 18:40 → TELE-EAST 07-28 12:43 → TELE-CENTR 07-28 12:52 → TELE-EAST 07-28 14:18
PROVIDERS: ADMIT Registered Nurse; ATTEND Family Medicine
PROC: 5A09357 Assistance with Respiratory Ventilation, Less than 24 Consecutive Hours, Continuous Positive Airway Pressure (ICD-10-PCS; principal; 2024-07-18)
PROC: 0JBR0ZZ Excision of Left Foot Subcutaneous Tissue and Fascia, Open Approach (ICD-10-PCS; 2024-07-18)
PROC: 0TB03ZX Excision of Right Kidney, Percutaneous Approach, Diagnostic (ICD-10-PCS; 2024-07-24)
DX: A41.9 Sepsis, unspecified organism (principal); G93.41 Metabolic encephalopathy; J96.21 Acute and chronic respiratory failure with hypoxia; J96.22 Acute and chronic respiratory failure with hypercapnia; J15.69 Pneumonia due to other Gram-negative bacteria; J15.9 Unspecified bacterial pneumonia; I50.33 Acute on chronic diastolic (congestive) heart failure; N17.9 Acute kidney failure, unspecified; N30.01 Acute cystitis with hematuria; I13.0 Hypertensive heart and chronic kidney disease with heart failure and stage 1 through stage 4 chronic kidney disease, or unspecified chronic kidney disease; J98.11 Atelectasis; Z68.41 Body mass index [BMI] 40.0-44.9, adult; Z20.822 Contact with and (suspected) exposure to COVID-19; G62.9 Polyneuropathy, unspecified; M32.9 Systemic lupus erythematosus, unspecified; L40.50 Arthropathic psoriasis, unspecified; I77.6 Arteritis, unspecified; I89.0 Lymphedema, not elsewhere classified; E66.01 Morbid (severe) obesity due to excess calories; E83.39 Other disorders of phosphorus metabolism; F41.9 Anxiety disorder, unspecified; G40.909 Epilepsy, unspecified, not intractable, without status epilepticus; N18.30 Chronic kidney disease, stage 3 unspecified; Z96.651 Presence of right artificial knee joint; Z90.49 Acquired absence of other specified parts of digestive tract; Z90.710 Acquired absence of both cervix and uterus; Z82.49 Family history of ischemic heart disease and other diseases of the circulatory system; Z83.3 Family history of diabetes mellitus; Z79.899 Other long term (current) drug therapy; Z87.891 Personal history of nicotine dependence; Z80.42 Family history of malignant neoplasm of prostate
CPT/HCPCS: 10005; 36415; 36600; 70450; 71045; 74150; 74176; 76775; 77012; 78582; 80048; 80053; 80076; 81001; 82570; 82805; 82962; 83516; 83520; 83690; 83735; 83880; 83970; 84100; 84156; 84300; 84443; 84484; 84550; 85007; 85025; 85027; 85379; 85610; 85652; 85730; 86160; 86225; 86235; 86256; 87040; 87070; 87077; 87081; 87086; 87205; 87426; 87804; 92610; 93005; 93306; 93970; 94640; 94660; 96361; 96365; 96375; 97110; 97163; 97530; 99291; G0378; J1450; J1885; J2003; J2405; J3490

== ENCOUNTER 2024-08-18 20:29 | Inpatient (IN) | payer OTHER ==
[~2024-08-18] VITALS: Ht 157.5 cm; Wt 97.0 kg
--- NOTE | 2024-08-18 20:41 | ED.PDOC ---
GI ASSESSMENT HPI Comments 73-year-old female who came to ER via EMS for abdominal pain. Patient was just discharged here last July 29, diagnosed with 1. Acute hypoxic respiratory failure, Chest x-ray shows bilateral small pleural effusions, 2. Possible bilateral community-acquired pneumonia, 3. Acute on chronic congestive heart failure, 4. Sepsis secondary to urinary tract infection, 5. Yeast in the sputum, 6. Hypertension, 7. Acute metabolic encephalopathy, 8. Acute kidney injury, 9. Bilateral upper and lower extremity vasculitis, 10. D-dimer elevated 14.6, 11. History of lupus, 12. History of seizures, 13. Moderate obesity. Patient was discharged improved to a halfway facility. Patient states for the past 5 days she has been experiencing left lower quadrant abdominal pain, intermittent, nonradiating, associated bouts of nausea, vomit ing, and loose nonbloody diarrhea. Chief Complaint: Abdominal pain Time Seen by MD: 20:41 Reviewed Notes: Justice Professor Notes Allergies: Coded Allergies: Phenobarbital (Verified Allergy, Unknown, 09/20/23) Home Meds Active Scripts Phenazopyridine HCl (Phenazopyridine Hydrochlo) 200 Mg Tab, 200 MG PO TID for 3 Days, #9 TAB Prov:SABINO ELY SLITTER PROCESSED FILM 09/22/23 Cefdinir (Cefdinir) 300 Mg Cap, 1 CAP PO BID for 7 Days, #14 CAP Prov:SABINO ELY SLITTER PROCESSED FILM 09/22/23 Reported Medications Tramadol Hcl (Tramadol Hcl) 50 Mg Tab, 50 MG PO, TAB 09/20/23 Hydrocodone-Acetaminophen (Hydrocodone Bitartrate/AC 10-325 mg) 1 Tab Tab, 1 TAB PO, TAB 09/20/23 Duloxetine Hydrochloride (Duloxetine Hydrochloride) 30 Mg Cap, 1 CAP PO BID 09/20/23 Metoprolol Succinate (Metoprolol Succinate Er) 50 Mg Tab, 1 TAB PO DAILY 09/20/23 Pravastatin Sodium (PRAVACHOL TABLET) 20 Mg Tb, 1 TAB PO DAILY 09/20/23 Baclofen (Baclofen) 10 Mg Tab, 1 TAB PO BID 09/20/23 Information Source: Patient, Emergency Med Personnel Mode of Arrival: EMS Timing: Days Duration: Intermittent Prehospital treatment: None Quality: Aching Vomitus: Watery Stool: Loose, Watery Severity: Moderate Recent: None Recent Hx of: Abdominal Surgery Pain Location: LLQ Modifying Factors: Nothing Associated sign and symptoms: Nausea, Vomiting, Diarrhea, Abdominal Pain Past Medical History PAST MEDICAL HISTORY: Arthritis, CHF, HTN, Seizures, UTI'S Past Medical History (Other): Lupus, pneumonia, morbid obesity, vasculitis Surgical History: Appendectomy, , Hysterectomy MULTI SHARE PROGRAM COORDINATOR History: Denies all MULTI SHARE PROGRAM COORDINATOR Hx Family History Family History: Reviewed,noncontributory to illness Social History Smoker: Non-Smoker Alcohol: Denies ETOH Use Drugs: Denies Drug Use Lives In: Shelter Constitutional: reports: weakness; denies: chills, diaphoresis, fatigue, fever, malaise, sweats, others EENTM: denies: blurred vision, double vision, ear bleeding, ear discharge, ear drainage, ear pain, ear ringing, eye pain, eye redness, hearing loss, mouth pain, mouth swelling, nasal discharge, nose bleeding, nose congestion, nose pain, photophobia, tearing, throat pain, throat swelling, voice changes, others Cardiovascular: denies: chest pain, dizzy spells, diaphoresis, Dyspnea on exertion, edema, irregular heart beat, left arm pain, lightheadedness, palpitations, PND, syncope, others Gastrointestinal: reports: abdominal pain, diarrhea, nausea, vomiting; denies: abdomen distended, blood streaked bowels, constipated, dysphagia, difficulty swallowing, hematemesis, melena, poor appetite, poor fluid intake, rectal bleeding, rectal pain, others Genitourinary: denies: abnormal vagina bleeding, burning, dyspareunia, dysuria, flank pain, frequency, hematuria, incontinence, pain, , vagina discharge, urgency, others Neurological: denies: dizziness, fainting, headache, left sided numbness, left sided weakness, numbness, paresthesia, pre-existing deficit, right sided numbness, right sided weakness, seizure, speech problems, tingling, tremors, weakness, others Musculoskeletal: denies: back pain, gout, joint pain, joint swelling, muscle pain, muscle stiffness, neck pain, others Integumetry: denies: bruises, change in color, change in hair/nails, dryness, laceration, lesions, lumps, rash, wounds, others Allergic/Immunocompromised: denies: Difficulty Healing, Frequent Infections, Hives, Itching, others Hematologic/Lymphatic: denies: anemia, blood clots, easy bleeding, easy bruising, swollen glands, others Endocrine: denies: excessive hunger, excessive sweating, excessive thirst, excessive urination, flushing, intolerance to cold, intolerance to heat, unexplained weight gain, unexplained weight loss, others Psychiatric: denies: anxiety, bipolar disorder, depression, hopeless, panic disorder, schizophrenia, sleepless, suicidal, others Physical Exam General Appearance: No Apparent Distress, Normal HEENT: Normal ENT Inspection, Pharynx Normal, TMs Normal Neck: Full Range of Motion, Non-Tender, Normal, Normal Inspection Respiratory: Chest Non-Tender, Lungs Clear, No Accessory Muscle Use, No Respiratory Distress, Normal Breath Sounds Cardiovascular: No Edema, No JVD, No Murmur, No Gallop, Normal Peripheral Pulses, Regular Rate/Rhythm Breast Exam: Deferred Gastrointestinal: LLQ, No Organomegaly, No Pulsatile Mass, Normal Bowel Sounds, Soft, Tenderness Genitalia: Deferred Pelvic: Deferred Rectal: Deferred Extremities: No calf tenderness, Normal capillary refill, Normal inspection, Normal range of motion, Non-tender, No pedal edema Musculoskeletal : Apperance: Normal Neurologic: Alert, data center consultant II-XII nml as Tested, No Motor Deficits, Normal Affect, Normal Mood, No Sensory Deficits Cerebellar Function: Normal Reflexes: Normal Skin: Dry, Normal Color, Warm Lymphatic: No Adenopathy Was a procedure done? Was a procedure done?: No GI differential Dx Differential Diagnosis: Diverticular disease, Gastritis/PUD, Gastroenteritis, Hernia, Hepatitis, Pancreatitis, UTI, Urolithiasis, Dehydration, Electrolyte Imbalance X-Ray, Labs, Meds, VS Vital Signs Date Time Temp Pulse Resp B/P (MAP) Pulse Ox O2 Delivery O2 Flow Rate FiO2 08/18/24 21:00 93 08/18/24 20:30 98.4 100 18 110/62 (78) 96 08/18/24 20:29 97 Lab Test 08/19/24 00:00 08/18/24 21:00 Range/Units Influenza Type A Antigen Pending Influenza Type B Antigen Pending SARS-CoV-2 Antigen (Rapid) Pending White Blood Count 11.5 H 4.4-10.8 10^3/uL Red Blood Count 3.81 L 4.0-5.20 10^6/uL Hemoglobin 11.4 L 12.2-16.2 g/dL Hematocrit 34.3 L 36.0-46.0 % Mean Corpuscular Volume 90.0 80.0-100.0 fL Mean Corpuscular Hemoglobin 29.8 28.0-32.0 pg Mean Corpuscular Hemoglobin Concent 33.1 32.0-36.0 g/dL Red Cell Distribution Width 14.6 H 11.8-14.3 % Platelet Count 425 140-450 10^3/uL Mean Platelet Volume 7.6 6.9-10.8 fL Neutrophils (%) (Auto) 55.2 37.0-80.0 % Lymphocytes (%) (Auto) 30.9 10.0-50.0 % Monocytes (%) (Auto) 10.0 0.0-12.0 % Eosinophils (%) (Auto) 2.9 0.0-7.0 % Basophils (%) (Auto) 1.0 0.0-2.0 % Neutrophils # (Auto) 6.4 1.6-8.6 10 ^3/uL Lymphocytes # (Auto) 3.6 0.4-5.4 10 ^3/uL Monocytes # (Auto) 1.2 0-1.3 10 ^3/uL Eosinophils # (Auto) 0.3 0-0.8 10 ^3/uL Basophils # (Auto) 0.1 0-0.2 10 ^3/uL Nucleated Red Blood Cells 0.1 % Sodium Level 136 136-145 mmol/L Potassium Level 3.8 3.5-5.1 mmol/L Chloride Level 101 98-107 mmol/L Carbon Dioxide Level 23 20-31 mmol/L Anion Gap 12 5-15 Blood Urea Nitrogen 52 H 9-23 mg/dL Creatinine 3.73 H 0.550-1.02 mg/dL Glomerular Filtration Rate Calc 12 >90 mL/min BUN/Creatinine Ratio 13.9 10.0-20.0 Serum Glucose 100 74-106 mg/dL Calcium Level 9.5 8.7-10.4 mg/dL Total Bilirubin 0.3 0.2-1.0 mg/dL Aspartate Amino Transferase (AST) 21 13-40 U/L Alanine Aminotransferase (ALT) 25 7-40 U/L Alkaline Phosphatase 103 46-116 U/L Troponin I High Sensitivity 7 </=34 ng/L Total Protein 6.4 5.7-8.2 g/dL Albumin 3.8 3.2-4.8 g/dL Current Medications Medications (Trade) Dose Ordered Sig/Kendell Route Start Time Stop Time Status Last Admin Sodium Chloride 1,000 ml @ 1,000 mls/hr Q1H ONCE IV 08/18/24 20:45 08/18/24 21:44 DC 08/18/24 21:15 Pantoprazole Sodium (Protonix) 40 mg ONCE ONCE IV 08/18/24 20:45 08/18/24 20:46 DC 08/18/24 21:40 Acetaminophen (Tylenol Tablet) 1,000 mg ONCE ONCE PO 08/18/24 22:15 08/18/24 22:16 DC 08/18/24 22:40 PROCEDURE(s): ABPL - CT AB PEL WO CON-NO ORAL OR IV FINDINGS: Lower Thorax: Bibasilar bronchiectasis. Linear bibasilar scarring or atelectasis. Hypodensity of the blood pool relative to the myocardium indicative of anemia. Normal-sized heart Liver and Biliary system: Mild hepatomegaly measuring 18 cm craniocaudal. No definite hepatic lesion. There is cholelithiasis. No biliary ductal dilatation there is mild nodular contour of the liver. Spleen: Splenomegaly. Adrenal Glands and Kidneys: Normal right adrenal gland. Mild nodularity of the left adrenal gland. There is a nonobstructing right lower pole renal calculus measuring 9 mm on series 2, image 37. There is no hydronephrosis or left nephrolithiasis Pancreas and Retroperitoneum: Mild atrophy of the pancreas there is no retroperitoneal lymphadenopathy Aorta and Major Vessels: Aortoiliac vessels are normal in caliber containing mild calcified atherosclerotic plaque Bowel, Mesentery and Peritoneal space: Moderate retained stool throughout the colon. There is circumferential wall thickening of the 2nd and 3rd portion of the duodenum which is fluid-filled. There is no free air or fluid collection. Normal caliber small and large bowel. Wide mouth laxity of the right abdominal wall Pelvis: Moderate distention of the urinary bladder containing punctate nond ependent gas. There is no pelvic lymphadenopathy. Prior hysterectomy. Abdominal wall and Osseous Structures: Degenerative changes of the bilateral hips. Multilevel lower thoracic and lumbar spondylosis. There is bony demineralization. No destructive osseous lesion IMPRESSION: 1. Mild wall thickening of the 2nd and 3rd portion of the duodenal which is fluid-filled which could reflect duodenitis 2. Mild hepatosplenomegaly. 3. Nodular contour of the liver which could be fibrosis or cirrhosis. Correlate with clinical history and liver enzymes 4. Anemia suggested. Correlate with CBC. 5. Cholelithiasis. 6. Nonobstructing right lower pole renal calculus Time of 1ST Reevaluation: 20:35 Reevaluation 1ST: Improved Patient Education/Counseling: Diagnosis, Treatment Family Education/Counseling: No Family Present Departure 1 Departure Time of Disposition: 01:36 (Patient presented with abdominal pain that was concerning for possible appendicits, gastritis, cholecystitis, colitis, gastroenteritis, sbo, or orther possible surgical emergency. Data: 1. I ordered and reviewed the result of at least 3 labs including a CBC, BMP, and Urinalysis. 2. I independently interpreted the following tests: CT Abdoment and Pelvis is concerning for duodenitis .Risk:This patient has a high risk of morbidity due to further diagnostic testing or treatment and may suffer from an acute abdominal process disorder. Workup reveals duodenitis and patient should be admitted for further workup. and possible expert consultation. ) Impression: Primary Impression: Duodenitis Additional Impressions: Abdominal pain Qualified Codes: R10.84 - Generalized abdominal pain Nausea and vomiting Qualified Codes: R11.12 - Projectile vomiting Disposition: ADMITTED INPATIENT Admit to: Med Surg Condition: Serious Critical Care Note Critical Care Time?: No Stability Stability form required: No Heart Score Heart Score: Heart Score Response (Comments) Value History N/A 0 EKG N/A 0 Age N/A 0 Risk Factors N/A 0 Troponin N/A 0 Total 0 I personally scribed for MARY GRACE MIX MD ([employer]) on 08/18/24 at 20:41. Electronically submitted by Augustine Mosqueda ([employer]). I personally scribed for MARY GRACE MIX MD ([employer]) on 08/19/24 at 01:30. Electr onically submitted by Augustine Mosqueda ([employer]). MARY GRACE MIX MD Aug 18, 2024 20:41
[2024-08-18] MEDS: SODIUM CHLORIDE 0.9% 1,000 ML IV ONE (21:15)
[2024-08-18 21:34] LABS: Alanine Aminotransferase 25 U/L (7-40); Albumin 3.8 g/dL (3.2-4.8); Alkaline Phosphatase 103 U/L (46-116); Anion Gap 12 (5-15); Aspartate Aminotransferase 21 U/L (13-40); BUN/Creatinine Ratio 13.9 (10.0-20.0); Bilirubin, Total 0.3 mg/dL (0.2-1.0); Calcium 9.5 mg/dL (8.7-10.4); Carbon Dioxide 23 mmol/L (20-31); Chloride 101 mmol/L (98-107); Glucose 100 mg/dL (74-106); Potassium 3.8 mmol/L (3.5-5.1); Sodium 136 mmol/L (136-145); Total Protein 6.4 g/dL (5.7-8.2)
[2024-08-18 21:36] LABS: Blood Urea Nitrogen 52 mg/dL (9-23)
[2024-08-18] MEDS: MORPHINE SULFATE 4 MG/ML SYR/VIAL IV ONE (21:40)
[2024-08-18] MEDS: PANTOPRAZOLE 40 MG/10 ML VIAL INJ IV ONE (21:40)
[2024-08-18] MEDS: ONDANSETRON HCL 4 MG/2 ML VIAL IV ONE (21:41)
[2024-08-18 22:00] VITALS: PULSE 80; RESP 20; O2SAT 96
[2024-08-18 22:17] LABS: Basophils # (auto) 0.1 10 ^3/uL (0-0.2); Eosinophils # (auto) 0.3 10 ^3/uL (0-0.8); Eosinophils % (auto) 2.9 % (0.0-7.0); Hematocrit 34.3 % (36.0-46.0); Hemoglobin 11.4 g/dL (12.2-16.2); Lymphocytes # (auto) 3.6 10 ^3/uL (0.4-5.4); Lymphocytes % (auto) 30.9 % (10.0-50.0); Mean Corpuscular Hemoglobin 29.8 pg (28.0-32.0); Mean Corpuscular Hgb Conc. 33.1 g/dL (32.0-36.0); Monocytes # (auto) 1.2 10 ^3/uL (0-1.3); Neutrophils # (auto) 6.4 10 ^3/uL (1.6-8.6); Neutrophils % (auto) 55.2 % (37.0-80.0); Nucleated Red Blood Cells % 0.1 %; Platelet Count (auto) 425 10^3/uL (140-450); Red Blood Cells 3.81 10^6/uL (4.0-5.20); Red Cell Distribution Width 14.6 % (11.8-14.3); White Blood Cell 11.5 10^3/uL (4.4-10.8)
--- NOTE | 2024-08-18 22:28 | ECG ---
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
[2024-08-18] MEDS: ACETAMINOPHEN 500 MG TAB or CAP PO ONE (22:40)
--- NOTE | 2024-08-18 23:33 | DVH ---
CLINICAL HISTORY: llq pain TECHNIQUE: CT of the abdomen and pelvis was performed without intravenous contrast. This exam was per formed according to our departmental dose optimization program. Up-to-date CT equipment and radiation dose reduction techniques are utilized as appropriate. WID: COMPARISON: CT CT AB PEL WO CON-NO ORAL OR IV on DOS: 07/16/24 FINDINGS: Lower Thorax: Bibasilar bronchiectasis. Linear bibasilar scarring or atelectasis. Hypodensity of the blood pool relative to the myocardium indicative of anemia. Normal-sized heart Liver and Biliary system: Mild hepatomegaly measuring 18 cm craniocaudal. No definite hepatic lesion. There is cholelithiasis. No biliary ductal dilatation there is mild nodular contour of the liver. Spleen: Splenomegaly. Adrenal Glands and Kidneys: Normal right adrenal gland. Mild nodularity of the left adrenal gland. Th ere is a nonobstructing right lower pole renal calculus measuring 9 mm on series 2, image 37. There i s no hydronephrosis or left nephrolithiasis Pancreas and Retroperitoneum: Mild atrophy of the pancreas there is no retroperitoneal lymphadenopath y Aorta and Major Vessels: Aortoiliac vessels are normal in caliber containing mild calcified atheroscl erotic plaque Bowel, Mesentery and Peritoneal space: Moderate retained stool throughout the colon. There is circumf erential wall thickening of the 2nd and 3rd portion of the duodenum which is fluid-filled. There is n o free air or fluid collection. Normal caliber small and large bowel. Wide mouth laxity of the right abdominal wall Pelvis: Moderate distention of the urinary bladder containing punctate nondependent gas. There is no pelvic lymphadenopathy. Prior hysterectomy. Abdominal wall and Osseous Structures: Degenerative changes of the bilateral hips. Multilevel lower t horacic and lumbar spondylosis. There is bony demineralization. No destructive osseous lesion IMPRESSION: 1. Mild wall thickening of the 2nd and 3rd portion of the duodenal which is fluid-filled which could reflect duodenitis 2. Mild hepatosplenomegaly. 3. Nodular contour of the liver which could be fibrosis or cirrhosis. Correlate with clinical histor y and liver enzymes 4. Anemia suggested. Correlate with CBC. 5. Cholelithiasis. 6. Nonobstructing right lower pole renal calculus
[2024-08-19 02:10] LABS: COVID19 ANTIGEN SOFIA FIA NEGATIVE (NEGATIVE)
[2024-08-19 02:11] LABS: Rapid Influenza A Negative (Negative); Rapid Influenza B Negative (Negative)
[2024-08-19] MEDS ORDERED: NITROGLYCERIN 0.4 MG SL TAB SL PRN (03:15)
[2024-08-19] MEDS ORDERED: ACETAMINOPHEN 325 MG TAB PO PRN (03:15)
[2024-08-19] MEDS ORDERED: ONDANSETRON HCL 4 MG/2 ML VIAL IV PRN (03:15)
[2024-08-19] MEDS ORDERED: DOCUSATE SOD 100 MG CAP PO PRN (03:15)
[2024-08-19] MEDS ORDERED: MORPHINE SULFATE INJ 2 MG/ml SYRG IV PRN ×2 (03:15)
--- NOTE | 2024-08-19 03:22 | DVHHP2 ---
History of Present Illness Reason for Visit: Acute abdominal pain History of Present Illness Patient is a 73 year old female with multiple past medical history including arthritis, UTIs, and hypertension presented to [facility] ED with complaint of abdominal pain. Patient states for the past 5 days she has been experiencing left lower quadrant abdominal pain, intermittent, nonradiating, associated bouts of nausea, vomiting, and loose nonbloody diarrhea. Patient was seen and evaluated in the ED, laboratory data shows WBC 11.5, platelets 425, so dium 136, potassium 3.8, BUN 52, creatinine 3.73, glucose 100, troponin 7. CT of the abdomen/pelvis revealing mild wall thickening of the 2nd and 3rd portion of the duodenal which is fluid-filled which could reflect duodenitis. Patient was started on IV antibiotic regimen Flagyl, please see medication orders section in the computer. On my assessment, patient denies abdominal pain at this moment, no diarrhea, no nausea, no vomiting, no fever, no chills. Patient was admitted for further evaluation and medical management. Past Medical History Arthritis, CHF, HTN, Seizures, UTI'S, Lupus, pneumonia, morbid obesity, vasculitis Past Surgical History Appendectomy, section, Hysterectomy Family History Reviewed, noncontributory to the management of this case. Past Social History The patient lives at home, denies smoking, alcohol or illicit drugs abuse. Review of Systems Constitutional: Yes: Weakness; No: Fever, Chills, Sweats, Malaise, Other Eyes: No: Pain, Vision change, Conjunctivae inflammation, Eyelid inflammation, Other, Redness ENT: No: Ear pain, Ear discharge, Nose pain, Nose discharge, Nose congestion, Mouth pain, Mouth swelling, Throat pain, Throat swelling, Other Respiratory: No: Cough, Dry, Shortness of breath, SOB with excertion, Wheezing, Hemoptysis, Pleuritic Pain, Sputum, Wheezing, Other Cardiovascular: No: Chest Pain, Palpitations, Orthopnea, Paroxysmal Noc. Dyspnea, Edema, Lt Headedness, Other Gastrointestinal: Nausea, Vomiting, Abdominal Pain, Diarrhea; No: Constipation, Melena, Hematochezia, Other Genitourinary: No Dysuria, No Frequency, No Incontinence, No Hematuria, No Retention, No Other Musculoskeletal: No: other, neck pain, shoulder pain, arm pain, back pain, hand pain, leg pain, foot pain Skin: No: Rash, Lesions, Jaundice, Bruising, Other Neurological: No: Weakness, Numbness, Incoordination, Change in speech, Confusion, Seizures, Other Allergies: Coded Allergies: Phenobarbital (Verified Allergy, Unknown, 09/20/23) Exam Vital Signs Vital Signs Date Time Temp Pulse Resp B/P (MAP) Pulse Ox O2 Delivery O2 Flow Rate FiO2 08/19/24 01:00 87 14 102/49 (66) 96 08/18/24 21:00 98.9 98.9 General Appearance: Alert, Oriented X3, Cooperative, No acute distress HEENT: Atraumatic, PERRLA, EOMI, Mucous membr. moist/pink Respiratory: Clear to auscultation, Normal air movement Cardiovascular: Regular rate, Normal S1, Normal S2, No murmurs Abdominal: Normal bowel sounds, Soft, No hepatospenomegaly, No masses, Other (Reports tenderness) Extremities: No clubbing, No cyanosis, No edema, Normal pulses, No tenderness/swelling Skin: No rashes, No breakdown, No significant lesion Neuro: Normal speech, Normal tone, Sensation intact, Cranial nerves 3-12 NL, Reflexes 2+, Other (Generalized weakness) Psych/Mental Status: Mental status NL, Mood NL Labs/Xrays Labs Test 08/19/24 00:00 08/18/24 21:00 Range/Units Influenza Type A Antigen Negative Negative Influenza Type B Antigen Negative Negative SARS-CoV-2 Antigen (Rapid) Negative NEGATIVE White Blood Count 11.5 H 4.4-10.8 10^3/uL Red Blood Count 3.81 L 4.0-5.20 10^6/uL Hemoglobin 11.4 L 12.2-16.2 g/dL Hematocrit 34.3 L 36.0-46.0 % Mean Corpuscular Volume 90.0 80.0-100.0 fL Mean Corpuscular Hemoglobin 29.8 28.0-32.0 pg Mean Corpuscular Hemoglobin Concent 33.1 32.0-36.0 g/dL Red Cell Distribution Width 14.6 H 11.8-14.3 % Platelet Count 425 140-450 10^3/uL Mean Platelet Volume 7.6 6.9-10.8 fL Neutrophils (%) (Auto) 55.2 37.0-80.0 % Lymphocytes (%) (Auto) 30.9 10.0-50.0 % Monocytes (%) (Auto) 10.0 0.0-12.0 % Eosinophils (%) (Auto) 2.9 0.0-7.0 % Basophils (%) (Auto) 1.0 0.0-2.0 % Neutrophils # (Auto) 6.4 1.6-8.6 10 ^3/uL Lymphocytes # (Auto) 3.6 0.4-5.4 10 ^3/uL Monocytes # (Auto) 1.2 0-1.3 10 ^3/uL Eosinophils # (Auto) 0.3 0-0.8 10 ^3/uL Basophils # (Auto) 0.1 0-0.2 10 ^3/uL Nucleated Red Blood Cells 0.1 % Sodium Level 136 136-145 mmol/L Potassium Level 3.8 3.5-5.1 mmol/L Chloride Level 101 98-107 mmol/L Carbon Dioxide Level 23 20-31 mmol/L Anion Gap 12 5-15 Blood Urea Nitrogen 52 H 9-23 mg/dL Creatinine 3.73 H 0.550-1.02 mg/dL Glomerular Filtration Rate Calc 12 >90 mL/min BUN/Creatinine Ratio 13.9 10.0-20.0 Serum Glucose 100 74-106 mg/dL Calcium Level 9.5 8.7-10.4 mg/dL Total Bilirubin 0.3 0.2-1.0 mg/dL Aspartate Amino Transferase (AST) 21 13-40 U/L Alanine Aminotransferase (ALT) 25 7-40 U/L Alkaline Phosphatase 103 46-116 U/L Troponin I High Sensitivity 7 </=34 ng/L Total Protein 6.4 5.7-8.2 g/dL Albumin 3.8 3.2-4.8 g/dL PATIENT: PIOTR CEJA ACCT: [id number] UNIT: [id number] : 1950 LOC: ER ROOM / BED: / AGE / SEX: 73 / F ADM STATUS: REG ER SERVICE 45 ORDERING PHYSICIAN: MARY GRACE MIX MD PROCEDURE(s): ABPL - CT AB PEL WO CON-NO ORAL OR IV REASON: llq pain ORDER NUMBER(s): [id number], ACCESSION NUMBER(s): [id number] CLINICAL HISTORY: llq pain TECHNIQUE: CT of the abdomen and pelvis was performed without intravenous co ntrast. This exam was performed according to our departmental dose optimization program. Up-to-date CT equipment and radiation dose reduction techniques are utilized as appropriate. WID: COMPARISON: CT CT AB PEL WO CON-NO ORAL OR IV on DOS: 07/16/24 FINDINGS: Lower Thorax: Bibasilar bronchiectasis. Linear bibasilar scarring or atelectasis. Hypodensity of the blood pool relative to the myocardium indicative of anemia. Normal-sized heart Liver and Biliary system: Mild hepatomegaly measuring 18 cm craniocaudal. No definite hepatic lesion. There is cholelithiasis. No biliary ductal dilatation there is mild nodular contour of the liver. Spleen: Splenomegaly. Adrenal Glands and Kidneys: Normal right adrenal gland. Mild nodularity of the left adrenal gland. There is a nonobstructing right lower pole renal calculus measuring 9 mm on series 2, image 37. There is no hydronephrosis or left nephrolithiasis Pancreas and Retroperitoneum: Mild atrophy of the pancreas there is no retroperitoneal lymphadenopathy Aorta and Major Vessels: Aortoiliac vessels are normal in caliber containing mild calcified atherosclerotic plaque Bowel, Mesentery and Peritoneal space: Moderate retained stool throughout the colon. There is circumferential wall thickening of the 2nd and 3rd portion of the duodenum which is fluid-filled. There is no free air or fluid collection. Normal caliber small and large bowel. Wide mouth laxity of the right abdominal wall Pelvis: Moderate distention of the urinary bladder containing punctate nondependent gas. There is no pelvic lymphadenopathy. Prior hysterectomy. Abdominal wall and Osseous Structures: Degenerative changes of the bilateral hips. Multilevel lower thoracic and lumbar spondylosis. There is bony demineralization. No destructive osseous lesion IMPRESSION: 1. Mild wall thickening of the 2nd and 3rd portion of the duodenal which is fluid-filled which could reflect duodenitis 2. Mild hepatosplenomegaly. 3. Nodular contour of the liver which could be fibrosis or cirrhosis. Correlate with clinical history and liver enzymes 4. Anemia suggested. Correlate with CBC. 5. Cholelithiasis. 6. Nonobstructing right lower pole renal calculus Assessment/Plan Assessment/Plan Duodenitis Abdominal pain Nausea and vomiting Generalized abdominal pain Projectile vomiting Acute on chronic renal failure Plan 1. Admit to med surge unit 2. Breathing treatment 3. Pain control management 4. IV antibiotic management 5. Management of fluids and electrolytes 6. Consultation for hospitalist 7. Diagnostic test abdomen/pelvis CT 8. DVT prophylaxis on SCDs 9. Repeat labs CBC, CMP in a.m. 10. Continue with current medical management 11. Treatment plan discussed with patient and RN. Patient verbalized understanding. Plan discussed with: Patient, Other (RN) My Orders Orders - TERRELL MURDOCK DNP Procedure Category Date Status Time Complete Blood Count LAB 08/19/24 Verified 04:00 Comprehensive LAB 08/19/24 Verified Metabolic Panel 04:00 Pantoprazole PHA 08/19/24 Verified (Protonix) 10:00 Metronidazole Ivpb PHA 08/19/24 Verified Flagyl 03:15 Ceftriaxone Ivpb PHA 08/19/24 Verified Rocephin 09:00 Ceftriaxone Ivpb PHA 08/19/24 Verified Rocephin 03:15 Metronidazole Ivpb PHA 08/19/24 Verified Flagyl 06:00 *[facility] CONS 08/19/24 Verified -[place] 03:03 Admit ADMIT 08/19/24 Verified 03:03 Allergies DAX 08/19/24 Verified 03:03 Code Status CODE 08/19/24 Verified 03:03 0.9% Ns 1000 Ml PHA 08/19/24 Verified 03:15 Oxygen Per Hour RT 08/19/24 Verified 03:03 Hydrocodone-Acet PHA 08/19/24 Verified 5/325mg Tab (Rohwer 03:15 Ondansetron Hcl PHA 08/19/24 Verified (Zofran) 03:15 Docusate Sodium PHA 08/19/24 Verified Capsule (Colace 03:15 Fall Risk Precautions DAX 08/19/[address] 03:03 Complete Blood Count LAB 08/20/24 Verified 04:00 Comprehensive LAB 08/20/24 Verified Metabolic Panel 04:00 Condition: Serious DAX 08/19/24 Verified 03:03 Acetaminophen Tablet PHA 08/19/24 Verified (Tylenol Tablet) 03:15 Clear Liq Diet DIET 08/19/24 Verified Breakfast Morphine Sulfate PHA 08/19/24 Verified Injection 03:15 Sequential DAX 08/19/24 Verified Compression Device Nitroglycerin PHA 08/19/24 Verified Sublingual (Ntrostat 03:15 Morphine Sulfate PHA 08/19/24 Verified Injection 03:15 Notify Of Changes DAX 08/19/24 Verified From Base 03:03 [employer]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
[2024-08-19] MEDS: SODIUM CHLORIDE 0.9% 1,000 ML IV SCH (04:35)
[2024-08-19] MEDS: cefTRIAXone 1GM/50ML D5W 50 ML IV ONE (04:35)
[2024-08-19] MEDS: metroNIDAZOLE 500MG/100ML 100 ML IV ONE (04:52)
[2024-08-19 06:17] LABS: Alanine Aminotransferase 24 U/L (7-40); Albumin 3.3 g/dL (3.2-4.8); Alkaline Phosphatase 88 U/L (46-116); Anion Gap 11 (5-15); BUN/Creatinine Ratio 11.9 (10.0-20.0); Bilirubin, Total 0.2 mg/dL (0.2-1.0); Calcium 8.9 mg/dL (8.7-10.4); Carbon Dioxide 21 mmol/L (20-31); Chloride 105 mmol/L (98-107); Glucose 92 mg/dL (74-106); Potassium 4.5 mmol/L (3.5-5.1); Sodium 137 mmol/L (136-145); Total Protein 5.7 g/dL (5.7-8.2)
[2024-08-19 06:43] LABS: Blood Urea Nitrogen 43 mg/dL (9-23)
[2024-08-19 07:25] LABS: Aspartate Aminotransferase 28 U/L (13-40)
[2024-08-19 09:00] VITALS: PULSE 98; RESP 14; O2SAT 94
[2024-08-19] MEDS: PANTOPRAZOLE 40 MG/10 ML VIAL INJ IV SCH (10:11)
--- NOTE | 2024-08-19 12:12 | DVHPN2 ---
Subjective The patient is seen and examined at bedside. The patient very tired. Reviewed: Care Plan, H&P, Labs, Medications, Previous Orders, Radiology Changes from previous H/P or p: No Changes Eyes: No Pain, No Vision change, No Conjunctivae inflammation, No Eyelid inflammation, No Other, No Redness ENT: No Ear pain, No Ear discharge, No Nose pain, No Nose discharge, No Nose congestion, No Mouth pain, No Mouth swelling, No Throat pain, No Throat swelling, No Other Cardiovascular: No Chest Pain, No Palpitations, No Orthopnea, No Paroxysmal Noc. Dyspnea, No Edema, No Lt Headedness, No Other Respiratory: No Cough, No Dry, No Shortness of breath, No SOB with excertion, No Wheezing, No Hemoptysis, No Pleuritic Pain, No Sputum, No Other Gastrointestinal: Nausea, Vomiting, Abdominal Pain, Diarrhea; No Constipation, No Melena, No Hematochezia, No Other Genitourinary: No Dysuria, No Frequency, No Incontinence, No Hematuria, No Retention, No Other Musculoskeletal: No other, No neck pain, No shoulder pain, No arm pain, No back pain, No hand pain, No leg pain, No foot pain Skin: No Rash, No Lesions, No Jaundice, No Bruising, No Other Objective Vitals Vital Signs Date Time Temp Pulse Resp B/P (MAP) Pulse Ox O2 Delivery O2 Flow Rate FiO2 08/19/24 09:46 94 18 102/54 (70) 93 08/19/24 09:00 Nasal Cannula* 2 28 08/19/24 03:00 98.1 98.1 Intake/Output Intake and Output 08/19/24 07:00 Intake Total 150 ml Balance 150 ml Intake IV Total 150 ml General Appearance: Alert, Cooperative, No acute distress HEENT: Atraumatic, PERRLA, EOMI, Mucous membr. moist/pink Neck: Supple Lungs: Clear to auscultation, Normal air movement Cardiovascular: Regular rate, Normal S1, Normal S2, No murmurs, Gallops, Rubs Abdomen: Normal bowel sounds, Soft, No tenderness Neuro: Cranial nerves 3-12 NL Psych/Mental Status: Mental status NL Medications Current Medications Medications Dose Ordered Sig/Kendell Route Start Time Stop Time Status Last Admin Dose Admin Pantoprazole Sodium 40 mg DAILY IV 08/19/24 10:00 08/19/24 10:11 40 MG Ceftriaxone Sodium 50 ml @ 100 mls/hr DAILY@09 IV 08/20/24 09:00 Metronidazole 100 ml @ 100 mls/hr Q8HR IV 08/19/24 14:00 Sodium Chloride 1,000 ml @ 60 mls/hr [id number] IV 08/19/24 03:15 08/19/24 04:35 60 MLS/HR Acetaminophen/ Hydrocodone Bitart 1 tab Q4HP PRN PO 08/19/24 03:15 Ondansetron HCl 4 mg Q4HP PRN IV 08/19/24 03:15 Docusate Sodium 100 mg BIDPRN PRN PO 08/19/24 03:15 Acetaminophen 650 mg Q6HP PRN PO 08/19/24 03:15 Morphine Sulfate 2 mg Q4HPRN PRN IV 08/19/24 03:15 Nitroglycerin 0.4 mg Q5MINP PRN SL 08/19/24 03:15 Morphine Sulfate 2 mg Q30M PRN IV 08/19/24 03:15 Laboratory Results Laboratory Tests 08/19/24 05:02 Chemistry Test 08/18/24 21:00 08/19/24 05:02 Albumin 3.8 g/dL (3.2-4.8) 3.3 g/dL (3.2-4.8) Calcium Level 9.5 mg/dL (8.7-10.4) 8.9 mg/dL (8.7-10.4) Total Protein 6.4 g/dL (5.7-8.2) 5.7 g/dL (5.7-8.2) LFT Test 08/18/24 21:00 08/19/24 05:02 Alanine Aminotransferase (ALT) 25 U/L (7-40) 24 U/L (7-40) Alkaline Phosphatase 103 U/L (46-116) 88 U/L (46-116) Aspartate Amino Transferase (AST) 21 U/L (13-40) 28 U/L (13-40) Total Bilirubin 0.3 mg/dL (0.2-1.0) 0.2 mg/dL (0.2-1.0) Labs and/or images reviewed: Labs reviewed by me Assessment/Plan Assessment/Plan Duodenitis Abdominal pain Nausea and vomiting Generalized abdominal pain Projectile vomiting Acute on chronic renal failure Plan Continuing current management. Continuing with Zofran IV p.r.n. for nausea and vomiting. Continuing to monitor kidney function. Continuing ceftriaxone and Flagyl IV. Continuing Protonix I will consult GI specialist Plan discussed with: Patient Date of Service: Aug 19, 2024 Billing Provider: MARIIA JEAN MD Common Visit Codes: [id number] INP/OBS CARE(HIGH) MARIIA JEAN MD Aug 19, 2024 12:12
[2024-08-19 14:05] LABS: Hematocrit 32.6 % (36.0-46.0); Mean Corpuscular Hemoglobin 30.5 pg (28.0-32.0); Mean Corpuscular Hgb Conc. 33.7 g/dL (32.0-36.0); Mean Corpuscular Volume 90.6 fL (80.0-100.0); Platelet Count (auto) 379 10^3/uL (140-450); Red Blood Cells 3.59 10^6/uL (4.0-5.20); Red Cell Distribution Width 14.7 % (11.8-14.3); White Blood Cell 8.2 10^3/uL (4.4-10.8)
[2024-08-19] MEDS: metroNIDAZOLE 500MG/100ML 100 ML IV SCH (14:08)
--- NOTE | 2024-08-19 14:08 | DVHINCON2 ---
Date of service: Aug 19, 2024 Referring Physician Jose Bartholomew NP Reason for Consultation ARMANDO History of Present Illness Mrs. Denny is a 73-year-old female with known history of chronic kidney disease with baseline creatinine in the mid to upper 1 range and presented for further evaluation and management of several day history of progressive abdominal discomfort. She was seen in the emergency department was able to pr ovide history and communicated well. She denies recent gross hematuria, dysuria, fevers or chills. She states that she has recently been hospitalized within the past month or so and had been at a snf facility. Her serum creatinine is above her baseline and that is the reason for this consultation. She denies use of recent NSAIDs, intravenous contrast studies. Past Medical History Chronic kidney disease stage III Chronic heart failure Hypertension Seizure disorder Lupus History of vasculitis Past Surgical History Appendectomy Hysterectomy Allergies: Coded Allergies: Phenobarbital (Verified Allergy, Unknown, 09/20/23) Home Meds Active Scripts Phenazopyridine HCl (Phenazopyridine Hydrochlo) 200 Mg Tab, 200 MG PO TID for 3 Days, #9 TAB Prov:SABINO ELY [employer] CONDITIONING MECH[employer]IC 09/22/23 Cefdinir (Cefdinir) 300 Mg Cap, 1 CAP PO BID for 7 Days, #14 CAP Prov:SABINO ELY [employer] CONDITIONING MECH[employer]IC 09/22/23 Reported Medications Tramadol Hcl (Tramadol Hcl) 50 Mg Tab, 50 MG PO, TAB 09/20/23 Hydrocodone-Acetaminophen (Hydrocodone Bitartrate/AC 10-325 mg) 1 Tab Tab, 1 TAB PO, TAB 09/20/23 Duloxetine Hydrochloride (Duloxetine Hydrochloride) 30 Mg Cap, 1 CAP PO BID 09/20/23 Metoprolol Succinate (Metoprolol Succinate Er) 50 Mg Tab, 1 TAB PO DAILY 09/20/23 Pravastatin Sodium (PRAVACHOL TABLET) 20 Mg Tb, 1 TAB PO DAILY 09/20/23 Baclofen (Baclofen) 10 Mg Tab, 1 TAB PO BID 09/20/23 Current Medications Current Medications Medications (Trade) Dose Ordered Sig/Kendell Route PRN Reason Start Time Stop Time Status Last Admin Pantoprazole Sodium (Protonix) 40 mg DAILY IV 08/19/24 10:00 08/19/24 10:11 Ceftriaxone Sodium 50 ml @ 100 mls/hr DAILY@09 IV 08/20/24 09:00 Metronidazole 100 ml @ 100 mls/hr Q8HR IV 08/19/24 14:00 Sodium Chloride 1,000 ml @ 60 mls/hr [id number] IV 08/19/24 03:15 08/19/24 04:35 Acetaminophen/ Hydrocodone Bitart (Lonepine 5/325MG Tab) 1 tab Q4HP PRN PO MODERATE PAIN (4-6 PAIN SCALE) 08/19/24 03:15 Ondansetron HCl (Zofran) 4 mg Q4HP PRN IV NAUSEA / VOMITING 08/19/24 03:15 Docusate Sodium (Colace Capsule) 100 mg BIDPRN PRN PO FOR CONSTIPATION 08/19/24 03:15 Acetaminophen (Tylenol Tablet) 650 mg Q6HP PRN PO PAIN SCALE 1-3 OR TEMP>100.4 08/19/24 03:15 Morphine Sulfate 2 mg Q4HPRN PRN IV SEVERE PAIN (7-10 PAIN SCALE) 08/19/24 03:15 Nitroglycerin (Ntrostat Sublingual) 0.4 mg Q5MINP PRN SL FOR CHEST PAIN 08/19/24 03:15 Morphine Sulfate 2 mg Q30M PRN IV FOR CHEST PAIN 08/19/24 03:15 Family History: Diabetes mellitus G8 MOTHER Hypertension G8 MOTHER Prostate carcinoma G8 FATHER Review of Systems review of systems is as per history of present illness otherwise all systems are reviewed and are noncontributory. H&P Exam Vital Signs/I&O Vital Sign Date Time Temp Pulse Resp B/P (MAP) Pulse Ox O2 Delivery O2 Flow Rate FiO2 08/19/24 09:46 94 18 102/54 (70) 93 08/19/24 09:00 Nasal Cannula* 2 28 08/19/24 03:00 98.1 98.1 Intake and Output 08/18/24 08/19/24 19:00 07:00 Intake Total 150 ml Balance 150 ml Intake IV Total 150 ml Physical Exam gen: pallor heent: nc lungs: clear to auscultation bilaterally cvs: tachycardic abd: bowel sounds diminished ext: + erythema in lower extremities skin: as above neuro: Awake and alert Labs/Diagnostic Data Labs/Diagnostic Data Laboratory Tests Test 08/19/24 13:49 08/19/24 05:02 08/19/24 00:00 08/18/24 21:00 Range/Units Sodium Level 137 136 136-145 mmol/L Potassium Level 4.5 3.8 3.5-5.1 mmol/L Chloride Level 105 101 98-107 mmol/L Carbon Dioxide Level 21 23 20-31 mmol/L Anion Gap 11 12 5-15 Blood Urea Nitrogen 43 H 52 H 9-23 mg/dL Creatinine 3.61 H 3.73 H 0.550-1.02 mg/dL Glomerular Filtration Rate Calc 13 12 >90 mL/min BUN/Creatinine Ratio 11.9 13.9 10.0-20.0 Serum Glucose 92 100 74-106 mg/dL Calcium Level 8.9 9.5 8.7-10.4 mg/dL Total Bilirubin 0.2 0.3 0.2-1.0 mg/dL Aspartate Amino Transferase (AST) 28 21 13-40 U/L Alanine Aminotransferase (ALT) 24 25 7-40 U/L Alkaline Phosphatase 88 103 46-116 U/L Total Protein 5.7 6.4 5.7-8.2 g/dL Albumin 3.3 3.8 3.2-4.8 g/dL Influenza Type A Antigen Negative Negative Influenza Type B Antigen Negative Negative SARS-CoV-2 Antigen (Rapid) Negative NEGATIVE White Blood Count 11.5 H 4.4-10.8 10^3/uL Red Blood Count 3.81 L 4.0-5.20 10^6/uL Hemoglobin 11.4 L 12.2-16.2 g/dL Hematocrit 34.3 L 36.0-46.0 % Mean Corpuscular Volume 90.0 80.0-100.0 fL Mean Corpuscular Hemoglobin 29.8 28.0-32.0 pg Mean Corpuscular Hemoglobin Concent 33.1 32.0-36.0 g/dL Red Cell Distribution Width 14.6 H 11.8-14.3 % Platelet Count 425 140-450 10^3/uL Mean Platelet Volume 7.6 6.9-10.8 fL Neutrophils (%) (Auto) 55.2 37.0-80.0 % Lymphocytes (%) (Auto) 30.9 10.0-50.0 % Monocytes (%) (Auto) 10.0 0.0-12.0 % Eosinophils (%) (Auto) 2.9 0.0-7.0 % Basophils (%) (Auto) 1.0 0.0-2.0 % Neutrophils # (Auto) 6.4 1.6-8.6 10 ^3/uL Lymphocytes # (Auto) 3.6 0.4-5.4 10 ^3/uL Monocytes # (Auto) 1.2 0-1.3 10 ^3/uL Eosinophils # (Auto) 0.3 0-0.8 10 ^3/uL Basophils # (Auto) 0.1 0-0.2 10 ^3/uL Nucleated Red Blood Cells 0.1 % Troponin I High Sensitivity 7 </=34 ng/L Assessment IMP: 1) hemodynamically mediated acute kidney injury, possible prerenal state 2) CKD stage III ? glomerular involvement due to prior history of lupus and vasculitis 3) generalized weakness 4) abdominal pain/ possible duodenitis REC: - We will check urine studies, serial chemistry panels - Judicious IV fluids - Agree with current plan of care, discussed kidney function results and plan with mayito. thank you for the consultation. Plan discussed with: Patient YASMEEN DIXON MD Aug 19, 2024 14:08
[2024-08-19 14:20] LABS: Band Neutrophils % (manual) 0; Basophils % (manual) 0 (0.0-2.0); Blast Cells 0; Metamyelocytes % 0; Myelocytes % 0; Promyelocytes % 0; Reactive Lymphocytes 0
[2024-08-19 14:35] LABS: Eosinophils % (manual) 3 (0-7); Lymphocytes % (manual) 21 (10.0-50.0); Monocytes % (manual) 9 (0-12); Platelet Estimate Adequate
[2024-08-19 18:13] VITALS: BP 107/57; PULSE 92; RESP 16; TEMP 98.3; O2SAT 95
[2024-08-19 18:27] VITALS: PULSE 92; RESP 16; O2SAT 95
[2024-08-19 20:00] VITALS: PULSE 86; PULSE 93; RESP 16; O2SAT 97
[2024-08-19 21:00] VITALS: BP 111/58; PULSE 83; RESP 18; TEMP 97.7; O2SAT 95
[2024-08-20] VITALS (7 sets, daily range): BP systolic 108–140; BP diastolic 48–65; PULSE 77–105; RESP 18; TEMP 97.6–99.1; O2SAT 94–97
[2024-08-20 01:42] LABS: Creatinine, Urine 76.45 mg/dL (30.0-125.0)
[2024-08-20 01:49] LABS: Urine Bacteria FEW /hpf (None Seen); Urine Blood 3+ /uL (Negative); Urine Clarity Clear (Clear); Urine Color Yellow (Yellow); Urine Hyaline Cast FEW /lpf (0 - 2); Urine Mucus FEW (None Seen); Urine Protein, UAD TRACE (Negative); Urine Specific Gravity 1.015 (1.001-1.035); Urine Urobilinogen Normal (Negative); Urine WBC 5 /hpf (0 - 5)
--- NOTE | 2024-08-20 10:18 | DVH ---
Right lower extremity venous duplex Clinical History: SWELLING RED LOWER LEG, TENDER. Comparison: US BILAT LOWER DVT on DOS: 07/26/24, US BILAT LOWER DVT on DOS: 07/16/24, US RT LOWER DVT on DOS: 09/20/23 Technique: Duplex Doppler evaluation of the deep venous system of the right lower extremity from the common femo ral vein to the popliteal vein including color Doppler and spectral/pulsed waveform analysis was perf ormed. Findings: The common femoral vein demonstrates appropriate compressibility and waveform variability. There is compressibility/patency of the great saphenous vein at the proximal thigh. The femoral vein demonstrates appropriate compressibility and waveform variability. The deep femoral vein demonstrates appropriate compressibility and waveform variability. The popliteal vein demonstrates appropriate compressibility and waveform variability. There is normal compressibility at the tibioperoneal trunk. Small superficial thrombus seen in the right greater saphenous vein. Impression: 1. Small superficial thrombus seen in the right greater saphenous vein. 2. No deep vein thrombosis
[2024-08-20] MEDS: cefTRIAXone 1GM/50ML D5W 50 ML IV SCH (10:20)
[2024-08-20 11:04] LABS: Hematocrit 32.2 % (36.0-46.0); Hemoglobin 10.6 g/dL (12.2-16.2); Mean Corpuscular Hgb Conc. 32.9 g/dL (32.0-36.0); Mean Corpuscular Volume 91.2 fL (80.0-100.0); Platelet Count (auto) 311 10^3/uL (140-450); Red Blood Cells 3.53 10^6/uL (4.0-5.20); Red Cell Distribution Width 15.3 % (11.8-14.3); White Blood Cell 6.9 10^3/uL (4.4-10.8)
[2024-08-20 11:05] LABS: Alkaline Phosphatase 89 U/L (46-116)
[2024-08-20 11:06] LABS: Alanine Aminotransferase 22 U/L (7-40); Albumin 3.3 g/dL (3.2-4.8); Anion Gap 11 (5-15); Aspartate Aminotransferase 20 U/L (13-40); BUN/Creatinine Ratio 12.8 (10.0-20.0); Band Neutrophils % (manual) 0; Basophils % (manual) 0 (0.0-2.0); Bilirubin, Total 0.2 mg/dL (0.2-1.0); Blast Cells 0; Calcium 9.2 mg/dL (8.7-10.4); Carbon Dioxide 20 mmol/L (20-31); Metamyelocytes % 0; Myelocytes % 0; Phosphorus 3.7 mg/dL (2.4-5.1); Promyelocytes % 0; Reactive Lymphocytes 0; Sodium 140 mmol/L (136-145)
[2024-08-20 11:11] LABS: Blood Urea Nitrogen 38 mg/dL (9-23); Chloride 109 mmol/L (98-107); Glucose 151 mg/dL (74-106); Total Protein 5.6 g/dL (5.7-8.2)
[2024-08-20 11:21] LABS: Eosinophils % (manual) 2 (0-7); Lymphocytes % (manual) 24 (10.0-50.0); Monocytes % (manual) 14 (0-12)
[2024-08-20 11:22] LABS: Platelet Estimate Adequate
[2024-08-20 11:27] LABS: Uric Acid 8.7 mg/dL (3.1-7.8)
[2024-08-20] MEDS ORDERED: NYSTATIN TOPICAL POWDER 15GM TOP SCH (12:00)
--- NOTE | 2024-08-20 13:08 | DVHPN2 ---
Subjective The patient is seen and examined at bedside. Complain of abdominal pain and nausea no vomiting today. Reviewed: Care Plan, H&P, Labs, Medications, Previous Orders, Radiology Changes from previous H/P or p: No Changes Eyes: No Pain, No Vision change, No Conjunctivae inflammation, No Eyelid inflammation, No Other, No Redness ENT: No Ear pain, No Ear discharge, No Nose pain, No Nose discharge, No Nose congestion, No Mouth pain, No Mouth swelling, No Throat pain, No Throat swelling, No Other Cardiovascular: No Chest Pain, No Palpitations, No Orthopnea, No Paroxysmal Noc. Dyspnea, No Edema, No Lt Headedness, No Other Respiratory: No Cough, No Dry, No Shortness of breath, No SOB with excertion, No Wheezing, No Hemoptysis, No Pleuritic Pain, No Sputum, No Other Gastrointestinal: Nausea, Vomiting, Abdominal Pain, Diarrhea; No Constipation, No Melena, No Hematochezia, No Other Genitourinary: No Dysuria, No Frequency, No Incontinence, No Hematuria, No Retention, No Other Musculoskeletal: No other, No neck pain, No shoulder pain, No arm pain, No back pain, No hand pain, No leg pain, No foot pain Skin: No Rash, No Lesions, No Jaundice, No Bruising, No Other Objective Vitals Vital Signs Date Time Temp Pulse Resp B/P (MAP) Pulse Ox O2 Delivery O2 Flow Rate FiO2 08/20/24 08:00 105 08/20/24 08:00 Room Air* 0 21 08/20/24 05:00 97.6 18 119/48 (71) 97 97.6 Intake/Output Intake and Output 08/20/24 07:00 Intake Total 2180 ml Output Total 0 ml Balance 2180 ml Intake Oral 200 ml IV Total 1980 ml Output Stool Total 0 ml # Voids 3 General Appearance: Alert, Oriented X3, Cooperative, No acute distress HEENT: Atraumatic, PERRLA, EOMI, Mucous membr. moist/pink Neck: Supple Lungs: Clear to auscultation, Normal air movement Cardiovascular: Regular rate, Normal S1, Normal S2, No murmurs, Gallops, Rubs Abdomen: Normal bowel sounds, Soft, No tenderness Neuro: Cranial nerves 3-12 NL Psych/Mental Status: Mental status NL Medications Current Medications Medications Dose Ordered Sig/Kendell Route Start Time Stop Time Status Last Admin Dose Admin Pantoprazole Sodium 40 mg DAILY IV 08/19/24 10:00 08/20/24 10:19 40 MG Ceftriaxone Sodium 50 ml @ 100 mls/hr DAILY@09 IV 08/20/24 09:00 08/20/24 10:20 100 MLS/HR Metronidazole 100 ml @ 100 mls/hr Q8HR IV 08/19/24 14:00 08/20/24 13:01 100 MLS/HR Sodium Chloride 1,000 ml @ 60 mls/hr [id number] IV 08/19/24 03:15 08/20/24 02:08 60 MLS/HR Acetaminophen/ Hydrocodone Bitart 1 tab Q4HP PRN PO 08/19/24 03:15 Ondansetron HCl 4 mg Q4HP PRN IV 08/19/24 03:15 Docusate Sodium 100 mg BIDPRN PRN PO 08/19/24 03:15 Acetaminophen 650 mg Q6HP PRN PO 08/19/24 03:15 Morphine Sulfate 2 mg Q4HPRN PRN IV 08/19/24 03:15 Nitroglycerin 0.4 mg Q5MINP PRN SL 08/19/24 03:15 Morphine Sulfate 2 mg Q30M PRN IV 08/19/24 03:15 Nystatin 1 applic PRN TOP 08/20/24 12:00 UNV Nystatin 1 applic BID TOP 08/20/24 22:00 UNV Laboratory Results Laboratory Tests 08/20/24 10:16 Chemistry Test 08/20/24 10:16 Albumin 3.3 g/dL (3.2-4.8) Calcium Level 9.2 mg/dL (8.7-10.4) Phosphorus Level 3.7 mg/dL (2.4-5.1) Total Protein 5.6 g/dL (5.7-8.2) L LFT Test 08/20/24 10:16 Alanine Aminotransferase (ALT) 22 U/L (7-40) Alkaline Phosphatase 89 U/L (46-116) Aspartate Amino Transferase (AST) 20 U/L (13-40) Total Bilirubin 0.2 mg/dL (0.2-1.0) Urinalysis Test 08/20/24 00:44 Urine Color Yellow (Yellow) Urine Clarity Clear (Clear) Urine pH 5.0 (5.0-9.0) Urine Specific [place] 1.015 (1.001-1.035) Urine Protein Trace (Negative) H Urine Ketones Negative (Negative) Urine Blood 3+ /uL (Negative) H Urine Nitrite Negative (Negative) Urine Bilirubin Negative (Negative) Urine Urobilinogen Normal mg/dL (Negative) Urine Leukocyte Esterase Negative /uL (Negative) Urine RBC 80 /hpf (0 - 4) Urine WBC 5 /hpf (0 - 5) Urine Squamous Epithelial Cells Few /hpf (<5) Urine Bacteria Few /hpf (None Seen) H Urine Hyaline Casts Few /lpf (0 - 2) Urine Mucus Few (None Seen) Urine Creatinine 76.45 mg/dL (30.0-125.0) Urine Sodium 41 mmol/L (40-220) Urine Glucose Normal mg/dL (Normal) Urine Total Protein 40.0 mg/dL (1-14) H Labs and/or images reviewed: Labs reviewed by me Assessment/Plan Assessment/Plan Duodenitis Abdominal pain Nausea and vomiting Generalized abdominal pain Projectile vomiting Acute on chronic renal failure Tinea crutis bilateral. Plan Continuing current management. Continuing with Zofran IV p.r.n. for nausea and vomiting. Continuing to monitor kidney function. Continuing ceftriaxone and Flagyl IV. Continuing Protonix Waiting for GI specialist to see the patient. Appreciate nephro input. Nystatin powder apply to groin bid prn. This medical document was created using an electronic medical record system with [employer] direct computerized dictation system. Although this document has been carefully reviewed, there may still be some phonetic and typographical errors. These areas are purely typographical due to imperfections of the software programs, and do not reflect any compromise in the patient's medical care. Plan discussed with: Patient My Orders Orders - MARIIA JEAN MD Procedure Category Date Status Time Nystatin Powder PHA 08/20/24 Logged (Mycostatin Powder) 12:00 Nystatin Powder PHA 08/20/24 Logged (Mycostatin Powder) 22:00 Date of Service: Aug 20, 2024 Billing Provider: MARIIA JEAN MD Common Visit Codes: [id number] INP/OBS CARE(HIGH) MARIIA JEAN MD Aug 20, 2024 13:08
[2024-08-20] MEDS: HYDROcodone-ACET 5/325MG TAB PO PRN (17:03)
--- NOTE | 2024-08-20 18:10 | DVHPN2 ---
Progress Note - Dictate Date Seen: Aug 20, 2024 Medical Necessity Reason Pt with a Central, PICC or Fol: Yes Subjective awake and alert vital signs Vital Sign Date Time Temp Pulse Resp B/P (MAP) Pulse Ox O2 Delivery O2 Flow Rate FiO2 08/20/24 17:00 99.1 91 18 126/58 (80) 97 99.1 08/20/24 08:00 Room Air* 0 21 Total Intake and Output 08/19/24 08/19/24 08/20/24 15:00 23:00 07:00 Intake Total 480 ml 220 ml 1480 ml Output Total 0 ml Balance 480 ml 220 ml 1480 ml medications Current Medications Medications Dose Ordered Sig/Kendell Route Start Time Stop Time Status Last Admin Dose Admin Pantoprazole Sodium 40 mg DAILY IV 08/19/24 10:00 08/20/24 10:19 40 MG Ceftriaxone Sodium 50 ml @ 100 mls/hr DAILY@09 IV 08/20/24 09:00 08/20/24 10:20 100 MLS/HR Metronidazole 100 ml @ 100 mls/hr Q8HR IV 08/19/24 14:00 08/20/24 13:01 100 MLS/HR Sodium Chloride 1,000 ml @ 60 mls/hr [id number] IV 08/19/24 03:15 08/20/24 02:08 60 MLS/HR Acetaminophen/ Hydrocodone Bitart 1 tab Q4HP PRN PO 08/19/24 03:15 08/20/24 17:03 1 TAB Ondansetron HCl 4 mg Q4HP PRN IV 08/19/24 03:15 Docusate Sodium 100 mg BIDPRN PRN PO 08/19/24 03:15 Acetaminophen 650 mg Q6HP PRN PO 08/19/24 03:15 Morphine Sulfate 2 mg Q4HPRN PRN IV 08/19/24 03:15 Nitroglycerin 0.4 mg Q5MINP PRN SL 08/19/24 03:15 Morphine Sulfate 2 mg Q30M PRN IV 08/19/24 03:15 Nystatin 1 applic BID TOP 08/20/24 22:00 objective gen: supine, nad lungs: cta cvs: no rub ext: no edema, + erythema laboratory and microbiology Laboratory Tests 08/20/24 10:16 Test 08/20/24 10:16 Range/Units Serum Glucose 151 H 74-106 mg/dL Assessment/Plan IMP: 1) hemodynamically mediated acute kidney injury, possible prerenal state 2) CKD stage III ? glomerular involvement due to prior history of lupus and vasculitis 3) generalized weakness 4) abdominal pain/ possible duodenitis REC: - ARMANDO improving with IV hydration - Encouraged oral intake with Mrs. Denny even though she currently is only on liquids - will continue to follow Plan discussed with: Patient YASMEEN DIXON MD Aug 20, 2024 18:10
[2024-08-20] MEDS: NYSTATIN TOPICAL POWDER 15GM TOP SCH (22:47)
[2024-08-21] VITALS (8 sets, daily range): BP systolic 130–146; BP diastolic 57–70; PULSE 62–96; RESP 16–18; TEMP 97.7–98; O2SAT 95–97
--- NOTE | 2024-08-21 11:41 | DVHPN2 ---
Subjective The patient is seen and examined bedside. Do nausea, no vomiting today. The patient also complained of dizzy Reviewed: Care Plan, H&P, Labs, Medications, Previous Orders, Radiology Changes from previous H/P or p: No Changes Eyes: No Pain, No Vision change, No Conjunctivae inflammation, No Eyelid inflammation, No Other, No Redness ENT: No Ear pain, No Ear discharge, No Nose pain, No Nose discharge, No Nose congestion, No Mouth pain, No Mouth swelling, No Throat pain, No Throat swelling, No Other Cardiovascular: No Chest Pain, No Palpitations, No Orthopnea, No Paroxysmal Noc. Dyspnea, No Edema, No Lt Headedness, No Other Respiratory: No Cough, No Dry, No Shortness of breath, No SOB with excertion, No Wheezing, No Hemoptysis, No Pleuritic Pain, No Sputum, No Other Gastrointestinal: Nausea, Vomiting, Abdominal Pain, Diarrhea; No Constipation, No Melena, No Hematochezia, No Other Genitourinary: No Dysuria, No Frequency, No Incontinence, No Hematuria, No Retention, No Other Musculoskeletal: No other, No neck pain, No shoulder pain, No arm pain, No back pain, No hand pain, No leg pain, No foot pain Skin: No Rash, No Lesions, No Jaundice, No Bruising, No Other Objective Vitals Vital Signs Date Time Temp Pulse Resp B/P (MAP) Pulse Ox O2 Delivery O2 Flow Rate FiO2 08/21/24 09:00 97.9 87 16 142/62 (88) 97 97.9 08/20/24 20:00 Room Air* 0 21 Intake/Output Intake and Output 08/21/24 07:00 Intake Total 2080 ml Output Total 1 ml Balance 2079 ml Intake Oral 720 ml IV Total 1360 ml Output Stool Total 1 ml # Voids 5 General Appearance: Alert, Oriented X3, Cooperative, No acute distress HEENT: Atraumatic, PERRLA, EOMI, Mucous membr. moist/pink Neck: Supple Lungs: Clear to auscultation, Normal air movement Cardiovascular: Regular rate, Normal S1, Normal S2, No murmurs, Gallops, Rubs Abdomen: Normal bowel sounds, Soft, No tenderness Neuro: Cranial nerves 3-12 NL Psych/Mental Status: Mental status NL Medications Current Medications Medications Dose Ordered Sig/Kendell Route Start Time Stop Time Status Last Admin Dose Admin Pantoprazole Sodium 40 mg DAILY IV 08/19/24 10:00 08/21/24 09:14 40 MG Ceftriaxone Sodium 50 ml @ 100 mls/hr DAILY@09 IV 08/20/24 09:00 08/21/24 09:03 100 MLS/HR Metronidazole 100 ml @ 100 mls/hr Q8HR IV 08/19/24 14:00 08/21/24 05:49 100 MLS/HR Sodium Chloride 1,000 ml @ 60 mls/hr [id number] IV 08/19/24 03:15 08/20/24 23:30 60 MLS/HR Acetaminophen/ Hydrocodone Bitart 1 tab Q4HP PRN PO 08/19/24 03:15 08/20/24 17:03 1 TAB Ondansetron HCl 4 mg Q4HP PRN IV 08/19/24 03:15 Docusate Sodium 100 mg BIDPRN PRN PO 08/19/24 03:15 Acetaminophen 650 mg Q6HP PRN PO 08/19/24 03:15 Morphine Sulfate 2 mg Q4HPRN PRN IV 08/19/24 03:15 Nitroglycerin 0.4 mg Q5MINP PRN SL 08/19/24 03:15 Morphine Sulfate 2 mg Q30M PRN IV 08/19/24 03:15 Nystatin 1 applic BID TOP 08/20/24 22:00 08/21/24 09:17 1 APPLIC Laboratory Results Laboratory Tests 08/20/24 10:16 Urinalysis Test 08/20/24 00:44 Urine Color Yellow (Yellow) Urine Clarity Clear (Clear) Urine pH 5.0 (5.0-9.0) Urine Specific [place] 1.015 (1.001-1.035) Urine Protein Trace (Negative) H Urine Ketones Negative (Negative) Urine Blood 3+ /uL (Negative) H Urine Nitrite Negative (Negative) Urine Bilirubin Negative (Negative) Urine Urobilinogen Normal mg/dL (Negative) Urine Leukocyte Esterase Negative /uL (Negative) Urine RBC 80 /hpf (0 - 4) Urine WBC 5 /hpf (0 - 5) Urine Squamous Epithelial Cells Few /hpf (<5) Urine Bacteria Few /hpf (None Seen) H Urine Hyaline Casts Few /lpf (0 - 2) Urine Mucus Few (None Seen) Urine Creatinine 76.45 mg/dL (30.0-125.0) Urine Sodium 41 mmol/L (40-220) Urine Glucose Normal mg/dL (Normal) Urine Total Protein 40.0 mg/dL (1-14) H Microbiology Microbiology Date/Time Source Procedure Growth Status 08/19/24 23:43 Nose MRSA Screen - Final Complete Labs and/or images reviewed: Labs reviewed by me Assessment/Plan Assessment/Plan Duodenitis Abdominal pain Nausea and vomiting Generalized abdominal pain Projectile vomiting Acute on chronic renal failure Tinea crutis bilateral. Plan Continuing current management. Continuing with Zofran IV p.r.n. for nausea and vomiting. Continuing to monitor kidney function. Continuing ceftriaxone and Flagyl IV. Continuing Protonix Waiting for GI specialist to see the patient. Appreciate nephro input. Nystatin powder apply to groin bid prn. This medical document was created using an electronic medical record system with [employer] computerized dictation system. Although this document has been carefully reviewed, there may still be some phonetic and typographical errors. These areas are purely typographical due to imperfections of the software programs, and do not reflect any compromise in the patient's medical care. Plan discussed with: Patient My Orders Orders - MARIIA JEAN MD Procedure Category Date Status Time Nystatin Powder PHA 08/20/24 In Process (Mycostatin Powder) 22:00 Cleanse Wound With DAX 08/20/24 In Process Wound Clean 12:00 Apply Barrier Cream DAX 08/20/24 In Process 12:00 * Dietary Consult CONS 08/20/24 Transmitted 12:00 * Gi [employer] Production Engineer CONS 08/21/24 Verified 11:40 Complete Blood Count LAB 08/22/24 Verified 05:00 Basic Metabolic Panel LAB 08/22/24 Verified 05:00 Date of Service: Aug 21, 2024 Billing Provider: MARIIA JEAN MD Common Visit Codes: [id number] INP/OBS CARE(HIGH) MARIIA JEAN MD Aug 21, 2024 11:41
--- NOTE | 2024-08-21 20:50 | DVHPN2 ---
Progress Note Date Seen: Aug 21, 2024 Medical Necessity Reason Pt with a Central, PICC or Fol: Yes Subjective Patient reports: No new complaints Review of Systems: HEENT:Normal, CVS:Normal, RESPIRATORY:Normal, GI:Normal, :Normal, MSK:Normal, NEURO:Normal Objective vital signs Vital Sign Date Time Temp Pulse Resp B/P (MAP) Pulse Ox O2 Delivery O2 Flow Rate FiO2 08/21/24 16:58 98.0 85 16 137/59 (85) 96 98.0 08/21/24 08:00 Room Air* 0 21 Total Intake and Output 08/20/24 08/20/24 08/21/24 15:00 23:00 07:00 Intake Total 200 ml 1060 ml 820 ml Output Total 1 ml Balance 200 ml 1059 ml 820 ml medications Current Medications Medications Dose Ordered Sig/Kendell Route Start Time Stop Time Status Last Admin Dose Admin Pantoprazole Sodium 40 mg DAILY IV 08/19/24 10:00 08/21/24 09:14 40 MG Ceftriaxone Sodium 50 ml @ 100 mls/hr DAILY@09 IV 08/20/24 09:00 08/21/24 09:03 100 MLS/HR Metronidazole 100 ml @ 100 mls/hr Q8HR IV 08/19/24 14:00 08/21/24 14:00 100 MLS/HR Sodium Chloride 1,000 ml @ 60 mls/hr [id number] IV 08/19/24 03:15 08/20/24 23:30 60 MLS/HR Acetaminophen/ Hydrocodone Bitart 1 tab Q4HP PRN PO 08/19/24 03:15 08/20/24 17:03 1 TAB Ondansetron HCl 4 mg Q4HP PRN IV 08/19/24 03:15 Docusate Sodium 100 mg BIDPRN PRN PO 08/19/24 03:15 Acetaminophen 650 mg Q6HP PRN PO 08/19/24 03:15 Morphine Sulfate 2 mg Q4HPRN PRN IV 08/19/24 03:15 Nitroglycerin 0.4 mg Q5MINP PRN SL 08/19/24 03:15 Morphine Sulfate 2 mg Q30M PRN IV 08/19/24 03:15 Nystatin 1 applic BID TOP 08/20/24 22:00 08/21/24 09:17 1 APPLIC Examination: GENERAL:Normal, HEENT:Normal, NECK:Normal, LUNGS:Normal, CVS:Normal, ABDOMEN:Abnormal, MSK:Normal, SKIN:Normal, NEURO:Normal, :Normal laboratory and microbiology Laboratory Tests 08/20/24 10:16 Test 08/20/24 10:16 Range/Units Serum Glucose 151 H 74-106 mg/dL Microbiology Date/Time Source Procedure Growth Status 08/19/24 23:43 Nose MRSA Screen - Final Complete Problem List/Assessment/Plan Problem List/Assessment/Plan 1) hemodynamically mediated acute kidney injury, possible prerenal state 2) 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 Monitor intake to meet 75% of her needs. Expected Outcomes/Goals: Controlled DM, gradual weight loss, healed wounds YUE TALLEY MD Aug 21, 2024 20:50
[2024-08-22] VITALS (8 sets, daily range): BP systolic 115–155; BP diastolic 61–72; PULSE 82–108; RESP 17–19; TEMP 97.6–99.4; O2SAT 91–99
[2024-08-22 06:45] LABS: Hematocrit 33.3 % (36.0-46.0); Hemoglobin 11.2 g/dL (12.2-16.2); Mean Corpuscular Hemoglobin 30.2 pg (28.0-32.0); Mean Corpuscular Hgb Conc. 33.7 g/dL (32.0-36.0); Mean Corpuscular Volume 89.7 fL (80.0-100.0); Platelet Count (auto) 287 10^3/uL (140-450); Red Blood Cells 3.71 10^6/uL (4.0-5.20); Red Cell Distribution Width 14.8 % (11.8-14.3); White Blood Cell 5.7 10^3/uL (4.4-10.8)
[2024-08-22 06:56] LABS: Calcium 9.4 mg/dL (8.7-10.4); Potassium 4.2 mmol/L (3.5-5.1)
[2024-08-22 06:57] LABS: Anion Gap 9 (5-15); Carbon Dioxide 23 mmol/L (20-31)
[2024-08-22 06:58] LABS: Band Neutrophils % (manual) 0; Basophils % (manual) 0 (0.0-2.0); Blast Cells 0; Metamyelocytes % 0; Myelocytes % 0; Promyelocytes % 0; Reactive Lymphocytes 0
[2024-08-22 07:02] LABS: BUN/Creatinine Ratio 13.8 (10.0-20.0); Glucose 99 mg/dL (74-106)
[2024-08-22 07:04] LABS: Blood Urea Nitrogen 33 mg/dL (9-23); Chloride 113 mmol/L (98-107); Sodium 145 mmol/L (136-145)
--- NOTE | 2024-08-22 07:49 | DVHINCON2 ---
Date of service: Aug 22, [address] Luke Reason for Consultation Intractable nausea vomiting History of Present Illness Patient is a 73 year old female with multiple past medical history including arthritis, UTIs, and hypertension presented to [facility] ED with complaint of abdominal pain. Patient states for the past 5 days she has been experiencing left lower quadrant abdominal pain, intermittent, nonradiating, associated bouts of nausea, vomiting, and loose nonbloody diarrhea. Patient was seen and evaluated in the ED, laboratory data shows WBC 11.5, platelets 425, sodium 136, potassium 3.8, BUN 52, creatinine 3.73, glucose 100, troponin 7. CT of the abdomen/pelvis revealing mild wall thickening of the 2nd and 3rd portion of the duodenal which is fluid-filled which could reflect duodenitis. Patient was started on IV antibiotic regimen Flagyl. On my assessment this morning, patient denies abdominal pain at this moment, no diarrhea, no nausea, no vomiting, no fever, no chills. Patient has also been seen by nephrology consult for worsening renal insufficiency Past Medical History Past Medical History Arthritis, CHF, HTN, Seizures, UTI'S, Lupus, pneumonia, morbid obesity, vasculitis chronic kidney disease stage 3 Past Surgical History Past Surgical History Appendectomy, section, Hysterectomy Family History: Diabetes mellitus G8 MOTHER Hypertension G8 MOTHER Prostate carcinoma G8 FATHER Allergies: Coded Allergies: Phenobarbital (Verified Allergy, Unknown, 09/20/23) Home Meds Active Scripts Phenazopyridine HCl (Phenazopyridine Hydrochlo) 200 Mg Tab, 200 MG PO TID for 3 Days, #9 TAB Prov:SABINO ELY SAMPLE SEWER 09/22/23 Cefdinir (Cefdinir) 300 Mg Cap, 1 CAP PO BID for 7 Days, #14 CAP Prov:SABINO ELY SAMPLE SEWER 09/22/23 Reported Medications Tramadol Hcl (Tramadol Hcl) 50 Mg Tab, 50 MG PO, TAB 09/20/23 Hydrocodone-Acetaminophen (Hydrocodone Bitartrate/AC 10-325 mg) 1 Tab Tab, 1 TAB PO, TAB 09/20/23 Duloxetine Hydrochloride (Duloxetine Hydrochloride) 30 Mg Cap, 1 CAP PO BID 09/20/23 Metoprolol Succinate (Metoprolol Succinate Er) 50 Mg Tab, 1 TAB PO DAILY 09/20/23 Pravastatin Sodium (PRAVACHOL TABLET) 20 Mg Tb, 1 TAB PO DAILY 09/20/23 Baclofen (Baclofen) 10 Mg Tab, 1 TAB PO BID 09/20/23 Vital Signs Vital Signs Date Time Temp Pulse Resp B/P (MAP) Pulse Ox O2 Delivery O2 Flow Rate FiO2 08/22/24 05:00 98.1 92 17 146/63 (90) 95 98.1 08/21/24 20:00 Room Air* 0 21 Physical Exam General Appearance: Alert, Oriented X3, Cooperative, No acute distress HEENT: Atraumatic, PERRLA, EOMI, Mucous membr. moist/pink Respiratory: Clear to auscultation, Normal air movement Cardiovascular: Regular rate, Normal S1, Normal S2, No murmurs Abdominal: Normal bowel sounds, Soft, No hepatospenomegaly, No masses, Other (Reports tenderness) Extremities: No clubbing, No cyanosis, No edema, Normal pulses, No tenderness/swelling Skin: No rashes, No breakdown, No significant lesion Neuro: Normal speech, Normal tone, Sensation intact, Cranial nerves 3-12 NL, Reflexes 2+, Other (Generalized weakness) Psych/Mental Status: Mental status NL, Mood NL Labs/Diagnostic Data Labs Test 08/22/24 05:43 08/20/24 10:16 08/20/24 00:44 08/19/24 00:00 Range/Units White Blood Count 5.7 4.4-10.8 10^3/uL Red Blood Count 3.71 L 4.0-5.20 10^6/uL Hemoglobin 11.2 L 12.2-16.2 g/dL Hematocrit 33.3 L 36.0-46.0 % Mean Corpuscular Volume 89.7 80.0-100.0 fL Mean Corpuscular Hemoglobin 30.2 28.0-32.0 pg Mean Corpuscular Hemoglobin Concent 33.7 32.0-36.0 g/dL Red Cell Distribution Width 14.8 H 11.8-14.3 % Platelet Count 287 140-450 10^3/uL Mean Platelet Volume 7.0 6.9-10.8 fL Neutrophils (%) (Auto) 37.0-80.0 % Lymphocytes (%) (Auto) 10.0-50.0 % Monocytes (%) (Auto) 0.0-12.0 % Basophils (%) (Auto) 0.0-2.0 % Neutrophils # (Auto) 1.6-8.6 10 ^3/uL Lymphocytes # (Auto) 0.4-5.4 10 ^3/uL Monocytes # (Auto) 0-1.3 10 ^3/uL Sodium Level 145 # 136-145 mmol/L Potassium Level 4.2 3.5-5.1 mmol/L Chloride Level 113 H 98-107 mmol/L Carbon Dioxide Level 23 20-31 mmol/L Anion Gap 9 5-15 Blood Urea Nitrogen 33 H 9-23 mg/dL Creatinine 2.39 H 0.550-1.02 mg/dL Glomerular Filtration Rate Calc 21 >90 mL/min BUN/Creatinine Ratio 13.8 10.0-20.0 Serum Glucose 99 74-106 mg/dL Calcium Level 9.4 8.7-10.4 mg/dL Nucleated Red Blood Cells 1.0 % Uric Acid 8.7 H 3.1-7.8 mg/dL Phosphorus Level 3.7 2.4-5.1 mg/dL Total Bilirubin 0.2 0.2-1.0 mg/dL Aspartate Amino Transferase (AST) 20 13-40 U/L Alanine Aminotransferase (ALT) 22 7-40 U/L Alkaline Phosphatase 89 46-116 U/L Total Protein 5.6 L 5.7-8.2 g/dL Albumin 3.3 3.2-4.8 g/dL Urine Color Yellow Yellow Urine Clarity Clear Clear Urine pH 5.0 5.0-9.0 Urine Specific [place] 1.015 1.001-1.035 Urine Protein Trace H Negative Urine Ketones Negative Negative Urine Blood 3+ H Negative /uL Urine Nitrite Negative Negative Urine Bilirubin Negative Negative Urine Urobilinogen Normal Negative mg/dL Urine Leukocyte Esterase Negative Negative /uL Urine RBC 80 0 - 4 /hpf Urine WBC 5 0 - 5 /hpf Urine Squamous Epithelial Cells Few <5 /hpf Urine Bacteria Few H None Seen /hpf Urine Hyaline Casts Few 0 - 2 /lpf Urine Mucus Few None Seen Urine Creatinine 76.45 30.0-125.0 mg/dL Urine Sodium 41 40-220 mmol/L Urine Glucose Normal Normal mg/dL Urine Total Protein 40.0 H 1-14 mg/dL Influenza Type A Antigen Negative Negative Influenza Type B Antigen Negative Negative SARS-CoV-2 Antigen (Rapid) Negative NEGATIVE Test 08/18/24 21:00 Range/Units Eosinophils (%) (Auto) 2.9 0.0-7.0 % Eosinophils # (Auto) 0.3 0-0.8 10 ^3/uL Basophils # (Auto) 0.1 0-0.2 10 ^3/uL Troponin I High Sensitivity 7 </=34 ng/L Microbiology Date/Time Source Procedure Growth Status 08/19/24 23:43 Nose MRSA Screen - Final Complete LE I Impression: 1. Small superficial thrombus seen in the right greater saphenous vein. 2. No deep vein thrombosis SCAN ABD PELVIS IMPRESSION: 1. Mild wall thickening of the 2nd and 3rd portion of the duodenal which is fluid-filled which could reflect duodenitis 2. Mild hepatosplenomegaly. 3. Nodular contour of the liver which could be fibrosis or cirrhosis. Correlate with clinical history and liver enzymes 4. Anemia suggested. Correlate with CBC. 5. Cholelithiasis. 6. Nonobstructing right lower pole renal calculus Problems(with codes): (1) Cholelithiasis (2) Cirrhosis (3) Nausea and vomiting (4) Abdominal pain (5) Duodenitis (6) Acute on chronic renal failure Plan/Recommendation Assessment plan Patient's nausea vomiting could be multifactorial possibly related to duodenitis and worsening renal insufficiency Patient must could also be having increasing nausea due to treatment with Flagyl Currently patient is clinically improving and her renal function is improving There was no evidence of cholecystitis based on normal liver enzymes and no gallbladder wall thickening Recommend conservative management with Protonix 40 mg IV q.12 hours Carafate suspension 1 g p.o. 4 times a day Advance diet as tolerated Discontinue Flagyl I will follow this patient If she continues to be symptomatic I will be standing by for an endoscopy DC aspirin NSAIDs for now Plan discussed with: Patient, Other (Nurse Rogelio) ALDO DUKES MD Aug 22, 2024 07:49
[2024-08-22 09:09] LABS: Eosinophils % (manual) 1 (0-7); Lymphocytes % (manual) 41 (10.0-50.0); Monocytes % (manual) 9 (0-12); Platelet Estimate Adequate
[2024-08-22] MEDS: SUCRALFATE 1 GM/10 ML ORAL SUSP PO SCH (11:30)
--- NOTE | 2024-08-22 15:40 | DVHPN2 ---
Assessment/Plan Assessment/Plan Progress note Subjective Patient is a 73 year old female with multiple past medical history including arthritis, UTIs, and hypertension presented to [facility] ED with complaint of abdominal pain. Found to have duodenitis. Seen by GI for conservative management, currently asymptomatic, dc pending PT clearance Objective Physical exam Alert, oriented x3 Speaking full sentences Obese PERRLA Clear breath sounds bilaterally S1-S2 regular rate and rhythm no murmur Abdomen soft nontender, no organomegaly Moving all four extremities Chronic venous stasis, erythema worse on R leg then L. 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 Chronic venous stasis Doubt celulitis Cirrhosis hx of TKA tinea cruris GI and renal consult appreciated Pt currently asymptomatic Deconditioning with knee pain on ceftriaxone, dc flagyl advance diet as tolerated increase to high intensity statin pending PT Replete electrolytes Diet advance as tolerated DVT prophylaxis lovenox Plan discussed with: Patient My Orders Orders - GURVINDER BURKETT MD Procedure Category Date Status Time Pt Request For Service PT 08/22/24 Logged 13:23 Date of Service: Aug 22, 2024 Billing Provider: GURVINDER BURKETT MD Common Visit Codes: [id number] INP/OBS CARE(HIGH) GURVINDER BURKETT MD Aug 22, 2024 15:40
--- NOTE | 2024-08-22 16:45 | MEDREC ---
[facility] ASP Intervention Section I [facility] Intervention: Review courses of therapy (PLEASE CONSIDER D/C ANTIBIOTIC IN ABSENCE OF BACTERIAL INFECTION) SANA WOODALL PHARMACIST Aug 22, 2024 16:45
[2024-08-22] MEDS: PANTOPRAZOLE 40 MG TAB PO SCH (17:00)
--- NOTE | 2024-08-22 21:23 | DVHPN2 ---
Progress Note Date Seen: Aug 22, 2024 Medical Necessity Reason Pt with a Central, PICC or Fol: Yes Subjective Patient reports: No new complaints Review of Systems: HEENT:Normal, CVS:Normal, RESPIRATORY:Normal, GI:Normal, :Normal, MSK:Normal, NEURO:Normal Objective vital signs Vital Sign Date Time Temp Pulse Resp B/P (MAP) Pulse Ox O2 Delivery O2 Flow Rate FiO2 08/22/24 17:00 99.4 94 18 149/72 (97) 95 99.4 08/22/24 08:00 Room Air* 0 21 Total Intake and Output 08/21/24 08/21/24 08/22/24 15:00 23:00 07:00 Intake Total 50 ml 500 ml 350 ml Output Total 600 ml Balance 50 ml 500 ml -250 ml medications Current Medications Medications Dose Ordered Sig/Kendell Route Start Time Stop Time Status Last Admin Dose Admin Ceftriaxone Sodium 50 ml @ 100 mls/hr DAILY@09 IV 08/20/24 09:00 08/22/24 09:00 100 MLS/HR Sodium Chloride 1,000 ml @ 60 mls/hr [id number] IV 08/19/24 03:15 08/22/24 14:35 60 MLS/HR Acetaminophen/ Hydrocodone Bitart 1 tab Q4HP PRN PO 08/19/24 03:15 08/20/24 17:03 1 TAB Ondansetron HCl 4 mg Q4HP PRN IV 08/19/24 03:15 Docusate Sodium 100 mg BIDPRN PRN PO 08/19/24 03:15 Acetaminophen 650 mg Q6HP PRN PO 08/19/24 03:15 Morphine Sulfate 2 mg Q4HPRN PRN IV 08/19/24 03:15 Nitroglycerin 0.4 mg Q5MINP PRN SL 08/19/24 03:15 Morphine Sulfate 2 mg Q30M PRN IV 08/19/24 03:15 Nystatin 1 applic BID TOP 08/20/24 22:00 08/22/24 10:00 1 APPLIC Pantoprazole Sodium 40 mg BID@0600,1700 PO 08/22/24 17:00 08/22/24 17:00 40 MG Sucralfate 1 gm QID@0600,1130,1700,2200 PO 08/22/24 11:30 08/22/24 17:00 1 GM laboratory and microbiology Laboratory Tests 08/22/24 05:43 Test 08/22/24 05:43 Range/Units Serum Glucose 99 74-106 mg/dL Microbiology Date/Time Source Procedure Growth Status 08/19/24 23:43 Nose MRSA Screen - Final Complete Problem List/Assessment/Plan Problem List/Assessment/Plan 1) hemodynamically mediated acute kidney injury, possible prerenal state 2) CKD stage IIIB-ig A nephropathy with GN /crescents s/p pulse steroids last admission 3) generalized weakness 4) abdominal pain/ possible duodenitis recs ivf continue better renal function no need for dialysis Plan discussed with: Patient Dietary Evaluation Review Comments: Recommend and encourage a 2gna CCHO-60 cardiac diet for good DM controll; no nutrition supplements for wound d/t her hx of kideny failure. Monitor intake to meet 75% of her needs. Expected Outcomes/Goals: Controlled DM, gradual weight loss, healed wounds YUE TALLEY MD Aug 22, 2024 21:23
[2024-08-23] VITALS (8 sets, daily range): BP systolic 136–159; BP diastolic 65–87; PULSE 83–111; RESP 18; TEMP 98.3–99.1; O2SAT 96–97
[2024-08-23 05:44] LABS: Basophils # (auto) 0.1 10 ^3/uL (0-0.2); Eosinophils # (auto) 0.1 10 ^3/uL (0-0.8); Eosinophils % (auto) 2.3 % (0.0-7.0); Hematocrit 33.1 % (36.0-46.0); Hemoglobin 10.8 g/dL (12.2-16.2); Lymphocytes # (auto) 2.5 10 ^3/uL (0.4-5.4); Lymphocytes % (auto) 38.4 % (10.0-50.0); Mean Corpuscular Hgb Conc. 32.6 g/dL (32.0-36.0); Mean Corpuscular Volume 92.1 fL (80.0-100.0); Monocytes # (auto) 0.7 10 ^3/uL (0-1.3); Monocytes % (auto) 10.5 % (0.0-12.0); Neutrophils # (auto) 3.1 10 ^3/uL (1.6-8.6); Neutrophils % (auto) 47.8 % (37.0-80.0); Nucleated Red Blood Cells % 0.1 %; Platelet Count (auto) 243 10^3/uL (140-450); Red Blood Cells 3.59 10^6/uL (4.0-5.20); Red Cell Distribution Width 15.2 % (11.8-14.3); White Blood Cell 6.5 10^3/uL (4.4-10.8)
[2024-08-23 05:55] LABS: Alanine Aminotransferase 25 U/L (7-40); Albumin 3.3 g/dL (3.2-4.8); Alkaline Phosphatase 96 U/L (46-116); Anion Gap 12 (5-15); Aspartate Aminotransferase 29 U/L (13-40); BUN/Creatinine Ratio 13.8 (10.0-20.0); Bilirubin, Total 0.3 mg/dL (0.2-1.0); Calcium 9.2 mg/dL (8.7-10.4); Carbon Dioxide 22 mmol/L (20-31); Potassium 4.3 mmol/L (3.5-5.1)
[2024-08-23 05:56] LABS: Blood Urea Nitrogen 27 mg/dL (9-23); Chloride 112 mmol/L (98-107); Glucose 111 mg/dL (74-106); Sodium 146 mmol/L (136-145); Total Protein 5.3 g/dL (5.7-8.2)
--- NOTE | 2024-08-23 13:49 | DVHPN2 ---
Progress Note - Dictate Date Seen: Aug 23, 2024 Medical Necessity Reason Pt with a Central, PICC or Fol: Yes Subjective No new complaints Patient is tolerating a cardiac diet There was no nausea vomiting Patient is incontinent of stool and had a small bowel movement and is urinating well vital signs Vital Sign Date Time Temp Pulse Resp B/P (MAP) Pulse Ox O2 Delivery O2 Flow Rate FiO2 08/23/24 13:00 98.3 102 18 143/76 (98) 96 98.3 08/23/24 08:00 Room Air* 0 21 Total Intake and Output 08/22/24 08/22/24 08/23/24 15:00 23:00 07:00 Intake Total 890 ml 600 ml Balance 890 ml 600 ml medications Current Medications Medications Dose Ordered Sig/Kendell Route Start Time Stop Time Status Last Admin Dose Admin Ceftriaxone Sodium 50 ml @ 100 mls/hr DAILY@09 IV 08/20/24 09:00 08/23/24 11:00 100 MLS/HR Sodium Chloride 1,000 ml @ 60 mls/hr [id number] IV 08/19/24 03:15 08/23/24 07:34 60 MLS/HR Acetaminophen/ Hydrocodone Bitart 1 tab Q4HP PRN PO 08/19/24 03:15 08/20/24 17:03 1 TAB Ondansetron HCl 4 mg Q4HP PRN IV 08/19/24 03:15 Acetaminophen 650 mg Q6HP PRN PO 08/19/24 03:15 Morphine Sulfate 2 mg Q4HPRN PRN IV 08/19/24 03:15 Nystatin 1 applic BID TOP 08/20/24 22:00 08/23/24 11:08 1 APPLIC Pantoprazole Sodium 40 mg BID@0600,1700 PO 08/22/24 17:00 08/23/24 05:32 40 MG Sucralfate 1 gm QID@0600,1130,1700,2200 PO 08/22/24 11:30 08/23/24 11:00 1 GM objective General Appearance: Alert, Oriented X3, Cooperative, No acute distress HEENT: Atraumatic, PERRLA, EOMI, Mucous membr. moist/pink Respiratory: Clear to auscultation, Normal air movement Cardiovascular: Regular rate, Normal S1, Normal S2, No murmurs Abdominal: Normal bowel sounds, Soft, No hepatospenomegaly, No masses, Other (Reports tenderness) Extremities: No clubbing, No cyanosis, No edema, Normal pulses, No tenderness/swelling Skin: No rashes, No breakdown, No significant lesion Neuro: Normal speech, Normal tone, Sensation intact, Cranial nerves 3-12 NL, Reflexes 2+, Other (Generalized weakness) Psych/Mental Status: Mental status NL, Mood NL laboratory and microbiology Laboratory Tests 08/23/24 05:20 Test 08/23/24 05:20 Range/Units Serum Glucose 111 H 74-106 mg/dL Problems(with codes): (1) Cirrhosis (2) Cholelithiasis (3) Acute on chronic renal failure (4) Generalized abdominal pain (5) Duodenitis (6) Abdominal pain (7) Nausea and vomiting Prognosis Plan Continue supportive care Protonix 40 mg p.o. daily Carafate 1 g p.o. twice a day Renal function is improving DC aspirin NSAIDs smoking alcohol Outpatient follow up with GI Services if clinically required Dietary Evaluation Review Comments: Recommend and encourage a 2gna CCHO-60 cardiac diet for good DM controll; no nutrition supplements for wound d/t her hx of kideny failure. Monitor intake to meet 75% of her needs. Expected Outcomes/Goals: Controlled DM, gradual weight loss, healed wounds Plan discussed with: Patient ALDO DUKES MD Aug 23, 2024 13:49
--- NOTE | 2024-08-23 16:13 | DVHPN2 ---
Assessment/Plan Assessment/Plan Progress note Subjective Patient is a 73 year old female with multiple past medical history including arthritis, UTIs, and hypertension presented to [facility] ED with complaint of abdominal pain. Found to have duodenitis. Seen by GI for conservative management, currently asymptomatic patient seen by me today PT for SNF rehab, discussed with patient who agrees. SS consult placed Objective Physical exam Alert, oriented x3 Speaking full sentences Obese PERRLA Clear breath sounds bilaterally S1-S2 regular rate and rhythm no murmur Abdomen soft nontender, no organomegaly Moving all four extremities Chronic venous stasis, erythema worse on R leg then L. 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 Chronic venous stasis Doubt celulitis Cirrhosis hx of TKA tinea cruris GI and renal consult appreciated Pt currently asymptomatic Deconditioning with knee pain on ceftriaxone, dc flagyl advance diet as tolerated increase to high intensity statin pending SNF rehab placement Replete electrolytes Diet advance as tolerated DVT prophylaxis lovenox Plan discussed with: Patient Date of Service: Aug 23, 2024 Billing Provider: GURVINDER BURKETT MD Common Visit Codes: [id number] INP/OBS CARE(HIGH) GURVINDER BURKETT MD Aug 23, 2024 16:12
--- NOTE | 2024-08-23 16:58 | DVHPN2 ---
Progress Note Date Seen: Aug 23, 2024 Medical Necessity Reason Pt with a Central, PICC or Fol: Yes Subjective Patient reports: No new complaints, Feels better Review of Systems: HEENT:Normal, CVS:Normal, RESPIRATORY:Normal, GI:Normal, :Normal, MSK:Normal, NEURO:Normal Objective vital signs Vital Sign Date Time Temp Pulse Resp B/P (MAP) Pulse Ox O2 Delivery O2 Flow Rate FiO2 08/23/24 13:00 98.3 102 18 143/76 (98) 96 98.3 08/23/24 08:00 Room Air* 0 21 Total Intake and Output 08/22/24 08/22/24 08/23/24 15:00 23:00 07:00 Intake Total 890 ml 600 ml Balance 890 ml 600 ml medications Current Medications Medications Dose Ordered Sig/Kendell Route Start Time Stop Time Status Last Admin Dose Admin Ceftriaxone Sodium 50 ml @ 100 mls/hr DAILY@09 IV 08/20/24 09:00 08/23/24 11:00 100 MLS/HR Sodium Chloride 1,000 ml @ 60 mls/hr [id number] IV 08/19/24 03:15 08/23/24 07:34 60 MLS/HR Acetaminophen/ Hydrocodone Bitart 1 tab Q4HP PRN PO 08/19/24 03:15 08/20/24 17:03 1 TAB Ondansetron HCl 4 mg Q4HP PRN IV 08/19/24 03:15 Acetaminophen 650 mg Q6HP PRN PO 08/19/24 03:15 Morphine Sulfate 2 mg Q4HPRN PRN IV 08/19/24 03:15 Nystatin 1 applic BID TOP 08/20/24 22:00 08/23/24 11:08 1 APPLIC Pantoprazole Sodium 40 mg BID@0600,1700 PO 08/22/24 17:00 08/23/24 05:32 40 MG Sucralfate 1 gm QID@0600,1130,1700,2200 PO 08/22/24 11:30 08/23/24 11:00 1 GM laboratory and microbiology Laboratory Tests 08/23/24 05:20 Test 08/23/24 05:20 Range/Units Serum Glucose 111 H 74-106 mg/dL Microbiology Date/Time Source Procedure Growth Status 08/19/24 23:43 Nose MRSA Screen - Final Complete Problem List/Assessment/Plan Problem List/Assessment/Plan 1) hemodynamically mediated acute kidney injury, possible prerenal state 2) CKD stage IIIB-ig A nephropathy with GN /crescents s/p pulse steroids last admission 3) generalized weakness 4) abdominal pain/ possible duodenitis recs ivf continue-switch to half NS better renal function no need for dialysis Plan discussed with: Patient My Orders My Orders Orders - YUE TALLEY MD Procedure Category Date Status Time 09/14 Ns PHA 08/23/24 Transmitted 17:00 Dietary Evaluation Review Comments: Recommend and encourage a 2gna CCHO-60 cardiac diet for good DM controll; no nutrition supplements for wound d/t her hx of kideny failure. Monitor intake to meet 75% of her needs. Expected Outcomes/Goals: Controlled DM, gradual weight loss, healed wounds YUE TALLEY MD Aug 23, 2024 16:58
[2024-08-23] MEDS: SOD CHL 0.45% 1,000 ML IV SCH (17:38)
[2024-08-24] VITALS (8 sets, daily range): BP systolic 131–155; BP diastolic 64–85; PULSE 4–114; RESP 17–19; TEMP 97.9–99.4; O2SAT 94–96
--- NOTE | 2024-08-24 11:43 | PEER ---
Peer to Peer Review Time DATE: 08/24/24 TIME: 11:43 Review and Recommendations: Spoke with Dr. Nash, approved for inpatient due to ARMANDO due to ATN. ARANZA ALVARENGA MD Aug 24, 2024 11:43
--- NOTE | 2024-08-24 14:14 | DVHPN2 ---
Assessment/Plan Assessment/Plan Progress note Subjective Patient is a 73 year old female with multiple past medical history including arthritis, UTIs, and hypertension presented to [facility] ED with complaint of abdominal pain. Found to have duodenitis. Seen by GI for conservative management, currently asymptomatic patient seen by me today Pending SNF placement for rehab. Reported still have pain, constant burning sensation on LLQ and back not crossing midline. Reported started after rinvoque. Patient fits risk factors to have zoster and PHN as she was immunocompromised. Had chicken pox in the past. Not sure about blisters but reported she did occasionally have rashes so she did not notice. Objective Physical exam Alert, oriented x3 Speaking full sentences Obese PERRLA Clear breath sounds bilaterally S1-S2 regular rate and rhythm no murmur Abdomen soft nontender, no organomegaly Moving all four extremities Chronic venous stasis, erythema worse on R leg then L. 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 Chronic venous stasis Doubt celulitis Cirrhosis hx of TKA tinea cruris possible PHN? deconditioning GI and renal consult appreciated Pt currently asymptomatic Deconditioning with knee pain on ceftriaxone, dc flagyl advance diet as tolerated increase to high intensity statin pending SNF rehab placement capsaicin cream on LLQ and back Replete electrolytes Diet advance as tolerated DVT prophylaxis lovenox Plan discussed with: Patient My Orders Orders - GURVINDER BURKETT MD Procedure Category Date Status Time * Security Tester CONS 08/23/24 Transmitted Consult Date of Service: Aug 24, 2024 Billing Provider: GURVINDER BURKETT MD Common Visit Codes: [id number] INP/OBS CARE(HIGH) GURVINDER BURKETT MD Aug 24, 2024 14:14
--- NOTE | 2024-08-24 16:26 | DVHPN2 ---
Progress Note Date Seen: Aug 24, 2024 Medical Necessity Reason Pt with a Central, PICC or Fol: Yes Subjective Patient reports: Other (Complains of left-sided abdominal pain in the lower quadrant and constipation) Review of Systems: HEENT:Normal, RESPIRATORY:Normal, GI:Abnormal, MSK:Normal, NEURO:Normal Objective vital signs Vital Sign Date Time Temp Pulse Resp B/P (MAP) Pulse Ox O2 Delivery O2 Flow Rate FiO2 08/24/24 11:58 97.9 101 17 131/64 (86) 95 97.9 08/24/24 08:00 Room Air* 0 21 Total Intake and Output 08/23/24 08/23/24 08/24/24 15:00 23:00 07:00 Intake Total 286 ml 1700 ml 850 ml Output Total 500 ml Balance 286 ml 1200 ml 850 ml medications Current Medications Medications Dose Ordered Sig/Kendell Route Start Time Stop Time Status Last Admin Dose Admin Ceftriaxone Sodium 50 ml @ 100 mls/hr DAILY@09 IV 08/20/24 09:00 08/24/24 09:43 100 MLS/HR Acetaminophen/ Hydrocodone Bitart 1 tab Q4HP PRN PO 08/19/24 03:15 08/24/24 09:35 1 TAB Ondansetron HCl 4 mg Q4HP PRN IV 08/19/24 03:15 Acetaminophen 650 mg Q6HP PRN PO 08/19/24 03:15 Morphine Sulfate 2 mg Q4HPRN PRN IV 08/19/24 03:15 Nystatin 1 applic BID TOP 08/20/24 22:00 08/24/24 10:28 1 APPLIC Pantoprazole Sodium 40 mg BID@0600,1700 PO 08/22/24 17:00 08/24/24 05:18 40 MG Sucralfate 1 gm QID@0600,1130,1700,2200 PO 08/22/24 11:30 08/24/24 05:18 1 GM Sodium Chloride 1,000 ml @ 75 mls/hr [id number] IV 08/23/24 17:00 08/24/24 05:22 75 MLS/HR Gabapentin 300 mg BID PO 08/24/24 22:00 Capsaicin 1 applic Q8HR TOP 08/24/24 22:00 Examination: GENERAL:Normal, HEENT:Normal, NECK:Normal, LUNGS:Normal, CVS:Normal, ABDOMEN:Abnormal, MSK:Normal, SKIN:Normal, NEURO:Normal, :Normal laboratory and microbiology Laboratory Tests 08/23/24 05:20 Test 08/23/24 05:20 Range/Units Serum Glucose 111 H 74-106 mg/dL Microbiology Date/Time Source Procedure Growth Status 08/19/24 23:43 Nose MRSA Screen - Final Complete Problem List/Assessment/Plan Problem List/Assessment/Plan 1) hemodynamically mediated acute kidney injury, possible prerenal state 2) CKD stage IIIB-ig A nephropathy with GN /crescents s/p pulse steroids last admission 3) generalized weakness 4) abdominal pain/ possible duodenitis recs Reduce IV fluid rate better renal function Monitor renal function Plan discussed with: Patient, Spouse, Other My Orders My Orders Orders - YUE TALLEY MD Procedure Category Date Status Time Basic Metabolic Panel LAB 08/25/24 Verified 05:00 Basic Metabolic Panel LAB 08/26/24 Verified 05:00 Basic Metabolic Panel LAB 08/27/24 Verified 05:00 Basic Metabolic Panel LAB 08/28/24 Verified 05:00 Basic Metabolic Panel LAB 08/29/24 Verified 05:00 Basic Metabolic Panel LAB 08/30/24 Verified 05:00 Basic Metabolic Panel LAB 08/31/24 Verified 05:00 Dietary Evaluation Review Comments: Recommend and encourage a 2gna CCHO-60 cardiac diet for good DM controll; no nutrition supplements for wound d/t her hx of kideny failure. Monitor intake to meet 75% of her needs. Expected Outcomes/Goals: Controlled DM, gradual weight loss, healed wounds YUE TALLEY MD Aug 24, 2024 16:26
[2024-08-24] MEDS: SOD CHL 0.45% 1,000 ML IV SCH (16:58)
--- NOTE | 2024-08-24 19:20 | DVHPN2 ---
Progress Note - Dictate Date Seen: Aug 24, 2024 Medical Necessity Reason Pt with a Central, PICC or Fol: Yes Subjective No new complaints Patient is tolerating a cardiac diet There was no nausea vomiting Patient is incontinent of stool and had a small bowel movement and is urinating well vital signs Vital Sign Date Time Temp Pulse Resp B/P (MAP) Pulse Ox O2 Delivery O2 Flow Rate FiO2 08/24/24 17:00 98.7 110 17 148/82 (104) 96 98.7 08/24/24 08:00 Room Air* 0 21 Total Intake and Output 08/23/24 08/23/24 08/24/24 15:00 23:00 07:00 Intake Total 286 ml 1700 ml 850 ml Output Total 500 ml Balance 286 ml 1200 ml 850 ml medications Current Medications Medications Dose Ordered Sig/Kendell Route Start Time Stop Time Status Last Admin Dose Admin Ceftriaxone Sodium 50 ml @ 100 mls/hr DAILY@09 IV 08/20/24 09:00 08/24/24 09:43 100 MLS/HR Acetaminophen/ Hydrocodone Bitart 1 tab Q4HP PRN PO 08/19/24 03:15 08/24/24 09:35 1 TAB Ondansetron HCl 4 mg Q4HP PRN IV 08/19/24 03:15 Acetaminophen 650 mg Q6HP PRN PO 08/19/24 03:15 Morphine Sulfate 2 mg Q4HPRN PRN IV 08/19/24 03:15 Nystatin 1 applic BID TOP 08/20/24 22:00 08/24/24 10:28 1 APPLIC Pantoprazole Sodium 40 mg BID@0600,1700 PO 08/22/24 17:00 08/24/24 16:57 40 MG Sucralfate 1 gm QID@0600,1130,1700,2200 PO 08/22/24 11:30 08/24/24 05:18 1 GM Gabapentin 300 mg BID PO 08/24/24 22:00 Capsaicin 1 applic Q8HR TOP 08/24/24 22:00 Sodium Chloride 1,000 ml @ 50 mls/hr Q20H IV 08/24/24 16:30 08/24/24 16:58 50 MLS/HR objective General Appearance: Alert, Oriented X3, Cooperative, No acute distress HEENT: Atraumatic, PERRLA, EOMI, Mucous membr. moist/pink Respiratory: Clear to auscultation, Normal air movement Cardiovascular: Regular rate, Normal S1, Normal S2, No murmurs Abdominal: Normal bowel sounds, Soft, No hepatospenomegaly, No masses, Other (Reports tenderness) Extremities: No clubbing, No cyanosis, No edema, Normal pulses, No tenderness/swelling Skin: No rashes, No breakdown, No significant lesion Neuro: Normal speech, Normal tone, Sensation intact, Cranial nerves 3-12 NL, Reflexes 2+, Other (Generalized weakness) Psych/Mental Status: Mental status NL, Mood NL laboratory and microbiology Laboratory Tests 08/23/24 05:20 Test 08/23/24 05:20 Range/Units Serum Glucose 111 H 74-106 mg/dL Problems(with codes): (1) Cirrhosis (2) Acute on chronic renal failure (3) Cholelithiasis (4) Generalized abdominal pain (5) Duodenitis (6) Abdominal pain (7) Nausea and vomiting Prognosis Plan Continue supportive care Protonix 40 mg p.o. daily Carafate 1 g p.o. q.h.s. Renal function is improving DC aspirin NSAIDs smoking alcohol Outpatient follow up with GI Services if clinically required Discharge planning to [facility] for rehab Dietary Evaluation Review Comments: Recommend and encourage a 2gna CCHO-60 cardiac diet for good DM controll; no nutrition supplements for wound d/t her hx of kideny failure. Monitor intake to meet 75% of her needs. Expected Outcomes/Goals: Controlled DM, gradual weight loss, healed wounds Plan discussed with: Other (None GI time) ALDO DUKES MD Aug 24, 2024 19:20
[2024-08-24] MEDS: CAPSAICIN 0.025% CREAM 60GM TOP SCH (22:00)
[2024-08-24] MEDS: GABAPENTIN 300 MG CAP PO SCH (23:22)
[2024-08-25] VITALS (7 sets, daily range): BP systolic 106–144; BP diastolic 41–76; PULSE 102–113; RESP 18–25; TEMP 98.3–99; O2SAT 94–99
[2024-08-25 07:51] LABS: Anion Gap 8 (5-15); Carbon Dioxide 23 mmol/L (20-31); Potassium 4.1 mmol/L (3.5-5.1); Sodium 143 mmol/L (136-145)
[2024-08-25 07:52] LABS: Calcium 9.4 mg/dL (8.7-10.4)
[2024-08-25 07:57] LABS: BUN/Creatinine Ratio 10.4 (10.0-20.0); Glucose 98 mg/dL (74-106)
[2024-08-25 08:00] LABS: Blood Urea Nitrogen 28 mg/dL (9-23); Chloride 112 mmol/L (98-107)
[2024-08-25] MEDS ORDERED: GABA-1250 PO (08:26)
--- NOTE | 2024-08-25 08:26 | DVHDS2 ---
Discharge Summary Date of Admission Aug 19, 2024 at 03:03 Date of Discharge: Aug 25, 2024 Labs/Diagnostic Data: Laboratory Results Test 08/25/24 06:15 08/23/24 05:20 08/22/24 05:43 08/20/24 10:16 Sodium Level 143 mmol/L (136-145) Potassium Level 4.1 mmol/L (3.5-5.1) Chloride Level 112 mmol/L (98-107) Carbon Dioxide Level 23 mmol/L (20-31) Anion Gap 8 (5-15) Blood Urea Nitrogen 28 mg/dL (9-23) Creatinine 2.69 mg/dL (0.550-1.02) Glomerular Filtration Rate Calc 18 mL/min (>90) BUN/Creatinine Ratio 10.4 (10.0-20.0) Serum Glucose 98 mg/dL (74-106) Calcium Level 9.4 mg/dL (8.7-10.4) White Blood Count 6.5 10^3/uL (4.4-10.8) Red Blood Count 3.59 10^6/uL (4.0-5.20) Hemoglobin 10.8 g/dL (12.2-16.2) Hematocrit 33.1 % (36.0-46.0) Mean Corpuscular Volume 92.1 fL (80.0-100.0) Mean Corpuscular Hemoglobin 30.0 pg (28.0-32.0) Mean Corpuscular Hemoglobin Concent 32.6 g/dL (32.0-36.0) Red Cell Distribution Width 15.2 % (11.8-14.3) Platelet Count 243 10^3/uL (140-450) Mean Platelet Volume 6.6 fL (6.9-10.8) Neutrophils (%) (Auto) 47.8 % (37.0-80.0) Lymphocytes (%) (Auto) 38.4 % (10.0-50.0) Monocytes (%) (Auto) 10.5 % (0.0-12.0) Eosinophils (%) (Auto) 2.3 % (0.0-7.0) Basophils (%) (Auto) 1.0 % (0.0-2.0) Neutrophils # (Auto) 3.1 10 ^3/uL (1.6-8.6) Lymphocytes # (Auto) 2.5 10 ^3/uL (0.4-5.4) Monocytes # (Auto) 0.7 10 ^3/uL (0-1.3) Eosinophils # (Auto) 0.1 10 ^3/uL (0-0.8) Basophils # (Auto) 0.1 10 ^3/uL (0-0.2) Nucleated Red Blood Cells 0.1 % Total Bilirubin 0.3 mg/dL (0.2-1.0) Aspartate Amino Transferase (AST) 29 U/L (13-40) Alanine Aminotransferase (ALT) 25 U/L (7-40) Alkaline Phosphatase 96 U/L (46-116) Total Protein 5.3 g/dL (5.7-8.2) Albumin 3.3 g/dL (3.2-4.8) Differential Total Cells Counted 100.0 (100) Neutrophils % (Manual) 49 (37.0-80.0) Band Neutrophils % (Manual) 0 Lymphocytes % (Manual) 41 (10.0-50.0) Monocytes % (Manual) 9 (0-12) Eosinophils % (Manual) 1 (0-7) Basophils % (Manual) 0 (0.0-2.0) Metamyelocytes % (manual) 0 Myelocytes % (Manual) 0 Promyelocytes % (Manual) 0 Blast Cells % (Manual) 0 Reactive Lymphocytes 0 Platelet Estimate Adequate Uric Acid 8.7 mg/dL (3.1-7.8) Phosphorus Level 3.7 mg/dL (2.4-5.1) Test 08/20/24 00:44 08/19/24 00:00 08/18/24 21:00 Urine Color Yellow (Yellow) Urine Clarity Clear (Clear) Urine pH 5.0 (5.0-9.0) Urine Specific [place] 1.015 (1.001-1.035) Urine Protein Trace (Negative) Urine Ketones Negative (Negative) Urine Blood 3+ /uL (Negative) Urine Nitrite Negative (Negative) Urine Bilirubin Negative (Negative) Urine Urobilinogen Normal mg/dL (Negative) Urine Leukocyte Esterase Negative /uL (Negative) Urine RBC 80 /hpf (0 - 4) Urine WBC 5 /hpf (0 - 5) Urine Squamous Epithelial Cells Few /hpf (<5) Urine Bacteria Few /hpf (None Seen) Urine Hyaline Casts Few /lpf (0 - 2) Urine Mucus Few (None Seen) Urine Creatinine 76.45 mg/dL (30.0-125.0) Urine Sodium 41 mmol/L (40-220) Urine Glucose Normal mg/dL (Normal) Urine Total Protein 40.0 mg/dL (1-14) Influenza Type A Antigen Negative (Negative) Influenza Type B Antigen Negative (Negative) SARS-CoV-2 Antigen (Rapid) Negative (NEGATIVE) Troponin I High Sensitivity 7 ng/L (</=34) Other Laboratory Tests 08/25/24 06:15 08/23/24 05:20 Brief Hx & Hospital Course: 73 yo F admitted for NVD and abdominal pain, had hx of IgA nephropathy worse by dehydration. Patient received CT and eval by nephro and GI. Symptom improves, able to tolerate oral, still have general abdominal pain, felt on the surface, burning, does not cross midline. Patient also reported difficulty walking, likely deconditioning, seen by PT and was recommended for SNF for rehab. DVT US done, patient had rash on the legs likely CVS and no DVT. stable to discharge to SNF rehab Condition at Discharge: Good Final Diagnosis/Problems List ARMANDO ATN on CKD IgA nephropathy [facility] Disposition[facility] Discharge Instruct/Medications Diet: Renal Activity: No Restrictions, As Tolerated 36 Discharge Statement: "Patient was advised to return to the ER or call 911 if any headaches, dizziness, shortness of breath, chest pain, abdominal pain, bleeding, fevers, or worsening of medical condition. Patient was counseled about treatment plan, medications, possible side effects, patientverbalized understanding. All questions were answered to the best of my ability. 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 Chronic venous stasis Doubt celulitis Cirrhosis hx of TKA tinea cruris possible PHN? deconditioning Date of Service: Aug 25, 2024 Billing Provider: GURVINDER BURKETT MD Common Visit Codes: 94936-TOS/OBS DISCH DAY >30min GURVINDER BURKETT MD Aug 25, 2024 08:26
--- NOTE | 2024-08-25 16:35 | DVHPN2 ---
Progress Note - Dictate Date Seen: Aug 25, 2024 Medical Necessity Reason Pt with a Central, PICC or Fol: Yes Subjective No new complaints Patient is tolerating a cardiac diet There was no nausea vomiting Patient is incontinent of stool and had a small bowel movement and is urinating well vital signs Vital Sign Date Time Temp Pulse Resp B/P (MAP) Pulse Ox O2 Delivery O2 Flow Rate FiO2 08/25/24 13:00 98.6 102 20 106/57 (73) 94 98.6 08/25/24 07:45 Room Air* 0 21 Total Intake and Output 08/24/24 08/24/24 08/25/24 15:00 23:00 07:00 Intake Total 50 ml 750 ml 900 ml Output Total 2 ml Balance 50 ml 750 ml 898 ml medications Current Medications Medications Dose Ordered Sig/Kendell Route Start Time Stop Time Status Last Admin Dose Admin Ceftriaxone Sodium 50 ml @ 100 mls/hr DAILY@09 IV 08/20/24 09:00 08/25/24 09:48 100 MLS/HR Acetaminophen/ Hydrocodone Bitart 1 tab Q4HP PRN PO 08/19/24 03:15 08/24/24 09:35 1 TAB Ondansetron HCl 4 mg Q4HP PRN IV 08/19/24 03:15 Acetaminophen 650 mg Q6HP PRN PO 08/19/24 03:15 Morphine Sulfate 2 mg Q4HPRN PRN IV 08/19/24 03:15 Nystatin 1 applic BID TOP 08/20/24 22:00 08/25/24 09:47 1 APPLIC Pantoprazole Sodium 40 mg BID@0600,1700 PO 08/22/24 17:00 08/25/24 05:59 40 MG Sucralfate 1 gm QID@0600,1130,1700,2200 PO 08/22/24 11:30 08/24/24 05:18 1 GM Gabapentin 300 mg BID PO 08/24/24 22:00 08/25/24 09:47 300 MG Capsaicin 1 applic Q8HR TOP 08/24/24 22:00 Sodium Chloride 1,000 ml @ 50 mls/hr Q20H IV 08/24/24 16:30 08/25/24 12:26 50 MLS/HR objective General Appearance: Alert, Oriented X3, Cooperative, No acute distress HEENT: Atraumatic, PERRLA, EOMI, Mucous membr. moist/pink Respiratory: Clear to auscultation, Normal air movement Cardiovascular: Regular rate, Normal S1, Normal S2, No murmurs Abdominal: Normal bowel sounds, Soft, No hepatospenomegaly, No masses, Other (Reports tenderness) Extremities: No clubbing, No cyanosis, No edema, Normal pulses, No tenderness/swelling Skin: No rashes, No breakdown, No significant lesion Neuro: Normal speech, Normal tone, Sensation intact, Cranial nerves 3-12 NL, Reflexes 2+, Other (Generalized weakness) Psych/Mental Status: Mental status NL, Mood NL laboratory and microbiology Laboratory Tests 08/25/24 06:15 08/23/24 05:20 Test 08/25/24 06:15 Range/Units Serum Glucose 98 74-106 mg/dL Problems(with codes): (1) Duodenitis (2) Generalized abdominal pain (3) Projectile vomiting (4) Acute on chronic renal failure (5) Cholelithiasis (6) Cirrhosis Prognosis Plan Continue supportive care Protonix 40 mg p.o. daily Carafate 1 g p.o. q.h.s. Renal function is improving DC aspirin NSAIDs smoking alcohol Outpatient follow up with GI Services if clinically required Discharge planning to [facility] for rehab Dietary Evaluation Review Comments: Recommend and encourage a 2gna CCHO-60 cardiac diet for good DM controll; no nutrition supplements for wound d/t her hx of kideny failure. Monitor intake to meet 75% of her needs. Expected Outcomes/Goals: Controlled DM, gradual weight loss, healed wounds Plan discussed with: Patient ALDO DUKES MD Aug 25, 2024 16:35
[2024-08-26 01:00] VITALS: BP 142/69; PULSE 110; RESP 21; TEMP 99.4; O2SAT 94
[2024-08-26 05:00] VITALS: BP 122/72; PULSE 111; RESP 20; TEMP 99.6; O2SAT 95
[2024-08-26 06:44] LABS: Anion Gap 11 (5-15); Calcium 8.7 mg/dL (8.7-10.4)
[2024-08-26 06:49] LABS: BUN/Creatinine Ratio 9.2 (10.0-20.0)
[2024-08-26 06:50] LABS: Blood Urea Nitrogen 27 mg/dL (9-23); Carbon Dioxide 17 mmol/L (20-31); Chloride 112 mmol/L (98-107); Glucose 107 mg/dL (74-106); Potassium 4.7 mmol/L (3.5-5.1); Sodium 140 mmol/L (136-145)
[2024-08-26 08:00] VITALS: PULSE 100; RESP 18; O2SAT 95
[2024-08-26 09:00] VITALS: BP 128/65; PULSE 113; RESP 19; TEMP 100; O2SAT 94
[2024-08-26 12:18] VITALS: BP 128/65; PULSE 113; RESP 19; TEMP 98.4; O2SAT 94
--- NOTE | 2024-08-26 13:41 | DVHPN2 ---
Assessment/Plan Assessment/Plan Progress note Subjective Patient is a 73 year old female with multiple past medical history including arthritis, UTIs, and hypertension presented to [facility] ED with complaint of abdominal pain. Found to have duodenitis. Seen by GI for conservative management, currently asymptomatic patient seen by me today pending transfer for SNF rehab see dc sum 08/25/24 Objective Physical exam Alert, oriented x3 Speaking full sentences Obese PERRLA Clear breath sounds bilaterally S1-S2 regular rate and rhythm no murmur Abdomen soft nontender, no organomegaly Moving all four extremities Chronic venous stasis, erythema worse on R leg then L. 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 Chronic venous stasis Doubt celulitis Cirrhosis hx of TKA tinea cruris possible PHN? deconditioning GI and renal consult appreciated Pt currently asymptomatic Deconditioning with knee pain on ceftriaxone, dc flagyl advance diet as tolerated increase to high intensity statin pending SNF rehab placement capsaicin cream on LLQ and back Replete electrolytes Diet advance as tolerated DVT prophylaxis lovenox Plan discussed with: Patient Date of Service: Aug 26, 2024 Billing Provider: GURVINDER BURKETT MD Common Visit Codes: 44640-VZO/OBS DISCH DAY >30min GURVINDER BURKETT MD Aug 26, 2024 13:41
--- NOTE | 2024-08-26 21:40 | DVHPN2 ---
Progress Note - Dictate Date Seen: Aug 26, 2024 (Late entryPatient seen at 9:00 a.m.) Medical Necessity Reason Pt with a Central, PICC or Fol: Yes Subjective No new complaints Patient is tolerating a cardiac diet There was no nausea vomiting vital signs Vital Sign Date Time Temp Pulse Resp B/P (MAP) Pulse Ox O2 Delivery O2 Flow Rate FiO2 08/26/24 12:18 98.4 113 19 94 08/26/24 09:00 128/65 (86) 08/26/24 08:00 Room Air* 0 21 Total Intake and Output 08/25/24 08/25/24 08/26/24 14:59 22:59 06:59 Intake Total 50 ml 1000 ml 300 ml Balance 50 ml 1000 ml 300 ml objective General Appearance: Alert, Oriented X3, Cooperative, No acute distress HEENT: Atraumatic, PERRLA, EOMI, Mucous membr. moist/pink Respiratory: Clear to auscultation, Normal air movement Cardiovascular: Regular rate, Normal S1, Normal S2, No murmurs Abdominal: Normal bowel sounds, Soft, No hepatospenomegaly, No masses, Other (Reports tenderness) Extremities: No clubbing, No cyanosis, No edema, Normal pulses, No tenderness/swelling Skin: No rashes, No breakdown, No significant lesion Neuro: Normal speech, Normal tone, Sensation intact, Cranial nerves 3-12 NL, Reflexes 2+, Other (Generalized weakness) Psych/Mental Status: Mental status NL, Mood NL laboratory and microbiology Laboratory Tests 08/26/24 05:20 08/23/24 05:20 Test 08/26/24 05:20 Range/Units Serum Glucose 107 H 74-106 mg/dL Problems(with codes): (1) Cirrhosis (2) Cholelithiasis (3) Acute on chronic renal failure (4) Duodenitis (5) Abdominal pain (6) Nausea and vomiting Prognosis Plan Continue supportive care Protonix 40 mg p.o. daily Carafate 1 g p.o. q.h.s. Renal function is improving DC aspirin NSAIDs smoking alcohol Outpatient follow up with GI Services if clinically required Discharge planning to [facility] for rehab Dietary Evaluation Review Comments: Recommend and encourage a 2gna CCHO-60 cardiac diet for good DM controll; no nutrition supplements for wound d/t her hx of kideny failure. Monitor intake to meet 75% of her needs. Expected Outcomes/Goals: Controlled DM, gradual weight loss, healed wounds Plan discussed with: Patient ALDO DUKES MD Aug 26, 2024 21:40
== END 2024-08-26 13:29 | DRG 391 ==
LOC: ER 20:29 → EDBD 20:29 → TELE 08-19 03:03 → TELE-E-ADS 08-19 03:21
PROVIDERS: ADMIT Nurse Practitioner Family; ATTEND Student in an Organized Health Care Education/Training Program
DX: K29.80 Duodenitis without bleeding (principal); N17.0 Acute kidney failure with tubular necrosis; I13.0 Hypertensive heart and chronic kidney disease with heart failure and stage 1 through stage 4 chronic kidney disease, or unspecified chronic kidney disease; R65.10 Systemic inflammatory response syndrome (SIRS) of non-infectious origin without acute organ dysfunction; B35.6 Tinea cruris; K74.60 Unspecified cirrhosis of liver; I87.8 Other specified disorders of veins; N18.32 Chronic kidney disease, stage 3b; K80.20 Calculus of gallbladder without cholecystitis without obstruction; E66.01 Morbid (severe) obesity due to excess calories; Z20.822 Contact with and (suspected) exposure to COVID-19; I50.9 Heart failure, unspecified; R16.2 Hepatomegaly with splenomegaly, not elsewhere classified; I77.6 Arteritis, unspecified; E86.0 Dehydration; G40.909 Epilepsy, unspecified, not intractable, without status epilepticus; Z88.8 Allergy status to other drugs, medicaments and biological substances; Z79.891 Long term (current) use of opiate analgesic; Z79.899 Other long term (current) drug therapy; Z90.710 Acquired absence of both cervix and uterus; Z83.3 Family history of diabetes mellitus; Z82.49 Family history of ischemic heart disease and other diseases of the circulatory system; Z68.37 Body mass index [BMI] 37.0-37.9, adult
CPT/HCPCS: 36415; 74176; 80048; 80053; 81001; 82570; 84100; 84156; 84300; 84484; 84550; 85007; 85025; 85027; 87081; 87426; 87804; 93005; 93971; 97110; 97116; 97163; 97530; G0378; J2405; J2470; J3490